=== PATIENT | male | born 1945 | race Caucasian/White ===

== ENCOUNTER 2016-09-25 09:48 | Day surgery (SDC) | payer MEDICARE ==
[2016-09-21 10:25] VITALS: BMI 25.0
[~2016-09-25 09:48] MED LIST: LACTATED RINGERS 1,000 ML IV SCH; SODIUM CHLORIDE 0.9% 1,000 ML IV SCH
[2016-09-25 10:25] LABS: Basophils % (A) 1 %; CH 31.6; CHCM 32.4; Eosinophils # (A) 0.3 k/uL (0-0.7); Eosinophils % (A) 4 %; HCT 36.7 % (39.0-53.0); HDW 2.36; HGB 11.7 gm/dL (13.0-17.5); Luc # (Auto) 0.21; Luc % (Auto) 3; Lymphocytes # (A) 1.2 k/uL (1.0-4.8); Lymphocytes % (A) 14 %; MCH 31.2 pg (25.0-35.0); MCHC 31.9 g/dL (31.0-37.0); MCV 97.8 fL (80.0-100.0); Mean Platelet Volume 7.4; Monocytes # (A) 0.7 k/uL (0-1.0); Monocytes % (A) 9 %; Neutrophils % (A) 71 %; RBC 3.75 m/uL (4.30-5.90); RDW 13.5 % (11.5-15.5); WBC 8.4 k/uL (3.8-10.6); WBC (Perox) 8.96
[2016-09-25] MEDS ORDERED: ceFAZolin 2 GM in SODIUM CHLORIDE 0.9% 100 ML IVPB STA (10:35)
[2016-09-25 10:41] LABS: Anion Gap 7 mmol/L; Blood Urea Nitrogen 17 mg/dL (9-20); Calcium 8.4 mg/dL (8.4-10.2); Carbon Dioxide 32 mmol/L (22-30); Chloride 103 mmol/L (98-107); Glucose 88 mg/dL (74-99); Non-African American GFR(MDRD) >60 (>60 ml/min/1.73 sqM); Potassium 4.9 mmol/L (3.5-5.1); Sodium 142 mmol/L (137-145)
[2016-09-25] MEDS ORDERED: FUROSEMIDE 10 MG/ML 2 ML VIAL ONE (10:49)
[2016-09-25] MEDS ORDERED: ePHEDrine 50 MG/ML 1 ML AMP ONE (10:49)
[2016-09-25] MEDS ORDERED: LIDOCAINE 1% INJ 10MG/ML (20 ML MDV) ONE (10:49)
[2016-09-25] MEDS ORDERED: MIDAZOLAM 2 MG/2 ML VIAL ONE (10:49)
[2016-09-25] MEDS ORDERED: ROCURONIUM BROMIDE 10 MG/ML 10 ML VIAL IV ONE (10:49)
[2016-09-25] MEDS ORDERED: PHENYLEPHRINE-0.9% NACL SYG 1 MG/10 ML SYRINGE ONE (10:49)
[2016-09-25] MEDS ORDERED: HEPARIN SODIUM 1,000 UNIT/ML VIAL ONE (10:49)
[2016-09-25] MEDS ORDERED: SUCCINYLCHOLINE CHLORIDE 100 MG/5 ML SYR IV ONE (10:49)
[2016-09-25] MEDS ORDERED: PROPOFOL 10 MG/ML 20 ML VIAL IV ONE (10:49)
[2016-09-25] MEDS ORDERED: fentaNYL (PF) 50 MCG/ML 2 ML AMP ONE (10:49)
[2016-09-25] MEDS ORDERED: GLYCOPYRROLATE 0.2 MG/ML 2 ML VIAL ONE (10:49)
[2016-09-25] MEDS ORDERED: HEPARIN SODIUM,PORCINE 5,000 UNIT/ML 1 ML VIAL ONE (10:49)
[2016-09-25] MEDS ORDERED: WATER FOR INJECTION, STERILE 10 ML VIAL IV ONE (10:49)
[2016-09-25] MEDS ORDERED: NEOSTIGMINE 1 MG/ML 10 ML VIAL ONE (10:49)
--- NOTE | 2016-09-25 11:28 | P.PCN ---
Preoperative Diagnosis: ICD interrogation with reprogramming. This is a preprocedure ICD interrogation with reprogramming prior to EP study The [employer] ICD was interrogated. No new arrhythmias. Atrial pacing impedance 560 ohms. RV pacing impedance 1082 ohms. Shocking impedance 84 ohms ICD was reprogrammed to VVI 40 bpm and ICD therapies turned off
[2016-09-25] MEDS ORDERED: LIDOCAINE 2% INJ 20 MG/ML SQ ONE (11:34)
[2016-09-25] MEDS ORDERED: HEPARIN SODIUM (1,000 UNIT/ML) 1,000 UNIT in SODIUM CHLORIDE 0.9% 1,000 ML IRRIGATION ONE ×3 (11:40→16:49)
[2016-09-25] MEDS ORDERED: HEPARIN SODIUM,PORCINE/D5W PMX 25,000 UNIT in DEXTROSE/WATER 1 500ML.BAG IV ONE (11:41)
[2016-09-25] MEDS ORDERED: LACTATED RINGERS 1,000 ML IV ONE (15:00)
[2016-09-25] MEDS ORDERED: PROTAMINE SULFATE 10 MG/ML 5 ML VIAL IV ONE (17:18)
[2016-09-25] MEDS ORDERED: HYDROcodone/APAP 5-325MG 1 EACH TAB PO PRN (17:23)
[2016-09-25] MEDS ORDERED: ACETAMINOPHEN TAB 325 MG TAB PO PRN (17:23)
[2016-09-25] MEDS: ACETAMINOPHEN IV (For NPO) 1,000 MG in EMPTY BAG 1 BAG IVPB ONE ×2 (17:30→17:55)
--- NOTE | 2016-09-25 17:43 | P.PCN ---
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 Successful ablation for monomorphic VT Successful mitral annulus line in the ventricle from the scar to the mitral is Thereafter diagnostic EP study did not induce any monomorphic VT Catheter manipulations prior to ablation induce clinical ventricular tachycardia very easily Following ablation catheter manipulation did not induced any clinical VT With aggressive protocol ventricular fibrillation was induced Postprocedure ICD interrogation with reprogramming Atrial pacing impedance 564 ohms, stable Ventricular pacing impedance 1087, stable Shocking impedance 74 ohms, stable Antitachycardia pacing scheme reprogrammed Base pacing VVI 40 bpm All therapies turned on Plan Continue heart failure medications and reduce amiodarone to 200 mg once daily
[2016-09-25] MEDS ORDERED: WARFARIN 2.5 MG TAB PO SCH (18:00)
--- NOTE | 2016-09-25 18:52 | PCN ---
DATE OF PROCEDURE: Mr. Prater is a 71-year-old male patient who has recurrent drug-refractory and sndkwpwyddbcziy-pkclxh-ukkmnibuaj VT with presyncope. He is brought in for VT ablation. The procedure was performed under general anesthesia. The ICD interrogation and reprogramming before the procedure as well as after the procedure were completed and are dictated separately. Intravenous antibiotics were administered. Venous and arterial sheaths were placed in the femoral veins. Diagnostic catheters were placed. Intracardiac echo catheter was placed. Mapping catheter, including the PentaRay catheter and later the mapping and ablation catheter, was placed. Sinus cycle length was 1029 ms, OH interval 176 ms, QRS 144 ms, QT 425 ms. The AH interval was 90 ms, HV interval was 44 ms. Sinus node recovery times at 500 ms was 1370 ms, AV node Wenckebach block 400 ms. Intracardiac echocardiography was performed and 3-D anatomic mapping of the left ventricle was performed. The scar was mapped. This was a large inferolateral scar extending up to the apex. The overall LV function was about 45%. At the border zone, especially septally, one could see mid-myocardial scarring. The mitral annulus was tagged. The aortic root was tagged. The papillary muscles were tagged. A PentaRay catheter was placed in the left ventricle and scar mapping was performed (voltage mapping); however, the with the slightest catheter movement the patient would repeatedly go into clinical monomorphic VT and required multiple external shocks because antitachycardia pacing would not terminate his monomorphic VT. Finally a voltage map was made and the scar was defined. This scar had 3 predominant components, one in the apex, one in the mid, and mid to base. Following that, mapping and ablation irrigated-tip catheter, contact force, was placed in the LV and mapping was performed on the entire scar and the left ventricle. Scar homogenization was performed and the 3 areas were connected. Both the lateral aspect and the inferior aspect of the inferior edge of the scar were ablated. RF ablation was also passed along the mid portion of the scar. Finally the scar was then connected to the mitral annulus. This was a long procedure. This was a fairly large scar. Good contact force and good power was used. The procedure lasted for over 6 hours. Following this, ventricular extrastimulation was performed from the left ventricle and the ventricular ERPs were 600/260/210 ms. Then ventricular extrastimulation was performed from the RV and monomorphic VT could not be induced; however, at 500/230/230 ms, ventricular fibrillation was induced and he required an external shock to defibrillate him. Following that, all catheters were removed. AngioSeal was applied in the right femoral artery successfully. Heparin was reversed. During the procedure, the patient received a total of 80 mg of IV Lasix. He tolerated the procedure well without any acute complications, and at the end of the procedure after extubation he was alert and awake, asking questions, and he was completely responsive. No motor abnormalities. RESULT: 1. Successful ablation of clinical monomorphic VT. 2. Ablation of the mitral annulus. 3. Scar homogenization of the inferolateral scar. PLAN: Reduce amiodarone to 200 mg p.o. daily. Patient appears to be on lisinopril and losartan. I will stop lisinopril and continue losartan. He will continue all other medications, including antiplatelet agents. I will also start him on Coumadin 2.5 mg p.o. daily for 3 weeks and then stop it, since this was an extensive ablation.
--- NOTE | 2016-09-25 18:55 | DS ---
DATE OF ADMISSION: 09/25/2016 DATE OF DISCHARGE: Mr. Prater is a 71-year-old male patient who underwent successful ablation for monomorphic VT, and his clinical VTs were rendered non-inducible. Since this was an extensive VT ablation with scar homogenization followed by mitral annulus line, we will treat him with Coumadin 2.5 mg p.o. daily for at least 3 weeks and then stop it thereafter. We will also reduce the dose of amiodarone to 200 mg once daily. We could only induce ventricular fibrillation at the end of the procedure with an aggressive protocol. His clinical monomorphic ventricular tachycardias could not be re-induced. He will continue all his other cardiac medications as before.
--- NOTE | 2016-09-25 18:58 | LTR ---
September 25, 2016 RE: William Prater Dear Dr. Gonzáles, As you know, Mr. William Prater has sustained monomorphic ventricular tachycardia with multiple ICD shocks. He was refractory to amiodarone as well as to antitachycardia pacing. I brought him in for VT ablation. The VT ablation went well. He had a large inferolateral scar, and successful ablation of the monomorphic ventricular tachycardia was performed. This was rendered completely non-inducible. However, with a very aggressive protocol we still can induce ventricular fibrillation, and this is probably most likely because he has a deep myocardial scar which is quite evident on intracardiac echo. But his overall LV function is actually quite reasonable, in the range of about 45%. I am making the following changes in his medications: 1. Short-term anticoagulation with Coumadin, since this was an extensive ablation in the left ventricle. Coumadin may be stopped in 3 to 4 weeks. He will continue on aspirin. 2. The dose of amiodarone will be reduced to 200 mg p.o. daily, and after 3 months the dose should be reduced to 100 mg p.o. daily. Thank you for entrusting me with the care of your patient. If you have any questions, please do not hesitate to give me a call. Sincerely, RAEANN SCHAEFER MD
[2016-09-25] MEDS: CARVEDILOL 12.5 MG TAB PO SCH (20:37)
[2016-09-25] MEDS: HYDROCORTISONE 1% CREAM 30 GM TUBE TOPICAL SCH (20:38)
[2016-09-25] MEDS ORDERED: LOSARTAN 25 MG TAB PO SCH (21:00)
[2016-09-26] MEDS: CARVEDILOL 12.5 MG TAB PO SCH (06:11)
[2016-09-26 06:55] LABS: Basophils % (A) 0 %; CH 31.3; CHCM 32.4; Eosinophils # (A) 0.1 k/uL (0-0.7); Eosinophils % (A) 2 %; HCT 31.4 % (39.0-53.0); HGB 10.3 gm/dL (13.0-17.5); Luc # (Auto) 0.19; Luc % (Auto) 2; Lymphocytes # (A) 0.8 k/uL (1.0-4.8); Lymphocytes % (A) 10 %; MCH 31.7 pg (25.0-35.0); MCHC 32.7 g/dL (31.0-37.0); MCV 97.1 fL (80.0-100.0); Mean Platelet Volume 6.8; Monocytes # (A) 0.7 k/uL (0-1.0); Monocytes % (A) 8 %; Neutrophils # (A) 6.1 k/uL (1.3-7.7); Neutrophils % (A) 77 %; RBC 3.23 m/uL (4.30-5.90); RDW 13.4 % (11.5-15.5); WBC 7.9 k/uL (3.8-10.6)
[2016-09-26 07:08] LABS: Anion Gap 7 mmol/L; Blood Urea Nitrogen 16 mg/dL (9-20); Carbon Dioxide 30 mmol/L (22-30); Chloride 101 mmol/L (98-107); Glucose 104 mg/dL (74-99); Non-African American GFR(MDRD) >60 (>60 ml/min/1.73 sqM); Potassium 3.9 mmol/L (3.5-5.1); Sodium 138 mmol/L (137-145)
[2016-09-26] MEDS ORDERED: PANTOPRAZOLE 40 MG TABLET PO SCH (07:30)
[2016-09-26] MEDS ORDERED: APIXABAN 5 MG TAB PO SCH (09:00)
[2016-09-26] MEDS ORDERED: ATORVASTATIN 40 MG TAB PO SCH (09:00)
[2016-09-26] MEDS ORDERED: ASPIRIN 81 MG CHEW PO SCH (09:00)
[2016-09-26] MEDS ORDERED: FUROSEMIDE 40 MG TAB PO SCH (09:00)
[2016-09-26] MEDS ORDERED: SPIRONOLACTONE 25 MG TAB PO SCH (09:00)
[2016-09-26] MEDS: HYDROCORTISONE 1% CREAM 30 GM TUBE TOPICAL SCH (09:55)
[2016-09-26 12:16] VITALS: RESP 18
--- NOTE | 2016-09-26 14:54 | P.DS ---
Providers Attending physician: Korey Manzo Primary care physician: [facility] Course: Patient is doing well today. I saw him early in the morning and then later in the afternoon. His groins have healed up well. No hematoma. He is ambulating in the hallways. No chest discomfort or undue shortness of breath. He is also able to lie flat in bed without any problems. 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 It'll be difficult for the patient to monitor Coumadin rate I would treat him with ELIQUIS 5 mg twice daily for one month only. In the interim he will still continue baby aspirin The dose of amiodarone is being reduced to 200 mg by mouth daily He will stop lisinopril but continue losartan. 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 Patient Condition at Discharge: Stable Plan - Discharge Summary Discharge Medication List Atorvastatin [Lipitor] 40 mg PO DAILY 06/05/16 [History] Omeprazole [PriLOSEC] 20 mg PO DAILY 06/05/16 [History] Docusate [Colace] 100 mg PO DAILY 06/07/16 [History] Aspirin 81 mg PO DAILY #1 chewable 06/09/16 [Rx] Furosemide [Lasix] 40 mg PO DAILY 07/20/16 [History] Spironolactone [Aldactone] 25 mg PO DAILY #30 tab 07/25/16 [Rx] Ascorbic Acid [Vitamin C] 500 mg PO DAILY 08/14/16 [History] Carvedilol [Coreg*] 12.5 mg PO BID 08/14/16 [History] Ipratropium-Albuterol Nebulize [Duoneb 0.5 mg-3 mg/3 ml Soln] 3 ml INHALATION TID 08/14/16 [History] Amiodarone [Cordarone] 200 mg PO DAILY #90 09/25/16 [Rx] Losartan Potassium [Cozaar] 25 mg PO BID 09/25/16 [History] Activity/Diet/Wound Care/Special Instructions: Post EP study - Ablation instructions 1. Keep access sites dry for 2 days. 2. No heavy lifting or straining for 2 days. 3. Avoid bending the hips repeatedly for 2 days. 4. You may go up and down stairs slowly Call if the following is noted 1. Bleeding, increasing swelling or pain at the access sites. 2. Increasing chest discomfort, especially upon taking a deep breath. 3. Increasing shortness of breath, at rest or with exertion. 4. Undue cough / phlegm 5. Difficulty or pain while swallowing. 6. Pain or change in color in the extremities. 7. Fever, chills, rigors. 8. Increasing headache or neurologic symptoms. 9. Dizziness, fainting, palpitations Follow-up with Dr. Wooten in 1 week Follow-up in the device clinic in 4 months
[2016-09-26 15:32] VITALS: BP 108/69; PULSE 76; TEMP 97
== END 2016-09-26 17:37 | disposition home or self-care (01) ==
LOC: CATHEP 09:48 → 6SEL 17:06 → CATHEP 09-26 17:37
PROVIDERS: ATTEND Internal Medicine Clinical Cardiac Electrophysiology
DX: I47.2 Ventricular tachycardia (principal); I25.10 Atherosclerotic heart disease of native coronary artery without angina pectoris; I10 Essential (primary) hypertension; I25.5 Ischemic cardiomyopathy; I50.9 Heart failure, unspecified; Z82.49 Family history of ischemic heart disease and other diseases of the circulatory system; I25.2 Old myocardial infarction; Z45.02 Encounter for adjustment and management of automatic implantable cardiac defibrillator; Z95.1 Presence of aortocoronary bypass graft; F17.210 Nicotine dependence, cigarettes, uncomplicated; Z79.82 Long term (current) use of aspirin; Z79.899 Other long term (current) drug therapy
CPT/HCPCS: 85347; 93662; 93654; 80048 ×2; 85025 ×2; C1894 ×2; C1769 ×4; C1730; C1760; C1731; C1893; C1759; C1732; J2001 ×2; J2250; J1644 ×3; J1940; J2710; J0690; J3010; J0131; J2370; J0330; J2704

== ENCOUNTER 2020-01-25 13:50 | Inpatient (IN) | payer MEDICARE ==
[2020-01-25] MEDS ORDERED: FUROSEMIDE 10 MG/ML 4 ML VIAL IV STA (14:34)
[2020-01-25 14:50] LABS: VBG PH 7.46 (7.31-7.41)
[2020-01-25 14:51] LABS: Basophils % (A) 0 %; Eosinophils # (A) 0.1 k/uL (0-0.7); Eosinophils % (A) 1 %; HCT 41.3 % (39.0-53.0); HGB 12.4 gm/dL (13.0-17.5); Hypochromasia Slight; Lymphocytes # (A) 0.7 k/uL (1.0-4.8); Lymphocytes % (A) 6 %; MCH 31.7 pg (25.0-35.0); MCHC 30.1 g/dL (31.0-37.0); Macrocytosis Moderate; Mean Platelet Volume 8.5; Monocytes # (A) 0.7 k/uL (0-1.0); Monocytes % (A) 6 %; Neutrophils # (A) 9.2 k/uL (1.3-7.7); Neutrophils % (A) 84 %; Platelet Count 165 k/uL (150-450); RBC 3.93 m/uL (4.30-5.90); RDW 13.9 % (11.5-15.5); WBC 10.9 k/uL (3.8-10.6)
--- NOTE | 2020-01-25 14:51 | XR ---
EXAMINATION TYPE: XR chest 1V portable DATE OF EXAM: 01/25/2020 COMPARISON: 07/20/2016 HISTORY: Chest pain TECHNIQUE: Single view FINDINGS: Heart is enlarged. There is pulmonary vascular congestion. There is a left axillary pacemak er. There are sternal wires. There is mild blunting of the costophrenic angles. There is significant pleural thickening on the left side chest wall. IMPRESSION: Congestive heart failure with pleural effusions and pulmonary interstitial edema that is worse than last exam.
[2020-01-25 14:57] LABS: INR 1.1 (<1.2); Partial Thromboplastin Time 24.4 sec (22.0-30.0)
[2020-01-25 14:59] LABS: ALT 19 U/L (4-49); AST 24 U/L (17-59); African American GFR (CKD) >90 (>60 ml/min/1.73 sqM); Albumin 3.6 g/dL (3.5-5.0); Alkaline Phosphatase 115 U/L (38-126); Blood Urea Nitrogen 27 mg/dL (9-20); Calcium 8.7 mg/dL (8.4-10.2); Chloride 89 mmol/L (98-107); Glucose 174 mg/dL (74-99); Magnesium 1.9 mg/dL (1.6-2.3); Non-African American GFR(CKD) 85 (>60 ml/min/1.73 sqM); Potassium 4.3 mmol/L (3.5-5.1); Sodium 136 mmol/L (137-145); Total Protein 7.9 g/dL (6.3-8.2)
[2020-01-25 15:06] LABS: Anion Gap 8 mmol/L; Carbon Dioxide 39 mmol/L (22-30)
--- NOTE | 2020-01-25 15:20 | ED ---
SOB HPI - General Source: patient, RN notes reviewed Mode of arrival: wheelchair Limitations: no limitations <Daniel Martinez - Last Filed: 01/25/20 15:21> <Estevan Zuñiga - Last Filed: 01/25/20 16:34> - General Chief Complaint: Shortness of Breath Stated Complaint: SOB Time Seen by Provider: 01/25/20 14:07 - History of Present Illness Initial Comments: 75-year-old male presents emergency Department chief complaint of dyspnea. Patient states her last few days she's had increased dyspnea. Patient states that he is very weak. Patient states his cough is nonproductive. Patient states she does have history of CHF. Patient states she's had increasing swelling. Patient states he cannot lay flat. He said some exertional symptoms. Patient denies any headache or dizziness no blurred vision no focal weakness. Patient states his been sweating profusely. (Daniel Martinez) - Related Data Home Medications Medication Instructions Recorded Confirmed Atorvastatin [Lipitor] 40 mg PO DAILY 06/05/16 09/25/16 Omeprazole [PriLOSEC] 20 mg PO DAILY 06/05/16 09/25/16 Docusate [Colace] 100 mg PO DAILY 06/07/16 09/25/16 Furosemide [Lasix] 40 mg PO DAILY 07/20/16 09/25/16 Ascorbic Acid [Vitamin C] 500 mg PO DAILY 08/14/16 09/25/16 Carvedilol [Coreg*] 12.5 mg PO BID 08/14/16 09/25/16 Ipratropium-Albuterol Nebulize 3 ml INHALATION TID 08/14/16 09/25/16 [Duoneb 0.5 mg-3 mg/3 ml Soln] Losartan Potassium [Cozaar] 25 mg PO BID 09/25/16 09/25/16 Previous Rx's Medication Instructions Recorded Aspirin 81 mg PO DAILY #1 chewable 06/09/16 Spironolactone [Aldactone] 25 mg PO DAILY #30 tab 07/25/16 Amiodarone [Cordarone] 200 mg PO DAILY #90 09/25/16 Apixaban [Eliquis] 5 mg PO BID #60 tablet 09/26/16 Allergies Allergy/AdvReac Type Severity Reaction Status Date / Time No Known Allergies Allergy Verified 01/25/20 13:56 Review of Systems ROS Other: All systems not noted in ROS Statement are negative. <DanielleDaniel lucio - Last Filed: 01/25/20 15:21> ROS Other: All systems not noted in ROS Statement are negative. <Estevan Zuñiga - Last Filed: 01/25/20 16:34> ROS Statement: Those systems with pertinent positive or pertinent negative responses have been documented in the HPI. Past Medical History Past Medical History: Atrial Fibrillation, GERD/Reflux, Myocardial Infarction (AL), Syncope Additional Past Medical History / Comment(s): home O2 2L at hs & prn. , See Dr Anais Marino, constipation, Last Myocardial Infarction Date:: 2011? History of Any Multi-Drug Resistant Organisms: None Reported Past Surgical History: AICD, Coronary Bypass/CABG, Ear Surgery, Heart Catheterization With Stent, Pacemaker Additional Past Surgical History / Comment(s): nasal surgery, left carotid endartectomy, triple bypass Past Anesthesia/Blood Transfusion Reactions: No Reported Reaction Date of Last Stent Placement:: unknown Type of Cardiac Device: Permanent Pacemaker, AICD Device Placement Date:: 2011? Past Psychological History: No Psychological Hx Reported Smoking Status: Current every day smoker Past Alcohol Use History: None Reported Past Drug Use History: None Reported - Past Family History Mother History Unknown: Yes Family Medical History: Cancer Additional Family Medical History / Comment(s): stomach cancer Father Family Medical History: Cancer <Daniel Martinez - Last Filed: 01/25/20 15:21> General Exam Limitations: no limitations General appearance: alert, in no apparent distress, other (Diaphoretic) Head exam: Present: atraumatic, normocephalic, normal inspection Eye exam: Present: normal appearance, PERRL, EOMI. Absent: scleral icterus, conjunctival injection, periorbital swelling ENT exam: Present: normal exam, mucous membranes moist Neck exam: Present: normal inspection, full ROM. Absent: tenderness, meningismus, lymphadenopathy Respiratory exam: Present: respiratory distress, rales, decreased breath sounds. Absent: normal lung sounds bilaterally, wheezes, rhonchi, stridor Cardiovascular Exam: Present: regular rate, normal rhythm, normal heart sounds. Absent: systolic murmur, diastolic murmur, rubs, gallop, clicks Extremities exam: Present: pedal edema Skin exam: Present: warm, dry, intact, normal color. Absent: rash <Daniel Martinez - Last Filed: 01/25/20 15:21> Course <Estevan Zuñiga - Last Filed: 01/25/20 16:34> Vital Signs 01/25/20 01/25/20 01/25/20 13:51 13:55 14:00 Temperature 97.8 F Pulse Rate 60 Respiratory 20 Rate Blood Pressure 127/72 O2 Sat by Pulse 66 L 98 97 Oximetry 01/25/20 16:04 Temperature Pulse Rate 62 Respiratory 18 Rate Blood Pressure 129/71 O2 Sat by Pulse 93 L Oximetry - Reevaluation(s) Reevaluation #1: 01/25/20 15:45 PA supervision: I personally evaluate the patient patient still complains of shortness of breath he does present with complaints of shortness of breath does demonstrate rales with pedal edema. The presentation is consistent with congestive heart failure. X-ray does confirm this the [employer] AGENT is elevated. Case is discussed with Dr. Barton the patient will be admitted 01/25/20 16:34 (Estevan Zuñiga) Medical Decision Making - Lab Data Result diagrams: 01/25/20 14:15 01/25/20 14:15 - EKG Data -: EKG Interpreted by La <Daniel Martinez - Last Filed: 01/25/20 15:21> - Lab Data Result diagrams: 01/25/20 14:15 01/25/20 14:15 <Estevan Zuñiga - Last Filed: 01/25/20 16:34> - Medical Decision Making 75-year-old male presented for dyspnea. X-ray shows evidence of pleural effusion, interstitial edema. Patient was given Lasix does have some improvem ent of symptoms. Patient will be admitted for diuresis, cardiology evaluation. (Daniel Martinez) - Lab Data Lab Results 01/25/20 01/25/20 01/25/20 Range/Units 14:15 14:15 14:15 WBC 10.9 H (3.8-10.6) k/uL RBC 3.93 L (4.30-5.90) m/uL Hgb 12.4 L (13.0-17.5) gm/dL Hct 41.3 (39.0-53.0) % MCV 105.0 H (80.0-100.0) fL MCH 31.7 (25.0-35.0) pg MCHC 30.1 L (31.0-37.0) g/dL RDW 13.9 (11.5-15.5) % Plt Count 165 (150-450) k/uL Neutrophils % 84 % Lymphocytes % 6 % Monocytes % 6 % Eosinophils % 1 % Basophils % 0 % Neutrophils # 9.2 H (1.3-7.7) k/uL Lymphocytes # 0.7 L (1.0-4.8) k/uL Monocytes # 0.7 (0-1.0) k/uL Eosinophils # 0.1 (0-0.7) k/uL Basophils # 0.0 (0-0.2) k/uL Hypochromasia Slight Macrocytosis Moderate PT 11.0 (9.0-12.0) sec INR 1.1 (<1.2) APTT 24.4 (22.0-30.0) sec VBG pH (7.31-7.41) VBG pCO2 (37-51) mmHg VBG HCO3 (24-28) mmol/L Sodium 136 L (137-145) mmol/L Potassium 4.3 (3.5-5.1) mmol/L Chloride 89 L (98-107) mmol/L Carbon Dioxide 39 H (22-30) mmol/L Anion Gap 8 mmol/L BUN 27 H (9-20) mg/dL Creatinine 0.88 (0.66-1.25) mg/dL Est GFR (CKD-EPI)AfAm >90 (>60 ml/min/1.73 sqM) Est GFR (CKD-EPI)NonAf 85 (>60 ml/min/1.73 sqM) Glucose 174 H (74-99) mg/dL Plasma Lactic Acid Stalin (0.7-2.0) mmol/L Calcium 8.7 (8.4-10.2) mg/dL Magnesium 1.9 (1.6-2.3) mg/dL Total Bilirubin 1.0 (0.2-1.3) mg/dL AST 24 (17-59) U/L ALT 19 (4-49) U/L Alkaline Phosphatase 115 (38-126) U/L Troponin I (0.000-0.034) ng/mL NT-Pro-B Natriuret Pep pg/mL Total Protein 7.9 (6.3-8.2) g/dL Albumin 3.6 (3.5-5.0) g/dL 01/25/20 01/25/20 01/25/20 Range/Units 14:15 14:15 14:15 WBC (3.8-10.6) k/uL RBC (4.30-5.90) m/uL Hgb (13.0-17.5) gm/dL Hct (39.0-53.0) % MCV (80.0-100.0) fL MCH (25.0-35.0) pg MCHC (31.0-37.0) g/dL RDW (11.5-15.5) % Plt Count (150-450) k/uL Neutrophils % % Lymphocytes % % Monocytes % % Eosinophils % % Basophils % % Neutrophils # (1.3-7.7) k/uL Lymphocytes # (1.0-4.8) k/uL Monocytes # (0-1.0) k/uL Eosinophils # (0-0.7) k/uL Basophils # (0-0.2) k/uL Hypochromasia Macrocytosis PT (9.0-12.0) sec INR (<1.2) APTT (22.0-30.0) sec VBG pH (7.31-7.41) VBG pCO2 (37-51) mmHg VBG HCO3 (24-28) mmol/L Sodium (137-145) mmol/L Potassium (3.5-5.1) mmol/L Chloride (98-107) mmol/L Carbon Dioxide (22-30) mmol/L Anion Gap mmol/L BUN (9-20) mg/dL Creatinine (0.66-1.25) mg/dL Est GFR (CKD-EPI)AfAm (>60 ml/min/1.73 sqM) Est GFR (CKD-EPI)NonAf (>60 ml/min/1.73 sqM) Glucose (74-99) mg/dL Plasma Lactic Acid Stalin 1.4 (0.7-2.0) mmol/L Calcium (8.4-10.2) mg/dL Magnesium (1.6-2.3) mg/dL Total Bilirubin (0.2-1.3) mg/dL AST (17-59) U/L ALT (4-49) U/L Alkaline Phosphatase (38-126) U/L Troponin I <0.012 (0.000-0.034) ng/mL NT-Pro-B Natriuret Pep 1530 pg/mL Total Protein (6.3-8.2) g/dL Albumin (3.5-5.0) g/dL 01/25/20 Range/Units 14:15 WBC (3.8-10.6) k/uL RBC (4.30-5.90) m/uL Hgb (13.0-17.5) gm/dL Hct (39.0-53.0) % MCV (80.0-100.0) fL MCH (25.0-35.0) pg MCHC (31.0-37.0) g/dL RDW (11.5-15.5) % Plt Count (150-450) k/uL Neutrophils % % Lymphocytes % % Monocytes % % Eosinophils % % Basophils % % Neutrophils # (1.3-7.7) k/uL Lymphocytes # (1.0-4.8) k/uL Monocytes # (0-1.0) k/uL Eosinophils # (0-0.7) k/uL Basophils # (0-0.2) k/uL Hypochromasia Macrocytosis PT (9.0-12.0) sec INR (<1.2) APTT (22.0-30.0) sec VBG pH 7.46 H (7.31-7.41) VBG pCO2 54 H (37-51) mmHg VBG HCO3 38 H (24-28) mmol/L Sodium (137-145) mmol/L Potassium (3.5-5.1) mmol/L Chloride (98-107) mmol/L Carbon Dioxide (22-30) mmol/L Anion Gap mmol/L BUN (9-20) mg/dL Creatinine (0.66-1.25) mg/dL Est GFR (CKD-EPI)AfAm (>60 ml/min/1.73 sqM) Est GFR (CKD-EPI)NonAf (>60 ml/min/1.73 sqM) Glucose (74-99) mg/dL Plasma Lactic Acid Stalin (0.7-2.0) mmol/L Calcium (8.4-10.2) mg/dL Magnesium (1.6-2.3) mg/dL Total Bilirubin (0.2-1.3) mg/dL AST (17-59) U/L ALT (4-49) U/L Alkaline Phosphatase (38-126) U/L Troponin I (0.000-0.034) ng/mL NT-Pro-B Natriuret Pep pg/mL Total Protein (6.3-8.2) g/dL Albumin (3.5-5.0) g/dL - EKG Data EKG Comments: EKG performed at 14: 04H show paced rhythm with prolonged AV conduction, rate of 68 [place] 240 QRS 122 QT/QTC 442/442 (Daniel Martinez) Disposition <Daniel Martinez - Last Filed: 01/25/20 15:21> <Estevan Zuñiga - Last Filed: 01/25/20 16:34> Clinical Impression: Acute exacerbation of CHF (congestive heart failure), Dyspnea, Hypoxia Disposition: ADMITTED IP TO THIS HOSP Condition: Serious
[2020-01-25] MEDS ORDERED: ASPIRIN 325 MG TAB PO STA (15:23)
[2020-01-25] MEDS ORDERED: IPRATROPIUM-ALBUTEROL 3 ML NEB INHALATION SCH (20:07)
[2020-01-25] MEDS ORDERED: BUDESONIDE 1 MG/2 ML NEBU INHALATION SCH (20:07)
--- NOTE | 2020-01-25 20:07 | P.HPIM ---
History of Present Illness H&P Date: 01/25/20 Chief Complaint: Short of breath History of presenting complaint: This is a 75-year-old patient of Dr. Gonzáles. Long-standing smoker. Chronic stable medical conditions include atrial fibrillation, AICD, coronary artery disease with prior bypass, on home oxygen, GERD, COPD. Last ejection fraction is 40-45%. She presents with worsening short of breath for about a week at [facility]. It has been progressively getting worse. Some edema. Weak and tired slight cough is present. Increasing swelling of lower extremity. Orthopnea. No fever no chills. Tired and rundown. Slow with given history. Review of systems: GEN.: Tired EYES: None HEENT: None NECK: None RESPIRATORY: As above CARDIOVASCULAR: Edema GASTROINTESTINAL: None GENITOURINARY: None MUSCULOSKELETAL: Some joint pains LYMPHATICS: None HEMATOLOGICAL: None PSYCHIATRY: None NEUROLOGICAL: Uses a cane Past medical history to include: Atrial fibrillation, GERD, coronary artery disease and bypass, home oxygen, AICD, CHF EF 40%, COPD Social history: Smoking a pack a day for over 35 years, uses a cane. Lives with 2 friends. Physical examination: VITAL SIGNS: 97.8, 60, 20, 12 7/72, 66% on room air GENERAL: BMI 27.1, laying in bed, tired short of breath]. EYES: Pupils equal. Conjunctiva normal. HEENT: External appearance of nose and ears normal, oral cavity grossly normal. NECK: JVD unable to assess; masses not palpable. HEART: Heart sounds irregular, edema present. LUNGS: Respiratory rate increased, and he was speaking full sentences, prolonged expiration, diminished breath sounds. ABDOMEN: Soft, nontender, liver spleen not palpable, no masses palpable. PSYCH: Tired, able to answer some questionsl. MUSCULAR skeletal: Evidence of OA NEUROLOGICAL: Cranial nerves grossly intact; no facial asymmetry, power and sensation grossly intact. LYMPHATICS: No lymph nodes palpable in the axilla and neck INVESTIGATIONS, reviewed in the clinical context: White count 10.9 hemoglobin 12.4 platelets 165 neutrophils 9.2 lymphocytes 0.7 potassium 4.3 bun 27 creatinine 0.88, proBNP 1530 EKG tracing personally reviewed by me-atrial flutter rate controlled Chest x-ray film personally reviewed by me-pulmonary edema, cardiomegaly, portable film Assessment: -Acute on chronic congestive heart failure exacerbation from systolic dysfunction EF 40-45% from underlying coronary artery disease, POA -Coronary artery disease a prior history of bypass -Acute COPD exacerbation and an current smoker, POA -Chronic nicotine dependence patient cigarette smoker -Persistent atrial fibrillation -Chronic hypoxic respiratory failure from a lying COPD -Acute hypoxic respiratory failure from COPD and CHF, POA Plan: Start the patient on IV Lasix 40 mg every 8. Home medications resumed. Order 2-D echocardiogram. And IV Solu-Medrol, bronchodilator, inhaled steroids. Home medications resumed. Nicotine patch. Oxygen supplementation. Cartilages consulted. Past Medical History Past Medical History: Atrial Fibrillation, GERD/Reflux, Myocardial Infarction (RI), Syncope Additional Past Medical History / Comment(s): home O2 2L at hs & prn. , See Dr Anais Yates & Anjelica, constipation, Last Myocardial Infarction Date:: 2011? History of Any Multi-Drug Resistant Organisms: None Reported Past Surgical History: AICD, Coronary Bypass/CABG, Ear Surgery, Heart Catheterization With Stent, Pacemaker Additional Past Surgical History / Comment(s): nasal surgery, left carotid endartectomy, triple bypass Past Anesthesia/Blood Transfusion Reactions: No Reported Reaction Date of Last Stent Placement:: unknown Type of Cardiac Device: Permanent Pacemaker, AICD Device Placement Date:: 2011? Past Psychological History: No Psychological Hx Reported Smoking Status: Current every day smoker Past Alcohol Use History: None Reported Additional Past Alcohol Use History / Comment(s): smokes 1ppd for past 30+ years,. Currently smoking < 1/2 PPD currently Past Drug Use History: None Reported - Past Family History Mother History Unknown: Yes Family Medical History: Cancer Additional Family Medical History / Comment(s): stomach cancer Father Family Medical History: Cancer Medications and Allergies Home Medications Medication Instructions Recorded Confirmed Type Omeprazole [PriLOSEC] 20 mg PO DAILY 06/05/16 01/25/20 History Aspirin 81 mg PO DAILY #1 chewable 06/09/16 01/25/20 Rx Furosemide [Lasix] 40 mg PO DAILY 07/20/16 01/25/20 History Spironolactone [Aldactone] 25 mg PO DAILY #30 tab 07/25/16 01/25/20 Rx Carvedilol [Coreg*] 12.5 mg PO BID 12/05/16 05/17/20 History Amiodarone [Cordarone] 200 mg PO DAILY #90 09/25/16 01/25/20 Rx Atorvastatin [Lipitor] 80 mg PO DAILY 01/25/20 01/25/20 History Allergies Allergy/AdvReac Type Severity Reaction Status Date / Time No Known Allergies Allergy Verified 01/25/20 17:30 Physical Exam Vitals: Vital Signs Temp Pulse Pulse Resp BP BP Pulse Ox 01/25/20 17:45 97.8 F 60 20 138/74 93 L 01/25/20 17:18 98.0 F 60 18 114/61 93 L 01/25/20 16:04 62 18 129/71 93 L 01/25/20 14:00 97 01/25/20 13:55 98 01/25/20 13:51 97.8 F 60 20 127/72 66 L Intake and Output 01/25/20 01/25/20 01/25/20 06:59 14:59 22:59 Output Total 300 Balance -300 Output: Urine 300 Other: Voiding Method Diaper Weight 73.482 kg 76.3 kg Results CBC & Chem 7: 01/25/20 14:15 01/25/20 14:15 Labs: Abnormal Lab Results - Last 24 Hours (Table) 01/25/20 01/25/20 01/25/20 Range/Units 14:15 14:15 14:15 WBC 10.9 H (3.8-10.6) k/uL RBC 3.93 L (4.30-5.90) m/uL Hgb 12.4 L (13.0-17.5) gm/dL MCV 105.0 H (80.0-100.0) fL MCHC 30.1 L (31.0-37.0) g/dL Neutrophils # 9.2 H (1.3-7.7) k/uL Lymphocytes # 0.7 L (1.0-4.8) k/uL VBG pH 7.46 H (7.31-7.41) VBG pCO2 54 H (37-51) mmHg VBG HCO3 38 H (24-28) mmol/L Sodium 136 L (137-145) mmol/L Chloride 89 L (98-107) mmol/L Carbon Dioxide 39 H (22-30) mmol/L BUN 27 H (9-20) mg/dL Glucose 174 H (74-99) mg/dL Thrombosis Risk Factor Assmnt - Choose All That Apply Each Factor Represents 1 point: Acute RI, Heart failure (<1month) Other Risk Factors: Yes Each Risk Factor Represents 2 Points: Age 61-74 years Thrombosis Risk Factor Assessment Total Risk Factor Score: 4 Thrombosis Risk Factor Assessment Level: Moderate Risk
[2020-01-25] MEDS ORDERED: ENOXAPARIN 40 MG/0.4 ML SYRINGE SQ SCH (20:15)
[2020-01-25] MEDS ORDERED: ALBUTEROL HFA INHALER INHALATION SCH (21:00)
[2020-01-25] MEDS ORDERED: FLUTICASONE 220 MCG INHALER INHALATION SCH (21:00)
[2020-01-25] MEDS: CARVEDILOL 12.5 MG TAB PO SCH (21:02)
[2020-01-25] MEDS: NICOTINE 21MG/24HR PATCH TRANSDERM SCH (21:03)
[2020-01-25 23:59] LABS: Glucose,Whole Blood 154 mg/dL (75-99)
[2020-01-26 00:04] LABS: Allen Test Performed? Yes
--- NOTE | 2020-01-26 00:23 | XR ---
EXAMINATION TYPE: XR chest 1V portable DATE OF EXAM: 01/26/2020 COMPARISON: 01/25/2020 HISTORY: Short of breath TECHNIQUE: FINDINGS: Heart is enlarged. There is pulmonary edema. There is left axillary pacemaker. There are st ernal wires. There is some blunting of the costophrenic angles. IMPRESSION: Congestive heart failure with pulmonary edema and pleural fluid not significantly differe nt than exam yesterday.
[2020-01-26] MEDS ORDERED: FUROSEMIDE 10 MG/ML 4 ML VIAL IV STA (00:26)
[2020-01-26 00:35] LABS: Basophils # (A) 0.1 k/uL (0-0.2); Basophils % (A) 1 %; Eosinophils # (A) 0.1 k/uL (0-0.7); Eosinophils % (A) 1 %; HCT 42.7 % (39.0-53.0); HGB 12.9 gm/dL (13.0-17.5); Hypochromasia Marked; Lymphocytes # (A) 0.6 k/uL (1.0-4.8); Lymphocytes % (A) 5 %; MCH 32.1 pg (25.0-35.0); MCHC 30.2 g/dL (31.0-37.0); MCV 106.5 fL (80.0-100.0); Macrocytosis Moderate; Mean Platelet Volume 8.5; Monocytes % (A) 8 %; Neutrophils # (A) 10.7 k/uL (1.3-7.7); Neutrophils % (A) 84 %; Platelet Count 205 k/uL (150-450); RBC 4.01 m/uL (4.30-5.90); RDW 13.7 % (11.5-15.5); WBC 12.7 k/uL (3.8-10.6)
[2020-01-26 00:36] LABS: INR 1.2 (<1.2); Prothrombin Time 11.9 sec (9.0-12.0)
[2020-01-26 00:59] LABS: African American GFR (CKD) >90 (>60 ml/min/1.73 sqM); Blood Urea Nitrogen 32 mg/dL (9-20); Calcium 8.8 mg/dL (8.4-10.2); Chloride 88 mmol/L (98-107); Glucose 154 mg/dL (74-99); Non-African American GFR(CKD) 85 (>60 ml/min/1.73 sqM); Sodium 137 mmol/L (137-145)
[2020-01-26 01:05] LABS: Anion Gap 8 mmol/L
[2020-01-26 01:16] LABS: ABG PO2 71 mmHg (83-108); Allen Test Performed? Yes
[2020-01-26 01:21] LABS: ABG PCO2 >120 mmHg (35-45); ABG PH 7.12 (7.35-7.45)
[2020-01-26 01:33] LABS: Magnesium 1.8 mg/dL (1.6-2.3); Potassium 4.8 mmol/L (3.5-5.1)
[2020-01-26 01:34] LABS: Carbon Dioxide 41 mmol/L (22-30)
[2020-01-26 01:35] LABS: ABG PH 7.11 (7.35-7.45); ABG PO2 82 mmHg (83-108)
[2020-01-26] MEDS ORDERED: PROPOFOL 100 ML IV ONE (01:52)
[2020-01-26] MEDS ORDERED: NALOXONE 0.4 MG/ML 1 ML VIAL IV PRN (01:57)
[2020-01-26] MEDS ORDERED: FUROSEMIDE 10 MG/ML 4 ML VIAL IV SCH ×2 (02:00)
[2020-01-26 02:09] LABS: Glucose,Whole Blood 140 mg/dL (75-99)
[2020-01-26] MEDS ORDERED: NOREPINEPHRIN 4 MG-0.9% NS PMX 4 MG/250 ML ML IV ONE (02:20)
[2020-01-26] MEDS: PROPOFOL 1,000 MG in EMPTY BAG 1 BAG IV SCH ×5 (02:20→20:46)
[2020-01-26] MEDS ORDERED: NOREPINEPHRINE 4 MG in SODIUM CHLORIDE 0.9% 250 ML IV SCH (02:30)
--- NOTE | 2020-01-26 02:49 | XR ---
EXAMINATION TYPE: XR chest 1V portable DATE OF EXAM: 01/26/2020 COMPARISON: Yesterday HISTORY: Respiratory failure TECHNIQUE: Single view FINDINGS: Endotracheal tube is 3 cm from the slick. There is nasogastric tube in the stomach. Heart is enlarged. There is pulmonary edema. There is left pleural effusion and pleural thickening on the l eft lateral chest wall. There is a left axillary pacemaker. IMPRESSION: Pulmonary interstitial edema slightly improved compared to exam 2 hours ago. Left pleural effusion and thickening and left lower lobe consolidation unchanged.
[2020-01-26 04:27] LABS: Basophils % (A) 0 %; Eosinophils # (A) 0.1 k/uL (0-0.7); Eosinophils % (A) 1 %; HCT 38.2 % (39.0-53.0); HGB 12.2 gm/dL (13.0-17.5); Hypochromasia Moderate; Lymphocytes # (A) 0.8 k/uL (1.0-4.8); Lymphocytes % (A) 6 %; MCH 34.1 pg (25.0-35.0); MCV 106.5 fL (80.0-100.0); Macrocytosis Moderate; Mean Platelet Volume 8.7; Monocytes # (A) 1.1 k/uL (0-1.0); Monocytes % (A) 8 %; Neutrophils # (A) 10.8 k/uL (1.3-7.7); Neutrophils % (A) 83 %; Platelet Count 139 k/uL (150-450); RBC 3.59 m/uL (4.30-5.90); RDW 13.5 % (11.5-15.5); WBC 13.1 k/uL (3.8-10.6)
[2020-01-26 04:49] LABS: Calcium 8.8 mg/dL (8.4-10.2); Potassium 4.9 mmol/L (3.5-5.1)
[2020-01-26] MEDS ORDERED: Magnesium Replacement Protocol 1 EACH MISC MISCELLANE PRN (05:03)
[2020-01-26 05:11] LABS: ABG Base Excess 22.4 mmol/L; ABG Oxygen Saturation 86.8 % (94-97); ABG PCO2 63 mmHg (35-45); ABG PH 7.47 (7.35-7.45); ABG TCO2 48 mmol/L (19-24); Allen Test Performed? Yes
[2020-01-26 05:15] LABS: ABG HCO3 46 mmol/L (21-25); ABG PO2 47 mmHg (83-108)
[2020-01-26] MEDS: MAGNESIUM SULFATE-D5W PMX 1 GM in DEXTROSE/WATER 1 100ML.BAG IVPB SCH ×2 (05:26→06:25)
[2020-01-26 05:31] LABS: Glucose,Whole Blood 93 mg/dL (75-99)
[2020-01-26 07:23] LABS: ABG Base Excess 23.2 mmol/L; ABG Oxygen Saturation 86.7 % (94-97); ABG PCO2 45 mmHg (35-45); ABG TCO2 46 mmol/L (19-24); Allen Test Performed? Yes
[2020-01-26 07:25] LABS: ABG PO2 43 mmHg (83-108)
[2020-01-26 07:26] LABS: ABG HCO3 45 mmol/L (21-25)
[2020-01-26] MEDS ORDERED: PANTOPRAZOLE 40 MG TABLET PO SCH (07:30)
[2020-01-26] MEDS ORDERED: TIOTROPIUM 18 MCG/PUFF INHALER INHALATION SCH (08:00)
[2020-01-26] MEDS ORDERED: HEPARIN SODIUM,PORCINE 5,000 UNIT/ML 1 ML VIAL IV PRN (08:19)
[2020-01-26] MEDS ORDERED: HEPARIN SODIUM,PORCINE 5,000 UNIT/ML 1 ML VIAL IV ONE (08:19)
[2020-01-26] MEDS: BUDESONIDE 0.5 MG/2 ML NEBU INHALATION SCH ×2 (08:23→19:32)
[2020-01-26] MEDS: IPRATROPIUM-ALBUTEROL 3 ML NEB INHALATION SCH ×4 (08:23→19:32)
--- NOTE | 2020-01-26 08:40 | XR ---
EXAMINATION TYPE: XR chest 1V portable DATE OF EXAM: 01/26/2020 COMPARISON: NONE HISTORY: SOB, Follow Up FINDINGS: Indwelling tubes and catheters are unchanged. Increasing airspace infiltrates throughout both lung dodson. Stable appearance of the cardio-mediastinal structures at this time. Pleural effusion unchanged. IMPRESSION: 1. Increasing airspace infiltrates throughout both lung dodson.Clinical correlation and follow up un til resolution is recommended.
[2020-01-26] MEDS: HEPARIN SOD,PORK IN 0.45% NACL 25,000 UNIT in 0.45% NACL 1 250ML.BAG IV SCH (08:42)
[2020-01-26] MEDS: NICOTINE 21MG/24HR PATCH TRANSDERM SCH (08:43)
[2020-01-26] MEDS: CHLORHEXIDINE GLUCONATE 15 ML CUP MUCOUS MEM SCH ×2 (08:43→20:36)
[2020-01-26] MEDS: PANTOPRAZOLE 40 MG/10 ML VIAL IV SCH (08:43)
[2020-01-26] MEDS: ATORVASTATIN 80 MG TAB PO SCH (08:44)
[2020-01-26] MEDS: AMIODARONE 200 MG TAB PO SCH (08:44)
[2020-01-26] MEDS: ASPIRIN 81 MG PO SCH (08:44)
[2020-01-26 08:47] LABS: Basophils % (A) 0 %; Eosinophils # (A) 0.1 k/uL (0-0.7); Eosinophils % (A) 1 %; HCT 39.2 % (39.0-53.0); HGB 12.4 gm/dL (13.0-17.5); Hypochromasia Slight; Lymphocytes # (A) 0.5 k/uL (1.0-4.8); Lymphocytes % (A) 5 %; MCH 33.3 pg (25.0-35.0); MCHC 31.6 g/dL (31.0-37.0); MCV 105.7 fL (80.0-100.0); Macrocytosis Moderate; Mean Platelet Volume 8.5; Monocytes # (A) 0.6 k/uL (0-1.0); Monocytes % (A) 7 %; Neutrophils # (A) 7.7 k/uL (1.3-7.7); Neutrophils % (A) 85 %; Platelet Count 132 k/uL (150-450); RBC 3.71 m/uL (4.30-5.90); RDW 13.6 % (11.5-15.5)
[2020-01-26] MEDS: PIPERACILLIN-TAZOBACTAM 3.375 GM in SODIUM CHLORIDE 0.9% 100 ML IVPB SCH ×3 (08:48→23:29)
[2020-01-26] MEDS: methylPREDNISolone SOD SUCCI 125 MG/2 ML VIAL IV SCH ×4 (08:48→23:29)
[2020-01-26 08:55] LABS: C Reactive Protein 60.5 mg/L (<10.0)
[2020-01-26] MEDS: FUROSEMIDE 100 MG in SODIUM CHLORIDE 0.9% 90 ML IV SCH ×2 (08:58→18:03)
[2020-01-26] MEDS ORDERED: SPIRONOLACTONE 25 MG TAB PO SCH (09:00)
[2020-01-26] MEDS ORDERED: ASPIRIN 325 MG TAB PO SCH (09:00)
[2020-01-26 09:03] LABS: ABG Base Excess 23.2 mmol/L; ABG Oxygen Saturation 96.7 % (94-97); ABG PCO2 38 mmHg (35-45); ABG PO2 93 mmHg (83-108); ABG TCO2 45 mmol/L (19-24); Allen Test Performed? Yes
[2020-01-26 09:06] LABS: ABG HCO3 44 mmol/L (21-25); ABG PH 7.67 (7.35-7.45)
[2020-01-26 09:07] LABS: D-Dimer 0.79 mg/L FEU (<0.60); INR 1.1 (<1.2)
[2020-01-26 10:18] LABS: Appearance,Urine Cloudy (Clear); Bacteria,Urine Rare /hpf; Bilirubin,Urine Negative (Negative); Blood,Urine Moderate (Negative); Color,Urine Yellow; Glucose,Urine (UA) Negative (Negative); Hyaline Casts,Urine 6 /lpf (0-2); Ketones,Urine Trace (Negative); Leukocyte Esterase,Urine Small (Negative); Mucus,Urine Rare /hpf; Nitrite,Urine Negative (Negative); Protein,Urine Negative (Negative); RBC,Urine 80 /hpf (0-5); Specific Gravity,Urine 1.015 (1.001-1.035); Squamous Epithelial Cell,Urine <1 /hpf (0-4); Urobilinogen,Urine <2.0 mg/dL (<2.0); WBC,Urine 8 /hpf (0-5)
[2020-01-26] MEDS: CARVEDILOL 12.5 MG TAB PO SCH ×2 (10:30→20:36)
[2020-01-26 11:52] LABS: Glucose,Whole Blood 100 mg/dL (75-99)
--- NOTE | 2020-01-26 11:57 | ECHOF ---
Referral Reason:chf/lvf MEASUREMENTS -------- HEIGHT: 167.6 cm WEIGHT: 76.2 kg BP: 92/61 RVIDd: 2.1 cm (< 3.3) IVSd: 1.2 cm (0.6 - 1.1) LVIDd: 5.2 cm (3.9 - 5.3) LVPWd: 1.1 cm (0.6 - 1.1) IVSs: 1.9 cm LVIDs: 4.6 cm LVPWs: 1.0 cm IVSd: 0.9 cm (0.6 - 1.1) LVIDd: 4.6 cm (3.9 - 5.3) LVPWd: 0.9 cm (0.6 - 1.1) IVSs: 1.2 cm LVIDs: 3.7 cm LVPWs: 1.4 cm EDV(Teich): 97 ml ESV(Teich): 59 ml EF(Teich): 39 % %FS: 19 % SV(Teich): 38 ml Ao Diam: 2.8 cm (2.0 - 3.7) AV Cusp: 2.1 cm (1.5 - 2.6) LA Diam: 3.4 cm (2.7 - 3.8) MV EXCURSION: 11.453 mm (> 18.000) MV EF SLOPE: 85 mm/s (70 - 150) EPSS: 1.3 cm MV E Micah: 0.58 m/s MV DecT: 235 ms MV A Micah: 0.50 m/s MV E/A Ratio: 1.16 RAP: 5.00 mmHg RVSP: 9.56 mmHg FINDINGS -------- Sinus rhythm. This was a technically difficult study with suboptimal views. Pt. on a vent. The left ventricular size is normal. Left ventricular wall thickness is normal. Overall left vent ricular systolic function is moderate-severely impaired with, an EF between 30 - 35 %. The right ventricle is normal in size. The left atrial size is normal. The right atrial size is normal. Lumason used Unable to visualize the septum. The aortic valve is trileaflet and appears structurally normal. The mitral valve is normal. The mitral valve leaflets are mildly thickened. There is trace mitral regurgitation. The tricuspid valve appears structurally normal. Trace tricuspid regurgitation present. Right remigio tricular systolic pressure is normal at < 35 mmHg. There is no pulmonic regurgitation present. The aortic root size is normal. IVC Not well visulized. There is no pericardial effusion. CONCLUSIONS -------- 1. Sinus rhythm. 2. This was a technically difficult study with suboptimal views. 3. Pt. on a vent. 4. The left ventricular size is normal. 5. Left ventricular wall thickness is normal. 6. The right ventricle is normal in size. 7. The left atrial size is normal. 8. The right atrial size is normal. 9. Lumason used 10. Unable to visualize the septum. 11. The aortic valve is trileaflet and appears structurally normal. 12. The mitral valve is normal. 13. The mitral valve leaflets are mildly thickened. 14. There is trace mitral regurgitation. 15. The tricuspid valve appears structurally normal. 16. Trace tricuspid regurgitation present. 17. Right ventricular systolic pressure is normal at < 35 mmHg. 18. There is no pulmonic regurgitation present. 19. The aortic root size is normal. 20. IVC Not well visulized. 21. There is no pericardial effusion. STOCK CRANE OPERATOR: Bella Marie RDCS
[2020-01-26 13:03] LABS: ABG Base Excess 18.4 mmol/L; ABG PCO2 45 mmHg (35-45); ABG PO2 198 mmHg (83-108); ABG TCO2 42 mmol/L (19-24); Allen Test Performed? Yes
[2020-01-26 13:05] LABS: ABG PH 7.56 (7.35-7.45)
[2020-01-26 13:06] LABS: ABG HCO3 41 mmol/L (21-25)
--- NOTE | 2020-01-26 13:27 | XR ---
EXAMINATION TYPE: XR chest 1V portable DATE OF EXAM: 01/26/2020 COMPARISON: 01/26/2020 HISTORY: SOB, Follow Up FINDINGS: Indwelling tubes and catheters are unchanged. No evidence of pneumothorax. No change in scattered infiltrates bilaterally greatest at the left lung base. Stable appearance of the cardio-mediastinal structures at this time. Pleural effusion unchanged. IMPRESSION: 1. Stable portable chest. Clinical correlation and follow up until resolution is recommended.
--- NOTE | 2020-01-26 13:52 | P.CNPUL ---
History of Present Illness Consult date: 01/26/20 Reason for consult: hypoxemia Chief complaint: Shortness of breath History of present illness: This is a 75-year-old white male, long-standing smoking history, chronic atrial fibrillation, LV dysfunction and previous AICD placement, coronary artery disease and previous CABG, patient is on home oxygen. Mostly for his underlying COPD. Patient presented to the ER with 1 week history of increased shortness of breath. Also complaining of swelling in the legs. Weakness, fatigue, and worsening shortness of breath over the last 1 week. Patient felt tired and rundown. Apparently the patient was initially admitted to the cardiac floor with the impression of congestive heart failure. Overnight, the patient's condition deteriorated, did not improve with a nonrebreather mask. Multiple ABGs were done and they reflected mostly hypoxemia and hypercapnia with a pCO2 above 120 and pH of 7.11. Patient required intubation and mechanical ventilation. He also required placement on relatively high PEEP because of hypo xemia with a pO2 of 43 in spite of being on 100% FiO2. Patient is now on tidal volume of 400, assist control rate of 24, FiO2 of 100% and PEEP of 15 ABG showed a pO2 of 198 pCO2 of 45 pH of 7.56. Hence his FiO2 will be decreased to 50% and address PEEP hopefully get the PEEP down to 10 if possible. Patient was placed on a Lasix drip he was also placed on Diamox. Placed on bronchodilators, and on Solu-Medrol. Chest x-ray showed evidence of congestive heart failure and left pleural effusion. Considering the patient had a temp of 101 on admission, his screening for covid 19 is pending. Patient was placed empirically on antibiotics in the form of Zosyn. Patient is sedated, on propofol, he is also on propofol at 50 mcg/kg/m, not requiring any pressors. Patient was intubated around 2 AM this morning. Review of Systems ROS unobtainable: due to endotracheal tube Past Medical History Past Medical History: Atrial Fibrillation, GERD/Reflux, Myocardial Infarction ([place]), Syncope Additional Past Medical History / Comment(s): home O2 2L at hs & prn. , See Dr Anais Yates & Anjelica, constipation, Last Myocardial Infarction Date:: 2011? History of Any Multi-Drug Resistant Organisms: None Reported Past Surgical History: AICD, Coronary Bypass/CABG, Ear Surgery, Heart Catheterization With Stent, Pacemaker Additional Past Surgical History / Comment(s): nasal surgery, left carotid endartectomy, triple bypass Past Anesthesia/Blood Transfusion Reactions: No Reported Reaction Date of Last Stent Placement:: unknown Type of Cardiac Device: Permanent Pacemaker, AICD Device Placement Date:: 2011? Past Psychological History: No Psychological Hx Reported Smoking Status: Current every day smoker Past Alcohol Use History: None Reported Additional Past Alcohol Use History / Comment(s): smokes 1ppd for past 30+ years,. Currently smoking < 1/2 PPD currently Past Drug Use History: None Reported - Past Family History Mother History Unknown: Yes Family Medical History: Cancer Additional Family Medical History / Comment(s): stomach cancer Father Family Medical History: Cancer Medications and Allergies Home Medications Medication Instructions Recorded Confirmed Type Omeprazole [PriLOSEC] 20 mg PO DAILY 06/05/16 01/25/20 History Aspirin 81 mg PO DAILY #1 chewable 06/09/16 01/25/20 Rx Furosemide [Lasix] 40 mg PO DAILY 07/20/16 01/25/20 History Spironolactone [Aldactone] 25 mg PO DAILY #30 tab 07/25/16 01/25/20 Rx Carvedilol [Coreg*] 12.5 mg PO BID 08/14/16 01/25/20 History Amiodarone [Cordarone] 200 mg PO DAILY #90 09/25/16 01/25/20 Rx Atorvastatin [Lipitor] 80 mg PO DAILY 01/25/20 01/25/20 History Allergies Allergy/AdvReac Type Severity Reaction Status Date / Time No Known Allergies Allergy Verified 01/25/20 17:30 Physical Exam Vitals: Vital Signs Temp Pulse Pulse Resp BP BP Pulse Ox 01/26/20 11:29 66 01/26/20 11:12 60 01/26/20 10:30 60 24 94/62 98 01/26/20 10:00 60 24 93/57 98 01/26/20 09:30 60 24 113/68 96 01/26/20 09:00 60 28 H 96/61 97 01/26/20 08:40 67 01/26/20 08:30 62 28 H 107/74 95 01/26/20 08:26 62 01/26/20 08:00 101.1 F H 61 28 H 110/61 95 05/18/20 07:30 63 28 H 112/61 89 L 05/18/20 07:00 61 28 H 105/79 88 L 05/18/20 06:30 60 28 H 110/72 89 L 0518/20 06:00 60 30 H 94/79 89 L 05/18/20 05:45 60 28 H 105/72 89 L 05/18/20 05:30 60 28 H 106/83 88 L 05/18/20 05:15 60 28 H 94/72 88 L 0518/20 05:00 60 28 H 136/118 89 L 0518/20 04:45 60 28 H 98/68 91 L 0518/20 04:30 60 28 H 102/83 90 L 0518/20 04:15 60 28 H 94/76 90 L 0518/20 04:00 60 28 H 115/89 87 L 0518/20 03:45 60 28 H 84/71 88 L 0518/20 03:30 60 28 H 102/67 89 L 05/18/20 03:15 28 H 127/114 88 L 0518/20 03:00 60 28 H 97/67 86 L 05/18/20 02:45 60 28 H 81/59 91 L 0518/20 02:30 59 L 28 H 60/40 95 05/18/20 02:15 60 28 H 125/74 89 L 05/18/20 02:07 97.4 F L 59 L 28 H 126/73 90 L 05/18/20 00:00 96.2 F L 61 27 H 112/57 87 L 05/17/20 20:00 97.5 F L 60 21 145/77 94 L 0517/20 17:45 97.8 F 60 20 138/74 93 L 0517/20 17:18 98.0 F 60 18 114/61 93 L 0517/20 16:04 62 18 129/71 93 L 0517/20 14:00 97 1720 13:55 98 0517/20 13:51 97.8 F 60 20 127/72 66 L Intake and Output 01/24/20 05/18/20 0518/20 22:59 06:59 14:59 Intake Total 225.523 249.427 Output Total 300 240 150 Balance -300 -14.477 99.427 Intake: IV 150 130 0.9 NS KVO 50 30 Magnesium Sulfate-D5w Pmx 100 100 1 gm In Dextrose/Water 1 100ml.bag @ 100 mls/hr IVPB Q1H BRAYAN Rx#: [id number] Intake, IV Titration 75.523 119.427 Amount Norepinephrine 4 mg In 3.876 55.717 Sodium Chloride 0.9% 250 ml @ 0.05 MCG/KG/MIN 14. 535 mls/hr IV .[id number] BRAYAN Rx#:[id number] Propofol 1,000 mg In 71.647 63.71 Empty Bag 1 bag @ Titrate IV .Q0M BRAYAN Rx#: [id number] Output: Urine 300 240 150 Other: Voiding Method Diaper Indwelling Catheter # Voids 1 Weight 76.3 kg 76.3 kg GENERAL: Revealed a 75-year-old white male, sedated, on propofol, on mechanical ventilation, in no distress. EYES: Pupils equal. Conjunctiva normal. HEENT: PERRLA, EOMI, no icterus. Head is atraumatic, normocephalic. Endotracheal tube and orogastric tube are intact. NECK: No neck masses no JVD.. HEART: Irregular irregular rhythm, no S3 gallop. 2/6 systolic murmur throughout the precordium. LUNGS: Crackles at the bases, no rhonchi and no wheezes. ABDOMEN: Soft, nontender, liver spleen not palpable, no masses palpable. PSYCH: Cannot be assessed. MUSCULAR skeletal: No deformities. NEUROLOGICAL: Sedated, on propofol, cannot be assessed. LYMPHATICS: No cervical adenopathy. Results - Laboratory Findings CBC and BMP: 01/26/20 07:59 01/26/20 03:57 ABG ABG pH 7.56 (7.35-7.45) H* 01/26/20 12:55 ABG pCO2 45 mmHg (35-45) 01/26/20 12:55 ABG pO2 198 mmHg (83-108) H 01/26/20 12:55 ABG O2 Saturation 98.0 % (94-97) H 01/26/20 12:55 PT/INR, D-dimer PT 11.0 sec (9.0-12.0) 01/26/20 07:59 INR 1.1 (<1.2) 01/26/20 07:59 D-Dimer 0.79 mg/L FEU (<0.60) H 01/26/20 07:59 Abnormal lab findings: Abnormal Labs 01/25/20 01/25/20 01/25/20 14:15 14:15 14:15 WBC 10.9 H RBC 3.93 L Hgb 12.4 L Hct MCV 105.0 H MCHC 30.1 L Plt Count Neutrophils # 9.2 H Lymphocytes # 0.7 L Monocytes # INR Fibrinogen D-Dimer ABG pH ABG pCO2 ABG pO2 ABG HCO3 ABG Total CO2 ABG O2 Saturation VBG pH 7.46 H VBG pCO2 54 H VBG HCO3 38 H Sodium 136 L Chloride 89 L Carbon Dioxide 39 H BUN 27 H Glucose 174 H POC Glucose (mg/dL) Creatine Kinase C-Reactive Protein Urine Ketones Urine Blood Ur Leukocyte Esterase Urine RBC Urine WBC Urine Bacteria Hyaline Casts Urine Mucus 01/25/20 01/25/20 01/26/20 23:49 23:53 00:13 WBC 12.7 H RBC 4.01 L Hgb 12.9 L Hct MCV 106.5 H MCHC 30.2 L Plt Count Neutrophils # 10.7 H Lymphocytes # 0.6 L Monocytes # INR Fibrinogen D-Dimer ABG pH 7.11 L* ABG pCO2 >120 H* ABG pO2 82 L ABG HCO3 ABG Total CO2 ABG O2 Saturation 92.0 L VBG pH VBG pCO2 VBG HCO3 Sodium Chloride Carbon Dioxide BUN Glucose POC Glucose (mg/dL) 154 H Creatine Kinase C-Reactive Protein Urine Ketones Urine Blood Ur Leukocyte Esterase Urine RBC Urine WBC Urine Bacteria Hyaline Casts Urine Mucus 01/26/20 01/26/20 01/26/20 00:13 00:13 01:14 WBC RBC Hgb Hct MCV MCHC Plt Count Neutrophils # Lymphocytes # Monocytes # INR 1.2 H Fibrinogen D-Dimer ABG pH 7.12 L* ABG pCO2 >120 H* ABG pO2 71 L ABG HCO3 ABG Total CO2 ABG O2 Saturation 89.0 L VBG pH VBG pCO2 VBG HCO3 Sodium Chloride 88 L Carbon Dioxide 41 H* BUN 32 H Glucose 154 H POC Glucose (mg/dL) Creatine Kinase C-Reactive Protein Urine Ketones Urine Blood Ur Leukocyte Esterase Urine RBC Urine WBC Urine Bacteria Hyaline Casts Urine Mucus 05/01/26/20 01/26/20 02:07 03:48 03:57 WBC 13.1 H RBC 3.59 L Hgb 12.2 L Hct 38.2 L MCV 106.5 H MCHC Plt Count 139 L Neutrophils # 10.8 H Lymphocytes # 0.8 L Monocytes # 1.1 H INR Fibrinogen D-Dimer ABG pH ABG pCO2 ABG pO2 ABG HCO3 ABG Total CO2 ABG O2 Saturation VBG pH VBG pCO2 VBG HCO3 Sodium Chloride 88 L Carbon Dioxide 40 H BUN 33 H Glucose 124 H POC Glucose (mg/dL) 140 H Creatine Kinase C-Reactive Protein Urine Ketones Urine Blood Ur Leukocyte Esterase Urine RBC Urine WBC Urine Bacteria Hyaline Casts Urine Mucus 01/26/20 01/26/20 01/26/20 05:08 07:02 07:59 WBC RBC Hgb Hct MCV MCHC Plt Count Neutrophils # Lymphocytes # Monocytes # INR Fibrinogen 644 H D-Dimer 0.79 H ABG pH 7.47 H 7.60 H* ABG pCO2 63 H ABG pO2 47 L* 43 L* ABG HCO3 46 H* 45 H* ABG Total CO2 48 H 46 H ABG O2 Saturation 86.8 L 86.7 L VBG pH VBG pCO2 VBG HCO3 Sodium Chloride Carbon Dioxide BUN Glucose POC Glucose (mg/dL) Creatine Kinase C-Reactive Protein Urine Ketones Urine Blood Ur Leukocyte Esterase Urine RBC Urine WBC Urine Bacteria Hyaline Casts Urine Mucus 01/26/20 01/26/20 01/26/20 07:59 07:59 08:55 WBC RBC 3.71 L Hgb 12.4 L Hct MCV 105.7 H MCHC Plt Count 132 L Neutrophils # Lymphocytes # 0.5 L Monocytes # INR Fibrinogen D-Dimer ABG pH 7.67 H* ABG pCO2 ABG pO2 ABG HCO3 44 H* ABG Total CO2 45 H ABG O2 Saturation VBG pH VBG pCO2 VBG HCO3 Sodium Chloride Carbon Dioxide BUN Glucose POC Glucose (mg/dL) Creatine Kinase 24 L C-Reactive Protein 60.5 H Urine Ketones Urine Blood Ur Leukocyte Esterase Urine RBC Urine WBC Urine Bacteria Hyaline Casts Urine Mucus 01/26/20 01/26/20 01/26/20 09:15 11:50 12:55 WBC RBC Hgb Hct MCV MCHC Plt Count Neutrophils # Lymphocytes # Monocytes # INR Fibrinogen D-Dimer ABG pH 7.56 H* ABG pCO2 ABG pO2 198 H ABG HCO3 41 H* ABG Total CO2 42 H ABG O2 Saturation 98.0 H VBG pH VBG pCO2 VBG HCO3 Sodium Chloride Carbon Dioxide BUN Glucose POC Glucose (mg/dL) 100 H Creatine Kinase C-Reactive Protein Urine Ketones Trace H Urine Blood Moderate H Ur Leukocyte Esterase Small H Urine RBC 80 H Urine WBC 8 H Urine Bacteria Rare H Hyaline Casts 6 H Urine Mucus Rare H - Diagnostic Findings Chest x-ray: image reviewed (Chest x-ray is suggestive of congestive heart failure. Underlying pneumonia is not entirely ruled out, but felt to be less likely.) Additional studies: Echocardiogram showed evidence of LV dysfunction with EF of 3 035 percent. Assessment and Plan Assessment: Impression: Acute on chronic hypoxic and hypercapnic respiratory failure secondary to acute systolic congestive heart failure and acute exacerbation of COPD. History of coronary artery disease and previous CABG History of cardiomyopathy LV dysfunction and AICD placement. Chronic atrial fibrillation. tobacco dependence syndrome. Recommendation: Continue ventilatory support. Continue GI and DVT prophylaxis. Placed patient on anticoagulations therapy/heparin. Placed patient on Lasix at 10 mg infusion per hour. Adjust ventilator settings accordingly, decrease FiO2 to 50% and decrease PEEP as tolerated. Maintaining O2 saturation above 93%. Continue antibiotics empirically Await covid 19 PCR. Continue bronchodilators. We'll continue to follow closely. Prognosis is definitely poor and guarded, patient is definitely critically ill. Lines including right femoral triple-lumen catheter and arterial line were placed. Time with Patient: Greater than 30
[2020-01-26] MEDS: NOREPINEPHRINE 8 MG in SODIUM CHLORIDE 0.9% 250 ML IV SCH ×2 (15:11→22:33)
--- NOTE | 2020-01-26 15:50 | CONS ---
CONSULTATION CHIEF COMPLAINT: Shortness of breath. Mr. Prater is a 75-year-old gentleman with history of dyslipidemia, coronary artery disease, status post CABG, atrial fibrillation, status post AICD, COPD on home O2 who presented to hospital complaining of progressively worsening shortness of breath for the last one week. The patient also complained of feeling weak, tired and has some coughing. He had bilateral lower extremity swelling. Initially, it was felt that the patient had acute exacerbation of chronic systolic heart failure, started on IV Lasix. Has an ejection fraction of 40%-45%. Subsequently, the patient developed worsening respiratory failure and had to be intubated and placed on vent. His chest x-ray suggests bilateral interstitial changes which could be due to congestive heart failure and could also be due to COVID infection. I have not examined the patient because of the use of personal protective equipment, seeing the patient from outside the room and physical exam has been documented by the admitting physician. PAST MEDICAL HISTORY: Significant for COPD, atrial fibrillation. MEDICATIONS: At home include Aldactone, Prilosec, Lasix, Coreg, Lipitor, aspirin, and amiodarone. FAMILY HISTORY/SOCIAL HISTORY/REVIEW OF SYSTEMS: I am unable to obtain from the patient who is intubated and on vent. PATIENT'S HOME MEDICATIONS: Include aspirin, Aldactone, Cordarone, Eliquis, carvedilol, losartan, Colace, Lasix, atorvastatin, and omeprazole. PHYSICAL EXAM: His heart rate is 60 beats per minute. Blood pressure is 94/60, respiratory rate is 18. The rest of his exam is as per the documentation from Dr. Barton. LABS: Show that the hemoglobin is 12.4, platelet count is 132. D-dimer is elevated at 0.7. Fibrinogen is elevated. ASSESSMENT: 1. Acute respiratory failure, exact etiology is unclear. Could be due to acute exacerbation of chronic systolic heart failure, could be due to COVID infection, could be due to chronic obstructive pulmonary disease exacerbation. 2. History of persistent atrial fibrillation. 3. History of cardiomyopathy. 4. History of coronary artery disease. PLAN: Patient will continue on IV heparin, amiodarone, aspirin, Lipitor, Coreg, Lasix drip. Will change the medications as needed. COVID test is pending at this time. MMODL / IJN: [id number] /
--- NOTE | 2020-01-26 15:56 | OP ---
OPERATIVE REPORT OPERATIVE PROCEDURE: Placement of right femoral triple-lumen catheter. PREOPERATIVE DIAGNOSIS: Acute hypoxic respiratory failure secondary to congestive heart failure. POSTOPERATIVE DIAGNOSIS: Acute hypoxic respiratory failure secondary to congestive heart failure. ANESTHESIA USED: 2 mL of 1% lidocaine. PROCEDURE: The patient was placed in a supine position. The right groin was prepared in a sterile fashion and drapes were applied. The right femoral vein was easily cannulated. A guidewire was placed. A triple-lumen catheter was inserted over the guidewire, and the guidewire was removed. There was good blood flow in the 3 different ports of the triple-lumen catheter. The line was secured using 3.0 silk sutures. No evidence of any immediate complications. MMODL / IJN: [id number] /
--- NOTE | 2020-01-26 16:07 | OP ---
OPERATIVE REPORT OPERATIVE PROCEDURE: Placement of a left radial arterial line. PREOPERATIVE DIAGNOSIS: Acute hypoxic respiratory failure secondary to congestive heart failure. POSTOPERATIVE DIAGNOSIS: Acute hypoxic respiratory failure secondary to congestive heart failure. ANESTHESIA USED: None deployed. PROCEDURE: Left wrist was prepared in a sterile fashion. Drapes were applied. Left radial artery was palpated, cannulated, and a guidewire was placed. A Cook's catheter was inserted over the guidewire, and the guidewire was removed. Good blood flow and good waveform noted. No evidence of any immediate complications. Line was secured using 3.0 silk sutures. MMODL / IJN: [id number] /
[2020-01-26 16:20] LABS: Ferritin 88.9 ng/mL (22.0-322.0)
[2020-01-26 17:17] LABS: Glucose,Whole Blood 150 mg/dL (75-99)
--- NOTE | 2020-01-26 18:02 | P.PN ---
Progress Note - Text Progress Note Date: 01/26/20 Chief Complaint: Short of breath History of presenting complaint: This is a 75-year-old patient of Dr. Gonzáles. Long-standing smoker. Chronic stable medical conditions include atrial fibrillation, AICD, coronary artery disease with prior bypass, on home oxygen, GERD, COPD. Last ejection fraction is 40-45%. She presents with worsening short of breath for about a week at least. It has been progressively getting worse. Some edema. Weak and tired slight cough is present. Increasing swelling of lower extremity. Orthopnea. No fever no chills. Tired and rundown. Slow with given history. Admitted with acute on chronic CHF exacerbation, COPD exacerbation. Was started on IV Lasix, bronchodilators and IV steroids. Today-patient overnight became more and more short of breath. Lethargic with the decrease FiO2. Was put on a nonrebreather blood gases were done. PCO2 was more than 120. BiPAP was used. Did not tolerate the BiPAP. Subsequently around 2 in the morning patient is intubated. Patient also had a fever. Patient currently the ICU. On IV Lasix drip IV heparin. FiO2 100% and PEEP of 15. Also propofol drip. Review of systems cannot be done patient is intubated Active Medications Acetazolamide Sodium (Diamox) 250 mg IV Q12HR [facility] Albuterol/Ipratropium (Duoneb 0.5 Mg-3 Mg/3 Ml Soln) 3 ml INHALATION RT-QID [facility] Last Admin: 01/26/20 15:04 Dose: 3 ml Documented by: Albuterol/Ipratropium (Duoneb 0.5 Mg-3 Mg/3 Ml Soln) 3 ml INHALATION RT-Q2H PRN PRN Reason: Shortness Of Breath Or Wheezing Amiodarone HCl (Cordarone) 200 mg PO DAILY [facility] Last Admin: 01/26/20 08:44 Dose: 200 mg Documented by: Aspirin (Aspirin) 81 mg PO DAILY [facility] Last Admin: 01/26/20 08:44 Dose: 81 mg Documented by: Atorvastatin Calcium (Lipitor) 80 mg PO DAILY [facility] Last Admin: 01/26/20 08:44 Dose: 80 mg Documented by: Budesonide (Pulmicort) 0.5 mg INHALATION RT-BID [facility] Last Admin: 01/26/20 08:23 Dose: 0.5 mg Documented by: Carvedilol (Coreg) 12.5 mg PO BID [facility] Last Admin: 01/26/20 10:30 Dose: Not Given Documented by: Chlorhexidine Gluconate (Peridex) 15 ml MUCOUS MEM BID [facility] Last Admin: 01/26/20 08:43 Dose: 15 ml Documented by: Heparin Sodium (Porcine) (Heparin) 0 unit IV PER PROTOCOL PRN; Protocol PRN Reason: Low PTT Propofol 1,000 mg/ IV Solution 100 mls @ 0 mls/hr IV .Q0M [facility]; Protocol Last Titration: 01/26/20 13:55 Dose: 50 mcg/kg/min, 22.89 mls/hr Documented by: Furosemide 100 mg/ Sodium (Chloride) 100 mls @ 10 mls/hr IV .Q10H [facility] Last Admin: 01/26/20 08:58 Dose: 10 mg/hr, 10 mls/hr Documented by: Piperacillin Sod/Tazobactam (Sod 3.375 gm/ Sodium Chloride) 100 mls @ 25 mls/hr IVPB Q8HR [facility] Last Admin: 01/26/20 15:11 Dose: 25 mls/hr Documented by: Heparin Sodium/Sodium Chloride (25,000 unit/ Sodium Chloride) 250 mls @ 9.156 mls/hr IV .Q24H [facility]; Protocol Last Admin: 01/26/20 08:42 Dose: 12 units/kg/hr, 9.156 mls/hr Documented by: Norepinephrine Bitartrate 8 mg (/ Sodium Chloride) 258 mls @ 7.382 mls/hr IV .Q24H [facility]; Protocol Last Admin: 01/26/20 15:11 Dose: Not Given Documented by: Methylprednisolone Sodium Succinate (Solu-Medrol) 60 mg IV Q6HR [facility] Last Admin: 01/26/20 13:34 Dose: 60 mg Documented by: Miscellaneous Information (Magnesium Per Protocol) 1 each MISCELLANE DAILY PRN; Protocol PRN Reason: Per Protocol Naloxone HCl (Narcan) 0.2 mg IV Q2M PRN PRN Reason: Opioid Reversal Nicotine (Habitrol 21mg/24hr Patch) 1 patch TRANSDERM DAILY [facility] Last Admin: 01/26/20 08:43 Dose: 1 patch Documented by: Pantoprazole Sodium (Protonix) 40 mg IV DAILY [facility] Last Admin: 05/18/20 08:43 Dose: 40 mg Documented by: Spironolactone (Aldactone) 25 mg PO DAILY [facility] Last Admin: 01/26/20 08:43 Dose: 25 mg Documented by: Physical examination: VITAL SIGNS: 101.1, 61, 28, 110/61, 95% on the ventilator GENERAL: Laying in bed, intubated. EYES: Pupils equal. Conjunctiva normal. HEENT: External appearance of nose and ears normal, oral cavity-endotracheal tube NECK: JVD unable to assess; masses not palpable. HEART: Heart sounds irregular, edema present. LUNGS: Respiratory rate increased,, diminished breath sounds. ABDOMEN: Soft, nontender, liver spleen not palpable, no masses palpable. PSYCH: Unable to assess-intubated. MUSCULAR skeletal: Evidence of OA INVESTIGATIONS, reviewed in the clinical context: White count 13.1 hemoglobin 12.2 platelets 139, potassium 4.9 crit 1.01 Chest x-ray film personally reviewed by me-increasing bilateral infiltrates CRP 60.5 pro calcitonin 0.1 2-D co-EF 30-35% Previous testing White count 10.9 hemoglobin 12.4 platelets 165 neutrophils 9.2 lymphocytes 0.7 potassium 4.3 bun 27 creatinine 0.88, proBNP 1530 EKG tracing personally reviewed by me-atrial flutter rate controlled Chest x-ray film personally reviewed by me-pulmonary edema, cardiomegaly, portable film Assessment: -Acute on chronic congestive heart failure exacerbation from systolic dysfunction EF 30-35% % from underlying coronary artery disease, POA-slow to respond -Bilateral pneumonia, suspect gram-negative organism causing sepsis, POA -Coronary artery disease a prior history of bypass -Acute COPD exacerbation and an current smoker, POA -Chronic nicotine dependence patient cigarette smoker -Persistent atrial fibrillation -Chronic hypoxic and hypercapnic respiratory failure from a lying COPD -Acute hypoxic and hypercapnic respiratory failure from COPD and CHF, pneumonia POA-worsening causing ventilator assistance-worsening Plan: -Patient on the ICU. Current drips include IV propofol, IV Zosyn, IV levo fed, IV heparin, Lasix drip. 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
[2020-01-26 23:26] LABS: Glucose,Whole Blood 149 mg/dL (75-99)
[2020-01-27] MEDS: PROPOFOL 1,000 MG in EMPTY BAG 1 BAG IV SCH ×4 (00:01→19:49)
[2020-01-27] MEDS: FUROSEMIDE 100 MG in SODIUM CHLORIDE 0.9% 90 ML IV SCH ×2 (02:51→15:21)
[2020-01-27 04:29] LABS: Basophils % (A) 0 %; Eosinophils % (A) 0 %; HCT 38.1 % (39.0-53.0); HGB 11.9 gm/dL (13.0-17.5); Hypochromasia Slight; Lymphocytes # (A) 0.3 k/uL (1.0-4.8); Lymphocytes % (A) 3 %; MCH 31.9 pg (25.0-35.0); MCHC 31.3 g/dL (31.0-37.0); Macrocytosis Slight; Mean Platelet Volume 9.5; Monocytes # (A) 0.4 k/uL (0-1.0); Monocytes % (A) 4 %; Neutrophils # (A) 8.8 k/uL (1.3-7.7); Neutrophils % (A) 92 %; Platelet Count 165 k/uL (150-450); RBC 3.74 m/uL (4.30-5.90); RDW 13.8 % (11.5-15.5); WBC 9.5 k/uL (3.8-10.6)
[2020-01-27 05:11] LABS: Calcium 8.4 mg/dL (8.4-10.2); Magnesium 2.4 mg/dL (1.6-2.3)
[2020-01-27] MEDS: methylPREDNISolone SOD SUCCI 125 MG/2 ML VIAL IV SCH ×4 (05:11→23:14)
[2020-01-27 05:15] LABS: Glucose,Whole Blood 133 mg/dL (75-99)
[2020-01-27 05:37] LABS: Potassium 2.7 mmol/L (3.5-5.1)
[2020-01-27] MEDS ORDERED: Potassium Replacement Protocol 1 EACH MISC MISCELLANE PRN (05:38)
[2020-01-27] MEDS: POTASSIUM CHLORIDE 20 MEQ in WATER FOR INJECTION 1 100ML.BAG IVPB SCH ×6 (05:51→19:02)
[2020-01-27] MEDS ORDERED: POTASSIUM CHLORIDE ER 20 MEQ TAB.ER PO SCH (06:00)
--- NOTE | 2020-01-27 06:50 | XR ---
EXAMINATION TYPE: XR chest 1V DATE OF EXAM: 01/27/2020 CLINICAL HISTORY: Difficulty breathing progress study. TECHNIQUE: Single AP portable upright view of the chest is obtained. COMPARISON: Chest x-ray from one day earlier and older studies. FINDINGS: Stable endotracheal and orogastric tubes. Persistent cardiomegaly with dual lead pacemaker /AICD. Overlying sternal wires and mediastinal clips redemonstrated. Background chronic emphysematous change with early moderate size left pleural effusion and associated left basilar atelectasis and/or infiltrate. Right lung remains clear. Underlying dextroconvex scoliosis redemonstrated. IMPRESSION: Overall stable findings, chronic parenchymal changes and cardiomegaly with persistent s mall to moderate-sized left pleural effusion and associated left basilar atelectasis and/or infiltrat e are all redemonstrated.
[2020-01-27 06:55] LABS: ABG Base Excess 16.9 mmol/L; ABG HCO3 38 mmol/L (21-25); ABG Oxygen Saturation 95.5 % (94-97); ABG PCO2 39 mmHg (35-45); ABG PO2 79 mmHg (83-108); ABG TCO2 40 mmol/L (19-24); Allen Test Performed? Yes
[2020-01-27 06:57] LABS: ABG PH 7.61 (7.35-7.45)
[2020-01-27] MEDS: IPRATROPIUM-ALBUTEROL 3 ML NEB INHALATION SCH ×4 (07:55→19:21)
[2020-01-27] MEDS: BUDESONIDE 0.5 MG/2 ML NEBU INHALATION SCH ×2 (07:55→19:21)
[2020-01-27] MEDS: PIPERACILLIN-TAZOBACTAM 3.375 GM in SODIUM CHLORIDE 0.9% 100 ML IVPB SCH ×3 (08:45→23:13)
[2020-01-27] MEDS: NICOTINE 21MG/24HR PATCH TRANSDERM SCH (08:52)
[2020-01-27] MEDS: CARVEDILOL 12.5 MG TAB PO SCH ×2 (09:15→19:48)
[2020-01-27] MEDS: ASPIRIN 81 MG PO SCH (09:15)
[2020-01-27] MEDS: PANTOPRAZOLE 40 MG/10 ML VIAL IV SCH (09:15)
[2020-01-27] MEDS: ATORVASTATIN 80 MG TAB PO SCH (09:15)
[2020-01-27] MEDS: CHLORHEXIDINE GLUCONATE 15 ML CUP MUCOUS MEM SCH ×2 (09:15→19:47)
[2020-01-27] MEDS: AMIODARONE 200 MG TAB PO SCH (09:16)
[2020-01-27 11:42] LABS: Glucose,Whole Blood 122 mg/dL (75-99)
--- NOTE | 2020-01-27 12:22 | P.PN ---
Subjective Progress Note Date: 01/27/20 Principal diagnosis: Acute on chronic hypoxic respiratory failure and hypercapnic respiratory failure secondary to acute systolic congestive heart failure and acute exacerbation of COPD This is a 75-year-old white male, long-standing smoking history, chronic atrial fibrillation, LV dysfunction and previous AICD placement, coronary artery disease and previous CABG, patient is on home oxygen. Mostly for his underlying COPD. Patient presented to the ER with 1 week history of increased shortness of breath. Also complaining of swelling in the legs. Weakness, fatigue, and wor sening shortness of breath over the last 1 week. Patient felt tired and rundown. Apparently the patient was initially admitted to the cardiac floor with the impression of congestive heart failure. Overnight, the patient's condition deteriorated, did not improve with a nonrebreather mask. Multiple ABGs were done and they reflected mostly hypoxemia and hypercapnia with a pCO2 above 120 and pH of 7.11. Patient required intubation and mechanical ventilation. He also required placement on relatively high PEEP because of hypoxemia with a pO2 of 43 in spite of being on 100% FiO2. Patient is now on tidal volume of 400, assist control rate of 24, FiO2 of 100% and PEEP of 15 ABG showed a pO2 of 198 pCO2 of 45 pH of 7.56. Hence his FiO2 will be decreased to 50% and address PEEP hopefully get the PEEP down to 10 if possible. Patient was placed on a Lasix drip he was also placed on Diamox. Placed on bronchodilators, and on Solu-Medrol. Chest x-ray showed evidence of congestive heart failure and left pleural effusion. Considering the patient had a temp of 101 on admission, his screening for covid 19 is pending. Patient was placed empirically on antibiotics in the form of Zosyn. Patient is sedated, on propofol, he is also on propofol at 50 mcg/kg/m, not requiring any pressors. Patient was intubated around 2 AM this morning. Reevaluated today on 01/27/20, patient remains in the intensive care unit, intubated and mechanically ventilated. Patient remains sedated, on propofol. His vent settings are assist control rate of 20 tidal volume is 400 FiO2 is 50% and PEEP is down to 8. His ABG showed a pO2 of 79 pCO2 of 39 pH of 7.61, hence cut down his respiratory rate from 24-20. Patient is -1.5 L over the last 24 hours. Remains on Lasix and I cut it down to 5 mg per hour. Discontinued his Aldactone. Kept him on Diamox. He is on Lasix now at 5 mg per hour. Propofol at 35 mcg/kg/m. And he is also on heparin drip. Patient has a paced rhythm at 60 beats per minutes. He is hemodynamically stable, not requiring any pressors. Chest x-ray is showing some improvement continues to have a chronic left pleural effusion which was present even as far as 2015. This is a chronic abnormality in the left lower lobe area. Hence no plans to perform thoracentesis. Electrolytes showed low potassium and that being corrected as per protocol. Renal functioning is slightly worse, hence I cut down on the Lasix and I discontinued Aldactone. His BUN is 36 creatinine is 1.41. WBC count is 9.5 hemoglobin is 11.9 PTT is therapeutic. Objective - Vital Signs Vital signs: Vital Signs Temp 98.4 F 01/27/20 04:00 Pulse 60 01/27/20 11:40 Resp 20 01/27/20 11:00 BP 85/55 01/27/20 10:30 Pulse Ox 95 01/27/20 11:00 Intake & Output 01/26/20 01/27/20 01/27/20 18:59 06:59 18:59 Intake Total 982.717 737.051 467.715 Output Total 1500 1740 585 Balance -517.283 -1002.949 -117.285 Weight 76.3 kg 75 kg 75 kg Intake: IV 540 420 320 0.9 NS KVO 130 110 10 Furosemide 100 mg In 110 110 30 Sodium Chloride 0.9% 90 ml @ 5 MG/HR 5 mls/hr IV .Q20H [facility] Rx#:[id number] Lasix gtt 5 Magnesium Sulfate-D5w Pmx 100 1 gm In Dextrose/Water 1 100ml.bag @ 100 mls/hr IVPB Q1H [facility] Rx#: [id number] Piperacillin-Tazobactam 3 200 100 75 .375 gm In Sodium Chloride 0.9% 100 ml @ 25 mls/hr IVPB Q8HR [facility] Rx# :[id number] Potassium Chloride 20 meq 100 200 In Water For Injection 1 100ml.bag @ 50 mls/hr IVPB Q2H [facility] Rx#: [id number] Intake, IV Titration 442.717 317.051 137.715 Amount Furosemide 100 mg In 90.833 88 59 Sodium Chloride 0.9% 90 ml @ 5 MG/HR 5 mls/hr IV .Q20H [facility] Rx#:[id number] Heparin Sod,Pork in 0.45% 75.995 56.462 NaCl 25,000 unit In 0.45 % NaCl 1 250ml.bag @ 12 UNITS/KG/HR 9.156 mls/hr IV .Q24H [facility] Rx#: [id number] Norepinephrine 4 mg In 55.717 Sodium Chloride 0.9% 250 ml @ 0.05 MCG/KG/MIN 14. 535 mls/hr IV .[id number] [facility] Rx#:[id number] Norepinephrine 8 mg In 3.050 Sodium Chloride 0.9% 250 ml @ 0.05 MCG/KG/MIN 7. 382 mls/hr IV .Q24H [facility] Rx#:[id number] Propofol 1,000 mg In 220.172 169.539 78.715 Empty Bag 1 bag @ Titrate IV .Q0M [facility] Rx#: [id number] Tube Feeding 10 Output: Urine 1500 1740 585 Other: Voiding Method Indwelling Catheter Indwelling Catheter Indwelling Catheter ABP, PAP, CO, CI - Last Documented Arterial Blood Pressure 89/45 - Exam GENERAL: Revealed a 75-year-old white male, on mechanical ventilation, and on propofol. EYES: Pupils equal. Conjunctiva normal. HEENT: PERRLA, EOMI, no icterus. Head is atraumatic, normocephalic. Endotracheal tube and orogastric tube are intact. NECK: No neck masses no JVD.. HEART: Paced rhythm, no S3 gallop. 2/6 systolic murmur throughout the precordium. LUNGS: Crackles at the bases, no rhonchi and no wheezes. ABDOMEN: Soft, nontender, liver spleen not palpable, no masses palpable. PSYCH: Cannot be assessed. MUSCULAR skeletal: No deformities. NEUROLOGICAL: Sedated, on propofol, cannot be assessed. We will hold propofol today and addressed mental status LYMPHATICS: No cervical adenopathy. - Labs CBC & Chem 7: 01/27/20 04:20 01/27/20 04:20 Labs: Abnormal Lab Results - Last 24 Hours (Table) 05/01/26/20 01/26/20 Range/Units 07:59 12:55 17:06 RBC (4.30-5.90) m/uL Hgb (13.0-17.5) gm/dL Hct (39.0-53.0) % MCV (80.0-100.0) fL Neutrophils # (1.3-7.7) k/uL Lymphocytes # (1.0-4.8) k/uL APTT (22.0-30.0) sec ABG pH 7.56 H* (7.35-7.45) ABG pO2 198 H (83-108) mmHg ABG HCO3 41 H* (21-25) mmol/L ABG Total CO2 42 H (19-24) mmol/L ABG O2 Saturation 98.0 H (94-97) % Potassium (3.5-5.1) mmol/L Chloride (98-107) mmol/L Carbon Dioxide (22-30) mmol/L BUN (9-20) mg/dL Creatinine (0.66-1.25) mg/dL Glucose (74-99) mg/dL POC Glucose (mg/dL) 150 H (75-99) mg/dL Magnesium (1.6-2.3) mg/dL Procalcitonin 0.10 H (0.02-0.09) ng/mL 01/26/20 01/26/20 01/27/20 Range/Units 22:40 23:25 04:20 RBC 3.74 L (4.30-5.90) m/uL Hgb 11.9 L (13.0-17.5) gm/dL Hct 38.1 L (39.0-53.0) % MCV 102.0 H (80.0-100.0) fL Neutrophils # 8.8 H (1.3-7.7) k/uL Lymphocytes # 0.3 L (1.0-4.8) k/uL APTT 72.2 H (22.0-30.0) sec ABG pH (7.35-7.45) ABG pO2 (83-108) mmHg ABG HCO3 (21-25) mmol/L ABG Total CO2 (19-24) mmol/L ABG O2 Saturation (94-97) % Potassium (3.5-5.1) mmol/L Chloride (98-107) mmol/L Carbon Dioxide (22-30) mmol/L BUN (9-20) mg/dL Creatinine (0.66-1.25) mg/dL Glucose (74-99) mg/dL POC Glucose (mg/dL) 149 H (75-99) mg/dL Magnesium (1.6-2.3) mg/dL Procalcitonin (0.02-0.09) ng/mL 01/27/20 01/27/20 01/27/20 Range/Units 04:20 04:20 05:14 RBC (4.30-5.90) m/uL Hgb (13.0-17.5) gm/dL Hct (39.0-53.0) % MCV (80.0-100.0) fL Neutrophils # (1.3-7.7) k/uL Lymphocytes # (1.0-4.8) k/uL APTT 53.7 H (22.0-30.0) sec ABG pH (7.35-7.45) ABG pO2 (83-108) mmHg ABG HCO3 (21-25) mmol/L ABG Total CO2 (19-24) mmol/L ABG O2 Saturation (94-97) % Potassium 2.7 L* (3.5-5.1) mmol/L Chloride 90 L (98-107) mmol/L Carbon Dioxide 37 H (22-30) mmol/L BUN 36 H (9-20) mg/dL Creatinine 1.41 H (0.66-1.25) mg/dL Glucose 142 H (74-99) mg/dL POC Glucose (mg/dL) 133 H (75-99) mg/dL Magnesium 2.4 H (1.6-2.3) mg/dL Procalcitonin (0.02-0.09) ng/mL 01/27/20 01/27/20 Range/Units 06:50 11:41 RBC (4.30-5.90) m/uL Hgb (13.0-17.5) gm/dL Hct (39.0-53.0) % MCV (80.0-100.0) fL Neutrophils # (1.3-7.7) k/uL Lymphocytes # (1.0-4.8) k/uL APTT (22.0-30.0) sec ABG pH 7.61 H* (7.35-7.45) ABG pO2 79 L (83-108) mmHg ABG HCO3 38 H (21-25) mmol/L ABG Total CO2 40 H (19-24) mmol/L ABG O2 Saturation (94-97) % Potassium (3.5-5.1) mmol/L Chloride (98-107) mmol/L Carbon Dioxide (22-30) mmol/L BUN (9-20) mg/dL Creatinine (0.66-1.25) mg/dL Glucose (74-99) mg/dL POC Glucose (mg/dL) 122 H (75-99) mg/dL Magnesium (1.6-2.3) mg/dL Procalcitonin (0.02-0.09) ng/mL Microbiology - Last 24 Hours (Table) 01/25/20 14:15 Blood Culture - Preliminary Blood No Growth after 24 hours 01/26/20 02:50 Gram Stain - Preliminary Sputum Sputum Culture - Preliminary Assessment and Plan Assessment: Impression: Acute on chronic hypoxic and hypercapnic respiratory failure secondary to acute systolic congestive heart failure and acute exacerbation of COPD. History of coronary artery disease and previous CABG History of cardiomyopathy LV dysfunction and AICD placement. Chronic atrial fibrillation. tobacco dependence syndrome. Chronic left pleural effusion, present since 2016. Negative PCR for coronar virus. Recommendation: Continue ventilatory support. Continue GI and DVT prophylaxis. Continue anticoagulations therapy Decrease Lasix to 5 mg per hour Discontinue Aldactone Continue Diamox at 250 mg IV push every 12 hours. Adjust ventilator settings accordingly, PEEP is down to 8 FiO2 remains at 50% and his assist-control rate is down to 20. Continue antibiotics empirically. Continue bronchodilators. Plan today is to continue present supportive care measures, start enteral feeding hold sedation and assessment of status. Cut down on diuretics, and not ready for any weaning. Patient remains critically ill. Critical care time is 35 minutes. Time with Patient: Greater than 30
[2020-01-27] MEDS: LISINOPRIL 5 MG TAB PO SCH (12:29)
[2020-01-27] MEDS: POTASSIUM BICARBONATE/CIT AC 20 MEQ TABLET.EFF NG-TUBE SCH ×3 (14:49→17:37)
--- NOTE | 2020-01-27 14:57 | PN ---
PROGRESS NOTE A 75-year-old gentleman who is admitted to hospital with shortness of breath and respiratory failure. His COVID has come back negative. He is currently intubated on vent, has persistent atrial fibrillation, evidence of underlying LV dysfunction and has had an AICD. He has COPD and is on home O2. Has known CAD and prior bypass surgery. Patient today still remains intubated and mechanically ventilated. He is on an FiO2 of 50%, blood gases show a PO2 of 79 and a pCO2 of 59. Patient was on Lasix drip yesterday. This has been decreased to 5 mg an hour. Chest x-ray shows left-sided pleural effusion. PHYSICAL EXAM: Heart rate is 53, blood pressure is 91/46, respiratory rate 18. Chest exam reveals diminished air entry bilaterally, heart exam reveals first and second heart sounds. No gallop. Exam of extremities reveal mild bilateral lower extremity edema. An echocardiogram showed an ejection fraction of 35%. LABS: Show a hemoglobin of 11.9, BUN is 36, creatinine is 1.4, potassium is 2.7. ASSESSMENT: 1. Acute exacerbation of chronic systolic heart failure. 2. Hypokalemia. 3. Respiratory failure. PLAN: Patient will continue the Lasix drip, oral amiodarone, aspirin, Lipitor, Coreg, and we will start him on lisinopril 5 mg daily, once the blood pressure is more stable. MMODL / IJN: [id number] /
[2020-01-27 18:01] LABS: Glucose,Whole Blood 129 mg/dL (75-99)
--- NOTE | 2020-01-27 19:32 | P.PN ---
Progress Note - Text Progress Note Date: 01/27/20 Chief Complaint: Short of breath History of presenting complaint: This is a 75-year-old patient of Dr. Gonzáles. Long-standing smoker. Chronic stable medical conditions include atrial fibrillation, AICD, coronary artery disease with prior bypass, on home oxygen, GERD, COPD. Last ejection fraction is 40-45%. She presents with worsening short of breath for about a week at least. It has been progressively getting worse. Some edema. Weak and tired slight cough is present. Increasing swelling of lower extremity. Orthopnea. No fever no chills. Tired and rundown. Slow with given history. Admitted with acute on chronic CHF exacerbation, COPD exacerbation. Was started on IV Lasix, bronchodilators and IV steroids. Early hours of January 25 patient was becoming more short of breath, could not tolerate BiPAP was intubated and placed in the ICU. Also being treated for pneumonia. [id number] 15 of PEEP of 8. Has an OG tube. 2 feeding at 10 mL an hour. Drips include IV heparin, IV Lasix, IV norepinephrine, IV propofol. Review of systems cannot be done patient is intubated Active Medications Acetazolamide Sodium (Diamox) 250 mg IV Q12HR [facility] Last Admin: 01/27/20 09:16 Dose: 250 mg Documented by: Albuterol/Ipratropium (Duoneb 0.5 Mg-3 Mg/3 Ml Soln) 3 ml INHALATION RT-QID [facility] Last Admin: 01/27/20 19:21 Dose: 3 ml Documented by: Albuterol/Ipratropium (Duoneb 0.5 Mg-3 Mg/3 Ml Soln) 3 ml INHALATION RT-Q2H PRN PRN Reason: Shortness Of Breath Or Wheezing Amiodarone HCl (Cordarone) 200 mg PO DAILY [facility] Last Admin: 01/27/20 09:16 Dose: 200 mg Documented by: Aspirin (Aspirin) 81 mg PO DAILY [facility] Last Admin: 01/27/20 09:15 Dose: 81 mg Documented by: Atorvastatin Calcium (Lipitor) 80 mg PO DAILY [facility] Last Admin: 01/27/20 09:15 Dose: 80 mg Documented by: Budesonide (Pulmicort) 0.5 mg INHALATION RT-BID [facility] Last Admin: 01/27/20 19:21 Dose: 0.5 mg Documented by: Carvedilol (Coreg) 12.5 mg PO BID [facility] Last Admin: 01/27/20 09:15 Dose: 12.5 mg Documented by: Chlorhexidine Gluconate (Peridex) 15 ml MUCOUS MEM BID [facility] Last Admin: 01/27/20 09:15 Dose: 15 ml Documented by: Heparin Sodium (Porcine) (Heparin) 0 unit IV PER PROTOCOL PRN; Protocol PRN Reason: Low PTT Propofol 1,000 mg/ IV Solution 100 mls @ 0 mls/hr IV .Q0M [facility]; Protocol Last Titration: 01/27/20 18:26 Dose: 26 mcg/kg/min, 11.7 mls/hr Documented by: Furosemide 100 mg/ Sodium (Chloride) 100 mls @ 5 mls/hr IV .Q20H [facility] Last Admin: 01/27/20 15:21 Dose: 5 mg/hr, 5 mls/hr Documented by: Piperacillin Sod/Tazobactam (Sod 3.375 gm/ Sodium Chloride) 100 mls @ 25 mls/hr IVPB Q8HR [facility] Last Admin: 01/27/20 15:34 Dose: 25 mls/hr Documented by: Heparin Sodium/Sodium Chloride (25,000 unit/ Sodium Chloride) 250 mls @ 9.156 mls/hr IV .Q24H [facility]; Protocol Last Titration: 01/26/20 23:10 Dose: 10 units/kg/hr, 7.63 mls/hr Documented by: Norepinephrine Bitartrate 8 mg (/ Sodium Chloride) 258 mls @ 7.382 mls/hr IV .Q24H [facility]; Protocol Last Titration: 01/27/20 16:13 Dose: 0 mcg/kg/min, 0 mls/hr Documented by: Potassium Chloride 20 meq/ IV (Solution) 100 mls @ 50 mls/hr IVPB Q2H [facility] Stop: 01/27/20 20:44 Last Admin: 01/27/20 19:02 Dose: 50 mls/hr Documented by: Lisinopril (Zestril) 5 mg PO DAILY [facility] Last Admin: 01/27/20 12:29 Dose: Not Given Documented by: Methylprednisolone Sodium Succinate (Solu-Medrol) 60 mg IV Q6HR [facility] Last Admin: 01/27/20 18:09 Dose: 60 mg Documented by: Miscellaneous Information (Magnesium Per Protocol) 1 each MISCELLANE DAILY PRN; Protocol PRN Reason: Per Protocol Miscellaneous Information (Potassium Per Protocol) 1 each MISCELLANE DAILY PRN; Protocol PRN Reason: Per Protocol Naloxone HCl (Narcan) 0.2 mg IV Q2M PRN PRN Reason: Opioid Reversal Nicotine (Habitrol 21mg/24hr Patch) 1 patch TRANSDERM DAILY [facility] Last Admin: 01/27/20 08:52 Dose: 1 patch Documented by: Pantoprazole Sodium (Protonix) 40 mg IV DAILY [facility] Last Admin: 01/27/20 09:15 Dose: 40 mg Documented by: Physical examination: VITAL SIGNS: 97.6, 60, 20, 80/53, 94% on the ventilator GENERAL: Laying in bed, intubated. EYES: Pupils equal. Conjunctiva normal. HEENT: External appearance of nose and ears normal, oral cavity-endotracheal tube NECK: JVD unable to assess; masses not palpable. HEART: Heart sounds irregular, edema present. LUNGS: Respiratory rate increased,, diminished breath sounds. ABDOMEN: Soft, nontender, liver spleen not palpable, no masses palpable. PSYCH: Unable to assess-intubated. MUSCULAR skeletal: Evidence of OA INVESTIGATIONS, reviewed in the clinical context: White count 9.5 hemoglobin 11.9 platelets 165 potassium 2.7 bun 36 creatinine 1.41 Previous testing White count 13.1 hemoglobin 12.2 platelets 139, potassium 4.9 crit 1.01 Chest x-ray film personally reviewed by me-increasing bilateral infiltrates CRP 60.5 pro calcitonin 0.1 2-D co-EF 30-35% Previous testing White count 10.9 hemoglobin 12.4 platelets 165 neutrophils 9.2 lymphocytes 0.7 potassium 4.3 bun 27 creatinine 0.88, proBNP 1530 EKG tracing personally reviewed by me-atrial flutter rate controlled Chest x-ray film personally reviewed by me-pulmonary edema, cardiomegaly, portable film Assessment: -Acute on chronic congestive heart failure exacerbation from systolic d ysfunction EF 30-35% % from underlying coronary artery disease, POA-slow to respond -Bilateral pneumonia, suspect gram-negative organism causing sepsis, POA -Coronary artery disease a prior history of bypass -Acute COPD exacerbation and an current smoker, POA -Chronic nicotine dependence patient cigarette smoker -Persistent atrial fibrillation -Chronic hypoxic and hypercapnic respiratory failure from a lying COPD -Acute hypoxic and hypercapnic respiratory failure from COPD and CHF, pneumonia POA-worsening causing ventilator slow to respond Plan: -ICU. Current drips include IV propofol, IV Zosyn, IV levo fed, IV heparin, Lasix drip. Also in IV Zosyn. Prognosis guarded. Follow closely
[2020-01-27] MEDS: HEPARIN SOD,PORK IN 0.45% NACL 25,000 UNIT in 0.45% NACL 1 250ML.BAG IV SCH (22:23)
[2020-01-28 01:42] LABS: Glucose,Whole Blood 149 mg/dL (75-99)
[2020-01-28 04:20] LABS: Basophils % (A) 0 %; Eosinophils % (A) 0 %; HCT 41.6 % (39.0-53.0); HGB 12.9 gm/dL (13.0-17.5); Hypochromasia Slight; Lymphocytes # (A) 0.2 k/uL (1.0-4.8); Lymphocytes % (A) 2 %; MCH 31.9 pg (25.0-35.0); Macrocytosis Slight; Mean Platelet Volume 8.8; Monocytes # (A) 0.3 k/uL (0-1.0); Monocytes % (A) 3 %; Neutrophils # (A) 9.2 k/uL (1.3-7.7); Neutrophils % (A) 94 %; Platelet Count 157 k/uL (150-450); RBC 4.04 m/uL (4.30-5.90); WBC 9.8 k/uL (3.8-10.6)
[2020-01-28 04:56] LABS: Calcium 7.9 mg/dL (8.4-10.2); Potassium 3.3 mmol/L (3.5-5.1)
[2020-01-28] MEDS: methylPREDNISolone SOD SUCCI 125 MG/2 ML VIAL IV SCH ×4 (05:23→23:30)
[2020-01-28] MEDS: POTASSIUM CHLORIDE 20 MEQ in WATER FOR INJECTION 1 100ML.BAG IVPB SCH ×6 (05:23→19:42)
[2020-01-28] MEDS: PROPOFOL 1,000 MG in EMPTY BAG 1 BAG IV SCH ×2 (05:30→21:38)
[2020-01-28 07:17] LABS: ABG Base Excess 9.2 mmol/L; ABG HCO3 33 mmol/L (21-25); ABG Oxygen Saturation 95.1 % (94-97); ABG PCO2 46 mmHg (35-45); ABG PH 7.46 (7.35-7.45); ABG PO2 88 mmHg (83-108); ABG TCO2 35 mmol/L (19-24); Allen Test Performed? Yes
--- NOTE | 2020-01-28 07:17 | XR ---
EXAMINATION TYPE: XR chest 1V DATE OF EXAM: 01/28/2020 COMPARISON: 01/27/2020 HISTORY: Ventilatory dependent respiratory failure TECHNIQUE: Single frontal view of the chest is obtained. FINDINGS: Cardiomediastinal silhouette is partially obscured but again enlarged. There is a moderate layering left pleural effusion associated left-sided airspace disease. Patchy right basilar airspace disease is minimally progressed from the prior. Diffuse interstitial prominence remains. Left-sided cardiac device and post-CABG changes are again noted. Patient is slightly rotated shifting the medias tinum to the right. Dextroscoliotic curvature of the spine is also seen with diffuse osseous deminera lization. IMPRESSION: Moderate left pleural effusion with associated left-sided airspace disease is stable. Sl ightly increasing right basilar airspace disease, possibly atelectasis.
[2020-01-28] MEDS: PIPERACILLIN-TAZOBACTAM 3.375 GM in SODIUM CHLORIDE 0.9% 100 ML IVPB SCH ×3 (07:51→23:29)
[2020-01-28] MEDS: ATORVASTATIN 80 MG TAB PO SCH (08:02)
[2020-01-28] MEDS: CARVEDILOL 12.5 MG TAB PO SCH ×2 (08:02→19:42)
[2020-01-28] MEDS: PANTOPRAZOLE 40 MG/10 ML VIAL IV SCH (08:02)
[2020-01-28] MEDS: ASPIRIN 81 MG PO SCH (08:02)
[2020-01-28] MEDS: NICOTINE 21MG/24HR PATCH TRANSDERM SCH (08:02)
[2020-01-28] MEDS: CHLORHEXIDINE GLUCONATE 15 ML CUP MUCOUS MEM SCH ×2 (08:02→19:42)
[2020-01-28] MEDS: BUDESONIDE 0.5 MG/2 ML NEBU INHALATION SCH ×2 (08:03→19:12)
[2020-01-28] MEDS: AMIODARONE 200 MG TAB PO SCH (08:03)
[2020-01-28] MEDS: IPRATROPIUM-ALBUTEROL 3 ML NEB INHALATION SCH ×4 (08:03→19:12)
[2020-01-28] MEDS: LISINOPRIL 5 MG TAB PO SCH (08:10)
[2020-01-28] MEDS: FUROSEMIDE 10 MG/ML 4 ML VIAL IV SCH ×2 (08:25→19:42)
[2020-01-28 11:26] LABS: Glucose,Whole Blood 116 mg/dL (75-99)
--- NOTE | 2020-01-28 12:01 | P.PN ---
Subjective Progress Note Date: 01/28/20 Principal diagnosis: Acute on chronic hypoxic respiratory failure and hypercapnic respiratory failure secondary to acute systolic congestive heart failure and acute exacerbation of COPD This is a 75-year-old white male, long-standing smoking history, chronic atrial fibrillation, LV dysfunction and previous AICD placement, coronary artery disease and previous CABG, patient is on home oxygen. Mostly for his underlying COPD. Patient presented to the ER with 1 week history of increased shortness of breath. Also complaining of swelling in the legs. Weakness, fatigue, and wor sening shortness of breath over the last 1 week. Patient felt tired and rundown. Apparently the patient was initially admitted to the cardiac floor with the impression of congestive heart failure. Overnight, the patient's condition deteriorated, did not improve with a nonrebreather mask. Multiple ABGs were done and they reflected mostly hypoxemia and hypercapnia with a pCO2 above 120 and pH of 7.11. Patient required intubation and mechanical ventilation. He also required placement on relatively high PEEP because of hypoxemia with a pO2 of 43 in spite of being on 100% FiO2. Patient is now on tidal volume of 400, assist control rate of 24, FiO2 of 100% and PEEP of 15 ABG showed a pO2 of 198 pCO2 of 45 pH of 7.56. Hence his FiO2 will be decreased to 50% and address PEEP hopefully get the PEEP down to 10 if possible. Patient was placed on a Lasix drip he was also placed on Diamox. Placed on bronchodilators, and on Solu-Medrol. Chest x-ray showed evidence of congestive heart failure and left pleural effusion. Considering the patient had a temp of 101 on admission, his screening for covid 19 is pending. Patient was placed empirically on antibiotics in the form of Zosyn. Patient is sedated, on propofol, he is also on propofol at 50 mcg/kg/m, not requiring any pressors. Patient was intubated around 2 AM this morning. Reevaluated today on 01/27/20, patient remains in the intensive care unit, intubated and mechanically ventilated. Patient remains sedated, on propofol. His vent settings are assist control rate of 20 tidal volume is 400 FiO2 is 50% and PEEP is down to 8. His ABG showed a pO2 of 79 pCO2 of 39 pH of 7.61, hence cut down his respiratory rate from 24-20. Patient is -1.5 L over the last 24 hours. Remains on Lasix and I cut it down to 5 mg per hour. Discontinued his Aldactone. Kept him on Diamox. He is on Lasix now at 5 mg per hour. Propofol at 35 mcg/kg/m. And he is also on heparin drip. Patient has a paced rhythm at 60 beats per minutes. He is hemodynamically stable, not requiring any pressors. Chest x-ray is showing some improvement continues to have a chronic left pleural effusion which was present even as far as 2015. This is a chronic abnormality in the left lower lobe area. Hence no plans to perform thoracentesis. Electrolytes showed low potassium and that being corrected as per protocol. Renal functioning is slightly worse, hence I cut down on the Lasix and I discontinued Aldactone. His BUN is 36 creatinine is 1.41. WBC count is 9.5 hemoglobin is 11.9 PTT is therapeutic. Reevaluated today on 01/28/20, patient remains intubated and mechanically ventilated. His ventilator settings are assist control rate of 20 tidal volume is 400 FiO2 is 50% and PEEP is 8. ABG showed a pO2 of 88 pCO2 of 46 pH of 7.46. Patient remains on propofol at 35 mcg/kg/m, Lasix at 5 mg per hour which I have discontinued today, he is also on norepinephrine at 0.01 mcg/kg/m, and heparin. Chest x-ray continues to show moderate left pleural effusion and associated left airspace disease.. Renal profile remains marginal with a BUN of 47 creatinine of 1.50. PTT is therapeutic at 48.9, CBC is relatively normal. Sputum is positive for Streptococcus pneumoniae. Blood cultures are negative. Patient remains empirically on antibiotics. Patient remains on enteral feeding, and he seems to be tolerating enteral feeding well. Objective - Vital Signs Vital signs: Vital Signs Temp 98.8 F 01/28/20 08:00 Pulse 60 01/28/20 11:12 Resp 27 H 01/28/20 11:00 BP 86/55 01/28/20 11:00 Pulse Ox 100 01/28/20 11:00 Intake & Output 01/27/20 01/28/20 01/28/20 18:59 06:59 18:59 Intake Total 1118.263 856.185 637.668 Output Total 1205 1500 810 Balance -86.737 -643.815 -172.332 Weight 75 kg 76.2 kg Intake: IV 610 360 230 0.9 NS KVO 40 20 Furosemide 100 mg In 30 Sodium Chloride 0.9% 90 ml @ 5 MG/HR 5 mls/hr IV .Q20H [facility] Rx#:[id number] Lasix gtt 40 60 10 Piperacillin-Tazobactam 3 100 100 100 .375 gm In Sodium Chloride 0.9% 100 ml @ 25 mls/hr IVPB Q8HR [facility] Rx# :[id number] Potassium Chloride 20 meq 400 200 100 In Water For Injection 1 100ml.bag @ 50 mls/hr IVPB Q2H [facility] Rx#: [id number] Intake, IV Titration 378.263 116.185 197.668 Amount Furosemide 100 mg In 92 85.333 Sodium Chloride 0.9% 90 ml @ 5 MG/HR 5 mls/hr IV .Q20H [facility] Rx#:[id number] Heparin Sod,Pork in 0.45% 117.543 NaCl 25,000 unit In 0.45 % NaCl 1 250ml.bag @ 12 UNITS/KG/HR 9.156 mls/hr IV .Q24H [facility] Rx#: [id number] Norepinephrine 8 mg In 30.170 0 66.196 Sodium Chloride 0.9% 250 ml @ 0.05 MCG/KG/MIN 7. 382 mls/hr IV .Q24H [facility] Rx#:[id number] Propofol 1,000 mg In 138.550 116.185 46.139 Empty Bag 1 bag @ Titrate IV .Q0M [facility] Rx#: [id number] Tube Feeding 100 290 180 Other 30 90 30 Output: Urine 1205 1500 810 Other: Voiding Method Indwelling Catheter Indwelling Catheter Indwelling Catheter ABP, PAP, CO, CI - Last Documented Arterial Blood Pressure 93/38 - Exam GENERAL: Revealed a 75-year-old white male, on mechanical ventilation, arousable, follows simple instructions off propofol. EYES: Pupils equal. Conjunctiva normal. HEENT: PERRLA, EOMI, no icterus. Head is atraumatic, normocephalic. Endotracheal tube and orogastric tube are intact. NECK: No neck masses no JVD.. HEART: Paced rhythm, no S3 gallop. 2/6 systolic murmur throughout the precordium. LUNGS: Crackles at the bases, no rhonchi and no wheezes. ABDOMEN: Soft, nontender, liver spleen not palpable, no masses palpable. PSYCH: Arousable, otherwise could not be assessed. MUSCULAR skeletal: No deformities. NEUROLOGICAL: Patient was noted to follow simple instructions off propofol, appropriate, hence we'll try to hold the propofol and check weaning parameters and even give the patient possibly a trial of pressure support and CPAP LYMPHATICS: No cervical adenopathy. - Labs CBC & Chem 7: 01/28/20 04:00 01/28/20 10:30 Labs: Abnormal Lab Results - Last 24 Hours (Table) 01/27/20 01/27/20 01/28/20 Range/Units 14:05 17:59 01:40 RBC (4.30-5.90) m/uL Hgb (13.0-17.5) gm/dL MCV (80.0-100.0) fL Neutrophils # (1.3-7.7) k/uL Lymphocytes # (1.0-4.8) k/uL APTT (22.0-30.0) sec ABG pH (7.35-7.45) ABG pCO2 (35-45) mmHg ABG HCO3 (21-25) mmol/L ABG Total CO2 (19-24) mmol/L Potassium 2.9 L (3.5-5.1) mmol/L Carbon Dioxide (22-30) mmol/L BUN (9-20) mg/dL Creatinine (0.66-1.25) mg/dL Glucose (74-99) mg/dL POC Glucose (mg/dL) 129 H 149 H (75-99) mg/dL Calcium (8.4-10.2) mg/dL 01/28/20 01/28/20 01/28/20 Range/Units 04:00 04:00 04:00 RBC 4.04 L (4.30-5.90) m/uL Hgb 12.9 L (13.0-17.5) gm/dL MCV 103.0 H (80.0-100.0) fL Neutrophils # 9.2 H (1.3-7.7) k/uL Lymphocytes # 0.2 L (1.0-4.8) k/uL APTT 48.9 H (22.0-30.0) sec ABG pH (7.35-7.45) ABG pCO2 (35-45) mmHg ABG HCO3 (21-25) mmol/L ABG Total CO2 (19-24) mmol/L Potassium 3.3 L (3.5-5.1) mmol/L Carbon Dioxide 33 H (22-30) mmol/L BUN 47 H (9-20) mg/dL Creatinine 1.50 H (0.66-1.25) mg/dL Glucose 179 H (74-99) mg/dL POC Glucose (mg/dL) (75-99) mg/dL Calcium 7.9 L (8.4-10.2) mg/dL 01/28/20 01/28/20 01/28/20 Range/Units 07:12 10:30 11:25 RBC (4.30-5.90) m/uL Hgb (13.0-17.5) gm/dL MCV (80.0-100.0) fL Neutrophils # (1.3-7.7) k/uL Lymphocytes # (1.0-4.8) k/uL APTT (22.0-30.0) sec ABG pH 7.46 H (7.35-7.45) ABG pCO2 46 H (35-45) mmHg ABG HCO3 33 H (21-25) mmol/L ABG Total CO2 35 H (19-24) mmol/L Potassium 3.2 L (3.5-5.1) mmol/L Carbon Dioxide (22-30) mmol/L BUN (9-20) mg/dL Creatinine (0.66-1.25) mg/dL Glucose (74-99) mg/dL POC Glucose (mg/dL) 116 H (75-99) mg/dL Calcium (8.4-10.2) mg/dL Microbiology - Last 24 Hours (Table) 01/26/20 02:50 Gram Stain - Preliminary Sputum Sputum Culture - Preliminary Streptococcus pneumoniae 01/25/20 14:15 Blood Culture - Preliminary Blood No Growth after 48 hours Assessment and Plan Assessment: Impression: Acute on chronic hypoxic and hypercapnic respiratory failure secondary to acute systolic congestive heart failure and acute exacerbation of COPD. History of coronary artery disease and previous CABG History of cardiomyopathy LV dysfunction and AICD placement. Chronic atrial fibrillation. tobacco dependence syndrome. Chronic left pleural effusion, present since 2016. Negative PCR for coronar virus. Suspect underlying streptococcal pneumonia, hence we'll continue antibiotics. Recommendation: Continue ventilatory support. Check weaning parameters and possibly a trial of pressure support and CPAP Continue GI and DVT prophylaxis. Continue anticoagulations therapy Change Lasix to 40 mg IV push every 12 hours. Continue Diamox at 250 mg IV push every 12 hours. Trial of pressure support of 10 and CPAP today. Continue antibiotics empirically. Sputum has been positive for Streptococcus pneumoniae Continue bronchodilators. Hold enteral feeding if the patient is to be weaned otherwise continue to reach goal. Prognosis remains extremely poor and guarded, we'll continue to follow, critical care time is 35 minutes Time with Patient: Greater than 30
--- NOTE | 2020-01-28 14:09 | PN ---
PROGRESS NOTE Rivera is a 75-year-old gentleman that is admitted to hospital with acute exacerbation of chronic heart failure. He is intubated on vent but he is awake and hopefully will be extubated tomorrow. PHYSICAL EXAM: Heart rate is 60 beats per minute, blood pressure is 93/38, respiratory rate is 18, O2 saturation is 100%. LABS: Show that the hemoglobin is 12.9, creatinine is 1.5, BUN is 47, potassium is 3.2. CURRENT MEDICATIONS: Include Diamox, amiodarone, aspirin, Lipitor, Coreg, Lasix, IV heparin. The chest x-ray shows moderate left-sided pleural effusion, which is chronic. An echocardiogram shows moderate to severe LV dysfunction. ASSESSMENT: Acute exacerbation of chronic systolic heart failure, dyslipidemia, respiratory failure, history of atrial fibrillation, status post AICD. PLAN: I will continue the patient on amiodarone, IV Lasix, IV heparin, Coreg. Once he is extubated we can stop the IV heparin and start him back on the Eliquis that he was on. RHONDA / FREEDOMN: [id number] /
--- NOTE | 2020-01-28 17:24 | P.PN ---
Progress Note - Text Progress Note Date: 01/28/20 Chief Complaint: Short of breath History of presenting complaint: This is a 75-year-old patient of Dr. Gonzáles. Long-standing smoker. Chronic stable medical conditions include atrial fibrillation, AICD, coronary artery disease with prior bypass, on home oxygen, GERD, COPD. Last ejection fraction is 40-45%. She presents with worsening short of breath for about a week at least. It has been progressively getting worse. Some edema. Weak and tired slight cough is present. Increasing swelling of lower extremity. Orthopnea. No fever no chills. Tired and rundown. Slow with given history. Admitted with acute on chronic CHF exacerbation, COPD exacerbation. Was started on IV Lasix, bronchodilators and IV steroids. Early hours of January 25 patient was becoming more short of breath, could not tolerate BiPAP was intubated and placed in the ICU. Also being treated for pneumonia. [id number] 70 and a PEEP of 8. Telemetry shows sinus rhythm. Drips include propofol and levo fed. OG feeding.. Switched to IV Lasix bolus Review of systems cannot be done patient is intubated Active Medications Acetazolamide Sodium (Diamox) 250 mg IV Q12HR [facility] Last Admin: 01/28/20 08:25 Dose: 250 mg Documented by: Albuterol/Ipratropium (Duoneb 0.5 Mg-3 Mg/3 Ml Soln) 3 ml INHALATION RT-QID [facility] Last Admin: 01/28/20 16:28 Dose: 3 ml Documented by: Albuterol/Ipratropium (Duoneb 0.5 Mg-3 Mg/3 Ml Soln) 3 ml INHALATION RT-Q2H PRN PRN Reason: Shortness Of Breath Or Wheezing Amiodarone HCl (Cordarone) 200 mg PO DAILY [facility] Last Admin: 01/28/20 08:03 Dose: 200 mg Documented by: Aspirin (Aspirin) 81 mg PO DAILY [facility] Last Admin: 01/28/20 08:02 Dose: 81 mg Documented by: Atorvastatin Calcium (Lipitor) 80 mg PO DAILY [facility] Last Admin: 01/28/20 08:02 Dose: 80 mg Documented by: Budesonide (Pulmicort) 0.5 mg INHALATION RT-BID [facility] Last Admin: 01/28/20 08:03 Dose: 0.5 mg Documented by: Carvedilol (Coreg) 12.5 mg PO BID [facility] Last Admin: 01/28/20 08:02 Dose: 12.5 mg Documented by: Chlorhexidine Gluconate (Peridex) 15 ml MUCOUS MEM BID [facility] Last Admin: 01/28/20 08:02 Dose: 15 ml Documented by: Furosemide (Lasix) 40 mg IV Q12HR [facility] Last Admin: 01/28/20 08:25 Dose: 40 mg Documented by: Heparin Sodium (Porcine) (Heparin) 0 unit IV PER PROTOCOL PRN; Protocol PRN Reason: Low PTT Propofol 1,000 mg/ IV Solution 100 mls @ 0 mls/hr IV .Q0M [facility]; Protocol Last Titration: 01/28/20 08:23 Dose: 0 mcg/kg/min, 0 mls/hr Documented by: Piperacillin Sod/Tazobactam (Sod 3.375 gm/ Sodium Chloride) 100 mls @ 25 mls/hr IVPB Q8HR [facility] Last Admin: 01/28/20 16:03 Dose: 25 mls/hr Documented by: Heparin Sodium/Sodium Chloride (25,000 unit/ Sodium Chloride) 250 mls @ 9.156 mls/hr IV .Q24H [facility]; Protocol Last Admin: 01/27/20 22:23 Dose: 10 units/kg/hr, 7.63 mls/hr Documented by: Norepinephrine Bitartrate 8 mg (/ Sodium Chloride) 258 mls @ 7.382 mls/hr IV .Q24H [facility]; Protocol Last Titration: 01/28/20 16:07 Dose: 0.09 mcg/kg/min, 13.288 mls/hr Documented by: Lisinopril (Zestril) 5 mg PO DAILY [facility] Last Admin: 01/28/20 08:10 Dose: 5 mg Documented by: Methylprednisolone Sodium Succinate (Solu-Medrol) 60 mg IV Q6HR [facility] Last Admin: 01/28/20 11:15 Dose: 60 mg Documented by: Miscellaneous Information (Magnesium Per Protocol) 1 each MISCELLANE DAILY PRN; Protocol PRN Reason: Per Protocol Miscellaneous Information (Potassium Per Protocol) 1 each MISCELLANE DAILY PRN; Protocol PRN Reason: Per Protocol Naloxone HCl (Narcan) 0.2 mg IV Q2M PRN PRN Reason: Opioid Reversal Nicotine (Habitrol 21mg/24hr Patch) 1 patch TRANSDERM DAILY [facility] Last Admin: 01/28/20 08:02 Dose: 1 patch Documented by: Pantoprazole Sodium (Protonix) 40 mg IV DAILY [facility] Last Admin: 01/28/20 08:02 Dose: 40 mg Documented by: Physical examination: VITAL SIGNS: 98.4, 60, 27, 89/43, 93% on the ventilator GENERAL: Laying in bed, intubated. EYES: Pupils equal. Conjunctiva normal. HEENT: External appearance of nose and ears normal, oral cavity-endotracheal tube NECK: JVD unable to assess; masses not palpable. HEART: Heart sounds irregular, edema present. LUNGS: Respiratory rate increased,, diminished breath sounds. ABDOMEN: Soft, nontender, liver spleen not palpable, no masses palpable. PSYCH: Unable to assess-intubated. MUSCULAR skeletal: Evidence of OA INVESTIGATIONS, reviewed in the clinical context: White count 9.8 hemoglobin 12.9 platelets 457 potassium 3.3 bun 47 creatinine 1.50 Checks x-ray showing effusion and airspace disease Previous testing White count 13.1 hemoglobin 12.2 platelets 139, potassium 4.9 crit 1.01 Chest x-ray film personally reviewed by me-increasing bilateral infiltrates CRP 60.5 pro calcitonin 0.1 2-D co-EF 30-35% Previous testing White count 10.9 hemoglobin 12.4 platelets 165 neutrophils 9.2 lymphocytes 0.7 potassium 4.3 bun 27 creatinine 0.88, proBNP 1530 EKG tracing personally reviewed by me-atrial flutter rate controlled Chest x-ray film personally reviewed by me-pulmonary edema, cardiomegaly, portable film Assessment: -Acute on chronic congestive heart failure exacerbation from systolic dysfunction EF 30-35% % from underlying coronary artery disease, POA-slow to respond -Bilateral pneumonia, suspect gram-negative organism causing sepsis, POA -Coronary artery disease a prior history of bypass -Acute COPD exacerbation and an current smoker, POA -Chronic nicotine dependence patient cigarette smoker -Persistent atrial fibrillation -Chronic hypoxic and hypercapnic respiratory failure from a lying COPD -Acute hypoxic and hypercapnic respiratory failure from COPD and CHF, pneumonia POA-worsening causing ventilator slow to respond -Acute kidney injury possibly combination of ATN and prerenal including hypotension and diuresis-new diagnosis Plan: -ICU. Current drips include IV propofol, IV Zosyn, IV levo fed, IV heparin,- Lasix drip changed to IV Lasix bolus 40 mg twice a day. . Prognosis guarded. Follow closely
[2020-01-28 17:50] LABS: Glucose,Whole Blood 148 mg/dL (75-99)
[2020-01-28] MEDS: NOREPINEPHRINE 8 MG in SODIUM CHLORIDE 0.9% 250 ML IV SCH (23:30)
[2020-01-29 00:08] LABS: Glucose,Whole Blood 178 mg/dL (75-99)
[2020-01-29] MEDS: HEPARIN SOD,PORK IN 0.45% NACL 25,000 UNIT in 0.45% NACL 1 250ML.BAG IV SCH ×2 (03:08→18:01)
[2020-01-29] MEDS ORDERED: Potassium Replacement Protocol 1 EACH MISC MISCELLANE PRN (03:10)
[2020-01-29] MEDS: POTASSIUM CHLORIDE 20 MEQ in WATER FOR INJECTION 1 100ML.BAG IVPB SCH ×2 (03:14→05:19)
[2020-01-29 04:45] LABS: Basophils % (A) 0 %; Eosinophils # (A) 0.1 k/uL (0-0.7); Eosinophils % (A) 1 %; HCT 36.1 % (39.0-53.0); HGB 11.4 gm/dL (13.0-17.5); Hypochromasia Moderate; Lymphocytes # (A) 0.1 k/uL (1.0-4.8); Lymphocytes % (A) 1 %; MCH 33.1 pg (25.0-35.0); MCHC 31.5 g/dL (31.0-37.0); MCV 104.9 fL (80.0-100.0); Macrocytosis Moderate; Mean Platelet Volume 9.7; Monocytes # (A) 0.4 k/uL (0-1.0); Monocytes % (A) 4 %; Neutrophils # (A) 9.5 k/uL (1.3-7.7); Neutrophils % (A) 94 %; Platelet Count 164 k/uL (150-450); RBC 3.44 m/uL (4.30-5.90); RDW 14.3 % (11.5-15.5); WBC 10.1 k/uL (3.8-10.6)
[2020-01-29] MEDS: PROPOFOL 1,000 MG in EMPTY BAG 1 BAG IV SCH (05:20)
[2020-01-29] MEDS: methylPREDNISolone SOD SUCCI 125 MG/2 ML VIAL IV SCH ×4 (05:20→20:21)
[2020-01-29 06:28] LABS: Calcium 7.5 mg/dL (8.4-10.2); Potassium 3.8 mmol/L (3.5-5.1)
[2020-01-29 07:22] LABS: ABG Base Excess 3.6 mmol/L; ABG HCO3 28 mmol/L (21-25); ABG PCO2 43 mmHg (35-45); ABG PH 7.42 (7.35-7.45); ABG PO2 91 mmHg (83-108); ABG TCO2 29 mmol/L (19-24); Allen Test Performed? Yes
[2020-01-29] MEDS: IPRATROPIUM-ALBUTEROL 3 ML NEB INHALATION SCH ×4 (07:49→19:37)
[2020-01-29] MEDS ORDERED: POTASSIUM CHLORIDE 20 MEQ in WATER FOR INJECTION 1 100ML.BAG IVPB STA ×3 (07:49→18:24)
[2020-01-29] MEDS: BUDESONIDE 0.5 MG/2 ML NEBU INHALATION SCH ×2 (07:49→19:36)
[2020-01-29] MEDS: AMIODARONE 200 MG TAB PO SCH (08:13)
[2020-01-29] MEDS: PIPERACILLIN-TAZOBACTAM 3.375 GM in SODIUM CHLORIDE 0.9% 100 ML IVPB SCH ×3 (08:13→23:35)
[2020-01-29] MEDS: LISINOPRIL 5 MG TAB PO SCH (08:13)
[2020-01-29] MEDS: ASPIRIN 81 MG PO SCH (08:13)
[2020-01-29] MEDS: CARVEDILOL 12.5 MG TAB PO SCH ×2 (08:13→20:21)
[2020-01-29] MEDS: ATORVASTATIN 80 MG TAB PO SCH (08:13)
[2020-01-29] MEDS: CHLORHEXIDINE GLUCONATE 15 ML CUP MUCOUS MEM SCH (08:13)
[2020-01-29] MEDS: NICOTINE 21MG/24HR PATCH TRANSDERM SCH (08:13)
[2020-01-29] MEDS: PANTOPRAZOLE 40 MG/10 ML VIAL IV SCH (08:13)
[2020-01-29] MEDS: FUROSEMIDE 10 MG/ML 4 ML VIAL IV SCH ×2 (08:14→20:21)
--- NOTE | 2020-01-29 08:35 | XR ---
EXAMINATION TYPE: XR chest 1V DATE OF EXAM: 01/29/2020 COMPARISON: 01/28/2020 HISTORY: SOB, Follow Up FINDINGS: Indwelling tubes and catheters are unchanged. Patchy perihilar and basilar infiltrates persist with loculated left lower lobe effusion being modera te in size. Overall no significant change is appreciated. Stable appearance of the cardio-mediastinal structures at this time. Pleural effusion unchanged. IMPRESSION: 1. Stable portable chest. Clinical correlation and follow up until resolution is recommended.
--- NOTE | 2020-01-29 09:39 | US ---
EXAMINATION TYPE: US chest DATE OF EXAM: 01/29/2020 COMPARISON: NONE CLINICAL HISTORY: bilateral pleural effusion. ICU patient TECHNIQUE: Targeted ultrasound of the posterior lower bilateral hemithoraces EXAM MEASUREMENTS: Right Pleural Effusion pocket size: 2.0 cm Left Pleural Effusion pocket size: 4.8 cm Right side NOT marked for possible thoracentesis outside the dept due to small fluid pocket. Left side NOT marked for possible thoracentesis outside the dept due to internal visual echoes/septat ions. Pulmonologists are able to review the images in the patient?s EMR. IMPRESSIONS: As above
[2020-01-29 11:41] LABS: Glucose,Whole Blood 105 mg/dL (75-99)
[2020-01-29] MEDS: INSULIN ASPART (NovoLOG) 100 UNIT/ML VIAL SQ SCH ×3 (11:42→23:36)
--- NOTE | 2020-01-29 11:42 | P.PN ---
Subjective Progress Note Date: 01/29/20 Principal diagnosis: Acute on chronic hypoxic respiratory failure and hypercapnic respiratory failure secondary to acute systolic congestive heart failure and acute exacerbation of COPD This is a 75-year-old white male, long-standing smoking history, chronic atrial fibrillation, LV dysfunction and previous AICD placement, coronary artery disease and previous CABG, patient is on home oxygen. Mostly for his underlying COPD. Patient presented to the ER with 1 week history of increased shortness of breath. Also complaining of swelling in the legs. Weakness, fatigue, and wor sening shortness of breath over the last 1 week. Patient felt tired and rundown. Apparently the patient was initially admitted to the cardiac floor with the impression of congestive heart failure. Overnight, the patient's condition deteriorated, did not improve with a nonrebreather mask. Multiple ABGs were done and they reflected mostly hypoxemia and hypercapnia with a pCO2 above 120 and pH of 7.11. Patient required intubation and mechanical ventilation. He also required placement on relatively high PEEP because of hypoxemia with a pO2 of 43 in spite of being on 100% FiO2. Patient is now on tidal volume of 400, assist control rate of 24, FiO2 of 100% and PEEP of 15 ABG showed a pO2 of 198 pCO2 of 45 pH of 7.56. Hence his FiO2 will be decreased to 50% and address PEEP hopefully get the PEEP down to 10 if possible. Patient was placed on a Lasix drip he was also placed on Diamox. Placed on bronchodilators, and on Solu-Medrol. Chest x-ray showed evidence of congestive heart failure and left pleural effusion. Considering the patient had a temp of 101 on admission, his screening for covid 19 is pending. Patient was placed empirically on antibiotics in the form of Zosyn. Patient is sedated, on propofol, he is also on propofol at 50 mcg/kg/m, not requiring any pressors. Patient was intubated around 2 AM this morning. Reevaluated today on 01/27/20, patient remains in the intensive care unit, intubated and mechanically ventilated. Patient remains sedated, on propofol. His vent settings are assist control rate of 20 tidal volume is 400 FiO2 is 50% and PEEP is down to 8. His ABG showed a pO2 of 79 pCO2 of 39 pH of 7.61, hence cut down his respiratory rate from 24-20. Patient is -1.5 L over the last 24 hours. Remains on Lasix and I cut it down to 5 mg per hour. Discontinued his Aldactone. Kept him on Diamox. He is on Lasix now at 5 mg per hour. Propofol at 35 mcg/kg/m. And he is also on heparin drip. Patient has a paced rhythm at 60 beats per minutes. He is hemodynamically stable, not requiring any pressors. Chest x-ray is showing some improvement continues to have a chronic left pleural effusion which was present even as far as 2015. This is a chronic abnormality in the left lower lobe area. Hence no plans to perform thoracentesis. Electrolytes showed low potassium and that being corrected as per protocol. Renal functioning is slightly worse, hence I cut down on the Lasix and I discontinued Aldactone. His BUN is 36 creatinine is 1.41. WBC count is 9.5 hemoglobin is 11.9 PTT is therapeutic. Reevaluated today on 01/28/20, patient remains intubated and mechanically ventilated. His ventilator settings are assist control rate of 20 tidal volume is 400 FiO2 is 50% and PEEP is 8. ABG showed a pO2 of 88 pCO2 of 46 pH of 7.46. Patient remains on propofol at 35 mcg/kg/m, Lasix at 5 mg per hour which I have discontinued today, he is also on norepinephrine at 0.01 mcg/kg/m, and heparin. Chest x-ray continues to show moderate left pleural effusion and associated left airspace disease.. Renal profile remains marginal with a BUN of 47 creatinine of 1.50. PTT is therapeutic at 48.9, CBC is relatively normal. Sputum is positive for Streptococcus pneumoniae. Blood cultures are negative. Patient remains empirically on antibiotics. Patient remains on enteral feeding, and he seems to be tolerating enteral feeding well. Patient was reevaluated today on 01/29/20, remains in the ICU intubated and mechanically ventilated. He is on assist control rate of 20 tidal volume is 400 FiO2 is 50% and PEEP of 5. ABG showed a pO2 of 91 pCO2 of 43 pH of 7.42. Patient is on norepinephrine at 0.05 mcg/kg/m, propofol at 20 mcg/kg/m, and on heparin drip. IV fluid is at KVO. Patient had Lasix yesterday, and he diuresed quite well. Chest x-ray continues to show evidence of left pleural effusion which is chronic, ultrasound of the chest showed a small pocket just over 4 cm, no plans to do thoracentesis on this pocket of fluid which is chronic in the left lower lobe. Today I have recommended holding sedation starting the patient again on pressure support of 8 and CPAP, he tolerated this mode of weaning yesterday for about 6 hours. Hopefully he will tolerated longer distended today and may give the patient a trial of weaning/extubation. CBC is relatively normal. Basic metabolic profile is normal BUN is 57 creatinine is 1.48. Objective - Vital Signs Vital signs: Vital Signs Temp 98.5 F 01/29/20 08:00 Pulse 59 L 01/29/20 11:19 Resp 27 H 01/29/20 11:00 BP 81/51 01/29/20 11:00 Pulse Ox 97 01/29/20 11:00 Intake & Output 01/28/20 01/29/20 01/29/20 18:59 06:59 18:59 Intake Total 1857.331 9574.814 486.712 Output Total 1255 1210 530 Balance 184.072 559.814 -43.288 Intake: IV 545 335 170 0.9 NS KVO 60 110 70 Lasix gtt 10 Piperacillin-Tazobactam 3 175 125 100 .375 gm In Sodium Chloride 0.9% 100 ml @ 25 mls/hr IVPB Q8HR [facility] Rx# :[id number] Potassium Chloride 20 meq 100 In Water For Injection 1 100ml.bag @ 50 mls/hr IVPB Q2H [facility] Rx#: [id number] Potassium Chloride 20 meq 200 100 In Water For Injection 1 100ml.bag @ 50 mls/hr IVPB Q2H [facility] Rx#: [id number] Intake, IV Titration 274.072 630.814 220.712 Amount Furosemide 100 mg In 85.333 Sodium Chloride 0.9% 90 ml @ 5 MG/HR 5 mls/hr IV .Q20H [facility] Rx#:[id number] Heparin Sod,Pork in 0.45% 219.363 NaCl 25,000 unit In 0.45 % NaCl 1 250ml.bag @ 12 UNITS/KG/HR 9.156 mls/hr IV .Q24H [facility] Rx#: [id number] Norepinephrine 8 mg In 142.600 41.042 91.756 Sodium Chloride 0.9% 250 ml @ 0.05 MCG/KG/MIN 7. 382 mls/hr IV .Q24H [facility] Rx#:[id number] Potassium Chloride 20 meq 100 In Water For Injection 1 100ml.bag @ 50 mls/hr IVPB ONCE [facility] Rx#: [id number] Potassium Chloride 20 meq 100 In Water For Injection 1 100ml.bag @ 50 mls/hr IVPB Q2H [facility] Rx#: [id number] Potassium Chloride 20 meq 200 In Water For Injection 1 100ml.bag @ 50 mls/hr IVPB Q2H [facility] Rx#: [id number] Propofol 1,000 mg In 46.139 70.409 28.956 Empty Bag 1 bag @ Titrate IV .Q0M [facility] Rx#: [id number] Tube Feeding 530 704 96 Other 90 100 Output: Urine 1255 1210 530 Other: Voiding Method Indwelling Catheter Indwelling Catheter Indwelling Catheter ABP, PAP, CO, CI - Last Documented Arterial Blood Pressure 70/50 - Exam GENERAL: Revealed a 75-year-old white male, on mechanical ventilation, on propofol, sedated, in no distress. EYES: Pupils equal. Conjunctiva normal. HEENT: PERRLA, EOMI, no icterus. Head is atraumatic, normocephalic. Endotracheal tube and orogastric tube are intact. NECK: No neck masses no JVD.. HEART: Paced rhythm, no S3 gallop. 2/6 systolic murmur throughout the precordium. LUNGS: Crackles at the bases, no rhonchi and no wheezes. ABDOMEN: Soft, nontender, liver spleen not palpable, no masses palpable. Extremities: 2+ bipedal edema, good pulses bilaterally. PSYCH: Arousable, otherwise could not be assessed. MUSCULAR skeletal: No deformities. NEUROLOGICAL: Cannot be assessed, patient is presently on propofol, sedated. LYMPHATICS: No cervical adenopathy. - Labs CBC & Chem 7: 01/29/20 04:30 01/29/20 04:30 Labs: Abnormal Lab Results - Last 24 Hours (Table) 01/28/20 01/29/20 01/29/20 Range/Units 17:48 00:04 00:45 RBC (4.30-5.90) m/uL Hgb (13.0-17.5) gm/dL Hct (39.0-53.0) % MCV (80.0-100.0) fL Neutrophils # (1.3-7.7) k/uL Lymphocytes # (1.0-4.8) k/uL APTT (22.0-30.0) sec ABG HCO3 (21-25) mmol/L ABG Total CO2 (19-24) mmol/L Potassium 3.4 L (3.5-5.1) mmol/L Chloride (98-107) mmol/L BUN (9-20) mg/dL Creatinine (0.66-1.25) mg/dL Glucose (74-99) mg/dL POC Glucose (mg/dL) 148 H 178 H (75-99) mg/dL Calcium (8.4-10.2) mg/dL 01/29/20 01/29/20 01/29/20 Range/Units 04:30 04:30 04:30 RBC 3.44 L (4.30-5.90) m/uL Hgb 11.4 L (13.0-17.5) gm/dL Hct 36.1 L (39.0-53.0) % MCV 104.9 H (80.0-100.0) fL Neutrophils # 9.5 H (1.3-7.7) k/uL Lymphocytes # 0.1 L (1.0-4.8) k/uL APTT 50.7 H (22.0-30.0) sec ABG HCO3 (21-25) mmol/L ABG Total CO2 (19-24) mmol/L Potassium (3.5-5.1) mmol/L Chloride 109 H (98-107) mmol/L BUN 57 H (9-20) mg/dL Creatinine 1.48 H (0.66-1.25) mg/dL Glucose 182 H (74-99) mg/dL POC Glucose (mg/dL) (75-99) mg/dL Calcium 7.5 L (8.4-10.2) mg/dL 01/29/20 Range/Units 07:20 RBC (4.30-5.90) m/uL Hgb (13.0-17.5) gm/dL Hct (39.0-53.0) % MCV (80.0-100.0) fL Neutrophils # (1.3-7.7) k/uL Lymphocytes # (1.0-4.8) k/uL APTT (22.0-30.0) sec ABG HCO3 28 H (21-25) mmol/L ABG Total CO2 29 H (19-24) mmol/L Potassium (3.5-5.1) mmol/L Chloride (98-107) mmol/L BUN (9-20) mg/dL Creatinine (0.66-1.25) mg/dL Glucose (74-99) mg/dL POC Glucose (mg/dL) (75-99) mg/dL Calcium (8.4-10.2) mg/dL Microbiology - Last 24 Hours (Table) 01/26/20 02:50 Gram Stain - Final Sputum Sputum Culture - Final Streptococcus pneumoniae 01/25/20 14:15 Blood Culture - Preliminary Blood No Growth after 72 hours Assessment and Plan Assessment: Impression: Acute on chronic hypoxic and hypercapnic respiratory failure secondary to acute systolic congestive heart failure and acute exacerbation of COPD. History of coronary artery disease and previous CABG History of cardiomyopathy LV dysfunction and AICD placement. Chronic atrial fibrillation. tobacco dependence syndrome. Chronic left pleural effusion, present since 2016. Not large enough on ultrasound to consider thoracentesis at this point. Negative PCR for coronar virus. Underlying Pneumonia, secondary to streptococcal pneumonia, hence we'll continue antibiotics. Recommendation: Continue ventilatory support. Check weaning parameters and possibly a trial of pressure support and CPAP Continue GI and DVT prophylaxis. Continue anticoagulations therapy Change Lasix to 40 mg IV push every 12 hours. Continue Diamox at 250 mg IV push every 12 hours. We'll try again today a trial of pressure support and CPAP.. Continue antibiotics for streptococcal pneumonia infection. Continue bronchodilators. Continue enteral feeding unless the patient is to be extubated today. Prognosis remains extremely poor and guarded, we'll continue to follow, critical care time is 32 minutes Time with Patient: Greater than 30
--- NOTE | 2020-01-29 15:42 | P.PN ---
Progress Note - Text Progress Note Date: 01/29/20 Chief Complaint: Short of breath History of presenting complaint: This is a 75-year-old patient of Dr. Gonzáles. Long-standing smoker. Chronic stable medical conditions include atrial fibrillation, AICD, coronary artery disease with prior bypass, on home oxygen, GERD, COPD. Last ejection fraction is 40-45%. She presents with worsening short of breath for about a week at least. It has been progressively getting worse. Some edema. Weak and tired slight cough is present. Increasing swelling of lower extremity. Orthopnea. No fever no chills. Tired and rundown. Slow with given history. Admitted with acute on chronic CHF exacerbation, COPD exacerbation. Was started on IV Lasix, bronchodilators and IV steroids. Early hours of January 25 patient was becoming more short of breath, could not tolerate BiPAP was intubated and placed in the ICU. Also being treated for pneumonia. [id number] has been off sedation. Drips include levo fed and IV heparin. FiO2 15 of PEEP of 5. Awake. Following commands. Being weaned. Dr. Lisa is planning for extubation. Review of systems cannot be done patient is intubated Active Medications Acetazolamide Sodium (Diamox) 250 mg IV Q12HR [facility] [place] Last Admin: 01/29/20 08:12 Dose: 250 mg Documented by: Albuterol/Ipratropium (Duoneb 0.5 Mg-3 Mg/3 Ml Soln) 3 ml INHALATION RT-QID [facility] [place] Last Admin: 01/29/20 14:58 Dose: 3 ml Documented by: Albuterol/Ipratropium (Duoneb 0.5 Mg-3 Mg/3 Ml Soln) 3 ml INHALATION RT-Q2H PRN PRN Reason: Shortness Of Breath Or Wheezing Amiodarone HCl (Cordarone) 200 mg PO DAILY [facility] [place] Last Admin: 01/29/20 08:13 Dose: 200 mg Documented by: Aspirin (Aspirin) 81 mg PO DAILY [facility] [place] Last Admin: 01/29/20 08:13 Dose: 81 mg Documented by: Atorvastatin Calcium (Lipitor) 80 mg PO DAILY [facility] [place] Last Admin: 01/29/20 08:13 Dose: 80 mg Documented by: Budesonide (Pulmicort) 0.5 mg INHALATION RT-BID [facility] [place] Last Admin: 01/29/20 07:49 Dose: 0.5 mg Documented by: Carvedilol (Coreg) 12.5 mg PO BID [facility] [place] Last Admin: 01/29/20 08:13 Dose: 12.5 mg Documented by: Chlorhexidine Gluconate (Peridex) 15 ml MUCOUS MEM BID [facility] [place] Last Admin: 01/29/20 08:13 Dose: 15 ml Documented by: Furosemide (Lasix) 40 mg IV Q12HR [facility] [place] Last Admin: 01/29/20 08:14 Dose: 40 mg Documented by: Heparin Sodium (Porcine) (Heparin) 0 unit IV PER PROTOCOL PRN; Protocol PRN Reason: Low PTT Piperacillin Sod/Tazobactam (Sod 3.375 gm/ Sodium Chloride) 100 mls @ 25 mls/hr IVPB Q8HR [facility] [place] Last Admin: 01/29/20 08:13 Dose: 25 mls/hr Documented by: Heparin Sodium/Sodium Chloride (25,000 unit/ Sodium Chloride) 250 mls @ 9.156 mls/hr IV .Q24H [facility] [place]; Protocol Last Admin: 01/29/20 03:08 Dose: 10 units/kg/hr, 7.63 mls/hr Documented by: Norepinephrine Bitartrate 8 mg (/ Sodium Chloride) 258 mls @ 7.382 mls/hr IV .Q24H [facility] [place]; Protocol Last Titration: 01/29/20 11:42 Dose: 0.06 mcg/kg/min, 8.858 mls/hr Documented by: Potassium Chloride 20 meq/ IV (Solution) 100 mls @ 50 mls/hr IVPB ONCE STA Stop: 01/29/20 15:41 Last Admin: 01/29/20 14:16 Dose: 50 mls/hr Documented by: Insulin Aspart (Novolog) 0 unit SQ Q6H [facility] [place]; Protocol Last Admin: 01/29/20 11:42 Dose: Not Given Documented by: Lisinopril (Zestril) 5 mg PO DAILY [facility] [place] Last Admin: 01/29/20 08:13 Dose: 5 mg Documented by: Methylprednisolone Sodium Succinate (Solu-Medrol) 60 mg IV Q6HR [facility] [place] Last Admin: 01/29/20 12:30 Dose: 60 mg Documented by: Miscellaneous Information (Magnesium Per Protocol) 1 each MISCELLANE DAILY PRN; Protocol PRN Reason: Per Protocol Miscellaneous Information (Potassium Per Protocol) 1 each MISCELLANE DAILY PRN; Protocol PRN Reason: Per Protocol Miscellaneous Information (Potassium Per Protocol) 1 each MISCELLANE DAILY PRN; Protocol PRN Reason: Per Protocol Naloxone HCl (Narcan) 0.2 mg IV Q2M PRN PRN Reason: Opioid Reversal Nicotine (Habitrol 21mg/24hr Patch) 1 patch TRANSDERM DAILY [facility] [place] Last Admin: 01/29/20 08:13 Dose: 1 patch Documented by: Pantoprazole Sodium (Protonix) 40 mg IV DAILY [facility] [place] Last Admin: 01/29/20 08:13 Dose: 40 mg Documented by: Physical examination: VITAL SIGNS: 98.4, 60, 27, 82/52, 94% on the ventilator GENERAL: Laying in bed, intubated. Awake EYES: Pupils equal. Conjunctiva normal. HEENT: External appearance of nose and ears normal, oral cavity-endotracheal tube NECK: JVD unable to assess; masses not palpable. HEART: Heart sounds irregular, edema present. LUNGS: Respiratory rate increased,, diminished breath sounds. ABDOMEN: Soft, nontender, liver spleen not palpable, no masses palpable. PSYCH: Unable to assess-intubated. MUSCULAR skeletal: Evidence of OA INVESTIGATIONS, reviewed in the clinical context: White count 10.1 hemoglobin 11.4 potassium 3.8 creatinine 1.48 Previous testing White count 13.1 hemoglobin 12.2 platelets 139, potassium 4.9 crit 1.01 Chest x-ray film personally reviewed by me-increasing bilateral infiltrates CRP 60.5 pro calcitonin 0.1 2-D co-EF 30-35% Previous testing White count 10.9 hemoglobin 12.4 platelets 165 neutrophils 9.2 lymphocytes 0.7 potassium 4.3 bun 27 creatinine 0.88, proBNP 1530 EKG tracing personally reviewed by me-atrial flutter rate controlled Chest x-ray film personally reviewed by me-pulmonary edema, cardiomegaly, portable film Assessment: -Acute on chronic congestive heart failure exacerbation from systolic dysfunction EF 30-35% % from underlying coronary artery disease, POA- -Bilateral pneumonia, suspect gram-negative organism causing sepsis, POA, improving -Coronary artery disease a prior history of bypass -Acute COPD exacerbation and an current smoker, POA, improving -Chronic nicotine dependence patient cigarette smoker -Persistent atrial fibrillation -Chronic hypoxic and hypercapnic respiratory failure from a lying COPD -Acute hypoxic and hypercapnic respiratory failure from COPD and CHF, pneumonia POA-worsening on ventilator-plan is to extubate the patient later today. -Acute kidney injury possibly combination of ATN and prerenal including hypotension and diuresis-new diagnosis Plan: -ICU. Current drips include, IV Zosyn, IV levo fed, IV heparin,-, IV Lasix bolus 40 mg twice a day. . Possible extubation this afternoon by pulmonary.
[2020-01-29 17:54] LABS: Glucose,Whole Blood 134 mg/dL (75-99)
[2020-01-29] MEDS: NOREPINEPHRINE 8 MG in SODIUM CHLORIDE 0.9% 250 ML IV SCH (18:02)
--- NOTE | 2020-01-29 18:58 | CONS ---
CONSULTATION REASON FOR CONSULT: Acute kidney injury. HISTORY OF PRESENT ILLNESS: Patient is a 75-year-old male who was initially admitted to the hospital stay in the hospital on 01/25/2020 with complaints of shortness of breath. He does have a history of cardiomyopathy, hypertension, coronary artery disease, chronic atrial fibrillation. The patient was noted to be in CHF and was initially maintained on Lasix drip. The patient's respiratory failure worsened and he was eventually intubated on 01/26/2020. Serum creatinine was 0.8 on initial admission. It peaked to about 1.5 mg/dL as of yesterday. Lasix drip was discontinued and patient is currently maintained on IV push Lasix 40 mg q.12 hours. He is also on a low dose of STEPHANIE inhibitors. Currently patient has good urine output at about 75-150 mL an hour. He is hemodynamically stable, although occasionally blood pressure has been as low as 95 mmHg systolic, since admission initially it was in the 80s as well. The patient is maintained on low-dose Levophed. He is currently awake and there are plans for possible extubation. Chest x- ray has shown improvement in CHF. Weight is actually up from admission. No history of use of NSAIDs. PAST MEDICAL HISTORY: Significant for chronic atrial fibrillation, coronary artery disease, cardiomyopathy, COPD. PAST SURGICAL HISTORY: Coronary artery bypass surgery, cardiac catheterization, coronary stent placement, pacemaker placement, left carotid endarterectomy, AICD placement, ear surgery. SOCIAL HISTORY: Patient is a current everyday smoker. No history of drug abuse or alcohol abuse. MEDICATIONS: Medications at home prior to admission included Prilosec, aspirin, Lasix, Aldactone, Coreg, amiodarone, Lipitor. ALLERGIES: None. REVIEW OF SYSTEMS: As per HPI. Other systems negative. PHYSICAL EXAMINATION: Patient is comfortable. He is currently on the vent. He follows commands. HEENT atraumatic, normocephalic. CARDIOVASCULAR: Examination of the heart S1, S2. CHEST: Examination of the lungs, bilateral breath sounds are heard. Patient remains on the vent. ABDOMEN is soft, nontender. EXTREMITIES: Examination of lower extremities shows no significant edema. CLOTH [employer] HAND exam cannot be performed, but patient is following commands. LABS: Show sodium 143, potassium 3.8, chloride 109, BUN 57, creatinine 1.48, hemoglobin 11.4. UA shows trace ketone, no protein, moderate blood, currently with an indwelling De Leon catheter. ASSESSMENT: 1. Acute kidney injury, mostly cardiorenal. Currently off Lasix drip. The patient continues to diurese. I will continue with the current dose of Lasix. Serum creatinine is improved. 2. Cardiomyopathy, moderate to severely impaired. Ejection fraction at about 30-35 percent. 3. Acute hypoxic respiratory failure secondary to congestive heart failure and pneumonia. 4. Pneumonia. Sputum culture grew Streptococcus pneumonia. The patient is maintained on Rocephin. 5. Sepsis secondary to pneumonia. 6. History of hypertension. Blood pressure is actually low. PLAN: Continue with the current dose of Lasix. Given his systolic blood pressure of 80 mmHg, I would hold the lisinopril for systolic blood pressure of less than 110. Continue empiric antibiotics. Replace potassium and repeat labs in a.m. Thank you for this consultation. We will continue to follow the patient with you during his hospitalization. MMODL / IJN: [id number] /
--- NOTE | 2020-01-29 19:13 | PN ---
PROGRESS NOTE Rivera is a 75-year-old gentleman who was admitted to hospital with acute exacerbation of chronic systolic heart failure. He is doing much better. He is awake and currently plans are underway to extubate him. On exam, patient is afebrile. Heart rate is 60 beats per minute. Blood pressure is 82/50, respiratory rate is 27. The patient is mechanically ventilated. FiO2 is 50%. Chest exam reveals good air entry bilaterally. I do not hear any crackles or rhonchi. Heart exam reveals first and second heart sounds. No gallop. He has a systolic murmur at the left lower sternal border. Abdomen is soft. Exam of extremities reveals bilateral pitting edema. Peripheral pulses are felt. Labs show a hemoglobin of 11.4, platelet count is 164. Potassium is 3.8, BUN is 57, creatinine is 1.4. ASSESSMENT: 1. Acute exacerbation of chronic systolic heart failure. 2. History of permanent atrial fibrillation. 3. Ischemic cardiomyopathy. 4. Status post AICD. PLAN: The patient is currently on IV heparin which I am going to continue. Once he is extubated, we can switch him to Eliquis 5 b.i.d. Continue the aspirin, Cordarone, Lipitor Coreg, that he is currently on. MMODL / IJN: [id number] /
[2020-01-29 23:22] LABS: Glucose,Whole Blood 160 mg/dL (75-99)
[2020-01-30] MEDS: NOREPINEPHRINE 8 MG in SODIUM CHLORIDE 0.9% 250 ML IV SCH (03:16)
[2020-01-30 04:40] LABS: Basophils % (A) 0 %; Eosinophils # (A) 0.1 k/uL (0-0.7); Eosinophils % (A) 1 %; HCT 37.5 % (39.0-53.0); HGB 11.7 gm/dL (13.0-17.5); Hypochromasia Marked; Lymphocytes # (A) 0.2 k/uL (1.0-4.8); Lymphocytes % (A) 1 %; MCH 33.6 pg (25.0-35.0); MCHC 31.3 g/dL (31.0-37.0); MCV 107.2 fL (80.0-100.0); Macrocytosis Moderate; Mean Platelet Volume 9.1; Monocytes # (A) 0.4 k/uL (0-1.0); Monocytes % (A) 3 %; Neutrophils # (A) 10.5 k/uL (1.3-7.7); Neutrophils % (A) 94 %; Platelet Count 149 k/uL (150-450); RDW 13.9 % (11.5-15.5); WBC 11.2 k/uL (3.8-10.6)
[2020-01-30 04:54] LABS: Calcium 7.8 mg/dL (8.4-10.2); Potassium 4.1 mmol/L (3.5-5.1)
[2020-01-30] MEDS: INSULIN ASPART (NovoLOG) 100 UNIT/ML VIAL SQ SCH ×4 (05:04→21:57)
[2020-01-30] MEDS: methylPREDNISolone SOD SUCCI 125 MG/2 ML VIAL IV SCH ×4 (05:04→23:32)
[2020-01-30] MEDS ORDERED: FUROSEMIDE 10 MG/ML 4 ML VIAL IV SCH (08:00)
--- NOTE | 2020-01-30 08:06 | XR ---
EXAMINATION TYPE: XR chest 1V DATE OF EXAM: 01/30/2020 COMPARISON: 01/29/2020 INDICATION: Mechanical ventilation difficulty breathing TECHNIQUE: Single frontal view of the chest is obtained. FINDINGS: The heart size is enlarged. The pulmonary vasculature is prominent. Diffuse increased lung markings are present bilaterally. Pacemaker overlies the left chest. Sternotom y wires are in the midline. The patient has been extubated and the nasogastric tube removed. IMPRESSION: 1. Worsening right lung infiltrate with stable left lung lower lobe opacities from comparison.
[2020-01-30] MEDS: IPRATROPIUM-ALBUTEROL 3 ML NEB INHALATION SCH ×4 (08:18→21:25)
[2020-01-30] MEDS: BUDESONIDE 0.5 MG/2 ML NEBU INHALATION SCH ×2 (08:18→21:24)
[2020-01-30] MEDS: PIPERACILLIN-TAZOBACTAM 3.375 GM in SODIUM CHLORIDE 0.9% 100 ML IVPB SCH ×3 (09:35→23:32)
[2020-01-30] MEDS: NICOTINE 21MG/24HR PATCH TRANSDERM SCH (09:36)
[2020-01-30] MEDS: PANTOPRAZOLE 40 MG/10 ML VIAL IV SCH (09:36)
[2020-01-30] MEDS: ASPIRIN 81 MG PO SCH (09:37)
[2020-01-30] MEDS: ATORVASTATIN 80 MG TAB PO SCH (09:37)
[2020-01-30] MEDS: CARVEDILOL 12.5 MG TAB PO SCH (09:37)
[2020-01-30] MEDS: AMIODARONE 200 MG TAB PO SCH (09:37)
[2020-01-30] MEDS ORDERED: DOBUTamine DRIP 500 MG in DEXTROSE/WATER 1 250ML.BAG IV SCH (09:45)
[2020-01-30] MEDS: HEPARIN SOD,PORK IN 0.45% NACL 25,000 UNIT in 0.45% NACL 1 250ML.BAG IV SCH (09:49)
[2020-01-30] MEDS: FUROSEMIDE 100 MG in SODIUM CHLORIDE 0.9% 90 ML IV SCH ×2 (10:35→19:04)
[2020-01-30] MEDS: APIXABAN 2.5 MG TABLET PO SCH ×2 (11:47→20:30)
--- NOTE | 2020-01-30 11:58 | P.PN ---
Subjective Progress Note Date: 01/30/20 Principal diagnosis: Acute on chronic hypoxic respiratory failure and hypercapnic respiratory failure secondary to acute systolic congestive heart failure and acute exacerbation of COPD This is a 75-year-old white male, long-standing smoking history, chronic atrial fibrillation, LV dysfunction and previous AICD placement, coronary artery disease and previous CABG, patient is on home oxygen. Mostly for his underlying COPD. Patient presented to the ER with 1 week history of increased shortness of breath. Also complaining of swelling in the legs. Weakness, fatigue, and wor sening shortness of breath over the last 1 week. Patient felt tired and rundown. Apparently the patient was initially admitted to the cardiac floor with the impression of congestive heart failure. Overnight, the patient's condition deteriorated, did not improve with a nonrebreather mask. Multiple ABGs were done and they reflected mostly hypoxemia and hypercapnia with a pCO2 above 120 and pH of 7.11. Patient required intubation and mechanical ventilation. He also required placement on relatively high PEEP because of hypoxemia with a pO2 of 43 in spite of being on 100% FiO2. Patient is now on tidal volume of 400, assist control rate of 24, FiO2 of 100% and PEEP of 15 ABG showed a pO2 of 198 pCO2 of 45 pH of 7.56. Hence his FiO2 will be decreased to 50% and address PEEP hopefully get the PEEP down to 10 if possible. Patient was placed on a Lasix drip he was also placed on Diamox. Placed on bronchodilators, and on Solu-Medrol. Chest x-ray showed evidence of congestive heart failure and left pleural effusion. Considering the patient had a temp of 101 on admission, his screening for covid 19 is pending. Patient was placed empirically on antibiotics in the form of Zosyn. Patient is sedated, on propofol, he is also on propofol at 50 mcg/kg/m, not requiring any pressors. Patient was intubated around 2 AM this morning. Reevaluated today on 01/27/20, patient remains in the intensive care unit, intubated and mechanically ventilated. Patient remains sedated, on propofol. His vent settings are assist control rate of 20 tidal volume is 400 FiO2 is 50% and PEEP is down to 8. His ABG showed a pO2 of 79 pCO2 of 39 pH of 7.61, hence cut down his respiratory rate from 24-20. Patient is -1.5 L over the last 24 hours. Remains on Lasix and I cut it down to 5 mg per hour. Discontinued his Aldactone. Kept him on Diamox. He is on Lasix now at 5 mg per hour. Propofol at 35 mcg/kg/m. And he is also on heparin drip. Patient has a paced rhythm at 60 beats per minutes. He is hemodynamically stable, not requiring any pressors. Chest x-ray is showing some improvement continues to have a chronic left pleural effusion which was present even as far as 2015. This is a chronic abnormality in the left lower lobe area. Hence no plans to perform thoracentesis. Electrolytes showed low potassium and that being corrected as per protocol. Renal functioning is slightly worse, hence I cut down on the Lasix and I discontinued Aldactone. His BUN is 36 creatinine is 1.41. WBC count is 9.5 hemoglobin is 11.9 PTT is therapeutic. Reevaluated today on 01/28/20, patient remains intubated and mechanically ventilated. His ventilator settings are assist control rate of 20 tidal volume is 400 FiO2 is 50% and PEEP is 8. ABG showed a pO2 of 88 pCO2 of 46 pH of 7.46. Patient remains on propofol at 35 mcg/kg/m, Lasix at 5 mg per hour which I have discontinued today, he is also on norepinephrine at 0.01 mcg/kg/m, and heparin. Chest x-ray continues to show moderate left pleural effusion and associated left airspace disease.. Renal profile remains marginal with a BUN of 47 creatinine of 1.50. PTT is therapeutic at 48.9, CBC is relatively normal. Sputum is positive for Streptococcus pneumoniae. Blood cultures are negative. Patient remains empirically on antibiotics. Patient remains on enteral feeding, and he seems to be tolerating enteral feeding well. Patient was reevaluated today on 01/29/20, remains in the ICU intubated and mechanically ventilated. He is on assist control rate of 20 tidal volume is 400 FiO2 is 50% and PEEP of 5. ABG showed a pO2 of 91 pCO2 of 43 pH of 7.42. Patient is on norepinephrine at 0.05 mcg/kg/m, propofol at 20 mcg/kg/m, and on heparin drip. IV fluid is at KVO. Patient had Lasix yesterday, and he diuresed quite well. Chest x-ray continues to show evidence of left pleural effusion which is chronic, ultrasound of the chest showed a small pocket just over 4 cm, no plans to do thoracentesis on this pocket of fluid which is chronic in the left lower lobe. Today I have recommended holding sedation starting the patient again on pressure support of 8 and CPAP, he tolerated this mode of weaning yesterday for about 6 hours. Hopefully he will tolerated longer distended today and may give the patient a trial of weaning/extubation. CBC is relatively normal. Basic metabolic profile is normal BUN is 57 creatinine is 1.48. Patient was reevaluated today on 01/30/20, patient remains in the ICU, he was extubated yesterday, and he was placed initially on BiPAP, now he is on a high flow nasal cannula, 10 L high flow, and his O2 saturation is marginal but in the low 90s. I recommended starting the patient again on Lasix drip at 10 mg per hour. Patient remains on a small dose of norepinephrine at 0.03 mcg/kg/m. Patient does have history of LV dysfunction, this chest x-ray is showing interstitial edema again today. Hence I have recommended that he goes on Dobutrex instead of levo fed, I have also recommended Lasix drip and stopping heparin and switching him to Eliquis. Patient will remain in the ICU, and I hav e no plans to transfer out of the ICU yet. Clinically the patient seems comfortable, and in no distress. His CBC is relatively unremarkable. Basic metabolic profile showed elevated bicarb of 33, hence the patient remains on Diamox. His BUN is 57 creatinine is 1.63, and I believe this is more of a cardiorenal syndrome, expect that to improve hopefully with Dobutrex. Objective - Vital Signs Vital signs: Vital Signs Temp 97.9 F 01/30/20 04:00 Pulse 60 01/30/20 11:00 Resp 21 01/30/20 11:00 BP 86/48 01/30/20 09:00 Pulse Ox 94 L 01/30/20 11:00 Intake & Output 01/29/20 01/30/20 01/30/20 18:59 06:59 18:59 Intake Total 845.684 6085.564 682.479 Output Total 1065 1450 310 Balance -70.823 -84.436 372.479 Weight 75.5 kg 77 kg Intake: IV 430 100 150 0.9 NS KVO 230 100 50 Piperacillin-Tazobactam 3 200 100 .375 gm In Sodium Chloride 0.9% 100 ml @ 25 mls/hr IVPB Q8HR [facility] Rx# :[id number] Intake, IV Titration 468.177 265.564 32.479 Amount Heparin Sod,Pork in 0.45% 196.345 NaCl 25,000 unit In 0.45 % NaCl 1 250ml.bag @ 12 UNITS/KG/HR 9.156 mls/hr IV .Q24H [facility] Rx#: [id number] Norepinephrine 8 mg In 139.221 69.219 32.479 Sodium Chloride 0.9% 250 ml @ 0.05 MCG/KG/MIN 7. 382 mls/hr IV .Q24H [facility] Rx#:[id number] Potassium Chloride 20 meq 100 In Water For Injection 1 100ml.bag @ 50 mls/hr IVPB ONCE [facility] Rx#: [id number] Potassium Chloride 20 meq 100 In Water For Injection 1 100ml.bag @ 50 mls/hr IVPB ONCE [facility] Rx#: [id number] Potassium Chloride 20 meq 100 In Water For Injection 1 100ml.bag @ 50 mls/hr IVPB ONCE [facility] Rx#: [id number] Propofol 1,000 mg In 28.956 Empty Bag 1 bag @ Titrate IV .Q0M [facility] Rx#: [id number] Oral 750 500 Tube Feeding 96 Blood Product 250 Output: Urine 1065 1450 310 Other: Voiding Method Indwelling Catheter Indwelling Catheter # Bowel Movements 1 ABP, PAP, CO, CI - Last Documented Arterial Blood Pressure 90/40 - Exam GENERAL: Revealed a 75-year-old white male, on high flow nasal cannula at 10 L. EYES: Pupils equal. Conjunctiva normal. HEENT: PERRLA, EOMI, no icterus. Head is atraumatic, normocephalic. NECK: No neck masses no JVD.. HEART: Paced rhythm, no S3 gallop. 2/6 systolic murmur throughout the pre cordium. LUNGS: Crackles at the bases, no rhonchi and no wheezes. ABDOMEN: Soft, nontender, liver spleen not palpable, no masses palpable. Extremities: 1+ bipedal edema, good pulses bilaterally. PSYCH: Normal mood, affect and normal mental status examination. MUSCULAR skeletal: No deformities. NEUROLOGICAL: Alert and oriented 3, no gross focal neurologic deficits. LYMPHATICS: No cervical adenopathy. - Labs CBC & Chem 7: 01/30/20 04:10 01/30/20 04:10 Labs: Abnormal Lab Results - Last 24 Hours (Table) 01/29/20 01/29/20 01/30/20 Range/Units 17:51 23:20 04:10 WBC (3.8-10.6) k/uL RBC (4.30-5.90) m/uL Hgb (13.0-17.5) gm/dL Hct (39.0-53.0) % MCV (80.0-100.0) fL Plt Count (150-450) k/uL Neutrophils # (1.3-7.7) k/uL Lymphocytes # (1.0-4.8) k/uL APTT 68.2 H (22.0-30.0) sec Carbon Dioxide (22-30) mmol/L BUN (9-20) mg/dL Creatinine (0.66-1.25) mg/dL Glucose (74-99) mg/dL POC Glucose (mg/dL) 134 H 160 H (75-99) mg/dL Calcium (8.4-10.2) mg/dL 01/30/20 01/30/20 Range/Units 04:10 04:10 WBC 11.2 H (3.8-10.6) k/uL RBC 3.50 L (4.30-5.90) m/uL Hgb 11.7 L (13.0-17.5) gm/dL Hct 37.5 L (39.0-53.0) % MCV 107.2 H (80.0-100.0) fL Plt Count 149 L (150-450) k/uL Neutrophils # 10.5 H (1.3-7.7) k/uL Lymphocytes # 0.2 L (1.0-4.8) k/uL APTT (22.0-30.0) sec Carbon Dioxide 33 H (22-30) mmol/L BUN 57 H (9-20) mg/dL Creatinine 1.63 H (0.66-1.25) mg/dL Glucose 132 H (74-99) mg/dL POC Glucose (mg/dL) (75-99) mg/dL Calcium 7.8 L (8.4-10.2) mg/dL Microbiology - Last 24 Hours (Table) 01/25/20 14:15 Blood Culture - Preliminary Blood No Growth after 96 hours 01/26/20 02:50 Gram Stain - Final Sputum Sputum Culture - Final Streptococcus pneumoniae Assessment and Plan Assessment: Impression: Acute on chronic hypoxic and hypercapnic respiratory failure secondary to acute systolic congestive heart failure and acute exacerbation of COPD. extubated on 01/29/20, seems to be successful so far. History of coronary artery disease and previous CABG History of cardiomyopathy LV dysfunction and AICD placement. With acute on chronic systolic congestive heart failure. Suspected cardiorenal syndrome and acute kidney injury, hopefully will improve with inotrope/Dobutrex. Chronic atrial fibrillation. tobacco dependence syndrome. Chronic left pleural effusion, present since 2016. Not large enough on ultrasound to consider thoracentesis at this point. Negative PCR for coronar virus. Suspect streptococcal pneumonia, hence we'll continue antibiotics. Patient remains on Zosyn Recommendation: Continue on high flow nasal cannula. Start Lasix drip at 10 mg per hour. *Dobutrex 2.5 mcg/kg/m. Continue GI and DVT prophylaxis. Change heparin to Eliquis at 2.5 mg twice a day. Continue Diamox at 250 mg IV push every 12 hours. Continue to monitor closely in the ICU. Continue antibiotics for streptococcal pneumonia infection. Continue bronchodilators. Advanced oral diet as tolerated. Prognosis remains extremely poor and guarded, Remains critically ill, critical care time is 33 minutes. Time with Patient: Greater than 30
--- NOTE | 2020-01-30 12:09 | PN ---
PROGRESS NOTE Patient is seen for followup for acute kidney injury, mainly cardiorenal. He was initially diuresed with Lasix drip and the Lasix was decreased. Patient had been intubated on 01/26/2020. He was extubated yesterday. Currently patient is sitting up in bed. His weight has gone up by another 2 kg. He denies significant shortness of breath. Blood pressure remains on the lower side around 86 mmHg systolic. Urine output for 24 hours was about 2.5 L. Serum creatinine has been slowly increasing from 0.8 on initial admission to 1.6 today. Patient has an indwelling De Leon catheter. PHYSICAL EXAMINATION: On examination today, blood pressure was 97/53, heart rate 60 per minute, he is afebrile. He is awake. He states he wants to go home, but he is complaining of mild shortness of breath. Patient remains on 12 L high-flow nasal cannula. Examination of the heart S1, S2. Examination of the lungs, decreased breath sounds at the bases. Abdomen is soft, nontender. Examination of the lower extremities shows chronic skin changes, edema 1+ bilaterally. [employer] exam grossly intact. LABS: Show hemoglobin 11.7, sodium 144, potassium 4.1, chloride 107, CO2 is 33, BUN 57, serum creatinine 1.63. Chest x-ray from today shows worsening infiltrates. ASSESSMENT: 1. Acute kidney injury, mainly cardiorenal and associated with hypotension, hypoperfusion. Patient was on a Lasix drip initially which was then discontinued. His chest x-ray is worse. He has however been extubated. The patient will need to be diuresed more as his chest x-ray is worse. It looks like he has already been switched over to a Lasix drip which is appropriate as well as dobutamine given his severe cardiomyopathy. Ejection fraction is 30%-35%. .. 2. Cardiomyopathy, ejection fraction 30% to 35%. 3. Volume overload, congestive heart failure acute on top of chronic, mainly systolic. Chest x-ray is worse, need to increase diuresis. Agree with Lasix drip and dobutamine. 4. Pneumonia. Sputum culture grew Streptococcus pneumoniae. 5. Sepsis secondary to pneumonia. 6. History of hypertension, blood pressure currently low. Patient is maintained on Levophed. PLAN: Check ultrasound of the kidneys. Agree with more aggressive diuresis, continue with dobutamine to help with diuresis given the low ejection fraction. Avoid nephrotoxic agents. Repeat labs in a.m. MMJWL / IJN: [id number] /
[2020-01-30 12:45] LABS: Glucose,Whole Blood 138 mg/dL (75-99)
--- NOTE | 2020-01-30 14:27 | P.PN ---
Progress Note - Text Progress Note Date: 01/30/20 Chief Complaint: Short of breath History of presenting complaint: This is a 75-year-old patient of Dr. Gonzáles. Long-standing smoker. Chronic stable medical conditions include atrial fibrillation, AICD, coronary artery disease with prior bypass, on home oxygen, GERD, COPD. Last ejection fraction is 40-45%. She presents with worsening short of breath for about a week at least. It has been progressively getting worse. Some edema. Weak and tired slight cough is present. Increasing swelling of lower extremity. Orthopnea. No fever no chills. Tired and rundown. Slow with given history. Admitted with acute on chronic CHF exacerbation, COPD exacerbation. Was started on IV Lasix, bronchodilators and IV steroids. Early hours of January 25 patient was becoming more short of breath, could not tolerate BiPAP was intubated and placed in the ICU. Also being treated for pneumonia. Patient extubated on January 28 [id number] up in a chair. Current drips include norepinephrine, dobutamine and be started on Lasix drip. On 15 L of 5 flow oxygen. Bit tired. Eat a full liquid breakfast tolerate. Some shortness of breath Review of systems: Was done for constitutional, cardiovascular, GI, pulmonary. relevant finding as above Active Medications Acetazolamide Sodium (Diamox) 250 mg IV Q12HR [facility] Last Admin: 01/30/20 09:36 Dose: 250 mg Documented by: Albuterol/Ipratropium (Duoneb 0.5 Mg-3 Mg/3 Ml Soln) 3 ml INHALATION RT-QID [facility] Last Admin: 01/30/20 13:34 Dose: 3 ml Documented by: Albuterol/Ipratropium (Duoneb 0.5 Mg-3 Mg/3 Ml Soln) 3 ml INHALATION RT-Q2H PRN PRN Reason: Shortness Of Breath Or Wheezing Amiodarone HCl (Cordarone) 200 mg PO DAILY [facility] Last Admin: 01/30/20 09:37 Dose: 200 mg Documented by: Apixaban (Eliquis) 2.5 mg PO BID [facility] Last Admin: 01/30/20 11:47 Dose: 2.5 mg Documented by: Aspirin (Aspirin) 81 mg PO DAILY [facility] Last Admin: 01/30/20 09:37 Dose: 81 mg Documented by: Atorvastatin Calcium (Lipitor) 80 mg PO DAILY [facility] Last Admin: 01/30/20 09:37 Dose: 80 mg Documented by: Budesonide (Pulmicort) 0.5 mg INHALATION RT-BID [facility] Last Admin: 01/30/20 08:18 Dose: 0.5 mg Documented by: Piperacillin Sod/Tazobactam (Sod 3.375 gm/ Sodium Chloride) 100 mls @ 25 mls/hr IVPB Q8HR [facility] Last Admin: 01/30/20 09:35 Dose: 25 mls/hr Documented by: Norepinephrine Bitartrate 8 mg (/ Sodium Chloride) 258 mls @ 7.382 mls/hr IV .Q24H [facility]; Protocol Last Titration: 01/30/20 10:36 Dose: 0.02 mcg/kg/min, 2.953 mls/hr Documented by: Furosemide 100 mg/ Sodium (Chloride) 100 mls @ 10 mls/hr IV .Q10H [facility] Last Admin: 01/30/20 10:35 Dose: 10 mg/hr, 10 mls/hr Documented by: Dobutamine HCl/Dextrose 500 mg (/ IV Solution) 250 mls @ 5.775 mls/hr IV .Q24H [facility] Last Admin: 01/30/20 10:36 Dose: 2.5 mcg/kg/min, 5.775 mls/hr Documented by: Insulin Aspart (Novolog) 0 unit SQ ACHS [facility]; Protocol Last Admin: 01/30/20 12:49 Dose: 1 unit Documented by: Methylprednisolone Sodium Succinate (Solu-Medrol) 60 mg IV Q6HR [facility] Last Admin: 01/30/20 12:55 Dose: 60 mg Documented by: Miscellaneous Information (Magnesium Per Protocol) 1 each MISCELLANE DAILY PRN; Protocol PRN Reason: Per Protocol Miscellaneous Information (Potassium Per Protocol) 1 each MISCELLANE DAILY PRN; Protocol PRN Reason: Per Protocol Miscellaneous Information (Potassium Per Protocol) 1 each MISCELLANE DAILY PRN; Protocol PRN Reason: Per Protocol Naloxone HCl (Narcan) 0.2 mg IV Q2M PRN PRN Reason: Opioid Reversal Nicotine (Habitrol 21mg/24hr Patch) 1 patch TRANSDERM DAILY [facility] Last Admin: 01/30/20 09:36 Dose: 1 patch Documented by: Pantoprazole Sodium (Protonix) 40 mg PO DAILY [facility] Physical examination: VITAL SIGNS: 97.4 59, 15, 93/40, 93% on 15 L high flow GENERAL: Sitting up in a chair, awake watching TV short of breath with nasal cannula EYES: Pupils equal. Conjunctiva normal. HEENT: External appearance of nose and ears normal, oral cavity-endotracheal tube NECK: JVD unable to assess; masses not palpable. HEART: Heart sounds irregular, edema present. LUNGS: Respiratory rate increased,, diminished breath sounds. ABDOMEN: Soft, nontender, liver spleen not palpable, no masses palpable. PSYCH: Able to answer simple questions MUSCULAR skeletal: Evidence of OA INVESTIGATIONS, reviewed in the clinical context: White count 11.2 hemoglobin 11.7 platelets 149 potassium 4.1 bun 57 creatinine 1.63 Chest [id number] right lung infiltrate Previous testing White count 13.1 hemoglobin 12.2 platelets 139, potassium 4.9 crit 1.01 Chest x-ray film personally reviewed by me-increasing bilateral infiltrates CRP 60.5 pro calcitonin 0.1 2-D co-EF 30-35% Previous testing White count 10.9 hemoglobin 12.4 platelets 165 neutrophils 9.2 lymphocytes 0.7 potassium 4.3 bun 27 creatinine 0.88, proBNP 1530 EKG tracing personally reviewed by me-atrial flutter rate controlled Chest x-ray film personally reviewed by me-pulmonary edema, cardiomegaly, portable film Assessment: -Acute on chronic congestive heart failure exacerbation from systolic dysfunction EF 30-35% % from underlying coronary artery disease, POA- -Bilateral pneumonia, suspect gram-negative organism causing sepsis, POA, -Coronary artery disease a prior history of bypass -Acute COPD exacerbation and an current smoker, POA, improving -Chronic nicotine dependence patient cigarette smoker -Persistent atrial fibrillation -Chronic hypoxic and hypercapnic respiratory failure from a lying COPD -Acute hypoxic and hypercapnic respiratory failure from COPD and CHF, pneumonia POA-worsening on extubated January 28. Currently on high flow 15 L nasal cannula- slow to respond -Acute kidney injury possibly combination of ATN and prerenal including hypotension-not improving Plan: -ICU. Current drips include, IV Zosyn, IV levo fed,-started today on dobutamine and Lasix.. . Prognosis guarded.
--- NOTE | 2020-01-30 16:10 | PN ---
PROGRESS NOTE Rivera is a 75-year-old patient who is admitted to hospital with acute exacerbation of chronic systolic heart failure. He has history of ischemic cardiomyopathy and AICD. The patient has been extubated. He is sitting at bedside. His chest x-ray shows worsening right lung infiltrate. The patient's shortness of breath is improving. He is currently on Lasix drip and has also been started on dobutamine. The patient is on Cordarone, Eliquis, aspirin, Lipitor. PHYSICAL EXAM: Heart rate is 60 beats per minute, blood pressure is 90/40, respiratory rate is 18 chest exam reveals diminished air entry with crackles and rhonchi. Heart exam reveals first and second heart sounds. No gallop. ABDOMEN: Soft exam of extremities reveals mild edema. LAB: 1. Show a hemoglobin of 11.7, platelet count is 149, potassium is 4.1, creatinine is 1.6. ASSESSMENT: 1. Acute exacerbation of chronic systolic heart failure. 2. Paroxysmal atrial fibrillation. 3. Ischemic cardiomyopathy,.status post AICD. PLAN: The patient is doing much better compared to yesterday but his chest x-ray looks worse. Hence, he had been started on dobutamine. Please watch out for ventricular tachycardia. MMODL / IJN: [id number] /
--- NOTE | 2020-01-30 17:01 | US ---
EXAMINATION TYPE: US kidneys/renal and bladder DATE OF EXAM: 01/30/2020 COMPARISON: NONE CLINICAL HISTORY: RF. EXAM MEASUREMENTS: Right Kidney: 10.1 x 4.5 x 4.3 cm Left Kidney: 10.4 x 5.6 x 4.7 cm ICU patient done portable, patient unable to move or cooperate with examiner. Technically difficult e xam. Right Kidney: No hydronephrosis or masses seen Left Kidney: No hydronephrosis or masses seen Bladder: not visualized, De Leon IMPRESSION: 1. Normal renal ultrasound
[2020-01-30 17:45] LABS: Glucose,Whole Blood 196 mg/dL (75-99)
[2020-01-30 18:49] LABS: ABG Base Excess -2.4 mmol/L; ABG HCO3 26 mmol/L (21-25); ABG Oxygen Saturation 94.5 % (94-97); ABG PO2 88 mmHg (83-108); ABG TCO2 29 mmol/L (19-24)
[2020-01-30 18:55] LABS: ABG PH 7.15 (7.35-7.45)
[2020-01-30 18:56] LABS: ABG PCO2 76 mmHg (35-45); Allen Test Performed? no
[2020-01-30 21:14] LABS: ABG Base Excess -2.1 mmol/L; ABG HCO3 26 mmol/L (21-25); ABG Oxygen Saturation 94.6 % (94-97); ABG PO2 86 mmHg (83-108); ABG TCO2 29 mmol/L (19-24)
[2020-01-30 21:21] LABS: ABG PCO2 71 mmHg (35-45); ABG PH 7.18 (7.35-7.45); Allen Test Performed? NO
[2020-01-30 21:41] LABS: Glucose,Whole Blood 149 mg/dL (75-99)
[2020-01-31] MEDS: FUROSEMIDE 100 MG in SODIUM CHLORIDE 0.9% 90 ML IV SCH (05:00)
[2020-01-31 05:15] LABS: Basophils % (A) 0 %; Eosinophils # (A) 0.1 k/uL (0-0.7); Eosinophils % (A) 1 %; HCT 38.1 % (39.0-53.0); HGB 11.3 gm/dL (13.0-17.5); Hypochromasia Marked; Lymphocytes # (A) 0.2 k/uL (1.0-4.8); Lymphocytes % (A) 1 %; MCH 32.4 pg (25.0-35.0); MCHC 29.7 g/dL (31.0-37.0); Macrocytosis Marked; Mean Platelet Volume 9.4; Monocytes # (A) 0.6 k/uL (0-1.0); Monocytes % (A) 4 %; Neutrophils # (A) 11.8 k/uL (1.3-7.7); Neutrophils % (A) 92 %; Platelet Count 130 k/uL (150-450); RDW 13.6 % (11.5-15.5); WBC 12.8 k/uL (3.8-10.6)
[2020-01-31 05:27] LABS: Potassium 4.9 mmol/L (3.5-5.1)
[2020-01-31] MEDS: BUDESONIDE 0.5 MG/2 ML NEBU INHALATION SCH ×2 (07:08→21:22)
[2020-01-31] MEDS: IPRATROPIUM-ALBUTEROL 3 ML NEB INHALATION SCH ×4 (07:08→21:22)
--- NOTE | 2020-01-31 07:34 | XR ---
EXAMINATION TYPE: XR chest 1V portable DATE OF EXAM: 01/31/2020 COMPARISON: Prior chest x-ray dated 01/30/2020, chest CT 06/08/2016 HISTORY: Shortness of breath TECHNIQUE: Single frontal view of the chest is obtained. FINDINGS: Patient is rotated. Defibrillator is stable, patient is post median sternotomy. Heart is e nlarged. Central vascularity is prominent. Bilateral airspace disease is noted. Retrocardiac density obscures the left heart border and hemidiaphragm. No evident pneumothorax. Pleural thickening again n oted in the left hemithorax. There are overlying cardiac leads. IMPRESSION: Correlate for congestive heart failure, pneumonia not excluded. Chronic left pleural jean paul ction
[2020-01-31] MEDS: methylPREDNISolone SOD SUCCI 125 MG/2 ML VIAL IV SCH ×3 (08:08→17:21)
[2020-01-31 08:24] LABS: Glucose,Whole Blood 160 mg/dL (75-99)
[2020-01-31] MEDS: INSULIN ASPART (NovoLOG) 100 UNIT/ML VIAL SQ SCH ×2 (08:35→17:20)
[2020-01-31] MEDS: PIPERACILLIN-TAZOBACTAM 3.375 GM in SODIUM CHLORIDE 0.9% 100 ML IVPB SCH ×2 (08:44→15:14)
[2020-01-31 08:49] LABS: ABG Base Excess -3.2 mmol/L; ABG HCO3 26 mmol/L (21-25); ABG Oxygen Saturation 95.1 % (94-97); ABG PO2 93 mmHg (83-108); ABG TCO2 28 mmol/L (19-24)
[2020-01-31 08:52] LABS: ABG PCO2 76 mmHg (35-45); ABG PH 7.14 (7.35-7.45)
--- NOTE | 2020-01-31 10:16 | P.PN ---
Subjective Patient is seen in follow for acute kidney injury. Renal function is worse today. Creatinine 2.7. Urine output about 20-30 mL an hour. He is currently maintained on Lasix drip at 10 mL an hour as well as dobutamine. Patient's ejection fraction of 30-35%. He's currently on BiPAP requiring 100% FiO2. He is on 12 mics of Levophed. Vital signs are stable. On vasopressors. General: The patient appeared well nourished and normally developed. HEENT: Head exam is unremarkable. Neck is without jugular venous distension. On BiPAP. LUNGS: Breath sounds decreased. HEART: Rate and Rhythm are regular. ABDOMEN: Nontender, nondistended. EXTREMITITES: No edema. Objective - Vital Signs Vital signs: Vital Signs Temp 97.5 F L 01/31/20 08:00 Pulse 61 01/31/20 08:00 Resp 20 01/31/20 08:00 BP 86/48 01/30/20 19:00 Pulse Ox 94 L 01/31/20 08:00 Intake & Output 01/30/20 01/31/20 01/31/20 18:59 06:59 18:59 Intake Total 848.150 404.166 10 Output Total 570 305 Balance 278.150 99.166 10 Weight 77 kg 79.8 kg Intake: IV 220 220 10 0.9 NS KVO 120 120 10 Piperacillin-Tazobactam 3 100 100 .375 gm In Sodium Chloride 0.9% 100 ml @ 25 mls/hr IVPB Q8HR [facility] Rx# :[id number] Intake, IV Titration 128.150 184.166 Amount Furosemide 100 mg In 184.166 Sodium Chloride 0.9% 90 ml @ 10 MG/HR 10 mls/hr IV .Q10H [facility] Rx#: [id number] Norepinephrine 8 mg In 128.150 Sodium Chloride 0.9% 250 ml @ 0.05 MCG/KG/MIN 7. 382 mls/hr IV .Q24H [facility] Rx#:[id number] Oral 500 Output: Urine 570 305 Other: Voiding Method Indwelling Catheter Indwelling Catheter ABP, PAP, CO, CI - Last Documented Arterial Blood Pressure 119/52 - Labs CBC & Chem 7: 01/31/20 05:05 01/31/20 05:05 Labs: Abnormal Lab Results - Last 24 Hours (Table) 0501/30/20 01/30/20 Range/Units 12:43 12:46 17:43 WBC (3.8-10.6) k/uL RBC (4.30-5.90) m/uL Hgb (13.0-17.5) gm/dL Hct (39.0-53.0) % MCV (80.0-100.0) fL MCHC (31.0-37.0) g/dL Plt Count (150-450) k/uL Neutrophils # (1.3-7.7) k/uL Lymphocytes # (1.0-4.8) k/uL Macrocytosis APTT 30.9 H (22.0-30.0) sec ABG pH (7.35-7.45) ABG pCO2 (35-45) mmHg ABG HCO3 (21-25) mmol/L ABG Total CO2 (19-24) mmol/L BUN (9-20) mg/dL Creatinine (0.66-1.25) mg/dL Glucose (74-99) mg/dL POC Glucose (mg/dL) 138 H 196 H (75-99) mg/dL Calcium (8.4-10.2) mg/dL 01/30/20 01/30/20 01/30/20 Range/Units 18:40 21:07 21:40 WBC (3.8-10.6) k/uL RBC (4.30-5.90) m/uL Hgb (13.0-17.5) gm/dL Hct (39.0-53.0) % MCV (80.0-100.0) fL MCHC (31.0-37.0) g/dL Plt Count (150-450) k/uL Neutrophils # (1.3-7.7) k/uL Lymphocytes # (1.0-4.8) k/uL Macrocytosis APTT (22.0-30.0) sec ABG pH 7.15 L* 7.18 L* (7.35-7.45) ABG pCO2 76 H* 71 H* (35-45) mmHg ABG HCO3 26 H 26 H (21-25) mmol/L ABG Total CO2 29 H 29 H (19-24) mmol/L BUN (9-20) mg/dL Creatinine (0.66-1.25) mg/dL Glucose (74-99) mg/dL POC Glucose (mg/dL) 149 H (75-99) mg/dL Calcium (8.4-10.2) mg/dL 01/31/20 01/31/20 01/31/20 Range/Units 05:05 05:05 08:12 WBC 12.8 H (3.8-10.6) k/uL RBC 3.50 L (4.30-5.90) m/uL Hgb 11.3 L (13.0-17.5) gm/dL Hct 38.1 L (39.0-53.0) % MCV 109.0 H (80.0-100.0) fL MCHC 29.7 L (31.0-37.0) g/dL Plt Count 130 L (150-450) k/uL Neutrophils # 11.8 H (1.3-7.7) k/uL Lymphocytes # 0.2 L (1.0-4.8) k/uL Macrocytosis Marked A APTT (22.0-30.0) sec ABG pH (7.35-7.45) ABG pCO2 (35-45) mmHg ABG HCO3 (21-25) mmol/L ABG Total CO2 (19-24) mmol/L BUN 87 H (9-20) mg/dL Creatinine 2.72 H (0.66-1.25) mg/dL Glucose 154 H (74-99) mg/dL POC Glucose (mg/dL) 160 H (75-99) mg/dL Calcium 7.0 L (8.4-10.2) mg/dL 01/31/20 Range/Units 08:43 WBC (3.8-10.6) k/uL RBC (4.30-5.90) m/uL Hgb (13.0-17.5) gm/dL Hct (39.0-53.0) % MCV (80.0-100.0) fL MCHC (31.0-37.0) g/dL Plt Count (150-450) k/uL Neutrophils # (1.3-7.7) k/uL Lymphocytes # (1.0-4.8) k/uL Macrocytosis APTT (22.0-30.0) sec ABG pH 7.14 L* (7.35-7.45) ABG pCO2 76 H* (35-45) mmHg ABG HCO3 26 H (21-25) mmol/L ABG Total CO2 28 H (19-24) mmol/L BUN (9-20) mg/dL Creatinine (0.66-1.25) mg/dL Glucose (74-99) mg/dL POC Glucose (mg/dL) (75-99) mg/dL Calcium (8.4-10.2) mg/dL Microbiology - Last 24 Hours (Table) 01/25/20 14:15 Blood Culture - Preliminary Blood No Growth after 120 hours Assessment and Plan Plan: Assessment: 1. Acute kidney injury secondary to ATN secondary to hypotension and cardiorenal syndrome. Creatinine 2.7 today. No hydronephrosis noted on kidney ultrasound. 2. Acute on chronic systolic CHF with ejection fraction of 30-35%. Maintained on dobutamine. 3. Acute hypercapnic and hypoxic respiratory failure maintained on BiPAP. 4. Hypotension maintained on Levophed. 5. Streptococcal pneumonia maintained on antibiotics. Coronavirus PCR negative. 6. COPD exacerbation maintained on IV steroids. Plan: Hold Lasix. Discontinue Diamox. Wean FiO2 and vasopressors. Repeat chest x-ray tomorrow. Continue to monitor renal function and urine output closely.
[2020-01-31] MEDS ORDERED: PROPOFOL 100 ML IV ONE (10:21)
[2020-01-31] MEDS ORDERED: ETOMIDATE 2 MG/ML 10 ML VIAL ONE (10:30)
[2020-01-31] MEDS ORDERED: SUCCINYLCHOLINE CHLORIDE VIAL 200 MG/10 ML VIAL IV ONE (10:30)
[2020-01-31] MEDS: PROPOFOL 1,000 MG in EMPTY BAG 1 BAG IV SCH ×3 (10:30→21:40)
[2020-01-31] MEDS: NOREPINEPHRINE 8 MG in SODIUM CHLORIDE 0.9% 250 ML IV SCH (11:00)
--- NOTE | 2020-01-31 11:04 | XR ---
EXAMINATION TYPE: XR chest 1V portable DATE OF EXAM: 01/31/2020 COMPARISON: Prior chest x-ray 01/31/2020 HISTORY: Intubated TECHNIQUE: Single frontal view of the chest is obtained. FINDINGS: Endotracheal tube and NG tube have been placed in the interval and are overlying appropria te positions. There is a gas-distended stomach. There may be some slight improved aeration in the rig ht lung although there are differences in technique. Patient is rotated. No other significant interva l change. IMPRESSION: No evident complication status post intubation.
[2020-01-31 11:21] LABS: C Reactive Protein 50.8 mg/L (<10.0)
[2020-01-31] MEDS: APIXABAN 2.5 MG TABLET PO SCH ×2 (11:25→20:02)
[2020-01-31] MEDS: AMIODARONE 200 MG TAB PO SCH (11:25)
[2020-01-31] MEDS: PANTOPRAZOLE 40 MG TABLET PO SCH (11:26)
[2020-01-31] MEDS: ASPIRIN 81 MG PO SCH (11:26)
[2020-01-31] MEDS: ATORVASTATIN 80 MG TAB PO SCH (11:26)
[2020-01-31] MEDS: NICOTINE 21MG/24HR PATCH TRANSDERM SCH (11:26)
[2020-01-31 11:45] LABS: ABG Base Excess -3.1 mmol/L; ABG HCO3 25 mmol/L (21-25); ABG Oxygen Saturation 96.9 % (94-97); ABG PCO2 69 mmHg (35-45); ABG PO2 109 mmHg (83-108); ABG TCO2 28 mmol/L (19-24)
[2020-01-31 11:48] LABS: ABG PH 7.17 (7.35-7.45)
[2020-01-31] MEDS ORDERED: VANCOMYCIN IV PER PHARMACY 1 EACH MISC MISCELLANE PRN (12:28)
--- NOTE | 2020-01-31 12:28 | P.PN ---
Subjective Progress Note Date: 01/31/20 Principal diagnosis: Acute on chronic hypoxic respiratory failure and hypercapnic respiratory failure secondary to acute systolic congestive heart failure and acute exacerbation of COPD This is a 75-year-old white male, long-standing smoking history, chronic atrial fibrillation, LV dysfunction and previous AICD placement, coronary artery disease and previous CABG, patient is on home oxygen. Mostly for his underlying COPD. Patient presented to the ER with 1 week history of increased shortness of breath. Also complaining of swelling in the legs. Weakness, fatigue, and wor sening shortness of breath over the last 1 week. Patient felt tired and rundown. Apparently the patient was initially admitted to the cardiac floor with the impression of congestive heart failure. Overnight, the patient's condition deteriorated, did not improve with a nonrebreather mask. Multiple ABGs were done and they reflected mostly hypoxemia and hypercapnia with a pCO2 above 120 and pH of 7.11. Patient required intubation and mechanical ventilation. He also required placement on relatively high PEEP because of hypoxemia with a pO2 of 43 in spite of being on 100% FiO2. Patient is now on tidal volume of 400, assist control rate of 24, FiO2 of 100% and PEEP of 15 ABG showed a pO2 of 198 pCO2 of 45 pH of 7.56. Hence his FiO2 will be decreased to 50% and address PEEP hopefully get the PEEP down to 10 if possible. Patient was placed on a Lasix drip he was also placed on Diamox. Placed on bronchodilators, and on Solu-Medrol. Chest x-ray showed evidence of congestive heart failure and left pleural effusion. Considering the patient had a temp of 101 on admission, his screening for covid 19 is pending. Patient was placed empirically on antibiotics in the form of Zosyn. Patient is sedated, on propofol, he is also on propofol at 50 mcg/kg/m, not requiring any pressors. Patient was intubated around 2 AM this morning. Reevaluated today on 01/27/20, patient remains in the intensive care unit, intubated and mechanically ventilated. Patient remains sedated, on propofol. His vent settings are assist control rate of 20 tidal volume is 400 FiO2 is 50% and PEEP is down to 8. His ABG showed a pO2 of 79 pCO2 of 39 pH of 7.61, hence cut down his respiratory rate from 24-20. Patient is -1.5 L over the last 24 hours. Remains on Lasix and I cut it down to 5 mg per hour. Discontinued his Aldactone. Kept him on Diamox. He is on Lasix now at 5 mg per hour. Propofol at 35 mcg/kg/m. And he is also on heparin drip. Patient has a paced rhythm at 60 beats per minutes. He is hemodynamically stable, not requiring any pressors. Chest x-ray is showing some improvement continues to have a chronic left pleural effusion which was present even as far as 2015. This is a chronic abnormality in the left lower lobe area. Hence no plans to perform thoracentesis. Electrolytes showed low potassium and that being corrected as per protocol. Renal functioning is slightly worse, hence I cut down on the Lasix and I discontinued Aldactone. His BUN is 36 creatinine is 1.41. WBC count is 9.5 hemoglobin is 11.9 PTT is therapeutic. Reevaluated today on 01/28/20, patient remains intubated and mechanically ventilated. His ventilator settings are assist control rate of 20 tidal volume is 400 FiO2 is 50% and PEEP is 8. ABG showed a pO2 of 88 pCO2 of 46 pH of 7.46. Patient remains on propofol at 35 mcg/kg/m, Lasix at 5 mg per hour which I have discontinued today, he is also on norepinephrine at 0.01 mcg/kg/m, and heparin. Chest x-ray continues to show moderate left pleural effusion and associated left airspace disease.. Renal profile remains marginal with a BUN of 47 creatinine of 1.50. PTT is therapeutic at 48.9, CBC is relatively normal. Sputum is positive for Streptococcus pneumoniae. Blood cultures are negative. Patient remains empirically on antibiotics. Patient remains on enteral feeding, and he seems to be tolerating enteral feeding well. Patient was reevaluated today on 01/29/20, remains in the ICU intubated and mechanically ventilated. He is on assist control rate of 20 tidal volume is 400 FiO2 is 50% and PEEP of 5. ABG showed a pO2 of 91 pCO2 of 43 pH of 7.42. Patient is on norepinephrine at 0.05 mcg/kg/m, propofol at 20 mcg/kg/m, and on heparin drip. IV fluid is at KVO. Patient had Lasix yesterday, and he diuresed quite well. Chest x-ray continues to show evidence of left pleural effusion which is chronic, ultrasound of the chest showed a small pocket just over 4 cm, no plans to do thoracentesis on this pocket of fluid which is chronic in the left lower lobe. Today I have recommended holding sedation starting the patient again on pressure support of 8 and CPAP, he tolerated this mode of weaning yesterday for about 6 hours. Hopefully he will tolerated longer distended today and may give the patient a trial of weaning/extubation. CBC is relatively normal. Basic metabolic profile is normal BUN is 57 creatinine is 1.48. Patient was reevaluated today on 01/30/20, patient remains in the ICU, he was extubated yesterday, and he was placed initially on BiPAP, now he is on a high flow nasal cannula, 10 L high flow, and his O2 saturation is marginal but in the low 90s. I recommended starting the patient again on Lasix drip at 10 mg per hour. Patient remains on a small dose of norepinephrine at 0.03 mcg/kg/m. Patient does have history of LV dysfunction, this chest x-ray is showing interstitial edema again today. Hence I have recommended that he goes on Dobutrex instead of levo fed, I have also recommended Lasix drip and stopping heparin and switching him to Eliquis. Patient will remain in the ICU, and I hav e no plans to transfer out of the ICU yet. Clinically the patient seems comfortable, and in no distress. His CBC is relatively unremarkable. Basic metabolic profile showed elevated bicarb of 33, hence the patient remains on Diamox. His BUN is 57 creatinine is 1.63, and I believe this is more of a cardiorenal syndrome, expect that to improve hopefully with Dobutrex. Patient was reevaluated today on 01/31/20, remains in the ICU, his O2 saturation is marginal, his ABG seems to be getting worse in spite of being on BiPAP. He was on BiPAP of 16 and EPAP of 6, 100% FiO2. ABG showed a pO2 of 93 pCO2 of 76 pH of 7.14. Repeat ABG after intubation today showed a pO2 of 109 pCO2 of 69 pH of 7.17. Shortly after I evaluated the patient this morning, I reviewed his chest x-ray, and he seems to be getting worse. Chest x-ray is suggestive of interstitial edema or interstitial infiltrate, hence I have felt that the patient is not improving with the Lasix drip, he is not improving with dobutami ne drip, I recommended inflammatory markers for covid 19, and I have also recommended BNP level. All seems to be abnormal. His LDH is 1300 CPK is 414 C- reactive protein is 50.8 and his BNP level is 2320. Renal functioning seems to be worsening with BUN of 87 creatinine of 2.72. Patient was seen by nephrology on consultation, and the feeling was the patient may actually be dehydrated and intravascularly depleted hence Lasix was discontinued, Diamox was discontinued, patient remains on norepinephrine at 0.17 mcg/kg/m, he is on Dobutrex at 5 mcg/kg/m, and on IV fluid. His chest x-ray and clearly showed definite worsening of his infiltrates/edema and again he had positive sputum cultures for Streptococcus pneumoniae, and that is being addressed with antibiotics from day 1. After intubation, patient was placed on tidal volume of 400, assist control rate of 20 FiO2 100% and PEEP of 5 ABG showed a pO2 of 109 pCO2 of 69 pH of 7.17 hence his rate was increased to 28. Repeat Covid PCR was ordered, it is quite concerning that the patient is not showing any signs of improvement with his r ight sided interstitial edema/infiltrates. Objective - Vital Signs Vital signs: Vital Signs Temp 97.5 F L 01/31/20 08:00 Pulse 59 L 01/31/20 12:00 Resp 20 01/31/20 12:00 BP 91/45 01/31/20 12:00 Pulse Ox 96 01/31/20 12:00 Intake & Output 01/30/20 01/31/20 01/31/20 18:59 06:59 18:59 Intake Total 848.150 404.166 289.85 Output Total 570 305 60 Balance 278.150 99.166 229.85 Weight 77 kg 79.8 kg Intake: IV 220 220 160 0.9 NS KVO 120 120 60 Piperacillin-Tazobactam 3 100 100 100 .375 gm In Sodium Chloride 0.9% 100 ml @ 25 mls/hr IVPB Q8HR [facility] Rx# :[id number] Intake, IV Titration 128.150 184.166 129.85 Amount Furosemide 100 mg In 184.166 Sodium Chloride 0.9% 90 ml @ 10 MG/HR 10 mls/hr IV .Q10H [facility] Rx#: [id number] Norepinephrine 8 mg In 128.150 129.85 Sodium Chloride 0.9% 250 ml @ 0.05 MCG/KG/MIN 7. 382 mls/hr IV .Q24H [facility] Rx#:[id number] Oral 500 Output: Urine 570 305 60 Other: Voiding Method Indwelling Catheter Indwelling Catheter ABP, PAP, CO, CI - Last Documented Arterial Blood Pressure 119/52 - Exam GENERAL: Revealed a 75-year-old white male, on BiPAP. Patient is lethargic. But arousable. EYES: Pupils equal. Conjunctiva normal. HEENT: PERRLA, EOMI, no icterus. Head is atraumatic, normocephalic. NECK: No neck masses no JVD.. HEART: Paced rhythm, no S3 gallop. 2/6 systolic murmur throughout the precordium. LUNGS: Crackles at the bases, no rhonchi and no wheezes. ABDOMEN: Soft, nontender, liver spleen not palpable, no masses palpable. Extremities: 1+ bipedal edema, good pulses bilaterally. PSYCH: Lethargic, arousable, blunt affect. MUSCULAR skeletal: No deformities. NEUROLOGICAL: Lethargic but arousable, follows simple instructions once aroused. But confused. LYMPHATICS: No cervical adenopathy. - Labs CBC & Chem 7: 01/31/20 05:05 01/31/20 05:05 Labs: Abnormal Lab Results - Last 24 Hours (Table) 01/30/20 01/30/20 01/30/20 Range/Units 12:43 12:46 17:43 WBC (3.8-10.6) k/uL RBC (4.30-5.90) m/uL Hgb (13.0-17.5) gm/dL Hct (39.0-53.0) % MCV (80.0-100.0) fL MCHC (31.0-37.0) g/dL Plt Count (150-450) k/uL Neutrophils # (1.3-7.7) k/uL Lymphocytes # (1.0-4.8) k/uL Macrocytosis APTT 30.9 H (22.0-30.0) sec D-Dimer (<0.60) mg/L FEU ABG pH (7.35-7.45) ABG pCO2 (35-45) mmHg ABG pO2 (83-108) mmHg ABG HCO3 (21-25) mmol/L ABG Total CO2 (19-24) mmol/L BUN (9-20) mg/dL Creatinine (0.66-1.25) mg/dL Glucose (74-99) mg/dL POC Glucose (mg/dL) 138 H 196 H (75-99) mg/dL Calcium (8.4-10.2) mg/dL Lactate Dehydrogenase (313-618) U/L Creatine Kinase (55-170) U/L C-Reactive Protein (<10.0) mg/L 01/30/20 01/30/20 01/30/20 Range/Units 18:40 21:07 21:40 WBC (3.8-10.6) k/uL RBC (4.30-5.90) m/uL Hgb (13.0-17.5) gm/dL Hct (39.0-53.0) % MCV (80.0-100.0) fL MCHC (31.0-37.0) g/dL Plt Count (150-450) k/uL Neutrophils # (1.3-7.7) k/uL Lymphocytes # (1.0-4.8) k/uL Macrocytosis APTT (22.0-30.0) sec D-Dimer (<0.60) mg/L FEU ABG pH 7.15 L* 7.18 L* (7.35-7.45) ABG pCO2 76 H* 71 H* (35-45) mmHg ABG pO2 (83-108) mmHg ABG HCO3 26 H 26 H (21-25) mmol/L ABG Total CO2 29 H 29 H (19-24) mmol/L BUN (9-20) mg/dL Creatinine (0.66-1.25) mg/dL Glucose (74-99) mg/dL POC Glucose (mg/dL) 149 H (75-99) mg/dL Calcium (8.4-10.2) mg/dL Lactate Dehydrogenase (313-618) U/L Creatine Kinase (55-170) U/L C-Reactive Protein (<10.0) mg/L 01/31/20 01/31/20 01/31/20 Range/Units 05:05 05:05 08:12 WBC 12.8 H (3.8-10.6) k/uL RBC 3.50 L (4.30-5.90) m/uL Hgb 11.3 L (13.0-17.5) gm/dL Hct 38.1 L (39.0-53.0) % MCV 109.0 H (80.0-100.0) fL MCHC 29.7 L (31.0-37.0) g/dL Plt Count 130 L (150-450) k/uL Neutrophils # 11.8 H (1.3-7.7) k/uL Lymphocytes # 0.2 L (1.0-4.8) k/uL Macrocytosis Marked A APTT (22.0-30.0) sec D-Dimer (<0.60) mg/L FEU ABG pH (7.35-7.45) ABG pCO2 (35-45) mmHg ABG pO2 (83-108) mmHg ABG HCO3 (21-25) mmol/L ABG Total CO2 (19-24) mmol/L BUN 87 H (9-20) mg/dL Creatinine 2.72 H (0.66-1.25) mg/dL Glucose 154 H (74-99) mg/dL POC Glucose (mg/dL) 160 H (75-99) mg/dL Calcium 7.0 L (8.4-10.2) mg/dL Lactate Dehydrogenase (313-618) U/L Creatine Kinase (55-170) U/L C-Reactive Protein (<10.0) mg/L 01/31/20 01/31/20 01/31/20 Range/Units 08:43 10:54 10:54 WBC (3.8-10.6) k/uL RBC (4.30-5.90) m/uL Hgb (13.0-17.5) gm/dL Hct (39.0-53.0) % MCV (80.0-100.0) fL MCHC (31.0-37.0) g/dL Plt Count (150-450) k/uL Neutrophils # (1.3-7.7) k/uL Lymphocytes # (1.0-4.8) k/uL Macrocytosis APTT (22.0-30.0) sec D-Dimer 1.41 H (<0.60) mg/L FEU ABG pH 7.14 L* (7.35-7.45) ABG pCO2 76 H* (35-45) mmHg ABG pO2 (83-108) mmHg ABG HCO3 26 H (21-25) mmol/L ABG Total CO2 28 H (19-24) mmol/L BUN (9-20) mg/dL Creatinine (0.66-1.25) mg/dL Glucose (74-99) mg/dL POC Glucose (mg/dL) (75-99) mg/dL Calcium (8.4-10.2) mg/dL Lactate Dehydrogenase 1300 H (313-618) U/L Creatine Kinase 414 H (55-170) U/L C-Reactive Protein 50.8 H (<10.0) mg/L 01/31/20 Range/Units 11:39 WBC (3.8-10.6) k/uL RBC (4.30-5.90) m/uL Hgb (13.0-17.5) gm/dL Hct (39.0-53.0) % MCV (80.0-100.0) fL MCHC (31.0-37.0) g/dL Plt Count (150-450) k/uL Neutrophils # (1.3-7.7) k/uL Lymphocytes # (1.0-4.8) k/uL Macrocytosis APTT (22.0-30.0) sec D-Dimer (<0.60) mg/L FEU ABG pH 7.17 L* (7.35-7.45) ABG pCO2 69 H (35-45) mmHg ABG pO2 109 H (83-108) mmHg ABG HCO3 (21-25) mmol/L ABG Total CO2 28 H (19-24) mmol/L BUN (9-20) mg/dL Creatinine (0.66-1.25) mg/dL Glucose (74-99) mg/dL POC Glucose (mg/dL) (75-99) mg/dL Calcium (8.4-10.2) mg/dL Lactate Dehydrogenase (313-618) U/L Creatine Kinase (55-170) U/L C-Reactive Protein (<10.0) mg/L Microbiology - Last 24 Hours (Table) 01/25/20 14:15 Blood Culture - Preliminary Blood No Growth after 120 hours Assessment and Plan Assessment: Impression: Acute on chronic hypoxic and hypercapnic respiratory failure secondary to acute systolic congestive heart failure and acute exacerbation of COPD. extubated on 01/29/20, reintubated on 01/31/20. History of coronary artery disease and previous CABG History of cardiomyopathy LV dysfunction and AICD placement. With acute on chronic systolic congestive heart failure. Suspected cardiorenal syndrome and acute kidney injury, did not improve much with inotropes. And did not improve with Lasix drip. Chronic atrial fibrillation. tobacco dependence syndrome. Chronic left pleural effusion, present since 2016. Not large enough for thoracentesis. Negative PCR for coronar virus. However considering the significant increase in markers, will reorder PCR again. Suspect streptococcal pneumonia, hence we'll continue antibiotics. We will broaden the spectrum and add vancomycin. Recommendation: Reintubate patient today. Hold Lasix drip. Hold Diamox. Broaden antibiotics spectrum and add vancomycin. Continue Dobutrex 2.5 mcg/kg/m. Continue GI and DVT prophylaxis. Continue Eliquis. Continue Diamox at 250 mg IV push every 12 hours. Continue bronchodilators. Resume enteral feeding after intubation. Prognosis remains extremely poor and guarded, Remains critically ill, critical care time is 35 minutes.
[2020-01-31] MEDS ORDERED: VANCOMYCIN 1,500 MG in SODIUM CHLORIDE 0.9% 250 ML IVPB ONE (13:00)
[2020-01-31] MEDS ORDERED: DOBUTamine DRIP 500 MG in DEXTROSE/WATER 1 250ML.BAG IV SCH (14:00)
[2020-01-31 17:00] LABS: Glucose,Whole Blood 163 mg/dL (75-99)
[2020-01-31 17:28] LABS: Ferritin 262.1 ng/mL (22.0-322.0)
[2020-01-31] MEDS: CHLORHEXIDINE GLUCONATE 15 ML CUP MUCOUS MEM SCH (20:02)
--- NOTE | 2020-01-31 20:27 | PN ---
PROGRESS NOTE DATE OF SERVICE: 01/31/2020 DATE OF SERVICE: This 75-year-old gentleman who was admitted with CHF acute exacerbation with ejection fraction 30 to 35%, also had bilateral pneumonia. The patient also developed acute respiratory failure and the patient is currently intubated and mechanically ventilated. The patient is on dobutamine and as well as Levophed drip also. Dr. Lisa is following the patient closely. The patient was extubated 2 days ago, but apparently reintubated last night as well because of increased shortness of breath. The patient also had history of cardiomyopathy as well. The most recent chest x-ray which was reviewed personally by me showed significant fluid and also because of the increasing lesions Covid is also being considered at this time even though the test is negative. PAST MEDICAL HISTORY: Past medical history reviewed. REVIEW OF SYSTEMS: Could not be taken the patient mechanically intubated. CURRENT MEDICATIONS: Are reviewed and include: 1. DuoNeb q.i.d. and p.r.n. 2. Cordarone 200 mg p.o. daily. 3. Eliquis 2.5 mg b.i.d. 4. Aspirin 81 mg daily. 5. Lipitor 80 mg. 6. Pulmicort 0.5 b.i.d. 7. Peridex 15 mL. 8. Solu-Medrol 60 IV q.6h. 9. Magnesium replacement protocol. 10.Zosyn 3.375 IV q.8. 11.Propofol. 12.Vancomycin. PHYSICAL EXAM: Patient is alert, oriented times three. Pulse is 59. Blood pressure 114/40, respiration 28, temperature normal, pulse ox 92% on mechanical ventilation, vent settings are noted. HEENT: Conjunctivae normal. NECK: No JVD. CARDIOVASCULAR: S1, S2 muffled. RESPIRATIONS: A few scattered rhonchi and crackles. ABDOMEN: Soft, nontender. LEGS are no edema. No swelling. CENTRAL NERVOUS SYSTEM: No focal deficits. LABS: The LDH is 1300 and WBC is 12.8, hemoglobin 11.3. ASSESSMENT: 1. Shortness of breath possibly multifactorial with chronic obstructive pulmonary disease acute exacerbation, as well as congestive heart failure acute exacerbation, with acute on chronic systolic dysfunction, ejection fraction 30 to 35%. 2. Bilateral pneumonia possibly gram-negative possibly Covid-19 had tested negative, could be false negative. 3. coronary artery disease, history of coronary artery bypass grafting. 4. Chronic obstructive pulmonary disease acute exacerbation. 5. History of nicotine dependence. 6. Persistent atrial fibrillation. 7. Chronic hypoxic respiratory failure on home O2. 8. Acute hypoxic hypercapnic respiratory failure because of the combination. 9. Acute kidney injury, possibly acute tubular necrosis. 10.Increased WBC. 11.Anemia of chronic disease. 12.Mild thrombocytopenia. 13.History of atrial fibrillation. 14.History of syncope. 15.History of AICD. 16.History of coronary artery disease/stent. 17.FULL CODE. RECOMMENDATIONS AND DISCUSSION: This 75-year-old gentleman who presented with multiple complex medical issues, we will monitor the patient closely, continue the current medications, management and symptomatic treatment. Continue with bronchodilators and steroids and empiric antibiotics. We will closely monitor. I would also recommend infectious disease evaluation with Dr. Lara also because of concerns of Covid-19 as well. The prognosis guarded because of multiple complex medical issues. Further recommendations to follow. Discussed with staff. The patient is currently FULL CODE. MMODL / IJN: [id number] / ALEYDA
--- NOTE | 2020-01-31 22:39 | P.PN ---
Subjective Patient is still intubated On 2.5 mics of norepinephrine and dobutamine 5 mics Blood pressure systolic is above 140 mmHg on norepinephrine Heart rate in the 60s mechanically ventilated Asked the nurse to reduce the dose of dobutamine to 2.5 mics and held the norepinephrine temporarily His when necessary and creatinine is rising now in the Lasix to for stroke Without norepinephrine his blood pressure systolic went down into the 70s and he started going back up the norepinephrine to keep systolic blood pressures just above 100 mmHg Hemoglobin 11.3, white count 12.8, platelet count 130,000 PH 7.17 Sodium 139 potassium 4.9 BUN has risen from the 50s to 87 and creatinine is gone up to 2.7 This patient is intravascularly depleted and does not appear to be in heart failure This is probably already in nature with worsening renal function worsening chest x-ray Suggest Use norepinephrine to keep systolic blood pressure above 100 Avoid blood pressures up to 140s to 150 mimicked his mercury systolic Stop dobutamine Stop amiodarone Objective - Vital Signs Vital signs: Vital Signs Temp 97.9 F 01/31/20 20:00 Pulse 60 01/31/20 22:00 Resp 28 H 01/31/20 22:00 BP 72/40 01/31/20 14:00 Pulse Ox 99 01/31/20 22:00 Intake & Output 01/31/20 01/31/20 02/01/20 06:59 18:59 06:59 Intake Total 404.166 866.952 192.818 Output Total 305 325 245 Balance 99.166 541.952 -52.182 Weight 79.8 kg Intake: IV 220 570 40 0.9 NS KVO 120 120 40 Piperacillin-Tazobactam 3 100 200 .375 gm In Sodium Chloride 0.9% 100 ml @ 25 mls/hr IVPB Q8HR [facility] Rx# :[id number] Vancomycin 1,500 mg In 250 Sodium Chloride 0.9% 250 ml @ 125 mls/hr IVPB ONCE ONE Rx#:[id number] Intake, IV Titration 184.166 296.952 152.818 Amount Furosemide 100 mg In 184.166 Sodium Chloride 0.9% 90 ml @ 10 MG/HR 10 mls/hr IV .Q10H [facility] Rx#: [id number] Norepinephrine 8 mg In 221.142 88.978 Sodium Chloride 0.9% 250 ml @ 0.05 MCG/KG/MIN 7. 382 mls/hr IV .Q24H [facility] Rx#:[id number] Propofol 1,000 mg In 75.810 63.84 Empty Bag 1 bag @ Titrate IV .Q0M [facility] Rx#: [id number] Output: Urine 305 325 245 Other: Voiding Method Indwelling Catheter Indwelling Catheter Indwelling Catheter ABP, PAP, CO, CI - Last Documented Arterial Blood Pressure 129/54 - Labs CBC & Chem 7: 01/31/20 05:05 01/31/20 05:05 Labs: Abnormal Lab Results - Last 24 Hours (Table) 01/31/20 01/31/20 01/31/20 Range/Units 05:05 05:05 08:12 WBC 12.8 H (3.8-10.6) k/uL RBC 3.50 L (4.30-5.90) m/uL Hgb 11.3 L (13.0-17.5) gm/dL Hct 38.1 L (39.0-53.0) % MCV 109.0 H (80.0-100.0) fL MCHC 29.7 L (31.0-37.0) g/dL Plt Count 130 L (150-450) k/uL Neutrophils # 11.8 H (1.3-7.7) k/uL Lymphocytes # 0.2 L (1.0-4.8) k/uL Macrocytosis Marked A D-Dimer (<0.60) mg/L FEU ABG pH (7.35-7.45) ABG pCO2 (35-45) mmHg ABG pO2 (83-108) mmHg ABG HCO3 (21-25) mmol/L ABG Total CO2 (19-24) mmol/L BUN 87 H (9-20) mg/dL Creatinine 2.72 H (0.66-1.25) mg/dL Glucose 154 H (74-99) mg/dL POC Glucose (mg/dL) 160 H (75-99) mg/dL Calcium 7.0 L (8.4-10.2) mg/dL Lactate Dehydrogenase (313-618) U/L Creatine Kinase (55-170) U/L C-Reactive Protein (<10.0) mg/L 01/31/20 01/31/20 01/31/20 Range/Units 08:43 10:54 10:54 WBC (3.8-10.6) k/uL RBC (4.30-5.90) m/uL Hgb (13.0-17.5) gm/dL Hct (39.0-53.0) % MCV (80.0-100.0) fL MCHC (31.0-37.0) g/dL Plt Count (150-450) k/uL Neutrophils # (1.3-7.7) k/uL Lymphocytes # (1.0-4.8) k/uL Macrocytosis D-Dimer 1.41 H (<0.60) mg/L FEU ABG pH 7.14 L* (7.35-7.45) ABG pCO2 76 H* (35-45) mmHg ABG pO2 (83-108) mmHg ABG HCO3 26 H (21-25) mmol/L ABG Total CO2 28 H (19-24) mmol/L BUN (9-20) mg/dL Creatinine (0.66-1.25) mg/dL Glucose (74-99) mg/dL POC Glucose (mg/dL) (75-99) mg/dL Calcium (8.4-10.2) mg/dL Lactate Dehydrogenase 1300 H (313-618) U/L Creatine Kinase 414 H (55-170) U/L C-Reactive Protein 50.8 H (<10.0) mg/L 01/31/20 01/31/20 Range/Units 11:39 16:58 WBC (3.8-10.6) k/uL RBC (4.30-5.90) m/uL Hgb (13.0-17.5) gm/dL Hct (39.0-53.0) % MCV (80.0-100.0) fL MCHC (31.0-37.0) g/dL Plt Count (150-450) k/uL Neutrophils # (1.3-7.7) k/uL Lymphocytes # (1.0-4.8) k/uL Macrocytosis D-Dimer (<0.60) mg/L FEU ABG pH 7.17 L* (7.35-7.45) ABG pCO2 69 H (35-45) mmHg ABG pO2 109 H (83-108) mmHg ABG HCO3 (21-25) mmol/L ABG Total CO2 28 H (19-24) mmol/L BUN (9-20) mg/dL Creatinine (0.66-1.25) mg/dL Glucose (74-99) mg/dL POC Glucose (mg/dL) 163 H (75-99) mg/dL Calcium (8.4-10.2) mg/dL Lactate Dehydrogenase (313-618) U/L Creatine Kinase (55-170) U/L C-Reactive Protein (<10.0) mg/L Microbiology - Last 24 Hours (Table) 01/25/20 14:15 Blood Culture - Final Blood No Growth after 144 hours
[2020-02-01] MEDS: PIPERACILLIN-TAZOBACTAM 3.375 GM in SODIUM CHLORIDE 0.9% 100 ML IVPB SCH ×4 (00:15→23:40)
[2020-02-01 00:41] LABS: Glucose,Whole Blood 123 mg/dL (75-99)
[2020-02-01] MEDS: INSULIN ASPART (NovoLOG) 100 UNIT/ML VIAL SQ SCH ×5 (02:39→23:49)
[2020-02-01] MEDS: methylPREDNISolone SOD SUCCI 125 MG/2 ML VIAL IV SCH ×5 (02:41→23:41)
[2020-02-01] MEDS: PROPOFOL 1,000 MG in EMPTY BAG 1 BAG IV SCH ×3 (02:46→21:13)
[2020-02-01 04:27] LABS: Basophils % (A) 0 %; Eosinophils # (A) 0.1 k/uL (0-0.7); Eosinophils % (A) 1 %; HCT 34.9 % (39.0-53.0); HGB 11.2 gm/dL (13.0-17.5); Hypochromasia Marked; Lymphocytes # (A) 0.2 k/uL (1.0-4.8); Lymphocytes % (A) 2 %; MCHC 32.1 g/dL (31.0-37.0); Macrocytosis Moderate; Mean Platelet Volume 10.4; Monocytes # (A) 0.4 k/uL (0-1.0); Monocytes % (A) 4 %; Neutrophils # (A) 7.9 k/uL (1.3-7.7); Neutrophils % (A) 92 %; Platelet Count 122 k/uL (150-450); RDW 13.9 % (11.5-15.5); WBC 8.6 k/uL (3.8-10.6)
[2020-02-01 05:38] LABS: Calcium 7.4 mg/dL (8.4-10.2); Potassium 3.9 mmol/L (3.5-5.1)
[2020-02-01] MEDS ORDERED: POTASSIUM BICARBONATE/CIT AC 20 MEQ TABLET.EFF NG-TUBE SCH (06:00)
[2020-02-01 06:33] LABS: Glucose,Whole Blood 141 mg/dL (75-99)
[2020-02-01 07:36] LABS: ABG Base Excess -1.1 mmol/L; ABG HCO3 25 mmol/L (21-25); ABG Oxygen Saturation 93.7 % (94-97); ABG PCO2 48 mmHg (35-45); ABG PH 7.32 (7.35-7.45); ABG PO2 76 mmHg (83-108); ABG TCO2 26 mmol/L (19-24); Allen Test Performed? Yes
--- NOTE | 2020-02-01 07:52 | XR ---
EXAMINATION TYPE: XR chest 1V portable DATE OF EXAM: 02/01/2020 COMPARISON: 01/31/2020 HISTORY: Tube placement follow-up exam TECHNIQUE: Single frontal view of the chest is obtained. FINDINGS: Stable positioning of the endotracheal tube.r this is located approximately 1.7 cm from th e slick. Enteric tube is also similar in position although the distal end is off the distal field-of -view. There is increasing confluence of the peripheral predominant right upper lung opacity with interstiti al and alveolar opacity throughout the right lung and retrocardiac airspace. Post CABG changes of the chest with dual lead left-sided cardiac device and enlarged cardiomediastinal silhouette. IMPRESSION: 1. Worsening multifocal airspace disease. Pneumonia is of primary consideration. Component of left pl eural effusion is possible. 2. Similar appearance of the endotracheal and enteric tubes. Endotracheal tube terminates approximate ly 1.7 cm from the slick.
[2020-02-01] MEDS: IPRATROPIUM-ALBUTEROL 3 ML NEB INHALATION SCH ×4 (08:01→19:01)
[2020-02-01] MEDS: BUDESONIDE 0.5 MG/2 ML NEBU INHALATION SCH ×2 (08:01→19:01)
[2020-02-01] MEDS: ATORVASTATIN 80 MG TAB PO SCH (08:19)
[2020-02-01] MEDS: APIXABAN 2.5 MG TABLET PO SCH ×2 (08:19→20:19)
[2020-02-01] MEDS: PANTOPRAZOLE 40 MG TABLET PO SCH (08:19)
[2020-02-01] MEDS: ASPIRIN 81 MG PO SCH (08:19)
[2020-02-01] MEDS: NICOTINE 21MG/24HR PATCH TRANSDERM SCH (08:19)
[2020-02-01] MEDS: CHLORHEXIDINE GLUCONATE 15 ML CUP MUCOUS MEM SCH ×2 (08:19→20:19)
--- NOTE | 2020-02-01 10:38 | P.PN ---
Subjective Patient is seen in follow for acute kidney injury. Renal function better. Creatinine 2.38 today. Urine output 50-100 mL an hour. Lasix drip and dobutamine discontinued January 30. Patient's ejection fraction of 30-35%. Still on Levophed. Vital signs are stable. On vasopressors. General: The patient appeared well nourished and normally developed. HEENT: Head exam is unremarkable. Neck is without jugular venous distension. On BiPAP. LUNGS: Breath sounds decreased. HEART: Rate and Rhythm are regular. ABDOMEN: Nontender, nondistended. EXTREMITITES: No edema. Objective - Vital Signs Vital signs: Vital Signs Temp 97.9 F 02/01/20 04:00 Pulse 60 02/01/20 09:30 Resp 28 H 02/01/20 09:30 BP 72/40 01/31/20 14:00 Pulse Ox 95 02/01/20 09:30 Intake & Output 01/31/20 02/01/20 02/01/20 18:59 06:59 18:59 Intake Total 866.952 511.904 230 Output Total 325 790 275 Balance 541.952 -278.096 -45 Weight 79.7 kg 79.7 kg Intake: IV 570 220 130 0.9 NS KVO 120 120 30 Piperacillin-Tazobactam 3 200 100 100 .375 gm In Sodium Chloride 0.9% 100 ml @ 25 mls/hr IVPB Q8HR [facility] Rx# :[id number] Vancomycin 1,500 mg In 250 Sodium Chloride 0.9% 250 ml @ 125 mls/hr IVPB ONCE ONE Rx#:[id number] Intake, IV Titration 296.952 291.904 100 Amount Norepinephrine 8 mg In 221.142 130.389 Sodium Chloride 0.9% 250 ml @ 0.05 MCG/KG/MIN 7. 382 mls/hr IV .Q24H [facility] Rx#:[id number] Propofol 1,000 mg In 75.810 161.515 100 Empty Bag 1 bag @ Titrate IV .Q0M [facility] Rx#: [id number] Output: Urine 325 790 275 Other: Voiding Method Indwelling Catheter Indwelling Catheter Indwelling Catheter ABP, PAP, CO, CI - Last Documented Arterial Blood Pressure 99/45 - Labs CBC & Chem 7: 02/01/20 04:01 02/01/20 04:01 Labs: Abnormal Lab Results - Last 24 Hours (Table) 01/31/20 01/31/20 01/31/20 Range/Units 10:54 10:54 11:39 RBC (4.30-5.90) m/uL Hgb (13.0-17.5) gm/dL Hct (39.0-53.0) % MCV (80.0-100.0) fL Plt Count (150-450) k/uL Neutrophils # (1.3-7.7) k/uL Lymphocytes # (1.0-4.8) k/uL D-Dimer 1.41 H (<0.60) mg/L FEU ABG pH 7.17 L* (7.35-7.45) ABG pCO2 69 H (35-45) mmHg ABG pO2 109 H (83-108) mmHg ABG Total CO2 28 H (19-24) mmol/L ABG O2 Saturation (94-97) % BUN (9-20) mg/dL Creatinine (0.66-1.25) mg/dL Glucose (74-99) mg/dL POC Glucose (mg/dL) (75-99) mg/dL Calcium (8.4-10.2) mg/dL Lactate Dehydrogenase 1300 H (313-618) U/L Creatine Kinase 414 H (55-170) U/L C-Reactive Protein 50.8 H (<10.0) mg/L 01/31/20 02/01/20 02/01/20 Range/Units 16:58 00:37 04:01 RBC 3.30 L (4.30-5.90) m/uL Hgb 11.2 L (13.0-17.5) gm/dL Hct 34.9 L (39.0-53.0) % MCV 106.0 H (80.0-100.0) fL Plt Count 122 L (150-450) k/uL Neutrophils # 7.9 H (1.3-7.7) k/uL Lymphocytes # 0.2 L (1.0-4.8) k/uL D-Dimer (<0.60) mg/L FEU ABG pH (7.35-7.45) ABG pCO2 (35-45) mmHg ABG pO2 (83-108) mmHg ABG Total CO2 (19-24) mmol/L ABG O2 Saturation (94-97) % BUN (9-20) mg/dL Creatinine (0.66-1.25) mg/dL Glucose (74-99) mg/dL POC Glucose (mg/dL) 163 H 123 H (75-99) mg/dL Calcium (8.4-10.2) mg/dL Lactate Dehydrogenase (313-618) U/L Creatine Kinase (55-170) U/L C-Reactive Protein (<10.0) mg/L 02/01/20 02/01/20 02/01/20 Range/Units 04:01 06:31 07:28 RBC (4.30-5.90) m/uL Hgb (13.0-17.5) gm/dL Hct (39.0-53.0) % MCV (80.0-100.0) fL Plt Count (150-450) k/uL Neutrophils # (1.3-7.7) k/uL Lymphocytes # (1.0-4.8) k/uL D-Dimer (<0.60) mg/L FEU ABG pH 7.32 L (7.35-7.45) ABG pCO2 48 H (35-45) mmHg ABG pO2 76 L (83-108) mmHg ABG Total CO2 26 H (19-24) mmol/L ABG O2 Saturation 93.7 L (94-97) % BUN 87 H (9-20) mg/dL Creatinine 2.38 H (0.66-1.25) mg/dL Glucose 139 H (74-99) mg/dL POC Glucose (mg/dL) 141 H (75-99) mg/dL Calcium 7.4 L (8.4-10.2) mg/dL Lactate Dehydrogenase (313-618) U/L Creatine Kinase (55-170) U/L C-Reactive Protein (<10.0) mg/L Microbiology - Last 24 Hours (Table) 01/31/20 15:20 Gram Stain - Preliminary Sputum Sputum Culture - Preliminary 01/25/20 14:15 Blood Culture - Final Blood No Growth after 144 hours Assessment and Plan Plan: Assessment: 1. Acute kidney injury secondary to ATN secondary to hypotension and cardiorenal syndrome. Creatinine peaked at 2.7 this admission and is 2.38 today. No hydronephrosis noted on kidney ultrasound. 2. Acute on chronic systolic CHF with ejection fraction of 30-35%. Status post dobutamine. 3. Acute hypercapnic and hypoxic respiratory failure. 4. Hypotension maintained on Levophed. 5. Streptococcal pneumonia maintained on antibiotics. Coronavirus PCR nega tive. 6. COPD exacerbation maintained on IV steroids. Plan: Continue to hold diuretics. Wean FiO2 and vasopressors. Avoid nephrotoxins. Continue to monitor renal function and urine output.
[2020-02-01] MEDS ORDERED: VANCOMYCIN 1,500 MG in SODIUM CHLORIDE 0.9% 250 ML IVPB ONE (12:00)
[2020-02-01 12:08] LABS: Glucose,Whole Blood 105 mg/dL (75-99)
--- NOTE | 2020-02-01 12:26 | P.PN ---
Subjective Progress Note Date: 02/01/20 Principal diagnosis: Acute on chronic hypoxic respiratory failure and hypercapnic respiratory failure secondary to acute systolic congestive heart failure and acute exacerbation of COPD This is a 75-year-old white male, long-standing smoking history, chronic atrial fibrillation, LV dysfunction and previous AICD placement, coronary artery disease and previous CABG, patient is on home oxygen. Mostly for his underlying COPD. Patient presented to the ER with 1 week history of increased shortness of breath. Also complaining of swelling in the legs. Weakness, fatigue, and wor sening shortness of breath over the last 1 week. Patient felt tired and rundown. Apparently the patient was initially admitted to the cardiac floor with the impression of congestive heart failure. Overnight, the patient's condition deteriorated, did not improve with a nonrebreather mask. Multiple ABGs were done and they reflected mostly hypoxemia and hypercapnia with a pCO2 above 120 and pH of 7.11. Patient required intubation and mechanical ventilation. He also required placement on relatively high PEEP because of hypoxemia with a pO2 of 43 in spite of being on 100% FiO2. Patient is now on tidal volume of 400, assist control rate of 24, FiO2 of 100% and PEEP of 15 ABG showed a pO2 of 198 pCO2 of 45 pH of 7.56. Hence his FiO2 will be decreased to 50% and address PEEP hopefully get the PEEP down to 10 if possible. Patient was placed on a Lasix drip he was also placed on Diamox. Placed on bronchodilators, and on Solu-Medrol. Chest x-ray showed evidence of congestive heart failure and left pleural effusion. Considering the patient had a temp of 101 on admission, his screening for covid 19 is pending. Patient was placed empirically on antibiotics in the form of Zosyn. Patient is sedated, on propofol, he is also on propofol at 50 mcg/kg/m, not requiring any pressors. Patient was intubated around 2 AM this morning. Reevaluated today on 01/27/20, patient remains in the intensive care unit, intubated and mechanically ventilated. Patient remains sedated, on propofol. His vent settings are assist control rate of 20 tidal volume is 400 FiO2 is 50% and PEEP is down to 8. His ABG showed a pO2 of 79 pCO2 of 39 pH of 7.61, hence cut down his respiratory rate from 24-20. Patient is -1.5 L over the last 24 hours. Remains on Lasix and I cut it down to 5 mg per hour. Discontinued his Aldactone. Kept him on Diamox. He is on Lasix now at 5 mg per hour. Propofol at 35 mcg/kg/m. And he is also on heparin drip. Patient has a paced rhythm at 60 beats per minutes. He is hemodynamically stable, not requiring any pressors. Chest x-ray is showing some improvement continues to have a chronic left pleural effusion which was present even as far as 2015. This is a chronic abnormality in the left lower lobe area. Hence no plans to perform thoracentesis. Electrolytes showed low potassium and that being corrected as per protocol. Renal functioning is slightly worse, hence I cut down on the Lasix and I discontinued Aldactone. His BUN is 36 creatinine is 1.41. WBC count is 9.5 hemoglobin is 11.9 PTT is therapeutic. Reevaluated today on 01/28/20, patient remains intubated and mechanically ventilated. His ventilator settings are assist control rate of 20 tidal volume is 400 FiO2 is 50% and PEEP is 8. ABG showed a pO2 of 88 pCO2 of 46 pH of 7.46. Patient remains on propofol at 35 mcg/kg/m, Lasix at 5 mg per hour which I have discontinued today, he is also on norepinephrine at 0.01 mcg/kg/m, and heparin. Chest x-ray continues to show moderate left pleural effusion and associated left airspace disease.. Renal profile remains marginal with a BUN of 47 creatinine of 1.50. PTT is therapeutic at 48.9, CBC is relatively normal. Sputum is positive for Streptococcus pneumoniae. Blood cultures are negative. Patient remains empirically on antibiotics. Patient remains on enteral feeding, and he seems to be tolerating enteral feeding well. Patient was reevaluated today on 01/29/20, remains in the ICU intubated and mechanically ventilated. He is on assist control rate of 20 tidal volume is 400 FiO2 is 50% and PEEP of 5. ABG showed a pO2 of 91 pCO2 of 43 pH of 7.42. Patient is on norepinephrine at 0.05 mcg/kg/m, propofol at 20 mcg/kg/m, and on heparin drip. IV fluid is at KVO. Patient had Lasix yesterday, and he diuresed quite well. Chest x-ray continues to show evidence of left pleural effusion which is chronic, ultrasound of the chest showed a small pocket just over 4 cm, no plans to do thoracentesis on this pocket of fluid which is chronic in the left lower lobe. Today I have recommended holding sedation starting the patient again on pressure support of 8 and CPAP, he tolerated this mode of weaning yesterday for about 6 hours. Hopefully he will tolerated longer distended today and may give the patient a trial of weaning/extubation. CBC is relatively normal. Basic metabolic profile is normal BUN is 57 creatinine is 1.48. Patient was reevaluated today on 01/30/20, patient remains in the ICU, he was extubated yesterday, and he was placed initially on BiPAP, now he is on a high flow nasal cannula, 10 L high flow, and his O2 saturation is marginal but in the low 90s. I recommended starting the patient again on Lasix drip at 10 mg per hour. Patient remains on a small dose of norepinephrine at 0.03 mcg/kg/m. Patient does have history of LV dysfunction, this chest x-ray is showing interstitial edema again today. Hence I have recommended that he goes on Dobutrex instead of levo fed, I have also recommended Lasix drip and stopping heparin and switching him to Eliquis. Patient will remain in the ICU, and I hav e no plans to transfer out of the ICU yet. Clinically the patient seems comfortable, and in no distress. His CBC is relatively unremarkable. Basic metabolic profile showed elevated bicarb of 33, hence the patient remains on Diamox. His BUN is 57 creatinine is 1.63, and I believe this is more of a cardiorenal syndrome, expect that to improve hopefully with Dobutrex. Patient was reevaluated today on 01/31/20, remains in the ICU, his O2 saturation is marginal, his ABG seems to be getting worse in spite of being on BiPAP. He was on BiPAP of 16 and EPAP of 6, 100% FiO2. ABG showed a pO2 of 93 pCO2 of 76 pH of 7.14. Repeat ABG after intubation today showed a pO2 of 109 pCO2 of 69 pH of 7.17. Shortly after I evaluated the patient this morning, I reviewed his chest x-ray, and he seems to be getting worse. Chest x-ray is suggestive of interstitial edema or interstitial infiltrate, hence I have felt that the patient is not improving with the Lasix drip, he is not improving with dobutami ne drip, I recommended inflammatory markers for covid 19, and I have also recommended BNP level. All seems to be abnormal. His LDH is 1300 CPK is 414 C- reactive protein is 50.8 and his BNP level is 2320. Renal functioning seems to be worsening with BUN of 87 creatinine of 2.72. Patient was seen by nephrology on consultation, and the feeling was the patient may actually be dehydrated and intravascularly depleted hence Lasix was discontinued, Diamox was discontinued, patient remains on norepinephrine at 0.17 mcg/kg/m, he is on Dobutrex at 5 mcg/kg/m, and on IV fluid. His chest x-ray and clearly showed definite worsening of his infiltrates/edema and again he had positive sputum cultures for Streptococcus pneumoniae, and that is being addressed with antibiotics from day 1. After intubation, patient was placed on tidal volume of 400, assist control rate of 20 FiO2 100% and PEEP of 5 ABG showed a pO2 of 109 pCO2 of 69 pH of 7.17 hence his rate was increased to 28. Repeat Covid PCR was ordered, it is quite concerning that the patient is not showing any signs of improvement with his r ight sided interstitial edema/infiltrates. Patient was reevaluated today on 01/28/20. Patient remains in the ICU, intubated and mechanically ventilated. His ventilator settings are assist control rate of 28, tidal volume is 400, FiO2 is 60%, and PEEP is 5. His ABG showed a pO2 of 76 pCO2 of 48 pH of 7.32. Patient is on levo fed at 0.03 mcg/m, propofol at 40 mcg/kg/m, he remains on vancomycin and Zosyn and Eliquis. Repeat PCR for farley virus is pending. Patient will be started today on enteral feeding. And his FiO2 was decreased down to 55%. Chest x-ray continues to show significant ai rspace disease, multifocal, and chronic left pleural effusion. I am recommending a high-resolution CT of the chest if PCR for farley virus comes back negative. Objective - Vital Signs Vital signs: Vital Signs Temp 97.9 F 02/01/20 04:00 Pulse 60 02/01/20 11:30 Resp 28 H 02/01/20 11:30 BP 72/40 01/31/20 14:00 Pulse Ox 90 L 02/01/20 11:30 Intake & Output 01/31/20 02/01/20 02/01/20 18:59 06:59 18:59 Intake Total 866.952 511.904 250 Output Total 325 790 500 Balance 541.952 -278.096 -250 Weight 79.7 kg 79.7 kg Intake: IV 570 220 150 0.9 NS KVO 120 120 50 Piperacillin-Tazobactam 3 200 100 100 .375 gm In Sodium Chloride 0.9% 100 ml @ 25 mls/hr IVPB Q8HR [facility] Rx# :[id number] Vancomycin 1,500 mg In 250 Sodium Chloride 0.9% 250 ml @ 125 mls/hr IVPB ONCE ONE Rx#:[id number] Intake, IV Titration 296.952 291.904 100 Amount Norepinephrine 8 mg In 221.142 130.389 Sodium Chloride 0.9% 250 ml @ 0.05 MCG/KG/MIN 7. 382 mls/hr IV .Q24H [facility] Rx#:[id number] Propofol 1,000 mg In 75.810 161.515 100 Empty Bag 1 bag @ Titrate IV .Q0M [facility] Rx#: [id number] Output: Urine 325 790 500 Other: Voiding Method Indwelling Catheter Indwelling Catheter Indwelling Catheter ABP, PAP, CO, CI - Last Documented Arterial Blood Pressure 109/48 - Exam GENERAL: Revealed a 75-year-old white male, on mechanical ventilation, sedated. On propofol. EYES: Pupils equal. Conjunctiva normal. HEENT: PERRLA, EOMI, no icterus. Head is atraumatic, normocephalic. Endotracheal tube and orogastric tube are intact. NECK: No neck masses no JVD.. HEART: Paced rhythm, no S3 gallop. 2/6 systolic murmur throughout the precordium. LUNGS: Crackles at the bases, no rhonchi and no wheezes. ABDOMEN: Soft, nontender, liver spleen not palpable, no masses palpable. Extremities: 1+ bipedal edema, good pulses bilaterally. PSYCH: Could not be assessed, patient is sedated. MUSCULAR skeletal: No deformities. NEUROLOGICAL: Sedated, on propofol, could not be assessed. LYMPHATICS: No cervical adenopathy. - Labs CBC & Chem 7: 02/01/20 04:01 02/01/20 04:01 Labs: Abnormal Lab Results - Last 24 Hours (Table) 01/31/20 02/01/20 02/01/20 Range/Units 16:58 00:37 04:01 RBC 3.30 L (4.30-5.90) m/uL Hgb 11.2 L (13.0-17.5) gm/dL Hct 34.9 L (39.0-53.0) % MCV 106.0 H (80.0-100.0) fL Plt Count 122 L (150-450) k/uL Neutrophils # 7.9 H (1.3-7.7) k/uL Lymphocytes # 0.2 L (1.0-4.8) k/uL ABG pH (7.35-7.45) ABG pCO2 (35-45) mmHg ABG pO2 (83-108) mmHg ABG Total CO2 (19-24) mmol/L ABG O2 Saturation (94-97) % BUN (9-20) mg/dL Creatinine (0.66-1.25) mg/dL Glucose (74-99) mg/dL POC Glucose (mg/dL) 163 H 123 H (75-99) mg/dL Calcium (8.4-10.2) mg/dL 02/01/20 02/01/20 02/01/20 Range/Units 04:01 06:31 07:28 RBC (4.30-5.90) m/uL Hgb (13.0-17.5) gm/dL Hct (39.0-53.0) % MCV (80.0-100.0) fL Plt Count (150-450) k/uL Neutrophils # (1.3-7.7) k/uL Lymphocytes # (1.0-4.8) k/uL ABG pH 7.32 L (7.35-7.45) ABG pCO2 48 H (35-45) mmHg ABG pO2 76 L (83-108) mmHg ABG Total CO2 26 H (19-24) mmol/L ABG O2 Saturation 93.7 L (94-97) % BUN 87 H (9-20) mg/dL Creatinine 2.38 H (0.66-1.25) mg/dL Glucose 139 H (74-99) mg/dL POC Glucose (mg/dL) 141 H (75-99) mg/dL Calcium 7.4 L (8.4-10.2) mg/dL 02/01/20 Range/Units 12:06 RBC (4.30-5.90) m/uL Hgb (13.0-17.5) gm/dL Hct (39.0-53.0) % MCV (80.0-100.0) fL Plt Count (150-450) k/uL Neutrophils # (1.3-7.7) k/uL Lymphocytes # (1.0-4.8) k/uL ABG pH (7.35-7.45) ABG pCO2 (35-45) mmHg ABG pO2 (83-108) mmHg ABG Total CO2 (19-24) mmol/L ABG O2 Saturation (94-97) % BUN (9-20) mg/dL Creatinine (0.66-1.25) mg/dL Glucose (74-99) mg/dL POC Glucose (mg/dL) 105 H (75-99) mg/dL Calcium (8.4-10.2) mg/dL Microbiology - Last 24 Hours (Table) 01/31/20 15:20 Gram Stain - Preliminary Sputum Sputum Culture - Preliminary 01/25/20 14:15 Blood Culture - Final Blood No Growth after 144 hours Assessment and Plan Assessment: Impression: Acute on chronic hypoxic and hypercapnic respiratory failure secondary to acute systolic congestive heart failure and acute exacerbation of COPD. also suspect some component of pneumonia involving the right lung most likely it is streptococcal pneumonia. extubated on 01/29/20, reintubated on 01/31/20. History of coronary artery disease and previous CABG History of cardiomyopathy LV dysfunction and AICD placement. With acute on chronic systolic congestive heart failure. Suspected cardiorenal syndrome and acute kidney injury, patient is not requiring norepinephrine, he is off Dobutrex, and today his renal output seems to be reasonable. Chronic atrial fibrillation. tobacco dependence syndrome. Chronic left pleural effusion, present since 2016. Not large enough for thoracentesis. Negative PCR for coronar virus. However considering the significant increase in markers, PCR was ordered again. Suspect streptococcal pneumonia, hence we'll continue antibiotics. We will broaden the spectrum and add vancomycin. Recommendation: Continue ventilatory support. Continue Zosyn and vancomycin. Discontinue Dobutrex. Continue levo fed and titrate to a systolic of above 90. Continue GI and DVT prophylaxis Start enteral feeding today. Decrease FiO2 to 55%.. Continue Eliquis. Continue to hold diuretics. Continue bronchodilators. Prognosis remains extremely poor and guarded, Consider high-resolution CT of the chest, assuming PCR for coronary virus is negative. Remains critically ill, critical care time is 33 minutes. Time with Patient: Greater than 30
[2020-02-01] MEDS: NOREPINEPHRINE 8 MG in SODIUM CHLORIDE 0.9% 250 ML IV SCH (14:25)
--- NOTE | 2020-02-01 17:44 | PN ---
PROGRESS NOTE DATE OF SERVICE: 02/01/2020 This 75-year-old gentleman who was admitted with CHF acute exacerbation also ejection fraction about 30-35 percent. The patient also had evidence of sleep apnea. The patient is still on mechanical ventilation. Dr. Lisa is following the patient closely. The patient also had bilateral pneumonia. Covid was considered but the testing is negative at this time. Patient is on FiO2 60% and tidal volume of 400 and PEEP of 5. The patient is on Levophed and propofol. The patient is on vancomycin, Zosyn, Eliquis. Covid was repeated yesterday. Final report is pending at this time. PAST MEDICAL HISTORY: Reviewed. REVIEW OF SYSTEMS: Could not be taken as the patient mechanically sedated. CURRENT MEDICATIONS: 1. DuoNeb q.i.d. and p.r.n. 2. Eliquis 2.5 mg b.i.d. 3. Aspirin 81 mg daily. 4. Lipitor 80 mg daily. 5. Pulmicort 0.5 b.i.d. 6. Peridex. 7. NovoLog. 8. Solu-Medrol 60 IV q.6. 9. Narcan. 10.Habitrol 21. 11.Levophed drip. 12.Protonix. 13.Zosyn IV. 14.Propofol drip. PHYSICAL EXAM: Patient is mechanically ventilated and sedated. Vent settings are noted. Pulse is 60. Blood pressure is 109/48, respiration 20, temperature is normal. Pulse ox 90% on 50% FiO2. HEENT: Conjunctivae normal. NECK: No JVD. CARDIOVASCULAR: S1, S2 muffled. RESPIRATION: Breath sounds diminished in the bases. A few scattered rhonchi and crackles. Bilateral scattered rhonchi and crackles. ABDOMEN: Soft, obese, nontender. LEGS: No edema. NERVOUS SYSTEM unchanged. LABS: WBC 8.2, hemoglobin 11.2, MCV 106 and ABGs noted. Creatinine is 2.39. ASSESSMENT: 1. Shortness of breath possibly multifactorial with chronic obstructive pulmonary disease acute exacerbation as well as congestive heart failure exacerbation with acute on chronic systolic dysfunction ejection fraction 30 to 35% on mechanical ventilation with acute hypoxic hypercapnic respiratory failure. 2. Bilateral pneumonia possibly gram-negative possibly Covid-19 pneumonia could be false negative. 3. Coronary artery disease, coronary artery bypass grafting. 4. Chronic obstructive pulmonary disease acute exacerbation. 5. History of nicotine dependence. 6. History of persistent atrial fibrillation. 7. Chronic hypoxic respiratory failure on home O2. 8. Acute kidney injury, possible acute tubular necrosis. 9. Increased WBC. 10.Anemia of chronic disease. 11.Mild thrombocytopenia. 12.History of atrial fibrillation. 13.History of syncope. 14.History of AICD. 15.History of coronary artery disease, stent. 16.FULL CODE. RECOMMENDATIONS AND DISCUSSION: Recommend to continue current medications, management and symptomatic treatment. Continue with bronchodilators. Continue with current medications. Closely follow with Dr. Lisa. Covid-19 test repeated. Overall prognosis guarded. A chest x-ray done today which is personally reviewed by me showed bilateral lesions, which seems to be interstitial lesions. Once again the prognosis extremely guarded because of multiple complex medical issues. Further recommendations to follow. Continue with respiratory isolation. MMODL / IJN: [id number] /
[2020-02-01 17:59] LABS: Glucose,Whole Blood 142 mg/dL (75-99)
--- NOTE | 2020-02-01 18:22 | CT ---
EXAMINATION TYPE: CT chest wo con DATE OF EXAM: 02/01/2020 COMPARISON: Prior CT dated 05/08/2016 HISTORY: Acute respiratory failure CT DLP: 545 mGycm. Automated Exposure Control for Dose Reduction was Utilized. TECHNIQUE: CT scan of the thorax is performed without IV contrast. FINDINGS: Endotracheal tube is in place. LUNGS: The lungs are remarkable for extensive airspace disease on the right, volume loss is present i n the left hemithorax is chronic and not much aerated lung, there is chronic pleural fluid collection on the left which may represent chronic pleural reaction. There is a right pleural effusion and some atelectatic change. NG tube is present coursing to the stomach. Leads are present within the heart. No pericardial effusion. There are coronary artery calcifications. Generators present in left pectora l region. Patient is post median sternotomy. MEDIASTINUM: Lack of IV contrast is noted to limit evaluation for mediastinal and especially hilar ad enopathy. There are no definitive greater than 1 cm hilar or mediastinal lymph nodes. No cardiomega ly or pericardial effusion is seen. OTHER: No additional significant abnormality is seen. IMPRESSION: Noncontrast exam. Chronic changes within the left hemithorax. There is extensive airspace disease in the right lung, correlate for pneumonia, ARDS
--- NOTE | 2020-02-01 22:48 | P.CONS ---
History of Present Illness - Reason for Consult Consult date: 02/01/20 Pneumonia Requesting physician: Mark Anthony Rivas - Chief Complaint shortness of breath x few days - History of Present Illness Patient is a 75-year-old male with a past medical history significant for COPD also with a history of congestive heart failure presenting to the ER at [facility] on 01/25/2020 with increasing shortness of breath patient was initially diagnosed with a C. difficile patient has been admitted to the floor subsequently but did have worsening of his respiratory status and attempt patient getting transferred to the ICU and getting intubated patient did have a fever of 101. degrees Fahrenheit on 01/26/2020 patient has been afebrile since then patient did have a elevated white count 13,000 on the blood culture done admission has been negative sputum was possible Streptococcus pneumoniae and the patient has been treated with vancomycin and Zosyn patient is getting intubated on 28 January however yesterday the patient developed respiratory distress will initially tried on BiPAP ended up getting intubated the patient chest x-ray done this morning showing worsening multifocal airspace disease pneumonia primary consideration was given to the possible COVID-19 pneumonia, testing was ordered and officially was consulted for further management of antibiotic therapy, patient is currently intubated on the vent hemodynamically stable no significant purulent secretion through the ET has been able to medicine staff for any diarrhea morphine permission has been obtained from review the chart and talking to the nursing staff as the patient is currently intubated on the vent and is unable to provide any history. Review of Systems Positive point has been mentioned in HPI complete review could not be obtained because of sedation on the vent. Past Medical History Past Medical History: Atrial Fibrillation, GERD/Reflux, Myocardial Infarction ([place]), Syncope Additional Past Medical History / Comment(s): home O2 2L at hs & prn. , See Dr Anais Yates & Anjelica, constipation, Last Myocardial Infarction Date:: 2011? History of Any Multi-Drug Resistant Organisms: None Reported Past Surgical History: AICD, Coronary Bypass/CABG, Ear Surgery, Heart Catheterization With Stent, Pacemaker Additional Past Surgical History / Comment(s): nasal surgery, left carotid endartectomy, triple bypass Past Anesthesia/Blood Transfusion Reactions: No Reported Reaction Date of Last Stent Placement:: unknown Type of Cardiac Device: Permanent Pacemaker, AICD Device Placement Date:: 2011? Past Psychological History: No Psychological Hx Reported Smoking Status: Current every day smoker Past Alcohol Use History: None Reported Additional Past Alcohol Use History / Comment(s): smokes 1ppd for past 30+ years,. Currently smoking < 1/2 PPD currently Past Drug Use History: None Reported - Past Family History Mother History Unknown: Yes Family Medical History: Cancer Additional Family Medical History / Comment(s): stomach cancer Father Family Medical History: Cancer Medications and Allergies Home Medications Medication Instructions Recorded Confirmed Type Omeprazole [PriLOSEC] 20 mg PO DAILY 06/05/16 01/25/20 History Aspirin 81 mg PO DAILY #1 chewable 06/09/16 01/25/20 Rx Furosemide [Lasix] 40 mg PO DAILY 07/20/16 01/25/20 History Spironolactone [Aldactone] 25 mg PO DAILY #30 tab 07/25/16 01/25/20 Rx Carvedilol [Coreg*] 12.5 mg PO BID 08/14/16 01/25/20 History Amiodarone [Cordarone] 200 mg PO DAILY #90 09/25/16 01/25/20 Rx Atorvastatin [Lipitor] 80 mg PO DAILY 01/25/20 01/25/20 History Allergies Allergy/AdvReac Type Severity Reaction Status Date / Time No Known Allergies Allergy Verified 01/25/20 17:30 Physical Exam Vitals: Vital Signs Temp Pulse Resp Pulse Ox 02/01/20 19:01 60 02/01/20 18:00 59 L 28 H 92 L 02/01/20 17:30 60 28 H 92 L 02/01/20 16:30 60 28 H 96 02/01/20 16:00 97.4 F L 60 28 H 96 02/01/20 15:32 62 02/01/20 15:30 60 28 H 89 L 02/01/20 15:10 60 02/01/20 15:00 60 28 H 94 L 02/01/20 14:30 60 28 H 95 02/01/20 14:00 60 28 H 95 02/01/20 13:30 60 33 H 93 L 02/01/20 13:00 60 30 H 92 L 02/01/20 12:30 60 32 H 91 L 02/01/20 12:00 97.7 F 60 29 H 91 L 02/01/20 11:30 60 28 H 90 L 20 11:15 60 0520 11:05 60 0520 11:00 60 28 H 95 0520 10:30 60 28 H 95 0520 10:00 60 28 H 95 0520 09:30 60 28 H 95 0520 09:00 60 28 H 95 0520 08:30 60 28 H 95 0520 08:13 60 0520 08:01 60 0520 08:00 59 L 28 H 95 0520 07:30 60 28 H 96 0520 07:00 61 28 H 93 L 20 06:30 60 28 H 91 L 05 06:00 60 29 H 93 L 0520 05:30 60 28 H 96 0520 05:00 60 29 H 92 L 0520 04:30 60 30 H 93 L 0520 04:00 97.9 F 60 31 H 90 L 0520 03:30 60 30 H 91 L 0520 03:00 60 28 H 89 L 0520 02:30 60 28 H 94 L 20 02:00 60 28 H 94 L 20 01:30 60 28 H 94 L 20 01:00 60 28 H 89 L 0520 00:30 60 29 H 91 L 20 00:25 61 28 H 92 L 0520 00:00 97.6 F 60 28 H 94 L 20 23:30 59 L 18 91 L 0520 23:00 60 28 H 95 0520 22:30 60 28 H 95 0520 22:00 60 28 H 99 0520 21:43 59 L 0520 21:30 59 L 17 96 20 21:22 58 L 0520 21:00 59 L 28 H 95 20 20:30 60 28 H 95 0520 20:00 97.9 F 60 28 H 98 0520 19:30 60 28 H 95 Intake and Output 02/01/20 02/01/20 02/01/20 06:59 14:59 22:59 Intake Total 355.405 590 290 Output Total 545 750 310 Balance -189.595 -160 -20 Intake: IV 180 430 140 0.9 NS KVO 80 80 40 Piperacillin-Tazobactam 3 100 100 100 .375 gm In Sodium Chloride 0.9% 100 ml @ 25 mls/hr IVPB Q8HR [facility] Rx# :[id number] Vancomycin 1,500 mg In 250 Sodium Chloride 0.9% 250 ml @ 125 mls/hr IVPB ONCE ONE Rx#:[id number] Intake, IV Titration 175.405 100 Amount Norepinephrine 8 mg In 77.730 Sodium Chloride 0.9% 250 ml @ 0.05 MCG/KG/MIN 7. 382 mls/hr IV .Q24H [facility] Rx#:[id number] Propofol 1,000 mg In 97.675 100 Empty Bag 1 bag @ Titrate IV .Q0M [facility] Rx#: [id number] Tube Feeding 30 120 Other 30 30 Output: Urine 545 750 310 Other: Voiding Method Indwelling Catheter Indwelling Catheter Indwelling Catheter Weight 79.7 kg 79.7 kg ABP, PAP, CO, CI - Last 8 Hours Arterial Blood Pressure 107/48 Arterial Blood Pressure 112/50 Arterial Blood Pressure 114/50 Arterial Blood Pressure 119/52 Arterial Blood Pressure 113/58 Arterial Blood Pressure 115/52 Arterial Blood Pressure 107/50 Arterial Blood Pressure 104/48 Arterial Blood Pressure 110/50 Arterial Blood Pressure 112/50 Arterial Blood Pressure 109/49 Arterial Blood Pressure 106/47 Arterial Blood Pressure 109/48 GENERAL DESCRIPTION: Elderly male intubated on the vent no tachypnea or accessory muscle of respiration use. HEENT: Shows Pallor , no scleral icterus. Oral mucous membrane is dry. NECK: Trachea central, no thyromegaly. LUNGS: Unlabored breathing. Decreased breath sound at base. No wheeze or crackle. HEART: S1, S2, regular rate and rhythm. ABDOMEN: Soft, no tenderness , guarding or rigidity EXTREMITIES: No edema of feet. SKIN: No rash, no masses palpable. NEUROLOGICAL: The patient is sedated on the vent Results CBC & Chem 7: 02/01/20 04:01 02/01/20 04:01 Labs: Abnormal Lab Results - Last 24 Hours (Table) 02/01/20 02/01/20 02/01/20 Range/Units 00:37 04:01 04:01 RBC 3.30 L (4.30-5.90) m/uL Hgb 11.2 L (13.0-17.5) gm/dL Hct 34.9 L (39.0-53.0) % MCV 106.0 H (80.0-100.0) fL Plt Count 122 L (150-450) k/uL Neutrophils # 7.9 H (1.3-7.7) k/uL Lymphocytes # 0.2 L (1.0-4.8) k/uL ABG pH (7.35-7.45) ABG pCO2 (35-45) mmHg ABG pO2 (83-108) mmHg ABG Total CO2 (19-24) mmol/L ABG O2 Saturation (94-97) % BUN 87 H (9-20) mg/dL Creatinine 2.38 H (0.66-1.25) mg/dL Glucose 139 H (74-99) mg/dL POC Glucose (mg/dL) 123 H (75-99) mg/dL Calcium 7.4 L (8.4-10.2) mg/dL 02/01/20 02/01/20 02/01/20 Range/Units 06:31 07:28 12:06 RBC (4.30-5.90) m/uL Hgb (13.0-17.5) gm/dL Hct (39.0-53.0) % MCV (80.0-100.0) fL Plt Count (150-450) k/uL Neutrophils # (1.3-7.7) k/uL Lymphocytes # (1.0-4.8) k/uL ABG pH 7.32 L (7.35-7.45) ABG pCO2 48 H (35-45) mmHg ABG pO2 76 L (83-108) mmHg ABG Total CO2 26 H (19-24) mmol/L ABG O2 Saturation 93.7 L (94-97) % BUN (9-20) mg/dL Creatinine (0.66-1.25) mg/dL Glucose (74-99) mg/dL POC Glucose (mg/dL) 141 H 105 H (75-99) mg/dL Calcium (8.4-10.2) mg/dL 05/24/20 Range/Units 17:58 RBC (4.30-5.90) m/uL Hgb (13.0-17.5) gm/dL Hct (39.0-53.0) % MCV (80.0-100.0) fL Plt Count (150-450) k/uL Neutrophils # (1.3-7.7) k/uL Lymphocytes # (1.0-4.8) k/uL ABG pH (7.35-7.45) ABG pCO2 (35-45) mmHg ABG pO2 (83-108) mmHg ABG Total CO2 (19-24) mmol/L ABG O2 Saturation (94-97) % BUN (9-20) mg/dL Creatinine (0.66-1.25) mg/dL Glucose (74-99) mg/dL POC Glucose (mg/dL) 142 H (75-99) mg/dL Calcium (8.4-10.2) mg/dL Microbiology - Last 24 Hours (Table) 01/31/20 15:20 Gram Stain - Preliminary Sputum Sputum Culture - Preliminary 01/25/20 14:15 Blood Culture - Final Blood No Growth after 144 hours Assessment and Plan Assessment: patient with acute respiratory failure which is likely multifactorial in this patient who did have sepsis on presentation more likely related to his Streptococcus pneumonia pneumonia with secondary COPD/CHF exacerbation patient now with worsening of his respiratory status more likely CHF versus ARDS pattern clinically not behaving as acute COVID-19 infection though not entirely excluded. (1) Pneumonia Current Visit: Yes Status: Acute Code(s): J18.9 - PNEUMONIA, UNSPECIFIED ORGANISM SNOMED Code(s): 252537042 Plan: 1-await nasopharyngeal swab for COVID-19 2-continue home with Zosyn which will cover the strep pneumo in addition to possible gram-negative with the repeat sputum culture pending however as no gram-positive has been grown and the patient did have worsening of his kidney function vancomycin to be discontinued We will follow on clinical condition and cultures to further adjust medication if needed Thank you for this consultation we will follow the patient along with you Time with Patient: Greater than 30
[2020-02-01 23:46] LABS: Glucose,Whole Blood 163 mg/dL (75-99)
[2020-02-02] MEDS: PROPOFOL 1,000 MG in EMPTY BAG 1 BAG IV SCH ×4 (01:38→22:51)
[2020-02-02 04:45] LABS: Basophils % (A) 0 %; Eosinophils % (A) 1 %; HCT 32.7 % (39.0-53.0); HGB 10.4 gm/dL (13.0-17.5); Hypochromasia Slight; Lymphocytes # (A) 0.1 k/uL (1.0-4.8); Lymphocytes % (A) 1 %; MCH 33.1 pg (25.0-35.0); MCHC 31.8 g/dL (31.0-37.0); MCV 104.2 fL (80.0-100.0); Macrocytosis Slight; Monocytes # (A) 0.3 k/uL (0-1.0); Monocytes % (A) 4 %; Neutrophils # (A) 6.3 k/uL (1.3-7.7); Neutrophils % (A) 93 %; Platelet Count 118 k/uL (150-450); RBC 3.14 m/uL (4.30-5.90); WBC 6.7 k/uL (3.8-10.6)
[2020-02-02 04:57] LABS: Calcium 7.2 mg/dL (8.4-10.2); Potassium 3.4 mmol/L (3.5-5.1)
[2020-02-02 06:14] LABS: Glucose,Whole Blood 188 mg/dL (75-99)
[2020-02-02] MEDS: INSULIN ASPART (NovoLOG) 100 UNIT/ML VIAL SQ SCH ×4 (06:21→23:37)
[2020-02-02] MEDS: methylPREDNISolone SOD SUCCI 125 MG/2 ML VIAL IV SCH ×4 (06:21→23:36)
[2020-02-02] MEDS: POTASSIUM CHLORIDE ER 20 MEQ TAB.ER PO SCH ×2 (06:50→08:19)
[2020-02-02] MEDS: BUDESONIDE 0.5 MG/2 ML NEBU INHALATION SCH ×2 (07:08→19:02)
[2020-02-02] MEDS: IPRATROPIUM-ALBUTEROL 3 ML NEB INHALATION SCH ×4 (07:08→19:02)
[2020-02-02 07:15] LABS: ABG HCO3 26 mmol/L (21-25); ABG Oxygen Saturation 83.4 % (94-97); ABG PCO2 48 mmHg (35-45); ABG PH 7.34 (7.35-7.45); ABG TCO2 27 mmol/L (19-24)
[2020-02-02 07:17] LABS: ABG PO2 53 mmHg (83-108)
--- NOTE | 2020-02-02 07:26 | P.PN ---
Subjective Progress Note Date: 02/01/20 Patient remains intubated A low dose of norepinephrine and lower systolic blood pressure his urine output is now improved consistent with the fact that he has severe cardio myopathy with increased SVR High dose of norepinephrine further elevating the systemic vascular resistance and reducing urine output He remains on dobutamine low-dose Blood pressure 114/54 mmHg pulse rate in the 60s Breath sounds are reduced bilaterally but equal Heart sounds are soft no murmurs Abdomen is soft Extremities are warm Impression Severe cardio myopathy Acute aspirin failure Worsening renal function Since 30 of January, creatinine has shown an improvement Urine output is improved However the patient's overall condition is still critical and very cardiac Continue ELIQUIS continue baby aspirin atorvastatin and antibiotics Objective - Vital Signs Vital signs: Vital Signs Temp 98.1 F 02/02/20 04:00 Pulse 60 02/02/20 05:30 Resp 28 H 02/02/20 05:30 BP 96/55 02/02/20 03:30 Pulse Ox 97 02/02/20 05:30 Intake & Output 02/01/20 02/02/20 02/02/20 18:59 06:59 18:59 Intake Total 980 517.602 Output Total 1060 670 Balance -80 -152.398 Weight 79.7 kg Intake: IV 570 100 0.9 NS KVO 120 100 Piperacillin-Tazobactam 3 200 .375 gm In Sodium Chloride 0.9% 100 ml @ 25 mls/hr IVPB Q8HR [facility] Rx# :[id number] Vancomycin 1,500 mg In 250 Sodium Chloride 0.9% 250 ml @ 125 mls/hr IVPB ONCE ONE Rx#:[id number] Intake, IV Titration 200 174.602 Amount Propofol 1,000 mg In 200 174.602 Empty Bag 1 bag @ Titrate IV .Q0M [facility] Rx#: [id number] Tube Feeding 150 213 Other 60 30 Output: Urine 1060 670 Other: Voiding Method Indwelling Catheter Indwelling Catheter ABP, PAP, CO, CI - Last Documented Arterial Blood Pressure 100/43 - Labs CBC & Chem 7: 02/02/20 04:33 02/02/20 04:33 Labs: Abnormal Lab Results - Last 24 Hours (Table) 02/01/20 02/01/20 02/01/20 Range/Units 07:28 12:06 17:58 RBC (4.30-5.90) m/uL Hgb (13.0-17.5) gm/dL Hct (39.0-53.0) % MCV (80.0-100.0) fL Plt Count (150-450) k/uL Lymphocytes # (1.0-4.8) k/uL ABG pH 7.32 L (7.35-7.45) ABG pCO2 48 H (35-45) mmHg ABG pO2 76 L (83-108) mmHg ABG HCO3 (21-25) mmol/L ABG Total CO2 26 H (19-24) mmol/L ABG O2 Saturation 93.7 L (94-97) % Potassium (3.5-5.1) mmol/L Chloride (98-107) mmol/L BUN (9-20) mg/dL Creatinine (0.66-1.25) mg/dL Glucose (74-99) mg/dL POC Glucose (mg/dL) 105 H 142 H (75-99) mg/dL Calcium (8.4-10.2) mg/dL 02/01/20 02/02/20 02/02/20 Range/Units 23:44 04:33 04:33 RBC 3.14 L (4.30-5.90) m/uL Hgb 10.4 L (13.0-17.5) gm/dL Hct 32.7 L (39.0-53.0) % MCV 104.2 H (80.0-100.0) fL Plt Count 118 L (150-450) k/uL Lymphocytes # 0.1 L (1.0-4.8) k/uL ABG pH (7.35-7.45) ABG pCO2 (35-45) mmHg ABG pO2 (83-108) mmHg ABG HCO3 (21-25) mmol/L ABG Total CO2 (19-24) mmol/L ABG O2 Saturation (94-97) % Potassium 3.4 L (3.5-5.1) mmol/L Chloride 109 H (98-107) mmol/L BUN 86 H (9-20) mg/dL Creatinine 1.65 H (0.66-1.25) mg/dL Glucose 204 H (74-99) mg/dL POC Glucose (mg/dL) 163 H (75-99) mg/dL Calcium 7.2 L (8.4-10.2) mg/dL 02/02/20 02/02/20 Range/Units 06:12 07:13 RBC (4.30-5.90) m/uL Hgb (13.0-17.5) gm/dL Hct (39.0-53.0) % MCV (80.0-100.0) fL Plt Count (150-450) k/uL Lymphocytes # (1.0-4.8) k/uL ABG pH 7.34 L (7.35-7.45) ABG pCO2 48 H (35-45) mmHg ABG pO2 53 L* (83-108) mmHg ABG HCO3 26 H (21-25) mmol/L ABG Total CO2 27 H (19-24) mmol/L ABG O2 Saturation 83.4 L (94-97) % Potassium (3.5-5.1) mmol/L Chloride (98-107) mmol/L BUN (9-20) mg/dL Creatinine (0.66-1.25) mg/dL Glucose (74-99) mg/dL POC Glucose (mg/dL) 188 H (75-99) mg/dL Calcium (8.4-10.2) mg/dL Microbiology - Last 24 Hours (Table) 01/31/20 15:20 Gram Stain - Preliminary Sputum Sputum Culture - Preliminary
--- NOTE | 2020-02-02 07:28 | XR ---
EXAMINATION TYPE: XR chest 1V portable DATE OF EXAM: 02/02/2020 COMPARISON: Prior chest x-ray 02/01/2020 HISTORY: Intubated TECHNIQUE: Single frontal view of the chest is obtained. FINDINGS: Endotracheal tube and NG tube are stable. Intracardiac defibrillator leads again noted, he art remains enlarged. Bibasilar loss in the left hemithorax persists. Airspace disease appears slight ly improved in the right lung. No pneumothorax. IMPRESSION: Improvement in aeration.
[2020-02-02] MEDS: PIPERACILLIN-TAZOBACTAM 3.375 GM in SODIUM CHLORIDE 0.9% 100 ML IVPB SCH ×3 (08:19→23:37)
[2020-02-02] MEDS: ASPIRIN 81 MG PO SCH (08:20)
[2020-02-02] MEDS: CHLORHEXIDINE GLUCONATE 15 ML CUP MUCOUS MEM SCH ×2 (08:20→20:33)
[2020-02-02] MEDS: NICOTINE 21MG/24HR PATCH TRANSDERM SCH (08:20)
[2020-02-02] MEDS: ATORVASTATIN 80 MG TAB PO SCH (08:20)
[2020-02-02] MEDS: PANTOPRAZOLE 40 MG TABLET PO SCH (08:20)
[2020-02-02] MEDS: APIXABAN 2.5 MG TABLET PO SCH ×2 (08:20→20:33)
--- NOTE | 2020-02-02 10:00 | P.PN ---
Subjective Patient is seen in follow for acute kidney injury. Renal function better. Creatinine 1.65 today. Urine output 50-100 mL an hour. Lasix drip and dobutamine discontinued January 30. Patient's ejection fraction of 30-35%. Still on low-dose Levophed. Vital signs are stable. On vasopressors. General: The patient appeared well nourished and normally developed. HEENT: Head exam is unremarkable. Neck is without jugular venous distension. Intubated. LUNGS: Breath sounds decreased. HEART: Rate and Rhythm are regular. ABDOMEN: Nontender, nondistended. EXTREMITITES: No edema. Objective - Vital Signs Vital signs: Vital Signs Temp 97.9 F 02/02/20 08:00 Pulse 60 02/02/20 09:00 Resp 28 H 02/02/20 09:00 BP 96/55 02/02/20 03:30 Pulse Ox 89 L 02/02/20 09:00 Intake & Output 02/01/20 02/02/20 02/02/20 18:59 06:59 18:59 Intake Total 980 527.602 101 Output Total 1060 720 200 Balance -80 -192.398 -99 Weight 79.7 kg 79.8 kg Intake: IV 570 110 20 0.9 NS KVO 120 110 20 Piperacillin-Tazobactam 3 200 .375 gm In Sodium Chloride 0.9% 100 ml @ 25 mls/hr IVPB Q8HR [facility] Rx# :[id number] Vancomycin 1,500 mg In 250 Sodium Chloride 0.9% 250 ml @ 125 mls/hr IVPB ONCE ONE Rx#:[id number] Intake, IV Titration 200 174.602 Amount Propofol 1,000 mg In 200 174.602 Empty Bag 1 bag @ Titrate IV .Q0M [facility] Rx#: [id number] Tube Feeding 150 213 51 Other 60 30 30 Output: Urine 1060 720 200 Other: Voiding Method Indwelling Catheter Indwelling Catheter Indwelling Catheter ABP, PAP, CO, CI - Last Documented Arterial Blood Pressure 112/45 - Labs CBC & Chem 7: 02/02/20 04:33 02/02/20 04:33 Labs: Abnormal Lab Results - Last 24 Hours (Table) 02/01/20 02/01/20 02/01/20 Range/Units 12:06 17:58 23:44 RBC (4.30-5.90) m/uL Hgb (13.0-17.5) gm/dL Hct (39.0-53.0) % MCV (80.0-100.0) fL Plt Count (150-450) k/uL Lymphocytes # (1.0-4.8) k/uL ABG pH (7.35-7.45) ABG pCO2 (35-45) mmHg ABG pO2 (83-108) mmHg ABG HCO3 (21-25) mmol/L ABG Total CO2 (19-24) mmol/L ABG O2 Saturation (94-97) % Potassium (3.5-5.1) mmol/L Chloride (98-107) mmol/L BUN (9-20) mg/dL Creatinine (0.66-1.25) mg/dL Glucose (74-99) mg/dL POC Glucose (mg/dL) 105 H 142 H 163 H (75-99) mg/dL Calcium (8.4-10.2) mg/dL 02/02/20 02/02/20 02/02/20 Range/Units 04:33 04:33 06:12 RBC 3.14 L (4.30-5.90) m/uL Hgb 10.4 L (13.0-17.5) gm/dL Hct 32.7 L (39.0-53.0) % MCV 104.2 H (80.0-100.0) fL Plt Count 118 L (150-450) k/uL Lymphocytes # 0.1 L (1.0-4.8) k/uL ABG pH (7.35-7.45) ABG pCO2 (35-45) mmHg ABG pO2 (83-108) mmHg ABG HCO3 (21-25) mmol/L ABG Total CO2 (19-24) mmol/L ABG O2 Saturation (94-97) % Potassium 3.4 L (3.5-5.1) mmol/L Chloride 109 H (98-107) mmol/L BUN 86 H (9-20) mg/dL Creatinine 1.65 H (0.66-1.25) mg/dL Glucose 204 H (74-99) mg/dL POC Glucose (mg/dL) 188 H (75-99) mg/dL Calcium 7.2 L (8.4-10.2) mg/dL 02/02/20 Range/Units 07:13 RBC (4.30-5.90) m/uL Hgb (13.0-17.5) gm/dL Hct (39.0-53.0) % MCV (80.0-100.0) fL Plt Count (150-450) k/uL Lymphocytes # (1.0-4.8) k/uL ABG pH 7.34 L (7.35-7.45) ABG pCO2 48 H (35-45) mmHg ABG pO2 53 L* (83-108) mmHg ABG HCO3 26 H (21-25) mmol/L ABG Total CO2 27 H (19-24) mmol/L ABG O2 Saturation 83.4 L (94-97) % Potassium (3.5-5.1) mmol/L Chloride (98-107) mmol/L BUN (9-20) mg/dL Creatinine (0.66-1.25) mg/dL Glucose (74-99) mg/dL POC Glucose (mg/dL) (75-99) mg/dL Calcium (8.4-10.2) mg/dL Microbiology - Last 24 Hours (Table) 01/31/20 15:20 Gram Stain - Preliminary Sputum Sputum Culture - Preliminary Yeast species Assessment and Plan Plan: Assessment: 1. Acute kidney injury secondary to ATN secondary to hypotension and cardiorenal syndrome. Creatinine peaked at 2.7 this admission and is 1.65 today. No hydronephrosis noted on kidney ultrasound. 2. Acute on chronic systolic CHF with ejection fraction of 30-35%. Status post dobutamine. 3. Acute hypercapnic and hypoxic respiratory failure. 4. Hypotension maintained on Levophed. 5. Streptococcal pneumonia maintained on antibiotics. Coronavirus PCR negative. 6. COPD exacerbation maintained on IV steroids. 7. Hypokalemia from poor intake. Rule out magnesium deficiency. Plan: Continue to hold diuretics. Wean FiO2 and vasopressors. Avoid nephrotoxins. Continue to monitor renal function and urine output. Potassium being replaced. Check magnesium level.
[2020-02-02 11:56] LABS: Glucose,Whole Blood 167 mg/dL (75-99)
[2020-02-02] MEDS: SODIUM CHLORIDE 0.9% 1,000 ML IV SCH ×2 (12:23→23:38)
--- NOTE | 2020-02-02 13:47 | P.PN ---
Subjective Progress Note Date: 02/02/20 Principal diagnosis: Acute on chronic hypoxic respiratory failure and hypercapnic respiratory failure secondary to acute systolic congestive heart failure and acute exacerbation of COPD This is a 75-year-old white male, long-standing smoking history, chronic atrial fibrillation, LV dysfunction and previous AICD placement, coronary artery disease and previous CABG, patient is on home oxygen. Mostly for his underlying COPD. Patient presented to the ER with 1 week history of increased shortness of breath. Also complaining of swelling in the legs. Weakness, fatigue, and wor sening shortness of breath over the last 1 week. Patient felt tired and rundown. Apparently the patient was initially admitted to the cardiac floor with the impression of congestive heart failure. Overnight, the patient's condition deteriorated, did not improve with a nonrebreather mask. Multiple ABGs were done and they reflected mostly hypoxemia and hypercapnia with a pCO2 above 120 and pH of 7.11. Patient required intubation and mechanical ventilation. He also required placement on relatively high PEEP because of hypoxemia with a pO2 of 43 in spite of being on 100% FiO2. Patient is now on tidal volume of 400, assist control rate of 24, FiO2 of 100% and PEEP of 15 ABG showed a pO2 of 198 pCO2 of 45 pH of 7.56. Hence his FiO2 will be decreased to 50% and address PEEP hopefully get the PEEP down to 10 if possible. Patient was placed on a Lasix drip he was also placed on Diamox. Placed on bronchodilators, and on Solu-Medrol. Chest x-ray showed evidence of congestive heart failure and left pleural effusion. Considering the patient had a temp of 101 on admission, his screening for covid 19 is pending. Patient was placed empirically on antibiotics in the form of Zosyn. Patient is sedated, on propofol, he is also on propofol at 50 mcg/kg/m, not requiring any pressors. Patient was intubated around 2 AM this morning. Reevaluated today on 01/27/20, patient remains in the intensive care unit, intubated and mechanically ventilated. Patient remains sedated, on propofol. His vent settings are assist control rate of 20 tidal volume is 400 FiO2 is 50% and PEEP is down to 8. His ABG showed a pO2 of 79 pCO2 of 39 pH of 7.61, hence cut down his respiratory rate from 24-20. Patient is -1.5 L over the last 24 hours. Remains on Lasix and I cut it down to 5 mg per hour. Discontinued his Aldactone. Kept him on Diamox. He is on Lasix now at 5 mg per hour. Propofol at 35 mcg/kg/m. And he is also on heparin drip. Patient has a paced rhythm at 60 beats per minutes. He is hemodynamically stable, not requiring any pressors. Chest x-ray is showing some improvement continues to have a chronic left pleural effusion which was present even as far as 2015. This is a chronic abnormality in the left lower lobe area. Hence no plans to perform thoracentesis. Electrolytes showed low potassium and that being corrected as per protocol. Renal functioning is slightly worse, hence I cut down on the Lasix and I discontinued Aldactone. His BUN is 36 creatinine is 1.41. WBC count is 9.5 hemoglobin is 11.9 PTT is therapeutic. Reevaluated today on 01/28/20, patient remains intubated and mechanically ventilated. His ventilator settings are assist control rate of 20 tidal volume is 400 FiO2 is 50% and PEEP is 8. ABG showed a pO2 of 88 pCO2 of 46 pH of 7.46. Patient remains on propofol at 35 mcg/kg/m, Lasix at 5 mg per hour which I have discontinued today, he is also on norepinephrine at 0.01 mcg/kg/m, and heparin. Chest x-ray continues to show moderate left pleural effusion and associated left airspace disease.. Renal profile remains marginal with a BUN of 47 creatinine of 1.50. PTT is therapeutic at 48.9, CBC is relatively normal. Sputum is positive for Streptococcus pneumoniae. Blood cultures are negative. Patient remains empirically on antibiotics. Patient remains on enteral feeding, and he seems to be tolerating enteral feeding well. Patient was reevaluated today on 01/29/20, remains in the ICU intubated and mechanically ventilated. He is on assist control rate of 20 tidal volume is 400 FiO2 is 50% and PEEP of 5. ABG showed a pO2 of 91 pCO2 of 43 pH of 7.42. Patient is on norepinephrine at 0.05 mcg/kg/m, propofol at 20 mcg/kg/m, and on heparin drip. IV fluid is at KVO. Patient had Lasix yesterday, and he diuresed quite well. Chest x-ray continues to show evidence of left pleural effusion which is chronic, ultrasound of the chest showed a small pocket just over 4 cm, no plans to do thoracentesis on this pocket of fluid which is chronic in the left lower lobe. Today I have recommended holding sedation starting the patient again on pressure support of 8 and CPAP, he tolerated this mode of weaning yesterday for about 6 hours. Hopefully he will tolerated longer distended today and may give the patient a trial of weaning/extubation. CBC is relatively normal. Basic metabolic profile is normal BUN is 57 creatinine is 1.48. Patient was reevaluated today on 01/30/20, patient remains in the ICU, he was extubated yesterday, and he was placed initially on BiPAP, now he is on a high flow nasal cannula, 10 L high flow, and his O2 saturation is marginal but in the low 90s. I recommended starting the patient again on Lasix drip at 10 mg per hour. Patient remains on a small dose of norepinephrine at 0.03 mcg/kg/m. Patient does have history of LV dysfunction, this chest x-ray is showing interstitial edema again today. Hence I have recommended that he goes on Dobutrex instead of levo fed, I have also recommended Lasix drip and stopping heparin and switching him to Eliquis. Patient will remain in the ICU, and I hav e no plans to transfer out of the ICU yet. Clinically the patient seems comfortable, and in no distress. His CBC is relatively unremarkable. Basic metabolic profile showed elevated bicarb of 33, hence the patient remains on Diamox. His BUN is 57 creatinine is 1.63, and I believe this is more of a cardiorenal syndrome, expect that to improve hopefully with Dobutrex. Patient was reevaluated today on 01/31/20, remains in the ICU, his O2 saturation is marginal, his ABG seems to be getting worse in spite of being on BiPAP. He was on BiPAP of 16 and EPAP of 6, 100% FiO2. ABG showed a pO2 of 93 pCO2 of 76 pH of 7.14. Repeat ABG after intubation today showed a pO2 of 109 pCO2 of 69 pH of 7.17. Shortly after I evaluated the patient this morning, I reviewed his chest x-ray, and he seems to be getting worse. Chest x-ray is suggestive of interstitial edema or interstitial infiltrate, hence I have felt that the patient is not improving with the Lasix drip, he is not improving with dobutami ne drip, I recommended inflammatory markers for covid 19, and I have also recommended BNP level. All seems to be abnormal. His LDH is 1300 CPK is 414 C- reactive protein is 50.8 and his BNP level is 2320. Renal functioning seems to be worsening with BUN of 87 creatinine of 2.72. Patient was seen by nephrology on consultation, and the feeling was the patient may actually be dehydrated and intravascularly depleted hence Lasix was discontinued, Diamox was discontinued, patient remains on norepinephrine at 0.17 mcg/kg/m, he is on Dobutrex at 5 mcg/kg/m, and on IV fluid. His chest x-ray and clearly showed definite worsening of his infiltrates/edema and again he had positive sputum cultures for Streptococcus pneumoniae, and that is being addressed with antibiotics from day 1. After intubation, patient was placed on tidal volume of 400, assist control rate of 20 FiO2 100% and PEEP of 5 ABG showed a pO2 of 109 pCO2 of 69 pH of 7.17 hence his rate was increased to 28. Repeat Covid PCR was ordered, it is quite concerning that the patient is not showing any signs of improvement with his r ight sided interstitial edema/infiltrates. Patient was reevaluated today on 02/01/20. Patient remains in the ICU, intubated and mechanically ventilated. His ventilator settings are assist control rate of 28, tidal volume is 400, FiO2 is 60%, and PEEP is 5. His ABG showed a pO2 of 76 pCO2 of 48 pH of 7.32. Patient is on levo fed at 0.03 mcg/m, propofol at 40 mcg/kg/m, he remains on vancomycin and Zosyn and Eliquis. Repeat PCR for farley virus is pending. Patient will be started today on enteral feeding. And his FiO2 was decreased down to 55%. Chest x-ray continues to show significant ai rspace disease, multifocal, and chronic left pleural effusion. I am recommending a high-resolution CT of the chest if PCR for farley virus comes back negative. Patient was reevaluated today on 02/02/20, patient remains in the ICU, intubated and mechanically ventilated. His farley virus PCR came back negative again. Chest x-ray and CT of the chest remain abnormal suggestive of significant airspa ce disease involving the right lung. Patient was given initially an aggressive course of diuretics, however there was no improvement whatsoever on his chest x- ray. Hence we decided to stop Lasix drip, and we are now hydrating the patient, and treating him mostly with antibiotics. His sputum culture is positive for Streptococcus pneumoniae. Patient was at one point on vancomycin and Zosyn. However because of his renal functioning vancomycin was discontinued and recovered the patient on Zosyn. His ventilator settings presently are assist control rate of 28 tidal volume is 400 FiO2 is 60% and PEEP is 5. Patient is on propofol at 40 mcg/kg/m, he is also on enteral feeding via orogastric tube. Norepinephrine is presently off, and Dobutrex has been discontinued. Again his IV fluid is a 75 mL per hour. Chest x-ray and CT of the chest were reviewed. And his ventilator settings were adjusted. His pO2 this morning was only 53 pCO2 of 48 pH of 7.34. Hence his FiO2 was increased to 60% and recommended titrating the FiO2 to keep O2 saturation in the low 90s. Based on his ABG and based on his chest x-ray findings, patient is not clearly in any condition to be considered for weaning or extubation. I have a very strong feeling that the patient will eventually require tracheostomy and PEG tube placement. Objective - Vital Signs Vital signs: Vital Signs Temp 97.9 F 02/02/20 08:00 Pulse 60 02/02/20 11:15 Resp 29 H 02/02/20 10:00 BP 96/55 02/02/20 03:30 Pulse Ox 95 02/02/20 10:00 Intake & Output 02/01/20 02/02/20 02/02/20 18:59 06:59 18:59 Intake Total 986.89 527.602 418.369 Output Total 1060 720 350 Balance -73.11 -192.398 68.369 Weight 79.7 kg 79.8 kg Intake: IV 570 110 140 0.9 NS KVO 120 110 40 Piperacillin-Tazobactam 3 200 100 .375 gm In Sodium Chloride 0.9% 100 ml @ 25 mls/hr IVPB Q8HR [facility] Rx# :[id number] Vancomycin 1,500 mg In 250 Sodium Chloride 0.9% 250 ml @ 125 mls/hr IVPB ONCE ONE Rx#:[id number] Intake, IV Titration 206.89 174.602 55.369 Amount Norepinephrine 8 mg In 6.89 55.369 Sodium Chloride 0.9% 250 ml @ 0.05 MCG/KG/MIN 7. 382 mls/hr IV .Q24H [facility] Rx#:[id number] Propofol 1,000 mg In 200 174.602 Empty Bag 1 bag @ Titrate IV .Q0M [facility] Rx#: [id number] Oral 40 Tube Feeding 150 213 153 Other 60 30 30 Output: Urine 1060 720 350 Other: Voiding Method Indwelling Catheter Indwelling Catheter Indwelling Catheter ABP, PAP, CO, CI - Last Documented Arterial Blood Pressure 104/42 - Exam GENERAL: Revealed a 75-year-old white male, on mechanical ventilation, sedated. On propofol. Off norepinephrine. EYES: Pupils equal. Conjunctiva normal. HEENT: PERRLA, EOMI, no icterus. Head is atraumatic, normocephalic. Endotracheal tube and orogastric tube are intact. NECK: No neck masses no JVD.. HEART: Paced rhythm, no S3 gallop. 2/6 systolic murmur throughout the precordium. LUNGS: Crackles at the bases, no rhonchi and no wheezes. ABDOMEN: Soft, nontender, liver spleen not palpable, no masses palpable. Extremities: 1+ bipedal edema, good pulses bilaterally. PSYCH: Could not be assessed, patient is sedated. MUSCULAR skeletal: No deformities. NEUROLOGICAL: Sedated, on propofol, could not be assessed. LYMPHATICS: No cervical adenopathy. - Labs CBC & Chem 7: 02/02/20 04:33 02/02/20 04:33 Labs: Abnormal Lab Results - Last 24 Hours (Table) 02/01/20 02/01/20 02/02/20 Range/Units 17:58 23:44 04:33 RBC 3.14 L (4.30-5.90) m/uL Hgb 10.4 L (13.0-17.5) gm/dL Hct 32.7 L (39.0-53.0) % MCV 104.2 H (80.0-100.0) fL Plt Count 118 L (150-450) k/uL Lymphocytes # 0.1 L (1.0-4.8) k/uL ABG pH (7.35-7.45) ABG pCO2 (35-45) mmHg ABG pO2 (83-108) mmHg ABG HCO3 (21-25) mmol/L ABG Total CO2 (19-24) mmol/L ABG O2 Saturation (94-97) % Potassium (3.5-5.1) mmol/L Chloride (98-107) mmol/L BUN (9-20) mg/dL Creatinine (0.66-1.25) mg/dL Glucose (74-99) mg/dL POC Glucose (mg/dL) 142 H 163 H (75-99) mg/dL Calcium (8.4-10.2) mg/dL Magnesium (1.6-2.3) mg/dL 02/02/20 02/02/20 02/02/20 Range/Units 04:33 04:33 06:12 RBC (4.30-5.90) m/uL Hgb (13.0-17.5) gm/dL Hct (39.0-53.0) % MCV (80.0-100.0) fL Plt Count (150-450) k/uL Lymphocytes # (1.0-4.8) k/uL ABG pH (7.35-7.45) ABG pCO2 (35-45) mmHg ABG pO2 (83-108) mmHg ABG HCO3 (21-25) mmol/L ABG Total CO2 (19-24) mmol/L ABG O2 Saturation (94-97) % Potassium 3.4 L (3.5-5.1) mmol/L Chloride 109 H (98-107) mmol/L BUN 86 H (9-20) mg/dL Creatinine 1.65 H (0.66-1.25) mg/dL Glucose 204 H (74-99) mg/dL POC Glucose (mg/dL) 188 H (75-99) mg/dL Calcium 7.2 L (8.4-10.2) mg/dL Magnesium 3.4 H (1.6-2.3) mg/dL 02/02/20 02/02/20 Range/Units 07:13 11:54 RBC (4.30-5.90) m/uL Hgb (13.0-17.5) gm/dL Hct (39.0-53.0) % MCV (80.0-100.0) fL Plt Count (150-450) k/uL Lymphocytes # (1.0-4.8) k/uL ABG pH 7.34 L (7.35-7.45) ABG pCO2 48 H (35-45) mmHg ABG pO2 53 L* (83-108) mmHg ABG HCO3 26 H (21-25) mmol/L ABG Total CO2 27 H (19-24) mmol/L ABG O2 Saturation 83.4 L (94-97) % Potassium (3.5-5.1) mmol/L Chloride (98-107) mmol/L BUN (9-20) mg/dL Creatinine (0.66-1.25) mg/dL Glucose (74-99) mg/dL POC Glucose (mg/dL) 167 H (75-99) mg/dL Calcium (8.4-10.2) mg/dL Magnesium (1.6-2.3) mg/dL Microbiology - Last 24 Hours (Table) 01/31/20 15:20 Gram Stain - Preliminary Sputum Sputum Culture - Preliminary Yeast species Assessment and Plan Assessment: Impression: Acute on chronic hypoxic and hypercapnic respiratory failure secondary to acute systolic congestive heart failure and acute exacerbation of COPD. also suspect some component of pneumonia involving the right lung most likely it is streptococcal pneumonia. extubated on 01/29/20, reintubated on 01/31/20. Since then, his ABG has been marginal, and patient has not been in any situation to consider weaning. History of coronary artery disease and previous CABG History of cardiomyopathy LV dysfunction and AICD placement. With acute on chronic systolic congestive heart failure. Did not improve with Dobutrex, did not improve with Lasix drip. Suspected cardiorenal syndrome and acute kidney injury Chronic atrial fibrillation. tobacco dependence syndrome. Chronic left pleural effusion, present since 2016. Not large enough for thoracentesis. Negative PCR for coronar virus. Patient tested negative twice so far. streptococcal pneumonia, hence we'll continue antibiotics. Presently on Zosyn. Recommendation: Continue ventilatory support. Patient is not ready for weaning. He is back on high FiO2 60% assist control rate of 28 tidal volume is 400 and PEEP is 5. Continue Zosyn Continue GI and DVT prophylaxis Continue enteral feeding today. Titrate FiO2 accordingly, presently on 60%. Continue Eliquis. Continue to hold diuretics. Cautious hydration. Patient is now on 0.9 normal saline at 75 mL per hour. Continue bronchodilators. Prognosis remains extremely poor and guarded, CT of the chest was reviewed and as noted in HPI. Remains critically ill, critical care time is 34minutes. Most likely the patient will eventually require tracheostomy and PEG tube placement. Time with Patient: Greater than 30
--- NOTE | 2020-02-02 15:36 | PN ---
PROGRESS NOTE DATE OF SERVICE: 02/02/2020 This 75-year-old gentleman who was admitted with shortness of breath which was thought to be multifactorial, COPD and CHF exacerbation is being closely monitored at this time. Patient also had bilateral pneumonia. COVID-19 is also considered but test is negative. The patient also had a chest CT yesterday which showed extensive airspace disease in the right lung and as well as chronic changes in the left lung. The patient is on mechanical ventilation. Dr. Lisa is following the patient closely and as well as Nephrology. The patient is more responsive today. The Lasix was stopped and hydration is being carried out. The patient is on broad-spectrum IV antibiotics. The possibility of tracheostomy and PEG tube is also being considered at this time. Review of systems could not be taken. CURRENT MEDICATIONS: 1. DuoNeb q.i.d. and p.r.n. 2. Eliquis 2.5 mg b.i.d. 3. Aspirin 81 mg daily. 4. Lipitor 80 mg daily. 5. Pulmicort 0.5 mg b.i.d. 6. Peridex 15 mL b.i.d. 7. NovoLog scale. 8. Solu-Medrol 60 IV q.6h. 9. Replacement protocols. 10.Habitrol 21 daily. 11.Protonix. 12.Zosyn 3.375 IV q.8. PHYSICAL EXAM: Patient is mechanically ventilated and sedated. Pulse 60, blood pressure is 101/42, respiration 22, temperature normal, pulse ox 94% on 70% FiO2. HEENT: Conjunctivae normal. Oral mucosa moist. NECK: No jugular venous distention. No lymph node enlargement. CARDIOVASCULAR: S1, S2. RESPIRATORY: Diminished breath sounds at the bases. Scattered rhonchi and crackles. ABDOMEN: Soft, nontender. LEGS: No edema, no swelling. NERVOUS SYSTEM: The patient is mechanically sedated. LABS: WBC 6.2, hemoglobin 10.4. ABGs noted. Sodium 140, potassium 3.5, creatinine is 1.65. ASSESSMENT: 1. Shortness of breath possibly multifactorial with chronic obstructive pulmonary disease acute exacerbation as well as congestive heart failure exacerbation with acute on chronic systolic dysfunction, ejection fraction 30-35% on mechanical ventilation with acute hypoxic hypercapnic respiratory failure. 2. Bilateral pneumonia, right more than the left, possibly gram-negative, possibly COVID-19 pneumonia. 3. COVID-19 test negative but possibly false negative. 4. Coronary artery disease, coronary artery bypass grafting. 5. Chronic obstructive pulmonary disease acute exacerbation. 6. History of nicotine dependence. 7. History of persistent atrial fibrillation. 8. Chronic hypoxic respiratory failure on home O2. 9. Acute kidney injury, possible acute tubular necrosis. 10.Increased WBC. 11.Anemia of chronic disease. 12.Mild thrombocytopenia. 13.History atrial fibrillation. 14.History of syncope. 15.History AICD. 16.History of coronary artery disease, stent. 17.Hypokalemia. 18.FULL CODE. RECOMMENDATIONS AND DISCUSSION: Recommend to continue current medications, continue with symptomatic treatment. Otherwise, at this time I recommend continue supplement potassium. Continue the bronchodilators, antibiotics. Cautious IV hydration. Prognosis guarded because of multiple complex medical conditions. Further recommendations to follow. RHONDA / ZULEIKA: [id number] /
[2020-02-02] MEDS: NOREPINEPHRINE 8 MG in SODIUM CHLORIDE 0.9% 250 ML IV SCH (16:21)
[2020-02-02 16:48] LABS: Glucose,Whole Blood 147 mg/dL (75-99)
--- NOTE | 2020-02-02 17:06 | PN ---
PROGRESS NOTE DATE OF SERVICE: 02/02/2020 REASON FOR FOLLOWUP: Pneumonia. INTERVAL HISTORY: The patient is currently afebrile. Patient is hemodynamically stable. Still requiring high-flow oxygen. Currently on 70% FiO2. No significant purulent secretions through the ET or any diarrhea reported by nursing staff. PHYSICAL EXAMINATION: Blood pressure 102/42 with a pulse of 60, temperature 97.9. He is 92% on 50% FiO2. General description is an elderly male intubated on the vent. Respiratory system: Unlabored breathing. Clear to auscultation anteriorly. HEART: S1, S2. Regular rate and rhythm. ABDOMEN: Soft, no tenderness. LABS: Hemoglobin 7.4, white count 6.7, BUN of 86, creatinine 1.65. DIAGNOSTIC IMPRESSION AND PLAN: Patient with acute respiratory failure which is likely multifactorial in this patient who did have a component of pneumonia. Previous sputum was positive for strep pneumo with recurrent worsening of the respiratory status requiring reintubation, possibly related to fluid overload. Covid-19 was negative. The patient is covered with Zosyn to continue and monitor clinical course closely. MMODL / IJN: [id number] /
[2020-02-02 23:21] LABS: Glucose,Whole Blood 158 mg/dL (75-99)
[2020-02-02] MEDS: IPRATROPIUM-ALBUTEROL 3 ML NEB INHALATION PRN (23:40)
[2020-02-03] MEDS: PROPOFOL 1,000 MG in EMPTY BAG 1 BAG IV SCH ×6 (02:24→19:59)
[2020-02-03 04:22] LABS: Basophils % (A) 0 %; Eosinophils # (A) 0.1 k/uL (0-0.7); Eosinophils % (A) 1 %; HCT 34.2 % (39.0-53.0); HGB 10.7 gm/dL (13.0-17.5); Hypochromasia Slight; Lymphocytes # (A) 0.1 k/uL (1.0-4.8); Lymphocytes % (A) 1 %; MCH 32.2 pg (25.0-35.0); MCHC 31.3 g/dL (31.0-37.0); MCV 102.8 fL (80.0-100.0); Macrocytosis Slight; Mean Platelet Volume 10.6; Monocytes # (A) 0.2 k/uL (0-1.0); Monocytes % (A) 2 %; Neutrophils # (A) 8.8 k/uL (1.3-7.7); Neutrophils % (A) 96 %; Platelet Count 125 k/uL (150-450); RBC 3.32 m/uL (4.30-5.90); RDW 14.3 % (11.5-15.5); WBC 9.2 k/uL (3.8-10.6)
[2020-02-03 05:06] LABS: Calcium 7.2 mg/dL (8.4-10.2); Potassium 4.1 mmol/L (3.5-5.1)
[2020-02-03 05:11] LABS: ABG Base Excess 0.6 mmol/L; ABG HCO3 26 mmol/L (21-25); ABG PCO2 48 mmHg (35-45); ABG PH 7.35 (7.35-7.45); ABG TCO2 28 mmol/L (19-24); Allen Test Performed? Yes
[2020-02-03 05:15] LABS: ABG PO2 57 mmHg (83-108)
--- NOTE | 2020-02-03 05:32 | P.PN ---
Subjective Progress Note Date: 02/02/20 Patient evaluated in 01 february Patient remains intubated. He is now off norepinephrine as well as dobutamine. Diuresing reasonably well Blood pressure 106/45 mmHg pulse rate in the 50s and 60s afebrile Breath sounds are reduced bilaterally no rhonchi no crackles Heart sounds are soft Abdomen soft nontender Extremities are warm Labs are reviewed Sodium 141 potassium 3.4 BUN 86 creatinine 1.65 admission 3.4 Hemoglobin 10.4 Patient remains hypoxic, intubated Impression sensorineural patient with history of severe liver dysfunction, prior AICD placement for renal disease status post coronary artery bypass grafting in a long-standing history of smoking number atrial fibrillation who initially pres ented with increasing shortness of breath with hypoxemia and hypercapnia with a high CO2 and was intubated he is also chronic kidney disease and was initially started on dobutamine. His blood pressure was low and he was a norepinephrine. He was also not Lasix drip but did not show any improvement Both these drugs have been discontinued now While he maintains his blood pressure and is diuresing reasonably well he remains intubated and hypoxic He is in IV antibiotics and on propofol Coronavirus negative Patient not deemed a candidate for extubation at this time by pulmonary medicine and a likely candidate for tracheostomy From a cardiac standpoint continue ELIQUIS aspirin and atorvastatin for now and reintroduce cardio myopathy medications only if blood pressure remains stable over the next 24 hours. Prognosis poor Objective - Vital Signs Vital signs: Vital Signs Temp 98.5 F 02/03/20 04:00 Pulse 60 02/03/20 05:00 Resp 28 H 02/03/20 05:00 BP 110/65 02/03/20 05:00 Pulse Ox 91 L 02/03/20 05:00 Intake & Output 02/02/20 02/02/20 02/03/20 06:59 18:59 06:59 Intake Total 511.613 7600.369 1818.443 Output Total 720 925 720 Balance -192.398 293.488 5465.443 Weight 79.8 kg 81.2 kg Intake: IV 110 840 925 0.9 NS KVO 110 40 Piperacillin-Tazobactam 3 200 100 .375 gm In Sodium Chloride 0.9% 100 ml @ 25 mls/hr IVPB Q8HR [facility] Rx# :[id number] Sodium Chloride 0.9% 1, 600 825 000 ml @ 75 mls/hr IV . [id number] [facility] Rx#:[id number] Intake, IV Titration 174.602 155.369 242.443 Amount Norepinephrine 8 mg In 55.369 0 Sodium Chloride 0.9% 250 ml @ 0.05 MCG/KG/MIN 7. 382 mls/hr IV .Q24H [facility] Rx#:[id number] Propofol 1,000 mg In 174.602 100 242.443 Empty Bag 1 bag @ Titrate IV .Q0M [facility] Rx#: [id number] Oral 40 Tube Feeding 213 561 561 Other 30 90 90 Output: Urine 720 925 720 Other: Voiding Method Indwelling Catheter Indwelling Catheter Indwelling Catheter # Bowel Movements 1 ABP, PAP, CO, CI - Last Documented Arterial Blood Pressure 112/46 - Labs CBC & Chem 7: 02/03/20 04:10 02/03/20 04:10 Labs: Abnormal Lab Results - Last 24 Hours (Table) 02/02/20 02/02/20 02/02/20 Range/Units 04:33 06:12 07:13 RBC (4.30-5.90) m/uL Hgb (13.0-17.5) gm/dL Hct (39.0-53.0) % MCV (80.0-100.0) fL Plt Count (150-450) k/uL Neutrophils # (1.3-7.7) k/uL Lymphocytes # (1.0-4.8) k/uL ABG pH 7.34 L (7.35-7.45) ABG pCO2 48 H (35-45) mmHg ABG pO2 53 L* (83-108) mmHg ABG HCO3 26 H (21-25) mmol/L ABG Total CO2 27 H (19-24) mmol/L ABG O2 Saturation 83.4 L (94-97) % Chloride (98-107) mmol/L BUN (9-20) mg/dL Creatinine (0.66-1.25) mg/dL Glucose (74-99) mg/dL POC Glucose (mg/dL) 188 H (75-99) mg/dL Calcium (8.4-10.2) mg/dL Magnesium 3.4 H (1.6-2.3) mg/dL 02/02/20 02/02/2020 Range/Units 11:54 16:46 23:20 RBC (4.30-5.90) m/uL Hgb (13.0-17.5) gm/dL Hct (39.0-53.0) % MCV (80.0-100.0) fL Plt Count (150-450) k/uL Neutrophils # (1.3-7.7) k/uL Lymphocytes # (1.0-4.8) k/uL ABG pH (7.35-7.45) ABG pCO2 (35-45) mmHg ABG pO2 (83-108) mmHg ABG HCO3 (21-25) mmol/L ABG Total CO2 (19-24) mmol/L ABG O2 Saturation (94-97) % Chloride (98-107) mmol/L BUN (9-20) mg/dL Creatinine (0.66-1.25) mg/dL Glucose (74-99) mg/dL POC Glucose (mg/dL) 167 H 147 H 158 H (75-99) mg/dL Calcium (8.4-10.2) mg/dL Magnesium (1.6-2.3) mg/dL 02/03/20 02/03/20 02/03/20 Range/Units 04:10 04:10 05:08 RBC 3.32 L (4.30-5.90) m/uL Hgb 10.7 L (13.0-17.5) gm/dL Hct 34.2 L (39.0-53.0) % MCV 102.8 H (80.0-100.0) fL Plt Count 125 L (150-450) k/uL Neutrophils # 8.8 H (1.3-7.7) k/uL Lymphocytes # 0.1 L (1.0-4.8) k/uL ABG pH (7.35-7.45) ABG pCO2 48 H (35-45) mmHg ABG pO2 57 L* (83-108) mmHg ABG HCO3 26 H (21-25) mmol/L ABG Total CO2 28 H (19-24) mmol/L ABG O2 Saturation 86.0 L (94-97) % Chloride 112 H (98-107) mmol/L BUN 87 H (9-20) mg/dL Creatinine 1.39 H (0.66-1.25) mg/dL Glucose 165 H (74-99) mg/dL POC Glucose (mg/dL) (75-99) mg/dL Calcium 7.2 L (8.4-10.2) mg/dL Magnesium (1.6-2.3) mg/dL Microbiology - Last 24 Hours (Table) 01/31/20 15:20 Gram Stain - Preliminary Sputum Sputum Culture - Preliminary Yeast species
[2020-02-03 05:48] LABS: Glucose,Whole Blood 175 mg/dL (75-99)
[2020-02-03] MEDS: methylPREDNISolone SOD SUCCI 125 MG/2 ML VIAL IV SCH ×4 (06:10→23:05)
[2020-02-03] MEDS: INSULIN ASPART (NovoLOG) 100 UNIT/ML VIAL SQ SCH ×4 (06:10→23:21)
[2020-02-03 07:47] LABS: ABG PCO2 >120 mmHg (35-45)
[2020-02-03] MEDS: IPRATROPIUM-ALBUTEROL 3 ML NEB INHALATION SCH ×4 (08:12→20:01)
[2020-02-03] MEDS: BUDESONIDE 0.5 MG/2 ML NEBU INHALATION SCH ×2 (08:12→20:01)
--- NOTE | 2020-02-03 08:14 | XR ---
EXAMINATION TYPE: XR chest 1V portable DATE OF EXAM: 02/03/2020 COMPARISON: 01/29/2020 HISTORY: Ventilatory dependent respiratory failure TECHNIQUE: Single frontal view of the chest is obtained. FINDINGS: Diffuse interstitial reticular opacity throughout the lungs. Retrocardiac opacity remains stable. No new right-sided pleural effusion or pneumothorax. Endotracheal and enteric tubes are simil ar with dual lead left-sided cardiac device and post-CABG change of the chest. IMPRESSION: Stable exam from 02/02/2020 with retrocardiac airspace disease and diffuse interstitial a irspace disease. Correlate for multifocal pneumonia and superimposed fluid overload.
--- NOTE | 2020-02-03 08:16 | P.PN ---
Subjective Progress Note Date: 02/03/20 Principal diagnosis: severe CAD/severe cardiomyopathy This is a 75-year-old gentleman with a past medical history significant for coronary artery disease and status post coronary artery bypass grafting, severe cardiomyopathy and status post AICD, long-standing persistent atrial fibrillation on oral anticoagulation, as well as severe chronic obstructive pulmonary disease on home oxygen, was admitted to the hospital with acute hypoxic respiratory failure secondary to COPD exacerbation was a component of congestive heart failure exacerbation. The patient was seen this morning, February 022019. He continues to be intubated on mechanical ventilation. Hemodynamically he still requires small dose of norepinephrine which we are trying to wean him off. The chest x-ray seems to be showing finding consistent with ARDS. Pulmonary/critical care team are on board. Overall the prognosis seems to be very poor. The echocardiogram showed severe cardiomyopathy with an ejection fraction between 30-35%. The creatinine this morning is 1.37 which is his baseline. Objective - Vital Signs Vital signs: Vital Signs Temp 98.5 F 02/03/20 04:00 Pulse 59 L 02/03/20 07:00 Resp 28 H 02/03/20 07:00 BP 119/65 02/03/20 07:00 Pulse Ox 99 02/03/20 07:00 Intake & Output 02/02/20 02/03/20 02/03/20 18:59 06:59 18:59 Intake Total 2022.775 5244.443 126 Output Total 925 765 75 Balance 420.125 2850.443 51 Weight 81.2 kg Intake: IV 840 1000 75 0.9 NS KVO 40 Piperacillin-Tazobactam 3 200 100 .375 gm In Sodium Chloride 0.9% 100 ml @ 25 mls/hr IVPB Q8HR [facility] Rx# :[id number] Sodium Chloride 0.9% 1, 600 900 75 000 ml @ 75 mls/hr IV . [id number] [facility] Rx#:[id number] Intake, IV Titration 155.369 242.443 Amount Norepinephrine 8 mg In 55.369 0 Sodium Chloride 0.9% 250 ml @ 0.05 MCG/KG/MIN 7. 382 mls/hr IV .Q24H [facility] Rx#:[id number] Propofol 1,000 mg In 100 242.443 Empty Bag 1 bag @ Titrate IV .Q0M [facility] Rx#: [id number] Oral 40 Tube Feeding 561 612 51 Other 90 90 Output: Urine 925 765 75 Other: Voiding Method Indwelling Catheter Indwelling Catheter # Bowel Movements 1 ABP, PAP, CO, CI - Last Documented Arterial Blood Pressure 96/46 - Constitutional General appearance: Present: no acute distress - Respiratory Respiratory: bilateral: diminished - Cardiovascular Rhythm: regular Heart sounds: normal: S1, S2 Abnormal Heart Sounds: Present: systolic murmur - Labs CBC & Chem 7: 02/03/20 04:10 02/03/20 04:10 Labs: Abnormal Lab Results - Last 24 Hours (Table) 01/25/20 02/02/20 02/02/20 Range/Units 23:53 04:33 11:54 RBC (4.30-5.90) m/uL Hgb (13.0-17.5) gm/dL Hct (39.0-53.0) % MCV (80.0-100.0) fL Plt Count (150-450) k/uL Neutrophils # (1.3-7.7) k/uL Lymphocytes # (1.0-4.8) k/uL ABG pCO2 >120 H* (35-45) mmHg ABG pO2 (83-108) mmHg ABG HCO3 (21-25) mmol/L ABG Total CO2 (19-24) mmol/L ABG O2 Saturation (94-97) % Chloride (98-107) mmol/L BUN (9-20) mg/dL Creatinine (0.66-1.25) mg/dL Glucose (74-99) mg/dL POC Glucose (mg/dL) 167 H (75-99) mg/dL Calcium (8.4-10.2) mg/dL Magnesium 3.4 H (1.6-2.3) mg/dL 02/02/20 02/02/20 02/03/20 Range/Units 16:46 23:20 04:10 RBC 3.32 L (4.30-5.90) m/uL Hgb 10.7 L (13.0-17.5) gm/dL Hct 34.2 L (39.0-53.0) % MCV 102.8 H (80.0-100.0) fL Plt Count 125 L (150-450) k/uL Neutrophils # 8.8 H (1.3-7.7) k/uL Lymphocytes # 0.1 L (1.0-4.8) k/uL ABG pCO2 (35-45) mmHg ABG pO2 (83-108) mmHg ABG HCO3 (21-25) mmol/L ABG Total CO2 (19-24) mmol/L ABG O2 Saturation (94-97) % Chloride (98-107) mmol/L BUN (9-20) mg/dL Creatinine (0.66-1.25) mg/dL Glucose (74-99) mg/dL POC Glucose (mg/dL) 147 H 158 H (75-99) mg/dL Calcium (8.4-10.2) mg/dL Magnesium (1.6-2.3) mg/dL 02/03/20 02/03/20 02/03/20 Range/Units 04:10 05:08 05:47 RBC (4.30-5.90) m/uL Hgb (13.0-17.5) gm/dL Hct (39.0-53.0) % MCV (80.0-100.0) fL Plt Count (150-450) k/uL Neutrophils # (1.3-7.7) k/uL Lymphocytes # (1.0-4.8) k/uL ABG pCO2 48 H (35-45) mmHg ABG pO2 57 L* (83-108) mmHg ABG HCO3 26 H (21-25) mmol/L ABG Total CO2 28 H (19-24) mmol/L ABG O2 Saturation 86.0 L (94-97) % Chloride 112 H (98-107) mmol/L BUN 87 H (9-20) mg/dL Creatinine 1.39 H (0.66-1.25) mg/dL Glucose 165 H (74-99) mg/dL POC Glucose (mg/dL) 175 H (75-99) mg/dL Calcium 7.2 L (8.4-10.2) mg/dL Magnesium (1.6-2.3) mg/dL Microbiology - Last 24 Hours (Table) 01/31/20 15:20 Gram Stain - Preliminary Sputum Sputum Culture - Preliminary Yeast species Assessment and Plan Assessment: assessment #1 acute hypoxic respiratory failure #2 severe chronic obstructive pulmonary disease #3 severe cardiomyopathy #4 severe coronary artery disease #5 long-standing persistent atrial fibrillation #6 is audible comorbid conditions Plan #1 continue the current medical regimen #2 try to wean the patient from norepinephrine #3 the echo was reviewed with and showed severe cardiomyopathy #4 continue monitor the kidney function and electrolytes #5 overall the prognosis is very poor
[2020-02-03] MEDS: NICOTINE 21MG/24HR PATCH TRANSDERM SCH (08:30)
[2020-02-03] MEDS: ASPIRIN 81 MG PO SCH (08:31)
[2020-02-03] MEDS: ATORVASTATIN 80 MG TAB PO SCH (08:31)
[2020-02-03] MEDS: APIXABAN 2.5 MG TABLET PO SCH ×2 (08:31→19:59)
[2020-02-03] MEDS: PANTOPRAZOLE 40 MG TABLET PO SCH (08:31)
[2020-02-03] MEDS: PIPERACILLIN-TAZOBACTAM 3.375 GM in SODIUM CHLORIDE 0.9% 100 ML IVPB SCH ×3 (08:31→23:04)
[2020-02-03] MEDS: CHLORHEXIDINE GLUCONATE 15 ML CUP MUCOUS MEM SCH ×2 (08:31→19:59)
--- NOTE | 2020-02-03 11:10 | PN ---
PROGRESS NOTE PULMONARY/CRITICAL CARE PROGRESS NOTE: DATE OF SERVICE: 02/03/2020 This is a 75-year-old male who was admitted back on January 24 for heart failure. The patient was intubated on the 01/25 and extubated successfully on 01/29 but unfortunately developed worsening respiratory status and was reintubated again on 01/30. The patient has a history of acute on chronic hypoxemic and hypercapnic respiratory failure secondary to acute heart failure, systolic in nature, COPD exacerbation, and possible streptococcal pneumonia involving the right lower lobe. In addition, the patient has a history of coronary artery disease with previous bypass grafting. History of cardiomyopathy and LV dysfunction with AICD placement, cardiorenal syndrome, atrial fibrillation, chronic tobacco dependence, chronic left pleural effusion, and negative testing for COVID-19. Currently, the patient remains on the mechanical ventilator. He is on the volume assist-control mode, rate of 28, tidal volume 400, FiO2 of 55%, PEEP of 5. Gases show a pO2 of 57, pCO2 of 48, and a pH of 7.35. These gases are consistent with a very mild respiratory acidosis. The PEEP was recommended to go up to from 5/10 after I saw those blood gases. The patient is also getting saline at 75 mL an hour, norepinephrine at 2.4 mcg/minute, propofol at 50 mcg/kg per minute and Vital high-protein at 51 with a goal of 51 mL an hour. The nurse tells me that throughout the night, the patient has been stable. Current vital signs are reviewed, current temperature is 98.5, heart rate 60, respiratory rate 28, blood pressure 119/65 mean 83, saturations 99%. Appears in no acute distress. HEENT: Examination is grossly unremarkable. There is an orally placed endotracheal tube and NG tube. NECK: Supple, full range of motion. No adenopathy or thyromegaly. Neck veins are flat. CARDIOVASCULAR: Examination reveals regular rhythm and rate. Heart rate is 60 beats per minute. S1, S2 normal. No murmur. LUNGS: Reveal mostly diffuse coarse rhonchi. A few scattered crackles. No wheezes. Breath sounds equal. ABDOMEN: Soft, bowel sounds are heard. EXTREMITIES: Intact. There is some edema. SKIN: Without rash. NEUROLOGIC: Examination is difficult to assess. LABS: Reviewed. White count 9.2, hemoglobin 10.7, hematocrit 34.2, platelet count 125,000. Sodium, potassium normal. Chloride 112, CO2 is 28, anion gap is 3. BUN and creatinine were 87 and 1.39. Microbiology showing strep pneumoniae in the sputum from January 25 . The most recent chest x-ray from February 02 shows a well-placed endotracheal tube. There are diffuse bilateral infiltrates. There is cardiomegaly, cephalization and small bilateral effusions, left greater than right. CURRENT MEDICATIONS: Reviewed. The patient is on Eliquis, aspirin, Lipitor, Pulmicort, chlorhexidine, insulin, DuoNeb, magnesium replacement, Solu-Medrol, Narcan, nicotine patch, norepinephrine, Protonix, Zosyn, potassium replacement, and saline IV. ASSESSMENT: 1. Acute on chronic hypoxemic and hypercapnic respiratory failure, multifactorial, in part related to underlying acute systolic heart failure, COPD exacerbation, and streptococcal pneumoniae pneumonia. Unfortunately, the patient was intubated on January 25, extubated on the and required re-intubation on January 30. In the end, he may end up with a tracheostomy tube. 2. History of coronary artery disease with previous bypass grafting. 3. History of cardiomyopathy with LV dysfunction and an AICD placement. 4. History of congestive heart failure. 5. Suspected cardiorenal syndrome. 6. Chronic atrial fibrillation. 7. Tobacco dependence syndrome. 8. Chronic left-sided pleural effusion present since 2016. 9. COVID-19 testing negative. PLAN: The patient's medications are reviewed. Everything seems to be in order. Will continue to follow. The patient is not showing any significant movement towards extubation given the fact that he has been intubated pretty much from January 25, he may in the end, required a tracheostomy tube this week. We will continue to follow. He is currently on small dose of norepinephrine. Continues on propofol. I do want the nurses to do a daily interruption of sedation and evaluate him for spontaneous breathing trial. MMODL / IJN: [id number] /
--- NOTE | 2020-02-03 11:15 | P.PN ---
Subjective Patient is seen in follow for acute kidney injury. Renal function continues to improve. Urine output 50-100 mL an hour. Lasix drip and dobutamine discontinued January 30. Patient's ejection fraction of 30-35%. Off vasopressors. Intubated. On 55% FiO2. Vital signs are stable. Off vasopressors. General: The patient appeared well nourished and normally developed. HEENT: Head exam is unremarkable. Neck is without jugular venous distension. I ntubated. LUNGS: Breath sounds decreased. HEART: Rate and Rhythm are regular. ABDOMEN: Nontender, nondistended. EXTREMITITES: No edema. Objective - Vital Signs Vital signs: Vital Signs Temp 97.7 F 02/03/20 08:00 Pulse 60 02/03/20 10:00 Resp 28 H 02/03/20 10:00 BP 120/64 02/03/20 10:00 Pulse Ox 99 02/03/20 10:00 Intake & Output 02/02/20 02/03/20 02/03/20 18:59 06:59 18:59 Intake Total 8002.170 8815.443 792.792 Output Total 925 765 410 Balance 460.657 8432.443 382.792 Weight 81.2 kg Intake: IV 840 1000 405 0.9 NS KVO 40 30 Piperacillin-Tazobactam 3 200 100 .375 gm In Sodium Chloride 0.9% 100 ml @ 25 mls/hr IVPB Q8HR [facility] Rx# :[id number] Piperacillin-Tazobactam 3 25 .375 gm In Sodium Chloride 0.9% 100 ml @ 25 mls/hr IVPB Q8HR [facility] Rx# :[id number] Propofol 1,000 mg In 50 Empty Bag 1 bag @ Titrate IV .Q0M [facility] Rx#: [id number] Sodium Chloride 0.9% 1, 600 900 300 000 ml @ 75 mls/hr IV . [id number] [facility] Rx#:[id number] Intake, IV Titration 155.369 242.443 153.792 Amount Norepinephrine 8 mg In 55.369 0 52.779 Sodium Chloride 0.9% 250 ml @ 0.05 MCG/KG/MIN 7. 382 mls/hr IV .Q24H [facility] Rx#:[id number] Propofol 1,000 mg In 100 242.443 101.013 Empty Bag 1 bag @ Titrate IV .Q0M [facility]PLAC[facility] Rx#: [id number] Oral 40 Tube Feeding 561 612 204 Other 90 90 30 Output: Urine 925 765 410 Other: Voiding Method Indwelling Catheter Indwelling Catheter Indwelling Catheter # Bowel Movements 1 ABP, PAP, CO, CI - Last Documented Arterial Blood Pressure 125/53 - Labs CBC & Chem 7: 02/03/20 04:10 02/03/20 04:10 Labs: Abnormal Lab Results - Last 24 Hours (Table) 01/25/20 02/02/20 02/02/20 Range/Units 23:53 11:54 16:46 RBC (4.30-5.90) m/uL Hgb (13.0-17.5) gm/dL Hct (39.0-53.0) % MCV (80.0-100.0) fL Plt Count (150-450) k/uL Neutrophils # (1.3-7.7) k/uL Lymphocytes # (1.0-4.8) k/uL ABG pCO2 >120 H* (35-45) mmHg ABG pO2 (83-108) mmHg ABG HCO3 (21-25) mmol/L ABG Total CO2 (19-24) mmol/L ABG O2 Saturation (94-97) % Chloride (98-107) mmol/L BUN (9-20) mg/dL Creatinine (0.66-1.25) mg/dL Glucose (74-99) mg/dL POC Glucose (mg/dL) 167 H 147 H (75-99) mg/dL Calcium (8.4-10.2) mg/dL 02/02/20 02/03/20 02/03/20 Range/Units 23:20 04:10 04:10 RBC 3.32 L (4.30-5.90) m/uL Hgb 10.7 L (13.0-17.5) gm/dL Hct 34.2 L (39.0-53.0) % MCV 102.8 H (80.0-100.0) fL Plt Count 125 L (150-450) k/uL Neutrophils # 8.8 H (1.3-7.7) k/uL Lymphocytes # 0.1 L (1.0-4.8) k/uL ABG pCO2 (35-45) mmHg ABG pO2 (83-108) mmHg ABG HCO3 (21-25) mmol/L ABG Total CO2 (19-24) mmol/L ABG O2 Saturation (94-97) % Chloride 112 H (98-107) mmol/L BUN 87 H (9-20) mg/dL Creatinine 1.39 H (0.66-1.25) mg/dL Glucose 165 H (74-99) mg/dL POC Glucose (mg/dL) 158 H (75-99) mg/dL Calcium 7.2 L (8.4-10.2) mg/dL 02/03/20 02/03/20 Range/Units 05:08 05:47 RBC (4.30-5.90) m/uL Hgb (13.0-17.5) gm/dL Hct (39.0-53.0) % MCV (80.0-100.0) fL Plt Count (150-450) k/uL Neutrophils # (1.3-7.7) k/uL Lymphocytes # (1.0-4.8) k/uL ABG pCO2 48 H (35-45) mmHg ABG pO2 57 L* (83-108) mmHg ABG HCO3 26 H (21-25) mmol/L ABG Total CO2 28 H (19-24) mmol/L ABG O2 Saturation 86.0 L (94-97) % Chloride (98-107) mmol/L BUN (9-20) mg/dL Creatinine (0.66-1.25) mg/dL Glucose (74-99) mg/dL POC Glucose (mg/dL) 175 H (75-99) mg/dL Calcium (8.4-10.2) mg/dL Microbiology - Last 24 Hours (Table) 01/31/20 15:20 Gram Stain - Preliminary Sputum Sputum Culture - Preliminary Yeast species Assessment and Plan Plan: Assessment: 1. Acute kidney injury secondary to ATN secondary to hypotension and cardiorenal syndrome. Creatinine peaked at 2.7 this admission and is 1.39 today. No hydronephrosis noted on kidney ultrasound. 2. Acute on chronic systolic CHF with ejection fraction of 30-35%. Status post dobutamine. 3. Acute hypercapnic and hypoxic respiratory failure. 4. Hypotension status post Levophed. 5. Streptococcal pneumonia maintained on antibiotics. Coronavirus PCR negative. 6. COPD exacerbation maintained on IV steroids. 7. Hypokalemia from poor intake. Status post replacement. Magnesium normal. Plan: Continue to hold diuretics. Wean FiO2. Avoid nephrotoxins. Continue to monitor renal function and urine output. Hep-Lock IV fluids. Maintain tube feeding.
[2020-02-03 11:38] LABS: Glucose,Whole Blood 167 mg/dL (75-99)
[2020-02-03] MEDS: NOREPINEPHRINE 8 MG in SODIUM CHLORIDE 0.9% 250 ML IV SCH (13:04)
--- NOTE | 2020-02-03 16:24 | PN ---
PROGRESS NOTE DATE OF SERVICE: 02/03/2020 This is a 75-year-old gentleman was admitted with shortness of breath, was thought to be multifactorial COPD and CHF acute exacerbation. Patient also had bilateral pneumonia. COVID-19 was suspected but however the testing was negative. The most recent chest x-ray which was reviewed personally by me showed continued persistent bilateral lesions, right more than the left. Multiple consultants following the patient closely. The creatinine is 1.39 at this time. The patient is on 55% FiO2 with PEEP of 5 at this time. PAST MEDICAL HISTORY: Reviewed. REVIEW OF SYSTEMS: Could not be taken. CURRENT MEDICATIONS: Reviews and include: 1. DuoNeb q.i.d. and p.r.n. 2. Eliquis 2.5 mg p.o. b.i.d. 3. Aspirin 81 mg daily. 4. Lipitor 80 mg p.o. daily. 5. Pulmicort 0.5 b.i.d. 6. Peridex. 7. Solu-Medrol 60 IV q.6 hours. 8. Replacement protocols. 9. Levophed drip. 10.Protonix. 11.Zosyn 3.375 IV q.8. 12.Propofol. PHYSICAL EXAM: Patient is mechanically sedated, pulse 60, blood pressure is 105/50, respiration 20, temperature normal, pulse ox 98% on mechanical ventilation, 50% FiO2. HEENT: Conjunctivae normal. NECK: No jugular venous congestion. CARDIOVASCULAR: S1, S2, muffled. RESPIRATION: Breath sounds diminished at the bases, a few scattered rhonchi, no crackles. Expiratory wheezing also present. ABDOMEN: Soft, nontender. No mass palpable. NERVOUS SYSTEM: Patient is mechanically sedated. LABS: Baseline hemoglobin is 10.7. ABG is noted, sodium 143, potassium 4.1,. creatinine 1.39. ASSESSMENT: 1. Shortness of breath, possibly multifactorial. 2. Sepsis with septic shock. 3. Anna glabrata as well as strep pneumonia from the sputum culture. 4. Chronic obstructive pulmonary disease acute exacerbation as well as congestive heart failure acute exacerbation with acute on chronic systolic dysfunction, ejection fraction 30% to 35% with mechanical ventilation with acute hypoxic hypercapnic respiratory failure. 5. History of bilateral interstitial pneumonia, right more than the left, possibly gram-negative, possibly COVID-19 pneumonia. 6. COVID-19 test negative, could be false negative. 7. Coronary artery disease, coronary artery bypass grafting. 8. Chronic obstructive pulmonary disease acute exacerbation. 9. History of nicotine dependence. 10.History of persistent atrial fibrillation. 11.Chronic hypoxic respiratory failure on home O2. 12.Acute kidney injury, possible acute tubular necrosis. 13.Increased WBC. 14.Anemia of chronic disease. 15.Mild thrombocytopenia. 16.History of atrial fibrillation, chronic. 17.History of syncope. 18.History AICD. 19.History of coronary artery disease, stent. 20.Hypokalemia. 21.FULL CODE. RECOMMENDATION: Recommend to continue current medications, management and treatment and symptomatic treatment. Otherwise. at this time will continue with the pressor support. The sputum culture showed strep pneumonia and as well as Anna glabrata. We will continue with antibiotics and bronchodilators. The patient is currently on IV Zosyn and continue to monitor. The strep pneumonia is penicillin resistant. MMODL / IJN: [id number] /
[2020-02-03 17:41] LABS: Glucose,Whole Blood 153 mg/dL (75-99)
[2020-02-03] MEDS: IPRATROPIUM-ALBUTEROL 3 ML NEB INHALATION PRN (23:17)
[2020-02-03 23:21] LABS: Glucose,Whole Blood 175 mg/dL (75-99)
[2020-02-04] MEDS: PROPOFOL 1,000 MG in EMPTY BAG 1 BAG IV SCH ×5 (00:13→21:05)
--- NOTE | 2020-02-04 02:40 | PN ---
PROGRESS NOTE DATE OF SERVICE: 02/03/2020 REASON FOR FOLLOWUP: Pneumonia. INTERVAL HISTORY: The patient is currently afebrile. The patient is hemodynamically stable not on pressor support. FiO2 is currently at 55%. No significant purulent secretion through the ET tube or any diarrhea has been reported by nursing staff. PHYSICAL EXAMINATION: Blood pressure 123/54 with a pulse of 60, temperature 98. He is 92% on 55% FiO2. General description is an elderly male intubated on the vent. RESPIRATORY SYSTEM: Unlabored breathing. Decreased breath sounds at the bases. No wheeze. HEART: S1, S2. Regular rate and rhythm. ABDOMEN: Soft, no tenderness. LABS: Hemoglobin is 10.1, white count 9.2, BUN of 87, creatinine 1.39. Repeat sputum showing Anna glabrata. DIAGNOSTIC IMPRESSION AND PLAN: Patient with acute respiratory failure which is likely multifactorial. This patient did have a component of pneumonia. Initial sputum was Streptococcus pneumoniae. Repeat is Anna likely colonized with possible component of fluid overload. Antibiotic will be adjusted to Rocephin direct specifically to strep that he grew previously and will monitor clinical course closely. MMODL / IJN: [id number] /
[2020-02-04] MEDS: IPRATROPIUM-ALBUTEROL 3 ML NEB INHALATION PRN (02:59)
[2020-02-04 04:43] LABS: Basophils % (A) 0 %; Eosinophils % (A) 0 %; HCT 32.2 % (39.0-53.0); HGB 10.1 gm/dL (13.0-17.5); Hypochromasia Moderate; Lymphocytes # (A) 0.1 k/uL (1.0-4.8); Lymphocytes % (A) 2 %; MCH 32.2 pg (25.0-35.0); MCHC 31.3 g/dL (31.0-37.0); Macrocytosis Slight; Mean Platelet Volume 10.9; Monocytes # (A) 0.2 k/uL (0-1.0); Monocytes % (A) 3 %; Neutrophils # (A) 5.8 k/uL (1.3-7.7); Neutrophils % (A) 94 %; Platelet Count 125 k/uL (150-450); RBC 3.12 m/uL (4.30-5.90); RDW 14.4 % (11.5-15.5); WBC 6.2 k/uL (3.8-10.6)
[2020-02-04 05:02] LABS: Albumin 2.4 g/dL (3.5-5.0); Calcium 7.4 mg/dL (8.4-10.2); Potassium 3.9 mmol/L (3.5-5.1); Total Bilirubin 0.7 mg/dL (0.2-1.3); Total Protein 5.5 g/dL (6.3-8.2)
[2020-02-04 05:09] LABS: Glucose,Whole Blood 185 mg/dL (75-99)
[2020-02-04] MEDS: methylPREDNISolone SOD SUCCI 125 MG/2 ML VIAL IV SCH (05:10)
[2020-02-04] MEDS: INSULIN ASPART (NovoLOG) 100 UNIT/ML VIAL SQ SCH ×3 (05:10→20:00)
[2020-02-04 05:16] LABS: ABG Base Excess 1.9 mmol/L; ABG HCO3 27 mmol/L (21-25); ABG Oxygen Saturation 87.9 % (94-97); ABG PCO2 49 mmHg (35-45); ABG PH 7.36 (7.35-7.45); ABG PO2 60 mmHg (83-108); ABG TCO2 29 mmol/L (19-24); Allen Test Performed? Yes
[2020-02-04] MEDS ORDERED: POTASSIUM BICARBONATE/CIT AC 20 MEQ TABLET.EFF NG-TUBE SCH (06:00)
[2020-02-04] MEDS: IPRATROPIUM-ALBUTEROL 3 ML NEB INHALATION SCH ×4 (07:01→19:05)
[2020-02-04] MEDS: BUDESONIDE 0.5 MG/2 ML NEBU INHALATION SCH ×2 (07:01→19:05)
--- NOTE | 2020-02-04 07:25 | P.PN ---
Subjective Progress Note Date: 02/04/20 Principal diagnosis: severe CAD/severe cardiomyopathy This is a 75-year-old gentleman with a past medical history significant for coronary artery disease and status post coronary artery bypass grafting, severe cardiomyopathy and status post AICD, long-standing persistent atrial fibrillation on oral anticoagulation, as well as severe chronic obstructive pulmonary disease on home oxygen, was admitted to the hospital with acute hypoxic respiratory failure secondary to COPD exacerbation was a component of congestive heart failure exacerbation. The patient was seen today, February [id number]. He continues to be intubated on mechanical ventilation. He is off norepinephrine at this point. Pulmonary critical care team is following the patient very closely. The echo revealed se josefa cardiomyopathy was EF between 30-35%. At this point we'll continue the current medical regimen, I would advise the patient to be restarted back on ACEI or ARB in the next 24-48 hours. Objective - Vital Signs Vital signs: Vital Signs Temp 98.1 F 02/04/20 04:00 Pulse 60 02/04/20 07:03 Resp 30 H 02/04/20 07:00 BP 102/60 02/03/20 21:30 Pulse Ox 90 L 02/04/20 07:00 Intake & Output 02/03/20 02/04/20 02/04/20 18:59 06:59 18:59 Intake Total 2967.604 5798.766 61 Output Total 1070 905 75 Balance 628.530 395.766 -14 Weight 79.2 kg Intake: IV 620 220 10 0.9 NS KVO 120 120 10 Piperacillin-Tazobactam 3 25 .375 gm In Sodium Chloride 0.9% 100 ml @ 25 mls/hr IVPB Q8HR [facility] Rx# :[id number] Piperacillin-Tazobactam 3 125 100 .375 gm In Sodium Chloride 0.9% 100 ml @ 25 mls/hr IVPB Q8HR [facility] Rx# :[id number] Propofol 1,000 mg In 50 Empty Bag 1 bag @ Titrate IV .Q0M [facility] Rx#: [id number] Sodium Chloride 0.9% 1, 300 000 ml @ 75 mls/hr IV . [id number] [facility] Rx#:[id number] Intake, IV Titration 325.530 327.766 Amount Norepinephrine 8 mg In 52.779 Sodium Chloride 0.9% 250 ml @ 0.05 MCG/KG/MIN 7. 382 mls/hr IV .Q24H [facility] Rx#:[id number] Propofol 1,000 mg In 272.751 327.766 Empty Bag 1 bag @ Titrate IV .Q0M [facility] Rx#: [id number] Tube Feeding 663 663 51 Other 90 90 Output: Urine 1070 905 75 Other: Voiding Method Indwelling Catheter Indwelling Catheter ABP, PAP, CO, CI - Last Documented Arterial Blood Pressure 126/54 - Constitutional General appearance: Present: no acute distress - Respiratory Respiratory: bilateral: diminished - Cardiovascular Heart sounds: normal: S1, S2 Abnormal Heart Sounds: Present: systolic murmur - Labs CBC & Chem 7: 02/04/20 04:20 02/04/20 04:20 Labs: Abnormal Lab Results - Last 24 Hours (Table) 01/25/20 02/03/20 02/03/20 Range/Units 23:53 11:36 17:40 RBC (4.30-5.90) m/uL Hgb (13.0-17.5) gm/dL Hct (39.0-53.0) % MCV (80.0-100.0) fL Plt Count (150-450) k/uL Lymphocytes # (1.0-4.8) k/uL ABG pCO2 >120 H* (35-45) mmHg ABG pO2 (83-108) mmHg ABG HCO3 (21-25) mmol/L ABG Total CO2 (19-24) mmol/L ABG O2 Saturation (94-97) % Sodium (137-145) mmol/L Chloride (98-107) mmol/L BUN (9-20) mg/dL Glucose (74-99) mg/dL POC Glucose (mg/dL) 167 H 153 H (75-99) mg/dL Calcium (8.4-10.2) mg/dL Total Protein (6.3-8.2) g/dL Albumin (3.5-5.0) g/dL 02/03/20 02/04/20 02/04/20 Range/Units 23:19 04:20 04:20 RBC 3.12 L (4.30-5.90) m/uL Hgb 10.1 L (13.0-17.5) gm/dL Hct 32.2 L (39.0-53.0) % MCV 103.0 H (80.0-100.0) fL Plt Count 125 L (150-450) k/uL Lymphocytes # 0.1 L (1.0-4.8) k/uL ABG pCO2 (35-45) mmHg ABG pO2 (83-108) mmHg ABG HCO3 (21-25) mmol/L ABG Total CO2 (19-24) mmol/L ABG O2 Saturation (94-97) % Sodium 146 H (137-145) mmol/L Chloride 114 H (98-107) mmol/L BUN 73 H (9-20) mg/dL Glucose 179 H (74-99) mg/dL POC Glucose (mg/dL) 175 H (75-99) mg/dL Calcium 7.4 L (8.4-10.2) mg/dL Total Protein 5.5 L (6.3-8.2) g/dL Albumin 2.4 L (3.5-5.0) g/dL 02/04/20 02/04/20 Range/Units 05:08 05:12 RBC (4.30-5.90) m/uL Hgb (13.0-17.5) gm/dL Hct (39.0-53.0) % MCV (80.0-100.0) fL Plt Count (150-450) k/uL Lymphocytes # (1.0-4.8) k/uL ABG pCO2 49 H (35-45) mmHg ABG pO2 60 L (83-108) mmHg ABG HCO3 27 H (21-25) mmol/L ABG Total CO2 29 H (19-24) mmol/L ABG O2 Saturation 87.9 L (94-97) % Sodium (137-145) mmol/L Chloride (98-107) mmol/L BUN (9-20) mg/dL Glucose (74-99) mg/dL POC Glucose (mg/dL) 185 H (75-99) mg/dL Calcium (8.4-10.2) mg/dL Total Protein (6.3-8.2) g/dL Albumin (3.5-5.0) g/dL Microbiology - Last 24 Hours (Table) 01/31/20 15:20 Gram Stain - Final Sputum Sputum Culture - Final Anna glabrata Assessment and Plan Assessment: assessment #1 acute hypoxic respiratory failure #2 severe chronic obstructive pulmonary disease #3 severe cardiomyopathy #4 severe coronary artery disease #5 long-standing persistent atrial fibrillation #6 is audible comorbid conditions Plan #1 continue the current medical regimen #2 restart the patient on ACEI or ARB in the next 24 hours #3 follow-up with the patient
--- NOTE | 2020-02-04 08:43 | XR ---
EXAMINATION TYPE: XR chest 1V portable DATE OF EXAM: 02/04/2020 COMPARISON: 02/03/2020 HISTORY: SOB, Follow Up FINDINGS: Indwelling tubes and catheters are unchanged. No change in bibasilar opacities. Stable appearance of the cardio-mediastinal structures at this time. Pleural effusion unchanged. IMPRESSION: 1. Stable portable chest. Clinical correlation and follow up until resolution is recommended.
[2020-02-04] MEDS ORDERED: PROPOFOL 100 ML IV ONE (10:11)
--- NOTE | 2020-02-04 10:13 | P.PN ---
Subjective Patient is seen in follow for acute kidney injury. Renal function continues to improve. Urine output 50-100 mL an hour. Lasix drip and dobutamine discontinued January 30. Patient's ejection fraction of 30-35%. Off vasopressors. Intubated. On 55% FiO2. Vital signs are stable. Off vasopressors. General: The patient appeared well nourished and normally developed. HEENT: Head exam is unremarkable. Neck is without jugular venous distension. I ntubated. LUNGS: Breath sounds decreased. HEART: Rate and Rhythm are regular. ABDOMEN: Nontender, nondistended. EXTREMITITES: No edema. Objective - Vital Signs Vital signs: Vital Signs Temp 97.7 F 02/04/20 08:00 Pulse 62 02/04/20 10:00 Resp 29 H 02/04/20 10:00 BP 111/64 02/04/20 10:00 Pulse Ox 83 L 02/04/20 10:00 Intake & Output 02/03/20 02/04/20 02/04/20 18:59 06:59 18:59 Intake Total 4348.271 6310.766 61 Output Total 1070 905 75 Balance 628.530 395.766 -14 Weight 79.2 kg 79.2 kg Intake: IV 620 220 10 0.9 NS KVO 120 120 10 Piperacillin-Tazobactam 3 25 .375 gm In Sodium Chloride 0.9% 100 ml @ 25 mls/hr IVPB Q8HR [facility] Rx# :[id number] Piperacillin-Tazobactam 3 125 100 .375 gm In Sodium Chloride 0.9% 100 ml @ 25 mls/hr IVPB Q8HR [facility] Rx# :[id number] Propofol 1,000 mg In 50 Empty Bag 1 bag @ Titrate IV .Q0M [facility] Rx#: [id number] Sodium Chloride 0.9% 1, 300 000 ml @ 75 mls/hr IV . [id number] [facility] Rx#:[id number] Intake, IV Titration 325.530 327.766 Amount Norepinephrine 8 mg In 52.779 Sodium Chloride 0.9% 250 ml @ 0.05 MCG/KG/MIN 7. 382 mls/hr IV .Q24H [facility] Rx#:[id number] Propofol 1,000 mg In 272.751 327.766 Empty Bag 1 bag @ Titrate IV .Q0M [facility] Rx#: [id number] Tube Feeding 663 663 51 Other 90 90 Output: Urine 1070 905 75 Other: Voiding Method Indwelling Catheter Indwelling Catheter ABP, PAP, CO, CI - Last Documented Arterial Blood Pressure 126/48 - Labs CBC & Chem 7: 02/04/20 04:20 02/04/20 04:20 Labs: Abnormal Lab Results - Last 24 Hours (Table) 02/03/20 02/03/20 02/03/20 Range/Units 11:36 17:40 23:19 RBC (4.30-5.90) m/uL Hgb (13.0-17.5) gm/dL Hct (39.0-53.0) % MCV (80.0-100.0) fL Plt Count (150-450) k/uL Lymphocytes # (1.0-4.8) k/uL ABG pCO2 (35-45) mmHg ABG pO2 (83-108) mmHg ABG HCO3 (21-25) mmol/L ABG Total CO2 (19-24) mmol/L ABG O2 Saturation (94-97) % Sodium (137-145) mmol/L Chloride (98-107) mmol/L BUN (9-20) mg/dL Glucose (74-99) mg/dL POC Glucose (mg/dL) 167 H 153 H 175 H (75-99) mg/dL Calcium (8.4-10.2) mg/dL Total Protein (6.3-8.2) g/dL Albumin (3.5-5.0) g/dL 02/04/20 02/04/20 02/04/20 Range/Units 04:20 04:20 05:08 RBC 3.12 L (4.30-5.90) m/uL Hgb 10.1 L (13.0-17.5) gm/dL Hct 32.2 L (39.0-53.0) % MCV 103.0 H (80.0-100.0) fL Plt Count 125 L (150-450) k/uL Lymphocytes # 0.1 L (1.0-4.8) k/uL ABG pCO2 (35-45) mmHg ABG pO2 (83-108) mmHg ABG HCO3 (21-25) mmol/L ABG Total CO2 (19-24) mmol/L ABG O2 Saturation (94-97) % Sodium 146 H (137-145) mmol/L Chloride 114 H (98-107) mmol/L BUN 73 H (9-20) mg/dL Glucose 179 H (74-99) mg/dL POC Glucose (mg/dL) 185 H (75-99) mg/dL Calcium 7.4 L (8.4-10.2) mg/dL Total Protein 5.5 L (6.3-8.2) g/dL Albumin 2.4 L (3.5-5.0) g/dL 02/04/20 Range/Units 05:12 RBC (4.30-5.90) m/uL Hgb (13.0-17.5) gm/dL Hct (39.0-53.0) % MCV (80.0-100.0) fL Plt Count (150-450) k/uL Lymphocytes # (1.0-4.8) k/uL ABG pCO2 49 H (35-45) mmHg ABG pO2 60 L (83-108) mmHg ABG HCO3 27 H (21-25) mmol/L ABG Total CO2 29 H (19-24) mmol/L ABG O2 Saturation 87.9 L (94-97) % Sodium (137-145) mmol/L Chloride (98-107) mmol/L BUN (9-20) mg/dL Glucose (74-99) mg/dL POC Glucose (mg/dL) (75-99) mg/dL Calcium (8.4-10.2) mg/dL Total Protein (6.3-8.2) g/dL Albumin (3.5-5.0) g/dL Microbiology - Last 24 Hours (Table) 01/31/20 15:20 Gram Stain - Final Sputum Sputum Culture - Final Anna glabrata Assessment and Plan Plan: Assessment: 1. Acute kidney injury secondary to ATN secondary to hypotension and cardiorenal syndrome. Creatinine peaked at 2.7 this admission and is 1.12 today. No hydronephrosis noted on kidney ultrasound. 2. Acute on chronic systolic CHF with ejection fraction of 30-35%. Status post dobutamine. 3. Acute hypercapnic and hypoxic respiratory failure. 4. Hypotension status post Levophed. 5. Streptococcal pneumonia maintained on antibiotics. Coronavirus PCR negative. 6. COPD exacerbation maintained on IV steroids. 7. Hypokalemia from poor intake. Status post replacement. Magnesium normal. 8. Mild hypernatremia secondary to lack of oral water intake. Plan: Continue to hold diuretics. Wean FiO2. Avoid nephrotoxins. Continue to monitor renal function and urine output. Hep-Lock IV fluids. Maintain tube feeding. Add free water flushes 200 mL every 6 hours with tube feeding.
[2020-02-04] MEDS: CHLORHEXIDINE GLUCONATE 15 ML CUP MUCOUS MEM SCH ×2 (10:26→20:29)
[2020-02-04] MEDS: NICOTINE 21MG/24HR PATCH TRANSDERM SCH (10:26)
[2020-02-04] MEDS: ATORVASTATIN 80 MG TAB PO SCH (10:27)
[2020-02-04] MEDS: PANTOPRAZOLE 40 MG TABLET PO SCH (10:27)
--- NOTE | 2020-02-04 11:23 | PN ---
PROGRESS NOTE PULMONARY/CRITICAL CARE PROGRESS NOTE: DATE OF SERVICE: 02/04/2020 CRITICAL CARE TIME: 32 minutes This is a 75-year-old male who was admitted back on January 24 for heart failure. He was intubated on the following day, 01/25, extubated on 01/29 but unfortunately, because of worsening respiratory failure and respiratory status, he was reintubated on 01/30. He remains on mechanical ventilator. Currently, he is on the volume assist-control mode rate of 28, tidal volume 400, FiO2 of 55%, PEEP of 10. Gases show a pO2 of 60, pCO2 49 and a pH of 7.35. He is getting saline at 10 mL an hour, Diprivan at 50 mcg/kg per minute and Vital high-protein at 51 with a goal of 51 mL an hour. His sputum sampling showed evidence of strep pneumoniae. I will ask Dr. Monsivais to see the patient for possible tracheostomy and PEG tube placement. We attempted a daily interruption of sedation the last couple days. He does poorly. He did test negative x2 for COVID. In addition, he has a history of acute on chronic hypoxemic and hypercapnic respiratory failure, CHF, COPD, streptococcal pneumonia involving the right lower lobe, CAD, previous bypass grafting. Current vital signs are reviewed, temperature is 97.7, heart rate 62, respiratory rate 29, blood pressure 111/64 mean 79, and saturations are 90% on the current settings. Appears in no acute distress. Appears in no acute distress. HEENT: Examination is grossly unremarkable. There is an orally placed endotracheal tube and NG tube. Neck is supple. Full range of motion. No adenopathy. Neck veins are flat. CARDIOVASCULAR: Examination reveals regular rhythm and rate. Heart rate low 60s. S1, S2 normal. Heart sounds are distant. LUNGS: Reveal diffuse coarse bilateral rhonchi. Breath sounds equal. No crackles. ABDOMEN: Soft, bowel sounds are heard. EXTREMITIES: Intact. No cyanosis, clubbing, or edema. SKIN: Without rash. NEUROLOGIC: Examination could not be adequately assessed as the patient is currently sedated on Diprivan at 50 mcg/kg per minute. LABS: Reviewed. White count 6.2, hemoglobin 10.1, hematocrit 32.2, platelet count 125,000. Blood gases again show a pO2 of 60, pCO2 of 49 and pH 7.36. Sodium 146, potassium 3.9, chloride 114, CO2 is 29, anion gap is 3. BUN and creatinine were 73 and 1.12. Calcium 7.4, albumin 2.4. Microbiology showing Streptococcus pneumoniae from the sputum on January 25. Chest x-ray on February 03 shows bibasilar opacities or infiltrates. Medications are reviewed as they are every day. Everything seems to be in order. ASSESSMENT: 1. Acute on chronic hypoxemic, hypercapnic respiratory failure, multifactorial, in part related to underlying acute systolic congestive heart failure, chronic obstructive pulmonary disease exacerbation, and streptococcal pneumoniae pneumonia. 2. Failure to wean from mechanical ventilation with possible tracheostomy and PEG tube anticipated. 3. History of coronary artery disease with previous bypass grafting. 4. History of cardiomyopathy with LV dysfunction and AICD placement. 5. History of congestive heart failure. 6. Suspected cardiorenal syndrome. 7. Chronic atrial fibrillation. 8. Tobacco dependence syndrome. 9. Chronic left-sided pleural effusion present since 2015. 10.COVID-19 testing negative. PLAN: The patient will get a daily interruption of sedation, although I do not expect him to do particularly well. He has done very poorly in the past. He becomes dyssynchronous with the ventilator with an alteration of his vital signs. The patient will be seen by Dr. Monsivais for possible trach and PEG. He remains on propofol at 50 mcg/kg per minute. He is being nourished. Blood gases are reasonable. I did increase the PEEP yesterday from 5-10. His COVID testing x2 were negative. No additional recommendations are made. Prognosis is poor. CRITICAL CARE TIME: 32 minutes. RHONDA / FREEDOMN: [id number] /
[2020-02-04 11:44] LABS: Glucose,Whole Blood 165 mg/dL (75-99)
--- NOTE | 2020-02-04 12:13 | P.GSCN ---
<Cele David - Last Filed: 02/04/20 12:13> History of Present Illness Consult date: 02/04/20 Reason for Consult: Trach and PEG Requesting physician: Estevan Colin History of present illness: CHIEF COMPLAINT: Trach and PEG HISTORY OF PRESENT ILLNESS: 75-year-old male who is currently intubated in the intensive care unit. Patient was originally intubated on 01/26/2020. He was extubated on the and reintubated on the . General surgery was consulted for trach and PEG placement. PAST MEDICAL HISTORY: See list. PAST SURGICAL HISTORY: See list. SOCIAL HISTORY: No illicit drug use. REVIEW OF SYSTEMS: Unable to obtain secondary to mechanical ventilation PHYSICAL EXAM: VITAL SIGNS: Reviewed. GENERAL: Well-developed in no acute distress. HEENT: No sclera icterus. Extraocular movements grossly intact. Moist buccal mucosa. Head is atraumatic, normocephalic. ABDOMEN: Soft. Nondistended. Nontender. NEUROLOGIC: Sedated on mechanical ventilation LABORATORY DATA: WBC 6.2. Hemoglobin 10.1. Platelet count 125. IMAGING: Chest x-ray: Stable chest x-ray. No change in bibasilar opacities. Pleural effusion unchanged. ASSESSMENT: 1. Acute hypoxic respiratory failure requiring mechanical ventilation PLAN: -Patient previously taking Eliquis. Last dose was the evening of 02/03/2020. Continue to hold Eliquis -Stop tube feedings at midnight -Patient scheduled for trach and PEG tomorrow with Dr. Monsivais Nurse practitioner note has been reviewed by physician. Signing provider agrees with the documented findings, assessment, and plan of care. Past Medical History Past Medical History: Atrial Fibrillation, GERD/Reflux, Myocardial Infarction (NH), Syncope Additional Past Medical History / Comment(s): home O2 2L at hs & prn. , See Dr Anais Yates & Anjelica, constipation, Last Myocardial Infarction Date:: 2011? History of Any Multi-Drug Resistant Organisms: None Reported Past Surgical History: AICD, Coronary Bypass/CABG, Ear Surgery, Heart Catheterization With Stent, Pacemaker Additional Past Surgical History / Comment(s): nasal surgery, left carotid endartectomy, triple bypass Past Anesthesia/Blood Transfusion Reactions: No Reported Reaction Date of Last Stent Placement:: unknown Type of Cardiac Device: Permanent Pacemaker, AICD Device Placement Date:: 2011? Past Psychological History: No Psychological Hx Reported Smoking Status: Current every day smoker Past Alcohol Use History: None Reported Additional Past Alcohol Use History / Comment(s): smokes 1ppd for past 30+ years,. Currently smoking < 1/2 PPD currently Past Drug Use History: None Reported - Past Family History Mother History Unknown: Yes Family Medical History: Cancer Additional Family Medical History / Comment(s): stomach cancer Father Family Medical History: Cancer Medications and Allergies Home Medications Medication Instructions Recorded Confirmed Type Omeprazole [PriLOSEC] 20 mg PO DAILY 06/05/16 01/25/20 History Aspirin 81 mg PO DAILY #1 chewable 06/09/16 01/25/20 Rx Furosemide [Lasix] 40 mg PO DAILY 07/20/16 01/25/20 History Spironolactone [Aldactone] 25 mg PO DAILY #30 tab 07/25/16 01/25/20 Rx Carvedilol [Coreg*] 12.5 mg PO BID 08/14/16 01/25/20 History Amiodarone [Cordarone] 200 mg PO DAILY #90 09/25/16 01/25/20 Rx Atorvastatin [Lipitor] 80 mg PO DAILY 01/25/20 01/25/20 History Allergies Allergy/AdvReac Type Severity Reaction Status Date / Time No Known Allergies Allergy Verified 01/25/20 17:30 Surgical - Exam Vital Signs Temp Pulse Resp BP Pulse Ox 97.8 F 60 20 127/72 66 L 01/25/20 13:51 01/25/20 13:51 01/25/20 13:51 01/25/20 13:51 01/25/20 13:51 Results - Labs 02/04/20 04:20 02/04/20 04:20 Abnormal Lab Results - Last 24 Hours (Table) 02/03/20 02/03/20 02/04/20 Range/Units 17:40 23:19 04:20 RBC 3.12 L (4.30-5.90) m/uL Hgb 10.1 L (13.0-17.5) gm/dL Hct 32.2 L (39.0-53.0) % MCV 103.0 H (80.0-100.0) fL Plt Count 125 L (150-450) k/uL Lymphocytes # 0.1 L (1.0-4.8) k/uL ABG pCO2 (35-45) mmHg ABG pO2 (83-108) mmHg ABG HCO3 (21-25) mmol/L ABG Total CO2 (19-24) mmol/L ABG O2 Saturation (94-97) % Sodium (137-145) mmol/L Chloride (98-107) mmol/L BUN (9-20) mg/dL Glucose (74-99) mg/dL POC Glucose (mg/dL) 153 H 175 H (75-99) mg/dL Calcium (8.4-10.2) mg/dL Total Protein (6.3-8.2) g/dL Albumin (3.5-5.0) g/dL 02/04/20 02/04/20 02/04/20 Range/Units 04:20 05:08 05:12 RBC (4.30-5.90) m/uL Hgb (13.0-17.5) gm/dL Hct (39.0-53.0) % MCV (80.0-100.0) fL Plt Count (150-450) k/uL Lymphocytes # (1.0-4.8) k/uL ABG pCO2 49 H (35-45) mmHg ABG pO2 60 L (83-108) mmHg ABG HCO3 27 H (21-25) mmol/L ABG Total CO2 29 H (19-24) mmol/L ABG O2 Saturation 87.9 L (94-97) % Sodium 146 H (137-145) mmol/L Chloride 114 H (98-107) mmol/L BUN 73 H (9-20) mg/dL Glucose 179 H (74-99) mg/dL POC Glucose (mg/dL) 185 H (75-99) mg/dL Calcium 7.4 L (8.4-10.2) mg/dL Total Protein 5.5 L (6.3-8.2) g/dL Albumin 2.4 L (3.5-5.0) g/dL 02/04/20 Range/Units 11:43 RBC (4.30-5.90) m/uL Hgb (13.0-17.5) gm/dL Hct (39.0-53.0) % MCV (80.0-100.0) fL Plt Count (150-450) k/uL Lymphocytes # (1.0-4.8) k/uL ABG pCO2 (35-45) mmHg ABG pO2 (83-108) mmHg ABG HCO3 (21-25) mmol/L ABG Total CO2 (19-24) mmol/L ABG O2 Saturation (94-97) % Sodium (137-145) mmol/L Chloride (98-107) mmol/L BUN (9-20) mg/dL Glucose (74-99) mg/dL POC Glucose (mg/dL) 165 H (75-99) mg/dL Calcium (8.4-10.2) mg/dL Total Protein (6.3-8.2) g/dL Albumin (3.5-5.0) g/dL Microbiology - Last 24 Hours (Table) 01/31/20 15:20 Gram Stain - Final Sputum Sputum Culture - Final Anna glabrata Diabetes panel 02/04/20 Range/Units 04:20 Sodium 146 H (137-145) mmol/L Potassium 3.9 (3.5-5.1) mmol/L Chloride 114 H (98-107) mmol/L Carbon Dioxide 29 (22-30) mmol/L BUN 73 H (9-20) mg/dL Creatinine 1.12 (0.66-1.25) mg/dL Glucose 179 H (74-99) mg/dL Calcium 7.4 L (8.4-10.2) mg/dL AST 36 (17-59) U/L ALT 29 (4-49) U/L Alkaline Phosphatase 62 (38-126) U/L Total Protein 5.5 L (6.3-8.2) g/dL Albumin 2.4 L (3.5-5.0) g/dL Calcium panel 02/04/20 Range/Units 04:20 Calcium 7.4 L (8.4-10.2) mg/dL Albumin 2.4 L (3.5-5.0) g/dL Pituitary panel 02/04/20 Range/Units 04:20 Sodium 146 H (137-145) mmol/L Potassium 3.9 (3.5-5.1) mmol/L Chloride 114 H (98-107) mmol/L Carbon Dioxide 29 (22-30) mmol/L BUN 73 H (9-20) mg/dL Creatinine 1.12 (0.66-1.25) mg/dL Glucose 179 H (74-99) mg/dL Calcium 7.4 L (8.4-10.2) mg/dL Adrenal panel 02/04/20 Range/Units 04:20 Sodium 146 H (137-145) mmol/L Potassium 3.9 (3.5-5.1) mmol/L Chloride 114 H (98-107) mmol/L Carbon Dioxide 29 (22-30) mmol/L BUN 73 H (9-20) mg/dL Creatinine 1.12 (0.66-1.25) mg/dL Glucose 179 H (74-99) mg/dL Calcium 7.4 L (8.4-10.2) mg/dL Total Bilirubin 0.7 (0.2-1.3) mg/dL AST 36 (17-59) U/L ALT 29 (4-49) U/L Alkaline Phosphatase 62 (38-126) U/L Total Protein 5.5 L (6.3-8.2) g/dL Albumin 2.4 L (3.5-5.0) g/dL <Nishant Monsivais - Last Filed: 02/04/20 16:27> Surgical - Exam Vital Signs Temp Pulse Resp BP Pulse Ox 97.8 F 60 20 127/72 66 L 01/25/20 13:51 01/25/20 13:51 01/25/20 13:51 01/25/20 13:51 01/25/20 13:51 Results - Labs 02/04/20 04:20 02/04/20 04:20 Abnormal Lab Results - Last 24 Hours (Table) 02/03/20 02/03/20 02/04/20 Range/Units 17:40 23:19 04:20 RBC 3.12 L (4.30-5.90) m/uL Hgb 10.1 L (13.0-17.5) gm/dL Hct 32.2 L (39.0-53.0) % MCV 103.0 H (80.0-100.0) fL Plt Count 125 L (150-450) k/uL Lymphocytes # 0.1 L (1.0-4.8) k/uL ABG pCO2 (35-45) mmHg ABG pO2 (83-108) mmHg ABG HCO3 (21-25) mmol/L ABG Total CO2 (19-24) mmol/L ABG O2 Saturation (94-97) % Sodium (137-145) mmol/L Chloride (98-107) mmol/L BUN (9-20) mg/dL Glucose (74-99) mg/dL POC Glucose (mg/dL) 153 H 175 H (75-99) mg/dL Calcium (8.4-10.2) mg/dL Total Protein (6.3-8.2) g/dL Albumin (3.5-5.0) g/dL 02/04/20 02/04/20 02/04/20 Range/Units 04:20 05:08 05:12 RBC (4.30-5.90) m/uL Hgb (13.0-17.5) gm/dL Hct (39.0-53.0) % MCV (80.0-100.0) fL Plt Count (150-450) k/uL Lymphocytes # (1.0-4.8) k/uL ABG pCO2 49 H (35-45) mmHg ABG pO2 60 L (83-108) mmHg ABG HCO3 27 H (21-25) mmol/L ABG Total CO2 29 H (19-24) mmol/L ABG O2 Saturation 87.9 L (94-97) % Sodium 146 H (137-145) mmol/L Chloride 114 H (98-107) mmol/L BUN 73 H (9-20) mg/dL Glucose 179 H (74-99) mg/dL POC Glucose (mg/dL) 185 H (75-99) mg/dL Calcium 7.4 L (8.4-10.2) mg/dL Total Protein 5.5 L (6.3-8.2) g/dL Albumin 2.4 L (3.5-5.0) g/dL 02/04/20 Range/Units 11:43 RBC (4.30-5.90) m/uL Hgb (13.0-17.5) gm/dL Hct (39.0-53.0) % MCV (80.0-100.0) fL Plt Count (150-450) k/uL Lymphocytes # (1.0-4.8) k/uL ABG pCO2 (35-45) mmHg ABG pO2 (83-108) mmHg ABG HCO3 (21-25) mmol/L ABG Total CO2 (19-24) mmol/L ABG O2 Saturation (94-97) % Sodium (137-145) mmol/L Chloride (98-107) mmol/L BUN (9-20) mg/dL Glucose (74-99) mg/dL POC Glucose (mg/dL) 165 H (75-99) mg/dL Calcium (8.4-10.2) mg/dL Total Protein (6.3-8.2) g/dL Albumin (3.5-5.0) g/dL Microbiology - Last 24 Hours (Table) 01/31/20 15:20 Gram Stain - Final Sputum Sputum Culture - Final Anna glabrata Diabetes panel 02/04/20 Range/Units 04:20 Sodium 146 H (137-145) mmol/L Potassium 3.9 (3.5-5.1) mmol/L Chloride 114 H (98-107) mmol/L Carbon Dioxide 29 (22-30) mmol/L BUN 73 H (9-20) mg/dL Creatinine 1.12 (0.66-1.25) mg/dL Glucose 179 H (74-99) mg/dL Calcium 7.4 L (8.4-10.2) mg/dL AST 36 (17-59) U/L ALT 29 (4-49) U/L Alkaline Phosphatase 62 (38-126) U/L Total Protein 5.5 L (6.3-8.2) g/dL Albumin 2.4 L (3.5-5.0) g/dL Calcium panel 02/04/20 Range/Units 04:20 Calcium 7.4 L (8.4-10.2) mg/dL Albumin 2.4 L (3.5-5.0) g/dL Pituitary panel 02/04/20 Range/Units 04:20 Sodium 146 H (137-145) mmol/L Potassium 3.9 (3.5-5.1) mmol/L Chloride 114 H (98-107) mmol/L Carbon Dioxide 29 (22-30) mmol/L BUN 73 H (9-20) mg/dL Creatinine 1.12 (0.66-1.25) mg/dL Glucose 179 H (74-99) mg/dL Calcium 7.4 L (8.4-10.2) mg/dL Adrenal panel 02/04/20 Range/Units 04:20 Sodium 146 H (137-145) mmol/L Potassium 3.9 (3.5-5.1) mmol/L Chloride 114 H (98-107) mmol/L Carbon Dioxide 29 (22-30) mmol/L BUN 73 H (9-20) mg/dL Creatinine 1.12 (0.66-1.25) mg/dL Glucose 179 H (74-99) mg/dL Calcium 7.4 L (8.4-10.2) mg/dL Total Bilirubin 0.7 (0.2-1.3) mg/dL AST 36 (17-59) U/L ALT 29 (4-49) U/L Alkaline Phosphatase 62 (38-126) U/L Total Protein 5.5 L (6.3-8.2) g/dL Albumin 2.4 L (3.5-5.0) g/dL Assessment and Plan Plan: Trach and PEG planned for tomorrow.
--- NOTE | 2020-02-04 15:19 | CDI ---
Documentation Clarification Form Date: 02/04/2020 03:02:10 PM From: Janina Corona CCS, CCDS Admit Date: 01/25/2020 03:41:00 PM Patient Name: Rivera Prater Visit Number: [id number] Discharge Date: ATTENTION: The Clinical Documentation Specialists (CDI) and [facility] Coding Staff appreciate your assistance in clarifying documentation. Please respond to the clarification below the line at the bottom and electronically sign. The CDI & [facility] staff will review the response and follow-up if needed. Please note: Queries are made part of the Legal Health Record. If you have any questions, please contact the author of this message via ITS. Dr. Mark Anthony Rivas: The COVID-19 test(s) obtained on 01/25/2020 & 01/31/2020, both test results are negative. Per case summary: This is a 75-year-old gentleman who was admitted on 01/14 with shortness of breath, was thought to be multifactorial COPD and CHF acute exacerbation. Patient also had bilateral gram negative pneumonia. COVID-19 was suspected but however the testing was negative. Patient history/risk factors: COPD, CAD status post CABG, Former Smoker, Chronic Hypoxic & Hypercapnic Respiratory Failure, Anemia of Chronic Disease, Chronic Atrial Fibrillation, AICD. Clinical Indicators: Patient was admitted with Pneumonia & COPD exacerbation, went into acute respiratory failure requiring intubation on 01/25,, extubated on 01/28, re-intubated on 01/30, possibly will have tracheostomy & PEG tube for failure to wean. 01/24 VS: T 97.8, P 60, R 20 (sob, labored), BP 127/72, PO 66 RA, 98 on 6Lnc. 01/24 LAB: WBC 10.9^, Neut 9.2^, VBG pH 7.46^. 01/24 COVID: Negative, repeat on 01/30: Negative. Treatment on admission: IV Lasix, INH Albuterol, O2 6Lnc, INH Flovent. Intubated on 01/25, Extubated on 01/28, Re-Intubated on 01/30, remains on vent. Receiving IV Zosyn, IV Vanco, IV Rocephin In order to capture the severity of condition, please clarify the COVID-19 status: False negative, treating for COVID-19 infection COVID-19 ruled out Other, please specify (Last Form Revision: November 2019) False negative, possibly COVID-19 infection MTDD
--- NOTE | 2020-02-04 16:50 | PN ---
PROGRESS NOTE DATE OF SERVICE: 02/04/2020 REASON FOR FOLLOWUP: Pneumonia. INTERVAL HISTORY: The patient is currently afebrile. The patient remains to be intubated on the vent. FiO2 is currently 55% with the patient remains to be hypoxic. Hemodynamically stable. No significant purulent secretion through the ET or any diarrhea reported by the nursing staff. PHYSICAL EXAMINATION: Blood pressure 110/64 with a pulse of 64, temperature 98, he is 93% on 5% FiO2. General description is an elderly male, intubated on the vent. RESPIRATORY SYSTEM: Unlabored breathing, clear to auscultation anteriorly. HEART: S1, S2. Regular rate and rhythm. ABDOMEN: Soft, no distention. EXTREMITIES: No edema of the feet. LABS: Hemoglobin is 10.8, white count 6.2, BUN of 73, creatinine is 1.12. DIAGNOSTIC IMPRESSION AND PLAN: Patient with acute respiratory failure which is likely multifactorial with concern for pneumonia. Sputum has been strep pneumo, repeat is continued as no cough. The patient is covered with Rocephin 2 g daily to continue and continue supportive care. Prognosis remains to be guarded. MMODL / IJN: [id number] /
--- NOTE | 2020-02-04 17:08 | PN ---
PROGRESS NOTE DATE OF SERVICE: 02/04/2020 This 75-year-old gentleman who was admitted with shortness of breath also had sepsis and septic shock. The patient also had anna grown from the sputum culture. The patient also had COPD and CHF. COVID testing is negative twice. Dr. Colin and Dr. Owen are following the patient closely as well as Infectious Disease. The most recent chest x-ray, which was reviewed personally by me, showed significant bilateral lesions. Past medical history reviewed. Review of systems could not be taken; the patient is mechanically intubated. CURRENT MEDICATIONS: Reviewed. They include: 1. DuoNeb q.i.d. and p.r.n. 2. Lipitor 80 mg daily. 3. Pulmicort 0.5 mg b.i.d. 4. Rocephin 2 grams daily. 5. Peridex. 6. NovoLog. 7. Solu-Medrol 40 IV q.8. 8. Habitrol. 9. Protonix. 10.Propofol. PHYSICAL EXAMINATION: Patient is mechanically ventilated and sedated. Pulse is 60, blood pressure 91/47, respiration 20, temperature normal, pulse ox 90% on mechanical ventilation. Vent settings are noted. HEENT: Conjunctivae normal. NECK: No jugular venous distention. CARDIOVASCULAR SYSTEM: S1, S2 muffled. RESPIRATORY SYSTEM: Breath sounds diminished at the bases. A few scattered rhonchi and crackles. ABDOMEN: Soft, non-tender. LEGS: No edema. No swelling. NERVOUS SYSTEM: No focal deficit. LABS: WBC 6.2, hemoglobin 10.1. ABGs noted. Sodium 146, potassium 3.9. Albumin is 2.4. Glucose noted. ASSESSMENT: 1. Shortness of breath, possibly multifactorial, with chronic obstructive pulmonary disease, acute exacerbation, as well as congestive heart failure, acute exacerbation, with acute on chronic systolic dysfunction; ejection fraction 30% to 35%, with acute hypoxic hypercarbic respiratory failure, on mechanical ventilation. 2. Possible bilateral interstitial pneumonia, right more than left, possibly Gram- negative, possibly COVID-19 pneumonia. 3. Streptococcus pneumonia, penicillin-resistant, grown from the sputum. 4. Sepsis and septic shock, present on admission. 5. Anna glabrata from the sputum culture. 6. COVID-19 test negative; could be false-negative. 7. History of coronary artery disease, coronary artery bypass grafting. 8. Chronic obstructive pulmonary disease. 9. History of nicotine dependence. 10.History of persistent atrial fibrillation. 11.Chronic hypoxic respiratory, on home oxygen. 12.Acute kidney injury, possible acute tubular necrosis. 13.Increased white count. 14.Anemia of chronic disease. 15.Mild thrombocytopenia. 16.History of atrial fibrillation, chronic. 17.History of syncope. 18.History of automated implantable cardioverter defibrillator. 19.History of coronary artery disease, stent. 20.Hypokalemia. 21.FULL CODE. RECOMMENDATIONS AND DISCUSSION: I recommend to continue current medications, continue with the monitoring, symptomatic treatment. Continue with the bronchodilators. Continue with the rest of the medications. Continue the antibiotics; change to Rocephin per Dr. Lara's recommendations. Otherwise, closely monitor. Overall prognosis guarded. Chest x-ray seems to have stabilized, but continue to monitor. Patient is still on PEEP. Dr. Colin is following the patient closely. Further recommendations to follow. MMODL / IJN: [id number] /
[2020-02-04 18:17] LABS: Glucose,Whole Blood 155 mg/dL (75-99)
[2020-02-04] MEDS ORDERED: methylPREDNISolone SOD SUCCI 125 MG/2 ML VIAL ONE (18:30)
[2020-02-04] MEDS ORDERED: INSULIN ASPART (NovoLOG) 100 UNIT/ML VIAL SQ ONE (18:30)
[2020-02-04] MEDS ORDERED: PROPOFOL 10 MG/ML 100 ML VIAL IV ONE ×2 (18:30)
[2020-02-04] MEDS: methylPREDNISolone SOD SUCCI 40 MG/ML 1 ML VIAL IV SCH (20:00)
[2020-02-04] MEDS: HYDROmorphone 1 MG/ML 1 ML SYRINGE IVP PRN (20:27)
[2020-02-05 00:38] LABS: Glucose,Whole Blood 157 mg/dL (75-99)
[2020-02-05] MEDS: INSULIN ASPART (NovoLOG) 100 UNIT/ML VIAL SQ SCH ×4 (00:45→18:10)
[2020-02-05] MEDS: methylPREDNISolone SOD SUCCI 40 MG/ML 1 ML VIAL IV SCH ×3 (00:45→16:01)
[2020-02-05] MEDS: PROPOFOL 1,000 MG in EMPTY BAG 1 BAG IV SCH ×4 (01:20→22:37)
[2020-02-05 04:52] LABS: ABG Base Excess 4.2 mmol/L; ABG HCO3 28 mmol/L (21-25); ABG Oxygen Saturation 97.8 % (94-97); ABG PCO2 41 mmHg (35-45); ABG PH 7.45 (7.35-7.45); ABG PO2 110 mmHg (83-108); ABG TCO2 30 mmol/L (19-24)
[2020-02-05 06:17] LABS: HCT 30.1 % (39.0-53.0); HGB 9.9 gm/dL (13.0-17.5); Hypochromasia Slight; MCH 33.4 pg (25.0-35.0); MCHC 32.9 g/dL (31.0-37.0); MCV 101.3 fL (80.0-100.0); Macrocytosis Slight; Mean Platelet Volume 11.5; Platelet Count 148 k/uL (150-450); RBC 2.97 m/uL (4.30-5.90); RDW 14.8 % (11.5-15.5); WBC 7.9 k/uL (3.8-10.6)
[2020-02-05 06:30] LABS: Calcium 7.5 mg/dL (8.4-10.2); Potassium 4.6 mmol/L (3.5-5.1)
[2020-02-05 06:34] LABS: Glucose,Whole Blood 147 mg/dL (75-99)
[2020-02-05] MEDS: BUDESONIDE 0.5 MG/2 ML NEBU INHALATION SCH ×2 (07:47→19:16)
[2020-02-05] MEDS: IPRATROPIUM-ALBUTEROL 3 ML NEB INHALATION SCH ×4 (07:47→19:15)
--- NOTE | 2020-02-05 08:26 | XR ---
EXAMINATION TYPE: XR chest 1V portable DATE OF EXAM: 02/05/2020 Comparison: 02/04/2020 Clinical History: 75 year-old male tube placement Findings: ET tube tip 2.3 cm from the slick. NG tube courses below the diaphragm. Left anterior chest wall ICD generator with right atrial and right ventricular leads. Heart remains enlarged with extensive left mid and lower lung opacity and mild diffuse airspace opacity throughout. Impression: Suspect continued CHF with interstitial pulmonary edema. Moderate left pleural effusion with similar extensive consolidation left mid and lower lung.
[2020-02-05] MEDS ORDERED: FUROSEMIDE 10 MG/ML 4 ML VIAL IV STA (08:52)
--- NOTE | 2020-02-05 08:52 | P.PN ---
Subjective Patient is seen in follow for acute kidney injury. Renal function continues to improve. Urine output about 75 mL an hour. Patient's ejection fraction of 30- 35%. Off vasopressors. Intubated. On 55% FiO2. Sodium level 149 today. Vital signs are stable. Off vasopressors. General: The patient appeared well nourished and normally developed. HEENT: Head exam is unremarkable. Neck is without jugular venous distension. Intubated. LUNGS: Breath sounds decreased. HEART: Rate and Rhythm are regular. ABDOMEN: Nontender, nondistended. EXTREMITITES: No edema. Objective - Vital Signs Vital signs: Vital Signs Temp 98.2 F 02/05/20 04:00 Pulse 60 02/05/20 08:12 Resp 28 H 02/05/20 07:00 BP 111/64 02/04/20 11:00 Pulse Ox 94 L 02/05/20 07:00 Intake & Output 02/04/20 02/05/20 02/05/20 18:59 06:59 18:59 Intake Total 1444.47 458 13 Output Total 610 710 Balance 834.47 -252 13 Weight 79.2 kg Intake: IV 203 156 13 0.9 Normal Saline @ 10mL/ 120 120 10 hr as KVO 0.9 Normal Saline @ 3mL/ 33 36 3 hr from Pressure Bag cefTRIAXone 2 gm In 50 Sodium Chloride 0.9% 50 ml @ 100 mls/hr IVPB Q24HR [facility] Rx#:[id number] Intake, IV Titration 199.47 200 Amount Propofol 1,000 mg In 199.47 200 Empty Bag 1 bag @ Titrate IV .Q0M [facility] Rx#: [id number] Tube Feeding 612 102 Other 430 Output: Urine 610 710 Other: Voiding Method Indwelling Catheter Indwelling Catheter ABP, PAP, CO, CI - Last Documented Arterial Blood Pressure 149/66 - Labs CBC & Chem 7: 02/05/20 05:50 02/05/20 05:50 Labs: Abnormal Lab Results - Last 24 Hours (Table) 02/04/20 02/04/20 02/05/20 Range/Units 11:43 18:16 00:36 RBC (4.30-5.90) m/uL Hgb (13.0-17.5) gm/dL Hct (39.0-53.0) % MCV (80.0-100.0) fL Plt Count (150-450) k/uL ABG pO2 (83-108) mmHg ABG HCO3 (21-25) mmol/L ABG Total CO2 (19-24) mmol/L ABG O2 Saturation (94-97) % Sodium (137-145) mmol/L Chloride (98-107) mmol/L Carbon Dioxide (22-30) mmol/L BUN (9-20) mg/dL Glucose (74-99) mg/dL POC Glucose (mg/dL) 165 H 155 H 157 H (75-99) mg/dL Calcium (8.4-10.2) mg/dL 02/05/20 02/05/20 02/05/20 Range/Units 04:47 05:50 05:50 RBC 2.97 L (4.30-5.90) m/uL Hgb 9.9 L (13.0-17.5) gm/dL Hct 30.1 L (39.0-53.0) % MCV 101.3 H (80.0-100.0) fL Plt Count 148 L (150-450) k/uL ABG pO2 110 H (83-108) mmHg ABG HCO3 28 H (21-25) mmol/L ABG Total CO2 30 H (19-24) mmol/L ABG O2 Saturation 97.8 H (94-97) % Sodium 149 H (137-145) mmol/L Chloride 116 H (98-107) mmol/L Carbon Dioxide 32 H (22-30) mmol/L BUN 72 H (9-20) mg/dL Glucose 138 H (74-99) mg/dL POC Glucose (mg/dL) (75-99) mg/dL Calcium 7.5 L (8.4-10.2) mg/dL 02/05/20 Range/Units 06:32 RBC (4.30-5.90) m/uL Hgb (13.0-17.5) gm/dL Hct (39.0-53.0) % MCV (80.0-100.0) fL Plt Count (150-450) k/uL ABG pO2 (83-108) mmHg ABG HCO3 (21-25) mmol/L ABG Total CO2 (19-24) mmol/L ABG O2 Saturation (94-97) % Sodium (137-145) mmol/L Chloride (98-107) mmol/L Carbon Dioxide (22-30) mmol/L BUN (9-20) mg/dL Glucose (74-99) mg/dL POC Glucose (mg/dL) 147 H (75-99) mg/dL Calcium (8.4-10.2) mg/dL Assessment and Plan Plan: Assessment: 1. Acute kidney injury secondary to ATN secondary to hypotension and cardiorenal syndrome. Creatinine peaked at 2.7 this admission and is 1.0 today. No hydronephrosis noted on kidney ultrasound. 2. Acute on chronic systolic CHF with ejection fraction of 30-35%. Status post dobutamine. 3. Acute hypercapnic and hypoxic respiratory failure. 4. Hypotension status post Levophed. 5. Streptococcal pneumonia maintained on antibiotics. Coronavirus PCR negative. 6. COPD exacerbation maintained on IV steroids. 7. Hypokalemia from poor intake. Status post replacement. Magnesium normal. Better. 8. Hypernatremia secondary to lack of oral water intake. 9. Volume overload. Chest x-ray suggestive of vascular congestion. Plan: Agree with D5W at 75 mL an hour. Repeat sodium level this evening. Scheduled for tracheostomy and PEG tube placement today. Avoid nephrotoxins. Continue to monitor renal function and urine output. Lasix 40 mg IV once today.
[2020-02-05] MEDS: DEXTROSE 5% IN WATER 1,000 ML IV SCH ×2 (09:00→19:30)
--- NOTE | 2020-02-05 09:05 | P.PN ---
Subjective Progress Note Date: 02/05/20 Principal diagnosis: severe CAD/severe cardiomyopathy This is a 75-year-old gentleman with a past medical history significant for coronary artery disease and status post coronary artery bypass grafting, severe cardiomyopathy and status post AICD, long-standing persistent atrial fibrillation on oral anticoagulation, as well as severe chronic obstructive pulmonary disease on home oxygen, was admitted to the hospital with acute hypoxic respiratory failure secondary to COPD exacerbation was a component of congestive heart failure exacerbation. the patient was seen today, 02/05/2020. He continues to be intubated on mechanical ventilation. He is off any vasopressors at this point. The blood work was reviewed and seems to be within normal limits into of creatinine as well as electrolytes. The echo showed an EF between 30-35%. I am going to continue the current medical regimen, start the patient on small dose of lisinopril. We'll continue monitor the kidney function and electrolytes. We'll restart the patient on beta javy as well as Aldactone down the line Objective - Vital Signs Vital signs: Vital Signs Temp 98.2 F 02/05/20 04:00 Pulse 60 02/05/20 08:12 Resp 28 H 02/05/20 07:00 BP 111/64 02/04/20 11:00 Pulse Ox 94 L 02/05/20 07:00 Intake & Output 02/04/20 02/05/20 02/05/20 18:59 06:59 18:59 Intake Total 1444.47 458 13 Output Total 610 710 Balance 834.47 -252 13 Weight 79.2 kg Intake: IV 203 156 13 0.9 Normal Saline @ 10mL/ 120 120 10 hr as KVO 0.9 Normal Saline @ 3mL/ 33 36 3 hr from Pressure Bag cefTRIAXone 2 gm In 50 Sodium Chloride 0.9% 50 ml @ 100 mls/hr IVPB Q24HR [facility] Rx#:[id number] Intake, IV Titration 199.47 200 Amount Propofol 1,000 mg In 199.47 200 Empty Bag 1 bag @ Titrate IV .Q0M [facility] Rx#: [id number] Tube Feeding 612 102 Other 430 Output: Urine 610 710 Other: Voiding Method Indwelling Catheter Indwelling Catheter ABP, PAP, CO, CI - Last Documented Arterial Blood Pressure 149/66 - Constitutional General appearance: Present: no acute distress - Respiratory Respiratory: bilateral: diminished - Cardiovascular Rhythm: regular Heart sounds: normal: S1, S2 - Labs CBC & Chem 7: 02/05/20 05:50 02/05/20 05:50 Labs: Abnormal Lab Results - Last 24 Hours (Table) 02/04/20 02/04/20 02/05/20 Range/Units 11:43 18:16 00:36 RBC (4.30-5.90) m/uL Hgb (13.0-17.5) gm/dL Hct (39.0-53.0) % MCV (80.0-100.0) fL Plt Count (150-450) k/uL ABG pO2 (83-108) mmHg ABG HCO3 (21-25) mmol/L ABG Total CO2 (19-24) mmol/L ABG O2 Saturation (94-97) % Sodium (137-145) mmol/L Chloride (98-107) mmol/L Carbon Dioxide (22-30) mmol/L BUN (9-20) mg/dL Glucose (74-99) mg/dL POC Glucose (mg/dL) 165 H 155 H 157 H (75-99) mg/dL Calcium (8.4-10.2) mg/dL 02/05/20 02/05/20 02/05/20 Range/Units 04:47 05:50 05:50 RBC 2.97 L (4.30-5.90) m/uL Hgb 9.9 L (13.0-17.5) gm/dL Hct 30.1 L (39.0-53.0) % MCV 101.3 H (80.0-100.0) fL Plt Count 148 L (150-450) k/uL ABG pO2 110 H (83-108) mmHg ABG HCO3 28 H (21-25) mmol/L ABG Total CO2 30 H (19-24) mmol/L ABG O2 Saturation 97.8 H (94-97) % Sodium 149 H (137-145) mmol/L Chloride 116 H (98-107) mmol/L Carbon Dioxide 32 H (22-30) mmol/L BUN 72 H (9-20) mg/dL Glucose 138 H (74-99) mg/dL POC Glucose (mg/dL) (75-99) mg/dL Calcium 7.5 L (8.4-10.2) mg/dL 02/05/20 Range/Units 06:32 RBC (4.30-5.90) m/uL Hgb (13.0-17.5) gm/dL Hct (39.0-53.0) % MCV (80.0-100.0) fL Plt Count (150-450) k/uL ABG pO2 (83-108) mmHg ABG HCO3 (21-25) mmol/L ABG Total CO2 (19-24) mmol/L ABG O2 Saturation (94-97) % Sodium (137-145) mmol/L Chloride (98-107) mmol/L Carbon Dioxide (22-30) mmol/L BUN (9-20) mg/dL Glucose (74-99) mg/dL POC Glucose (mg/dL) 147 H (75-99) mg/dL Calcium (8.4-10.2) mg/dL Assessment and Plan Assessment: assessment #1 acute hypoxic respiratory failure #2 severe chronic obstructive pulmonary disease #3 severe cardiomyopathy #4 severe coronary artery disease #5 long-standing persistent atrial fibrillation #6 is audible comorbid conditions Plan #1 continue the current medical regimen #2 restart the patient on lisinopril at 2.5 mg daily #3 restart the patient on Coreg as well as Aldactone down the line #4 follow-up with the patient
--- NOTE | 2020-02-05 09:19 | P.PN ---
Subjective Progress Note Date: 02/05/20 Principal diagnosis: acute on chronic hypoxemic, hypercapnic respiratory failure, multifactorial related to acute systolic congestive heart failure, acute exacerbation of COPD and streptococcal pneumonia on 11/07/2019 patient seen in follow-up in intensive care unit, he remains intubated, sedated on mechanical ventilator, current vent settings are assist- control mode of ventilation with a rate of 28, tidal volume was 400, FiO2 is 55% and PEEP of 10, this morning blood gases showed pO2 of 110, pCO2 41, and pH of 7.45. We'll decreased the FiO2 down to 50%. IV drips include 0.9 normal saline at a rate of 20, and didn't improve and is at 50 mics per kilo per minute, tube feedings currently on hold for schedule tracheostomy and PEG tube placement. today's chest x-ray has been reviewed still showing mild diffuse airspace opacity throughout, and moderate-sized left pleural effusion and extensivive consolidation of left mid and lower lung. This morning's lab work has been reviewed showing normal white count, hemoglobin is 9.9, serum sodium is 149, potassium is 4.6, chloride is 116, CO2 is 32, BUN 72 and creatinine is 1.0. antibiotics in the form of Rocephin for streptococcal pneumonia. Routine treatments were added. patient has been afebrile. No other acute events overnight. Hemodynamically stable, patient has a permanent pacemaker in place and he is atrially paced at a rate of 60 BPM. Objective - Vital Signs Vital signs: Vital Signs Temp 98.2 F 02/05/20 04:00 Pulse 60 02/05/20 08:12 Resp 28 H 02/05/20 07:00 BP 111/64 02/04/20 11:00 Pulse Ox 94 L 02/05/20 07:00 Intake & Output 02/04/20 02/05/20 02/05/20 18:59 06:59 18:59 Intake Total 1444.47 458 13 Output Total 610 710 Balance 834.47 -252 13 Weight 79.2 kg Intake: IV 203 156 13 0.9 Normal Saline @ 10mL/ 120 120 10 hr as KVO 0.9 Normal Saline @ 3mL/ 33 36 3 hr from Pressure Bag cefTRIAXone 2 gm In 50 Sodium Chloride 0.9% 50 ml @ 100 mls/hr IVPB Q24HR [facility] Rx#:[id number] Intake, IV Titration 199.47 200 Amount Propofol 1,000 mg In 199.47 200 Empty Bag 1 bag @ Titrate IV .Q0M [facility] Rx#: [id number] Tube Feeding 612 102 Other 430 Output: Urine 610 710 Other: Voiding Method Indwelling Catheter Indwelling Catheter ABP, PAP, CO, CI - Last Documented Arterial Blood Pressure 149/66 - Exam GENERAL EXAM: intubated, sedated, 75-year-old white male comfortable in no apparent distress. HEAD: Normocephalic/atraumatic. EYES: Normal reaction of pupils, equal size. Conjunctiva pink, sclera white. NOSE: Clear with pink turbinates. THROAT: No erythema or exudates. NECK: No masses, no JVD, no thyroid enlargement, no adenopathy. CHEST: No chest wall deformity. Symmetrical expansion. LUNGS: Equal air entry with no crackles, wheeze, rhonchi or dullness. CVS: Regular rate and rhythm, normal S1 and S2, no gallops, no murmurs, no rubs ABDOMEN: Soft, nontender. No hepatosplenomegaly, normal bowel sounds, no guarding or rigidity. EXTREMITIES: No clubbing, no edema, no cyanosis, 2+ pulses and upper and lower extremities. MUSCULOSKELETAL: Muscle strength and tone normal. SPINE: No scoliosis or deformity SKIN: No rashes CENTRAL NERVOUS SYSTEM: intubated, sedated. No focal deficits, tone is normal in all 4 extremities. - Labs CBC & Chem 7: 02/05/20 05:50 02/05/20 05:50 Labs: Abnormal Lab Results - Last 24 Hours (Table) 02/04/20 02/04/20 02/05/20 Range/Units 11:43 18:16 00:36 RBC (4.30-5.90) m/uL Hgb (13.0-17.5) gm/dL Hct (39.0-53.0) % MCV (80.0-100.0) fL Plt Count (150-450) k/uL ABG pO2 (83-108) mmHg ABG HCO3 (21-25) mmol/L ABG Total CO2 (19-24) mmol/L ABG O2 Saturation (94-97) % Sodium (137-145) mmol/L Chloride (98-107) mmol/L Carbon Dioxide (22-30) mmol/L BUN (9-20) mg/dL Glucose (74-99) mg/dL POC Glucose (mg/dL) 165 H 155 H 157 H (75-99) mg/dL Calcium (8.4-10.2) mg/dL 02/05/20 02/05/20 02/05/20 Range/Units 04:47 05:50 05:50 RBC 2.97 L (4.30-5.90) m/uL Hgb 9.9 L (13.0-17.5) gm/dL Hct 30.1 L (39.0-53.0) % MCV 101.3 H (80.0-100.0) fL Plt Count 148 L (150-450) k/uL ABG pO2 110 H (83-108) mmHg ABG HCO3 28 H (21-25) mmol/L ABG Total CO2 30 H (19-24) mmol/L ABG O2 Saturation 97.8 H (94-97) % Sodium 149 H (137-145) mmol/L Chloride 116 H (98-107) mmol/L Carbon Dioxide 32 H (22-30) mmol/L BUN 72 H (9-20) mg/dL Glucose 138 H (74-99) mg/dL POC Glucose (mg/dL) (75-99) mg/dL Calcium 7.5 L (8.4-10.2) mg/dL 02/05/20 Range/Units 06:32 RBC (4.30-5.90) m/uL Hgb (13.0-17.5) gm/dL Hct (39.0-53.0) % MCV (80.0-100.0) fL Plt Count (150-450) k/uL ABG pO2 (83-108) mmHg ABG HCO3 (21-25) mmol/L ABG Total CO2 (19-24) mmol/L ABG O2 Saturation (94-97) % Sodium (137-145) mmol/L Chloride (98-107) mmol/L Carbon Dioxide (22-30) mmol/L BUN (9-20) mg/dL Glucose (74-99) mg/dL POC Glucose (mg/dL) 147 H (75-99) mg/dL Calcium (8.4-10.2) mg/dL Assessment and Plan Plan: assessment: #1. Acute on chronic hypoxemic, and hypercapnic respiratory failure, multifactorial, in part related to underlying exacerbation of acute systolic congestive heart failure, acute exacerbation of COPD, and streptococcal pneumonia #2. Failure to wean from mechanical ventilation, and patient has been scheduled for tracheostomy and PEG tube insertion today on 01/28/2020 #3. History of coronary artery disease with previous bypass grafting #4. History of cardiomyopathy with LV dysfunction and AICD placement #5. history of systolic congestive heart failure #6. Suspected cardiorenal syndrome #7. Chronic atrial fibrillation, patient is on Eliquis for anticoagulation, which is currently on hold for tracheostomy and PEG tube insertion #8. Tobacco dependence syndrome #9. Chronic left-sided pleural effusion present since 2016 #10. Covid 19 testing was negative #11. Hypernatremia, related to free water deficit #12. Hyperchloremia, related to 0.9 normal saline infusion and free water deficit Plan: We'll switch to IV fluids to D5W at 75 ML per hour, continue with free water flushes of 200 ml every 4 hours. Patient scheduled for tracheostomy and PEG tube insertion today, we'll resume tube feedings and directed by surgery. We will decreased the FiO2 down to 50%, will continue with the rest of the vent settings in the same manner. Continue antibiotics, patient has been afebrile, patient continues on Rocephin for Streptococcus pneumonia, GI and DVT prophylaxis. Lauraquis remains on hold her surgical procedure today, we'll resume when cleared by surgery. Daily chest x-ray, follow-up labs in the morning. I performed a history & physical examination of the patient and discussed their management with my nurse practitioner, Mechelle White. I reviewed the nurse practitioner's note and agree with the documented findings and plan of care. Lung sounds are positive for diminished breath sounds. The findings and the impression was discussed with the patient. I attest to the documentation by the nurse practitioner. Time with Patient: Greater than 30
[2020-02-05] MEDS ORDERED: LIDOCAINE 1% INJ 10MG/ML (20 ML MDV) SQ ONE (09:28)
[2020-02-05] MEDS ORDERED: LACTATED RINGERS 1,000 ML IV ONE (09:28)
[2020-02-05] MEDS ORDERED: ROCURONIUM BROMIDE 10 MG/ML 5 ML VIAL IV ONE (09:29)
[2020-02-05] MEDS ORDERED: fentaNYL (PF) 50 MCG/ML 2 ML AMP ONE (09:29)
--- NOTE | 2020-02-05 10:14 | P.OP ---
Date of Procedure: 02/05/20 Preoperative Diagnosis: Respiratory failure Protein calorie malnutrition Postoperative Diagnosis: Respiratory failure Protein calorie malnutrition Procedure(s) Performed: Tracheostomy tube Tube Anesthesia: LUCINA Surgeon: Nishant Monsivais Estimated Blood Loss (ml): 5 Pathology: none sent Condition: stable Disposition: PACU Description of Procedure: The patient's placed on the operative table in the supine position. He received IV and general anesthesia. His neck was prepped and draped usual fashion. Standard tracheostomy incision was made approximately 2 cm above the sternal notch. Using cautery the subcu tissues and platysma was divided. The strap muscles were divided midline. The thyroid was divided in the midline using left cautery. The trachea was exposed by using the retractors. This point the introducer was placed in the right mainstem bronchus. Respirations held. The tracheotomy was performed by cutting the tracheal notch cautery H fashion between the second and third tracheal rings. The internal to the brought back under direct vision. A #8 foam cuffed tracheostomy tube was placed into the trachea and the patient states the ventilator and tidal CO2 was confirmed. The patient's belly. Good tidal mobilized. The skin was closed with 3-0 nylon. The tracheostomy tie was applied. Next the endoscope was placed the patient's oropharynx past esophagus stomach. A suitable light reflux was seen yesterday on wall. The skin was anesthetized 1 % local Xylocaine. The skin incision was made at the needles placed and stomach under direct visualization. The needle was snared and then the wire was then placed through the needle and the wire was snared brought the oropharynx. The PEG tube placed overtop the wire brought down into the stomach and secured at 3 cm johana. The one-piece bolster was applied. Patient top she will was sent back to the ICU in stable condition
[2020-02-05] MEDS: ATORVASTATIN 80 MG TAB PO SCH (10:39)
[2020-02-05] MEDS: PANTOPRAZOLE 40 MG/10 ML VIAL IV SCH (10:47)
[2020-02-05] MEDS: NICOTINE 21MG/24HR PATCH TRANSDERM SCH (10:48)
[2020-02-05] MEDS: CHLORHEXIDINE GLUCONATE 15 ML CUP MUCOUS MEM SCH ×2 (10:48→19:30)
[2020-02-05 11:32] LABS: Glucose,Whole Blood 143 mg/dL (75-99)
--- NOTE | 2020-02-05 15:49 | P.PN ---
Progress Note - Text Progress Note Date: 02/05/20 Chief Complaint: Short of breath History of presenting complaint: This is a 75-year-old patient of Dr. Gonzáles. Long-standing smoker. Chronic stable medical conditions include atrial fibrillation, AICD, coronary artery disease with prior bypass, on home oxygen, GERD, COPD. Last ejection fraction is 40-45%. She presents with worsening short of breath for about a week at least. It has been progressively getting worse. Some edema. Weak and tired slight cough is present. Increasing swelling of lower extremity. Orthopnea. No fever no chills. Tired and rundown. Slow with given history. Admitted with acute on chronic CHF exacerbation, COPD exacerbation. Was started on IV Lasix, bronchodilators and IV steroids. Early hours of January 25 patient was becoming more short of breath, could not tolerate BiPAP was intubated and placed in the ICU. Also being treated for pneumonia. Patient extubated on January 28. Patient had remained on IV Lasix drip, IV dobutamine. Was worsening again. And patient was reintubated on January 30. February 04 patient had a PEG tube and a tracheostomy tube placed to Dr. Monsivais. [id number]. FiO2 50 and PEEP of 10. IV drips include propofol. Telemetry shows sinus rhythm. Patient had a PEG tube and a tracheostomy tube placed today. By Dr. Monsivais. Review of systems: Cannot be done, patient intubated Active Medications Albuterol/Ipratropium (Duoneb 0.5 Mg-3 Mg/3 Ml Soln) 3 ml INHALATION RT-QID [facility] Last Admin: 02/05/20 15:29 Dose: 3 ml Documented by: Albuterol/Ipratropium (Duoneb 0.5 Mg-3 Mg/3 Ml Soln) 3 ml INHALATION RT-Q2H PRN PRN Reason: Shortness Of Breath Or Wheezing Last Admin: 02/04/20 02:59 Dose: 3 ml Documented by: Atorvastatin Calcium (Lipitor) 80 mg PO DAILY [facility] Last Admin: 02/05/20 10:39 Dose: Not Given Documented by: Budesonide (Pulmicort) 0.5 mg INHALATION RT-BID [facility] Last Admin: 02/05/20 07:47 Dose: 0.5 mg Documented by: Chlorhexidine Gluconate (Peridex) 15 ml MUCOUS MEM BID [facility] Last Admin: 02/05/20 10:48 Dose: 15 ml Documented by: Hydromorphone HCl (Dilaudid) 1 mg IVP Q4HR PRN PRN Reason: Pain Last Admin: 02/04/20 20:27 Dose: 1 mg Documented by: Propofol 1,000 mg/ IV Solution 100 mls @ 0 mls/hr IV .Q0M [facility]; Protocol Last Admin: 02/05/20 11:06 Dose: 50 mcg/kg/min, 23.76 mls/hr Documented by: Ceftriaxone Sodium 2 gm/ (Sodium Chloride) 50 mls @ 100 mls/hr IVPB Q24HR [facility] Last Admin: 02/05/20 10:48 Dose: 100 mls/hr Documented by: Dextrose/Water (Dextrose 5%-Water Iv Soln) 1,000 mls @ 75 mls/hr IV .[id number] [facility] Last Admin: 02/05/20 09:00 Dose: 75 mls/hr Documented by: Insulin Aspart (Novolog) 0 unit SQ Q6H [facility]; Protocol Last Admin: 02/05/20 12:32 Dose: Not Given Documented by: Lisinopril (Zestril) 2.5 mg PO DAILY [facility] Methylprednisolone Sodium Succinate (Solu-Medrol) 40 mg IV Q8HR [facility] Last Admin: 02/05/20 10:48 Dose: 40 mg Documented by: Miscellaneous Information (Magnesium Per Protocol) 1 each MISCELLANE DAILY PRN; Protocol PRN Reason: Per Protocol Miscellaneous Information (Potassium Per Protocol) 1 each MISCELLANE DAILY PRN; Protocol PRN Reason: Per Protocol Naloxone HCl (Narcan) 0.2 mg IV Q2M PRN PRN Reason: Opioid Reversal Nicotine (Habitrol 21mg/24hr Patch) 1 patch TRANSDERM DAILY [facility] Last Admin: 02/05/20 10:48 Dose: 1 patch Documented by: Pantoprazole Sodium (Protonix) 40 mg IV DAILY [facility] Last Admin: 02/05/20 10:47 Dose: 40 mg Documented by: Physical examination: VITAL SIGNS: 98.3, 60, 29, 163/73, 91% on the ventilator GENERAL: Laying in bed, sedated EYES: Pupils equal. Conjunctiva normal. NECK: JVD unable to assess; masses not palpable. Tracheostomy tube HEART: Heart sounds irregular, edema present. LUNGS: Respiratory rate increased,, diminished breath sounds. ABDOMEN: Soft, nontender, liver spleen not palpable, no masses palpable. PEG tube. PSYCH: Unable to assess, patient sedated MUSCULAR skeletal: Evidence of OA INVESTIGATIONS, reviewed in the clinical context: White count 7.9 hemoglobin 9.9 sodium 149 potassium 4.6 creatinine 1.0 Previous testing White count 13.1 hemoglobin 12.2 platelets 139, potassium 4.9 crit 1.01 Chest x-ray film personally reviewed by me-increasing bilateral infiltrates CRP 60.5 pro calcitonin 0.1 Sputum culture growing Streptococcus pneumoniae, Anna glabrata 2-D co-EF 30-35% Previous testing White count 10.9 hemoglobin 12.4 platelets 165 neutrophils 9.2 lymphocytes 0.7 potassium 4.3 bun 27 creatinine 0.88, proBNP 1530 EKG tracing personally reviewed by me-atrial flutter rate controlled Chest x-ray film personally reviewed by me-pulmonary edema, cardiomegaly, portable film Assessment: -Acute on chronic congestive heart failure exacerbation from systolic dysfunction EF 30-35% % from underlying coronary artery disease, POA- -Bilateral pneumonia, Streptococcus pneumoniae causing sepsis, POA,-not im proving -Coronary artery disease a prior history of bypass -Acute COPD exacerbation and an current smoker, POA, not improving -Chronic nicotine dependence patient cigarette smoker -Persistent atrial fibrillation -Chronic hypoxic and hypercapnic respiratory failure from a lying COPD -Acute hypoxic and hypercapnic respiratory failure from COPD and CHF, pneumonia POA-worsening on extubated January 28. Reintubated on January 30-slow to respond -Acute kidney injury possibly combination of ATN and prerenal-improved -Chronic left-sided pleural effusion since 2016 per pulmonary -COVID-19 PCR not detected -AICD Plan: -ICU.-Currently getting DuoNeb, inhaled Pulmicort, IV ceftriaxone, IV Solu- Medrol, IV propofol. Prognosis guarded.
[2020-02-05 16:38] LABS: LD Isoenzymes 1 17 % (19-38); LD Isoenzymes 2 29 % (30-43); LD Isoenzymes 3 24 % (16-26); LD Isoenzymes 4 17 % (3-12); LD Isoenzymes 5 13 % (3-14); Lactacte Dehydrogenase(LD) ISO 378 U/L (120-250)
[2020-02-05 17:50] LABS: Glucose,Whole Blood 151 mg/dL (75-99)
--- NOTE | 2020-02-05 22:51 | PN ---
PROGRESS NOTE DATE OF SERVICE: 02/05/2020 REASON FOR FOLLOWUP: Pneumonia. INTERVAL HISTORY: The patient is currently afebrile. The patient is status post tracheostomy. The patient is hemodynamically stable, not on any pressor support. FiO2 is currently at 50%. No other changes reported by the nursing staff. PHYSICAL EXAMINATION: Blood pressure 116/68 with a pulse of 60, temperature 98.2. General description is an elderly male lying in bed in no distress. RESPIRATORY SYSTEM: Unlabored breathing. Clear to auscultation anteriorly. HEART: S1, S2. Regular rate and rhythm. ABDOMEN: Soft. No tenderness. LABS: Hemoglobin is 9.9, white count 7.9, BUN of 72, creatinine 1.0. DIAGNOSTIC IMPRESSION AND PLAN: Patient with acute respiratory failure which is multifactorial with a component of pneumonia. Previous culture positive for Strep pneumo. The patient is status post tracheostomy for failure to be weaned off the vent. Continue with Rocephin. Monitor clinical course closely. MMODL / IJN: [id number] /
[2020-02-05 23:57] LABS: Glucose,Whole Blood 139 mg/dL (75-99)
[2020-02-06] MEDS: methylPREDNISolone SOD SUCCI 40 MG/ML 1 ML VIAL IV SCH ×3 (00:03→16:55)
[2020-02-06] MEDS: INSULIN ASPART (NovoLOG) 100 UNIT/ML VIAL SQ SCH ×4 (00:03→18:10)
[2020-02-06] MEDS: PROPOFOL 1,000 MG in EMPTY BAG 1 BAG IV SCH ×4 (02:42→18:06)
[2020-02-06 04:38] LABS: HCT 31.1 % (39.0-53.0); Hypochromasia Slight; MCH 32.6 pg (25.0-35.0); MCHC 32.1 g/dL (31.0-37.0); MCV 101.6 fL (80.0-100.0); Macrocytosis Slight; Mean Platelet Volume 10.8; Platelet Count 154 k/uL (150-450); RBC 3.06 m/uL (4.30-5.90); RDW 14.7 % (11.5-15.5); WBC 10.6 k/uL (3.8-10.6)
[2020-02-06 04:49] LABS: African American GFR (CKD) >90 (>60 ml/min/1.73 sqM); Anion Gap -1 mmol/L; Blood Urea Nitrogen 56 mg/dL (9-20); Calcium 7.6 mg/dL (8.4-10.2); Carbon Dioxide 32 mmol/L (22-30); Chloride 111 mmol/L (98-107); Glucose 141 mg/dL (74-99); Non-African American GFR(CKD) 87 (>60 ml/min/1.73 sqM); Potassium 4.4 mmol/L (3.5-5.1); Sodium 142 mmol/L (137-145)
[2020-02-06 05:31] LABS: Glucose,Whole Blood 143 mg/dL (75-99)
[2020-02-06 05:33] LABS: ABG Base Excess 4.8 mmol/L; ABG HCO3 29 mmol/L (21-25); ABG Oxygen Saturation 74.5 % (94-97); ABG PCO2 44 mmHg (35-45); ABG PH 7.43 (7.35-7.45); ABG TCO2 30 mmol/L (19-24); Allen Test Performed? Yes
[2020-02-06 05:34] LABS: ABG PO2 43 mmHg (83-108)
[2020-02-06] MEDS: BUDESONIDE 0.5 MG/2 ML NEBU INHALATION SCH ×2 (07:31→19:44)
[2020-02-06] MEDS: IPRATROPIUM-ALBUTEROL 3 ML NEB INHALATION SCH ×4 (07:31→19:44)
--- NOTE | 2020-02-06 08:02 | XR ---
EXAMINATION TYPE: XR chest 1V portable DATE OF EXAM: 02/06/2020 COMPARISON: 02/05/2020 HISTORY: Tube placement FINDINGS: There are bilateral pleural effusions with cardiomegaly and bibasilar infiltrate. There is a diffuse interstitial pattern. Cardiac device and postsurgical changes noted. ET and NG tube have been remove d and there is a tracheostomy tube with the tip overlying the mid level of the trachea. Biapical pleu ral thickening far greater on the left is stable likely representing extension of sizable pleural eff usion. IMPRESSION: 1. Tracheostomy tube placement appears in good position. 2. Diffuse pleural-parenchymal changes correlate for ARDS versus pulmonary edema. Underlying pneumoni a not excluded.
[2020-02-06 08:16] LABS: ABG Base Excess 4.4 mmol/L; ABG HCO3 29 mmol/L (21-25); ABG Oxygen Saturation 85.4 % (94-97); ABG PCO2 43 mmHg (35-45); ABG PH 7.44 (7.35-7.45); ABG TCO2 30 mmol/L (19-24)
[2020-02-06 08:23] LABS: ABG PO2 54 mmHg (83-108); Allen Test Performed? no
--- NOTE | 2020-02-06 08:24 | P.PN ---
Subjective Progress Note Date: 02/06/20 Principal diagnosis: severe CAD/severe cardiomyopathy This is a 75-year-old gentleman with a past medical history significant for coronary artery disease and status post coronary artery bypass grafting, severe cardiomyopathy and status post AICD, long-standing persistent atrial fibrillation on oral anticoagulation, as well as severe chronic obstructive pulmonary disease on home oxygen, was admitted to the hospital with acute hypoxic respiratory failure secondary to COPD exacerbation was a component of congestive heart failure exacerbation. the patient was seen today, February 052019. He underwent a PEG and trach tube yesterday. Hemodynamically he is stable. The creatinine is within normal limits. Sodium has improved. Yesterday I started the patient on small dose of lisinopril. We will consider restart him back on the rest of cardiomyopathy medications in the next 24-48 hours. On examination he is quite erythematous with lower extremities edema and a chest x-ray showed also finding consistent with heart failure. I will suggest to start the patient on diuretics. Objective - Vital Signs Vital signs: Vital Signs Temp 98.5 F 02/06/20 04:00 Pulse 60 02/06/20 07:53 Resp 28 H 02/06/20 07:00 BP 121/71 02/06/20 04:00 Pulse Ox 91 L 02/05/20 12:00 Intake & Output 02/05/20 02/06/20 02/06/20 18:59 06:59 18:59 Intake Total 3759.603 0317.248 78 Output Total 478 790 60 Balance 1187.792 339.248 18 Weight 83.5 kg Intake: IV 1466 936 78 0.9 Normal Saline @ 10mL/ 30 hr as KVO 0.9 Normal Saline @ 3mL/ 36 36 3 hr from Pressure Bag Dextrose 5% in Water 1, 750 900 75 000 ml @ 75 mls/hr IV . [id number] [facility] Rx#:[id number] cefTRIAXone 2 gm In 50 Sodium Chloride 0.9% 50 ml @ 100 mls/hr IVPB Q24HR [facility] Rx#:[id number] Intake, IV Titration 199.792 193.248 Amount Propofol 1,000 mg In 199.792 193.248 Empty Bag 1 bag @ Titrate IV .Q0M [facility] Rx#: [id number] Output: Urine 475 790 60 Estimated Blood Loss 3 Other: Voiding Method Indwelling Catheter Indwelling Catheter ABP, PAP, CO, CI - Last Documented Arterial Blood Pressure 153/60 - Constitutional General appearance: Present: morbidly obese, no acute distress - Respiratory Respiratory: bilateral: rales - Cardiovascular Heart sounds: normal: S1, S2 - Labs CBC & Chem 7: 02/06/20 04:27 02/06/20 04:27 Labs: Abnormal Lab Results - Last 24 Hours (Table) 01/31/20 02/05/20 02/05/20 Range/Units 05:05 11:30 17:49 RBC (4.30-5.90) m/uL Hgb (13.0-17.5) gm/dL Hct (39.0-53.0) % MCV (80.0-100.0) fL ABG pO2 (83-108) mmHg ABG HCO3 (21-25) mmol/L ABG Total CO2 (19-24) mmol/L ABG O2 Saturation (94-97) % Chloride (98-107) mmol/L Carbon Dioxide (22-30) mmol/L BUN (9-20) mg/dL Glucose (74-99) mg/dL POC Glucose (mg/dL) 143 H 151 H (75-99) mg/dL Calcium (8.4-10.2) mg/dL LD Isoenzymes 378 H (120-250) U/L LD 1 17 L (19-38) % LD 2 29 L (30-43) % LD 4 17 H (3-12) % 02/05/20 02/06/20 02/06/20 Range/Units 23:56 04:27 04:27 RBC 3.06 L (4.30-5.90) m/uL Hgb 10.0 L (13.0-17.5) gm/dL Hct 31.1 L (39.0-53.0) % MCV 101.6 H (80.0-100.0) fL ABG pO2 (83-108) mmHg ABG HCO3 (21-25) mmol/L ABG Total CO2 (19-24) mmol/L ABG O2 Saturation (94-97) % Chloride 111 H (98-107) mmol/L Carbon Dioxide 32 H (22-30) mmol/L BUN 56 H (9-20) mg/dL Glucose 141 H (74-99) mg/dL POC Glucose (mg/dL) 139 H (75-99) mg/dL Calcium 7.6 L (8.4-10.2) mg/dL LD Isoenzymes (120-250) U/L LD 1 (19-38) % LD 2 (30-43) % LD 4 (3-12) % 02/06/20 02/06/20 Range/Units 05:27 05:29 RBC (4.30-5.90) m/uL Hgb (13.0-17.5) gm/dL Hct (39.0-53.0) % MCV (80.0-100.0) fL ABG pO2 43 L* (83-108) mmHg ABG HCO3 29 H (21-25) mmol/L ABG Total CO2 30 H (19-24) mmol/L ABG O2 Saturation 74.5 L (94-97) % Chloride (98-107) mmol/L Carbon Dioxide (22-30) mmol/L BUN (9-20) mg/dL Glucose (74-99) mg/dL POC Glucose (mg/dL) 143 H (75-99) mg/dL Calcium (8.4-10.2) mg/dL LD Isoenzymes (120-250) U/L LD 1 (19-38) % LD 2 (30-43) % LD 4 (3-12) % Assessment and Plan Assessment: assessment #1 acute hypoxic respiratory failure #2 severe chronic obstructive pulmonary disease #3 severe cardiomyopathy #4 severe coronary artery disease #5 long-standing persistent atrial fibrillation #6 is audible comorbid conditions Plan #1 continue the current medical regimen #2 suggest start the patient on diuretics #3 continue monitor the kidney function and electrolytes #4 restart the patient back on oral anticoagulation #5 follow-up with the patient
[2020-02-06] MEDS: DEXTROSE 5% IN WATER 1,000 ML IV SCH (09:15)
[2020-02-06] MEDS: CHLORHEXIDINE GLUCONATE 15 ML CUP MUCOUS MEM SCH ×2 (09:15→21:18)
[2020-02-06] MEDS: NICOTINE 21MG/24HR PATCH TRANSDERM SCH (09:16)
[2020-02-06] MEDS: FUROSEMIDE 10 MG/ML 2 ML VIAL IV SCH ×2 (09:16→21:18)
[2020-02-06] MEDS: PANTOPRAZOLE 40 MG/10 ML VIAL IV SCH (09:16)
--- NOTE | 2020-02-06 09:23 | P.PN ---
Subjective Progress Note Date: 02/06/20 Principal diagnosis: acute on chronic hypoxemic, hypercapnic respiratory failure, multifactorial related to acute systolic congestive heart failure, acute exacerbation of COPD and streptococcal pneumonia on 02/05/2020 patient seen in follow-up in intensive care unit, he remains intubated, sedated on mechanical ventilator, current vent settings are assist- control mode of ventilation with a rate of 28, tidal volume was 400, FiO2 is 55% and PEEP of 10, this morning blood gases showed pO2 of 110, pCO2 41, and pH of 7.45. We'll decreased the FiO2 down to 50%. IV drips include 0.9 normal saline at a rate of 20, and didn't improve and is at 50 mics per kilo per minute, tube feedings currently on hold for schedule tracheostomy and PEG tube placement. today's chest x-ray has been reviewed still showing mild diffuse airspace opacity throughout, and moderate-sized left pleural effusion and extensivive consolidation of left mid and lower lung. This morning's lab work has been reviewed showing normal white count, hemoglobin is 9.9, serum sodium is 149, potassium is 4.6, chloride is 116, CO2 is 32, BUN 72 and creatinine is 1.0. antibiotics in the form of Rocephin for streptococcal pneumonia. Breathing treatments were added. patient has been afebrile. No other acute events overnight. Hemodynamically stable, patient has a permanent pacemaker in place and he is atrially paced at a rate of 60 BPM. On 02/06/2020 patient seen in follow-up in the intensive care unit, today is postop day 1, status post tracheostomy and PEG tube insertion. Patient remains sedated, on mechanical ventilator, current vent settings are assist-control mode with a rate of 28, tidal and 400, FiO2 of 60% and PEEP of 10, despite blood gases were reviewed showing pO2 43, pCO2 44, pH of 7.43, and this was done on FiO2 of 50%, FiO2 has since been increased to 60% and repeat ABG is pending. Today's chest x-ray has been reviewed showing diffuse pleural parenchymal changes, correlating for ARDS versus pulmonary edema. IV Lasix has been added at 20 mg twice daily, IV fluids include D5 W at a rate of 75, Diprivan at 50 mics per kilo per minute, no other infusions. 2 feedings are currently on hold for PEG tube insertion, anticipate reinitiation of tube feedings later on today at the 24-hour johana post PEG tube insertion. Today's labs have been reviewed showing 1 vessel, 10.6, hemoglobin of 10.0, platelet count is 154, sodium is 142, potassium is 4.4, chloride is 111, CO2 32, BUN is 56, creatinine 0.84. Repeat ABG was obtained showing slight improvement and pO2 of 254 since the increase in FiO2 up to 60%, pCO2 is 43, and pH is normal at 7.44. We will increase the PEEP up to 12. Patient remains on Rocephin for Streptococcus pneumonia, he has been afebrile, prior to Rocephin patient received 10 days of Zosyn. he remains on breathing treatments and IV steroids. Hemodynamically patient is stable, he is in sinus mechanism with a rate of 60 BPM. Objective - Vital Signs Vital signs: Vital Signs Temp 98.1 F 02/06/20 08:00 Pulse 60 02/06/20 09:00 Resp 31 H 02/06/20 09:00 BP 146/83 02/06/20 09:00 Pulse Ox 92 L 02/06/20 09:00 Intake & Output 02/05/20 02/06/20 02/06/20 18:59 06:59 18:59 Intake Total 0882.241 7740.248 156 Output Total 478 790 110 Balance 1187.792 339.248 46 Weight 83.5 kg Intake: IV 1466 936 156 0.9 Normal Saline @ 10mL/ 30 hr as KVO 0.9 Normal Saline @ 3mL/ 36 36 6 hr from Pressure Bag Dextrose 5% in Water 1, 750 900 150 000 ml @ 75 mls/hr IV . [id number] [facility] Rx#:[id number] cefTRIAXone 2 gm In 50 Sodium Chloride 0.9% 50 ml @ 100 mls/hr IVPB Q24HR [facility] Rx#:[id number] Intake, IV Titration 199.792 193.248 Amount Propofol 1,000 mg In 199.792 193.248 Empty Bag 1 bag @ Titrate IV .Q0M [facility] Rx#: [id number] Output: Urine 475 790 110 Estimated Blood Loss 3 Other: Voiding Method Indwelling Catheter Indwelling Catheter ABP, PAP, CO, CI - Last Documented Arterial Blood Pressure 158/62 - Exam GENERAL EXAM: intubated, sedated, 75-year-old white male comfortable in no apparent distress. HEAD: Normocephalic/atraumatic. EYES: Normal reaction of pupils, equal size. Conjunctiva pink, sclera white. NOSE: Clear with pink turbinates. THROAT: No erythema or exudates. NECK: No masses, no JVD, no thyroid enlargement, no adenopathy. Midline tracheostomy in place, #8 foam cuff trach CHEST: No chest wall deformity. Symmetrical expansion. LUNGS: Equal air entry with no crackles, wheeze, rhonchi or dullness. CVS: Regular rate and rhythm, normal S1 and S2, no gallops, no murmurs, no rubs ABDOMEN: Soft, nontender. No hepatosplenomegaly, normal bowel sounds, no guarding or rigidity. PEG tube is in place, taped to the abdomen, surg dressing in place EXTREMITIES: No clubbing, no edema, no cyanosis, 2+ pulses and upper and lower extremities. MUSCULOSKELETAL: Muscle strength and tone normal. SPINE: No scoliosis or deformity SKIN: No rashes CENTRAL NERVOUS SYSTEM: Trached to the vent sedated. No focal deficits, tone is normal in all 4 extremities. - Labs CBC & Chem 7: 02/06/20 04:27 02/06/20 04:27 Labs: Abnormal Lab Results - Last 24 Hours (Table) 01/31/20 02/05/20 02/05/20 Range/Units 05:05 11:30 17:49 RBC (4.30-5.90) m/uL Hgb (13.0-17.5) gm/dL Hct (39.0-53.0) % MCV (80.0-100.0) fL ABG pO2 (83-108) mmHg ABG HCO3 (21-25) mmol/L ABG Total CO2 (19-24) mmol/L ABG O2 Saturation (94-97) % Chloride (98-107) mmol/L Carbon Dioxide (22-30) mmol/L BUN (9-20) mg/dL Glucose (74-99) mg/dL POC Glucose (mg/dL) 143 H 151 H (75-99) mg/dL Calcium (8.4-10.2) mg/dL LD Isoenzymes 378 H (120-250) U/L LD 1 17 L (19-38) % LD 2 29 L (30-43) % LD 4 17 H (3-12) % 02/05/20 02/06/20 02/06/20 Range/Units 23:56 04:27 04:27 RBC 3.06 L (4.30-5.90) m/uL Hgb 10.0 L (13.0-17.5) gm/dL Hct 31.1 L (39.0-53.0) % MCV 101.6 H (80.0-100.0) fL ABG pO2 (83-108) mmHg ABG HCO3 (21-25) mmol/L ABG Total CO2 (19-24) mmol/L ABG O2 Saturation (94-97) % Chloride 111 H (98-107) mmol/L Carbon Dioxide 32 H (22-30) mmol/L BUN 56 H (9-20) mg/dL Glucose 141 H (74-99) mg/dL POC Glucose (mg/dL) 139 H (75-99) mg/dL Calcium 7.6 L (8.4-10.2) mg/dL LD Isoenzymes (120-250) U/L LD 1 (19-38) % LD 2 (30-43) % LD 4 (3-12) % 02/06/20 02/06/20 02/06/20 Range/Units 05:27 05:29 08:11 RBC (4.30-5.90) m/uL Hgb (13.0-17.5) gm/dL Hct (39.0-53.0) % MCV (80.0-100.0) fL ABG pO2 43 L* 54 L* (83-108) mmHg ABG HCO3 29 H 29 H (21-25) mmol/L ABG Total CO2 30 H 30 H (19-24) mmol/L ABG O2 Saturation 74.5 L 85.4 L (94-97) % Chloride (98-107) mmol/L Carbon Dioxide (22-30) mmol/L BUN (9-20) mg/dL Glucose (74-99) mg/dL POC Glucose (mg/dL) 143 H (75-99) mg/dL Calcium (8.4-10.2) mg/dL LD Isoenzymes (120-250) U/L LD 1 (19-38) % LD 2 (30-43) % LD 4 (3-12) % Assessment and Plan Plan: assessment: #1. Acute on chronic hypoxemic, and hypercapnic respiratory failure, multifactorial, in part related to underlying exacerbation of acute systolic congestive heart failure, acute exacerbation of COPD, and streptococcal pneumonia, and a component of ARDS is not excluded #2. Failure to wean from mechanical ventilation, and patient is status post tracheostomy and PEG tube insertion on 01/28/2020 #3. History of coronary artery disease with previous bypass grafting #4. History of cardiomyopathy with LV dysfunction and AICD placement #5. history of systolic congestive heart failure #6. Suspected cardiorenal syndrome #7. Chronic atrial fibrillation, patient is on Eliquis for anticoagulation, which is currently on hold for tracheostomy and PEG tube insertion #8. Tobacco dependence syndrome #9. Chronic left-sided pleural effusion present since 2016 #10. Covid 19 testing was negative #11. Hypernatremia, related to free water deficit, improved #12. Hyperchloremia, related to 0.9 normal saline infusion and free water deficit, improved with 5% dextrose infusion and free water flushes Plan: Today's chest x-ray shows diffuse pleural parenchymal changes with possibility of pulmonary edema versus ARDS. We'll give the patient IV Lasix at 20 mg twice daily. Patient has been afebrile, he has received 10 days of IV Zosyn, and the last couple days he received Rocephin, we will discontinue IV antibiotics, hemodynamically he has remained stable. We'll continue with breathing treatments and IV steroids. Hypernatremia improved, tube feedings remain on hold, anticipate restarting of the tube feedings this afternoon when cleared by surgery, in the meantime will continue with 5% dextrose infusion at a rate of 75 ML per hour. Blood gases have been reviewed, we will increase the PEEP up to 13, and FiO2 to 60% to maintain O2 saturations at 92% or better. Repeat chest x-ray in the morning, labs to follow up. We'll send procalcitonin level I performed a history & physical examination of the patient and discussed their management with my nurse practitioner, Mechelle White. I reviewed the nurse practitioner's note and agree with the documented findings and plan of care. Lung sounds are positive for diminished breath sounds. The findings and the impression was discussed with the patient. I attest to the documentation by the nurse practitioner. Time with Patient: Greater than 30
--- NOTE | 2020-02-06 11:21 | P.PN ---
Subjective Patient is seen in follow for acute kidney injury. Renal function continues to improve. Urine output about 50-100 mL an hour. Patient's ejection fraction of 30-35%. Status post trach and PEG on a February 04. Sodium level better. Vital signs are stable. General: The patient appeared well nourished and normally developed. HEENT: Head exam is unremarkable. Neck is without jugular venous distension. LUNGS: Breath sounds decreased. HEART: Rate and Rhythm are regular. ABDOMEN: Nontender, nondistended. EXTREMITITES: No edema. Objective - Vital Signs Vital signs: Vital Signs Temp 98.1 F 02/06/20 08:00 Pulse 60 02/06/20 10:00 Resp 35 H 02/06/20 10:00 BP 146/83 02/06/20 10:00 Pulse Ox 99 02/06/20 10:00 Intake & Output 02/05/20 02/06/20 02/06/20 18:59 06:59 18:59 Intake Total 6069.981 6339.248 312 Output Total 478 790 460 Balance 1187.792 339.248 -148 Weight 83.5 kg 83.5 kg Intake: IV 1466 936 312 0.9 Normal Saline @ 10mL/ 30 hr as KVO 0.9 Normal Saline @ 3mL/ 36 36 12 hr from Pressure Bag Dextrose 5% in Water 1, 750 900 300 000 ml @ 75 mls/hr IV . [id number] [facility] Rx#:[id number] cefTRIAXone 2 gm In 50 Sodium Chloride 0.9% 50 ml @ 100 mls/hr IVPB Q24HR [facility] Rx#:[id number] Intake, IV Titration 199.792 193.248 Amount Propofol 1,000 mg In 199.792 193.248 Empty Bag 1 bag @ Titrate IV .Q0M [facility] Rx#: [id number] Output: Urine 475 790 460 Estimated Blood Loss 3 Other: Voiding Method Indwelling Catheter Indwelling Catheter Indwelling Catheter ABP, PAP, CO, CI - Last Documented Arterial Blood Pressure 132/59 - Labs CBC & Chem 7: 02/06/20 04:27 02/06/20 04:27 Labs: Abnormal Lab Results - Last 24 Hours (Table) 01/31/20 02/05/20 02/05/20 Range/Units 05:05 11:30 17:49 RBC (4.30-5.90) m/uL Hgb (13.0-17.5) gm/dL Hct (39.0-53.0) % MCV (80.0-100.0) fL ABG pO2 (83-108) mmHg ABG HCO3 (21-25) mmol/L ABG Total CO2 (19-24) mmol/L ABG O2 Saturation (94-97) % Chloride (98-107) mmol/L Carbon Dioxide (22-30) mmol/L BUN (9-20) mg/dL Glucose (74-99) mg/dL POC Glucose (mg/dL) 143 H 151 H (75-99) mg/dL Calcium (8.4-10.2) mg/dL LD Isoenzymes 378 H (120-250) U/L LD 1 17 L (19-38) % LD 2 29 L (30-43) % LD 4 17 H (3-12) % 02/05/20 02/06/20 02/06/20 Range/Units 23:56 04:27 04:27 RBC 3.06 L (4.30-5.90) m/uL Hgb 10.0 L (13.0-17.5) gm/dL Hct 31.1 L (39.0-53.0) % MCV 101.6 H (80.0-100.0) fL ABG pO2 (83-108) mmHg ABG HCO3 (21-25) mmol/L ABG Total CO2 (19-24) mmol/L ABG O2 Saturation (94-97) % Chloride 111 H (98-107) mmol/L Carbon Dioxide 32 H (22-30) mmol/L BUN 56 H (9-20) mg/dL Glucose 141 H (74-99) mg/dL POC Glucose (mg/dL) 139 H (75-99) mg/dL Calcium 7.6 L (8.4-10.2) mg/dL LD Isoenzymes (120-250) U/L LD 1 (19-38) % LD 2 (30-43) % LD 4 (3-12) % 02/06/20 02/06/20 02/06/20 Range/Units 05:27 05:29 08:11 RBC (4.30-5.90) m/uL Hgb (13.0-17.5) gm/dL Hct (39.0-53.0) % MCV (80.0-100.0) fL ABG pO2 43 L* 54 L* (83-108) mmHg ABG HCO3 29 H 29 H (21-25) mmol/L ABG Total CO2 30 H 30 H (19-24) mmol/L ABG O2 Saturation 74.5 L 85.4 L (94-97) % Chloride (98-107) mmol/L Carbon Dioxide (22-30) mmol/L BUN (9-20) mg/dL Glucose (74-99) mg/dL POC Glucose (mg/dL) 143 H (75-99) mg/dL Calcium (8.4-10.2) mg/dL LD Isoenzymes (120-250) U/L LD 1 (19-38) % LD 2 (30-43) % LD 4 (3-12) % Assessment and Plan Plan: Assessment: 1. Acute kidney injury secondary to ATN secondary to hypotension and cardio renal syndrome. Creatinine peaked at 2.7 this admission and is 0.84 today. No hydronephrosis noted on kidney ultrasound. 2. Acute on chronic systolic CHF with ejection fraction of 30-35%. Status post dobutamine. 3. Acute hypercapnic and hypoxic respiratory failure. Status post tracheostomy and PEG tube placement on January 27. 4. Hypotension status post Levophed. 5. Streptococcal pneumonia maintained on antibiotics. Coronavirus PCR negative. 6. COPD exacerbation maintained on IV steroids. 7. Hypokalemia from poor intake. Status post replacement. Magnesium normal. Better. 8. Hypernatremia secondary to lack of oral water intake. Improved. 9. Volume overload. Plan: Started on Lasix 20 mg IV twice daily this morning. Maintain D5W at 75 mL an hour. Repeat sodium level this evening. Avoid nephrotoxins. Continue to monitor renal function and urine output.
[2020-02-06 11:44] LABS: Glucose,Whole Blood 134 mg/dL (75-99)
[2020-02-06] MEDS: LISINOPRIL 2.5 MG TAB PO SCH (12:40)
[2020-02-06] MEDS: APIXABAN 2.5 MG TABLET PO SCH ×3 (12:40→21:18)
[2020-02-06] MEDS: ATORVASTATIN 80 MG TAB PO SCH (12:40)
[2020-02-06] MEDS ORDERED: LIDOCAINE 1% INJ 10MG/ML (20 ML MDV) SQ ONE (13:36)
--- NOTE | 2020-02-06 13:46 | P.PN ---
Subjective Progress Note Date: 02/06/20 CHIEF COMPLAINT: Trach and PEG HISTORY OF PRESENT ILLNESS: 75-year-old male who is status post trach and peg tube insertion with Dr. Monsivais. Postop day #1. Patient examined at the bedside with Dr. Monsivais. Patient ventilating well without issues. Vital signs stable. PHYSICAL EXAM: VITAL SIGNS: Reviewed. GENERAL: Well-developed in no acute distress. HEENT: Trach noted. No sclera icterus. Extraocular movements grossly intact. Moist buccal mucosa. Head is atraumatic, normocephalic. ABDOMEN: Soft. Nondistended. Nontender. PEG tube intact. NEUROLOGIC: Sedated on mechanical ventilation ASSESSMENT: 1. Acute hypoxic respiratory failure requiring mechanical ventilation PLAN: -May resume Eliquis -Begin tube feedings this afternoon -Ventilator management per Dr. Colin Nurse practitioner note has been reviewed by physician. Signing provider agrees with the documented findings, assessment, and plan of care. Objective - Vital Signs Vital signs: Vital Signs Temp 98.1 F 02/06/20 08:00 Pulse 60 02/06/20 11:44 Resp 28 H 02/06/20 11:00 BP 123/78 02/06/20 11:00 Pulse Ox 97 02/06/20 11:00 Intake & Output 02/05/20 02/06/20 02/06/20 18:59 06:59 18:59 Intake Total 7837.723 0292.248 390 Output Total 478 790 710 Balance 1187.792 339.248 -320 Weight 83.5 kg 83.5 kg Intake: IV 1466 936 390 0.9 Normal Saline @ 10mL/ 30 hr as KVO 0.9 Normal Saline @ 3mL/ 36 36 15 hr from Pressure Bag Dextrose 5% in Water 1, 750 900 375 000 ml @ 75 mls/hr IV . [id number] [facility] Rx#:[id number] cefTRIAXone 2 gm In 50 Sodium Chloride 0.9% 50 ml @ 100 mls/hr IVPB Q24HR [facility] Rx#:[id number] Intake, IV Titration 199.792 193.248 Amount Propofol 1,000 mg In 199.792 193.248 Empty Bag 1 bag @ Titrate IV .Q0M [facility] Rx#: [id number] Output: Urine 475 790 710 Estimated Blood Loss 3 Other: Voiding Method Indwelling Catheter Indwelling Catheter Indwelling Catheter ABP, PAP, CO, CI - Last Documented Arterial Blood Pressure 132/59 - Labs CBC & Chem 7: 02/06/20 04:27 02/06/20 04:27 Labs: Abnormal Lab Results - Last 24 Hours (Table) 01/31/20 02/05/20 02/05/20 Range/Units 05:05 17:49 23:56 RBC (4.30-5.90) m/uL Hgb (13.0-17.5) gm/dL Hct (39.0-53.0) % MCV (80.0-100.0) fL ABG pO2 (83-108) mmHg ABG HCO3 (21-25) mmol/L ABG Total CO2 (19-24) mmol/L ABG O2 Saturation (94-97) % Chloride (98-107) mmol/L Carbon Dioxide (22-30) mmol/L BUN (9-20) mg/dL Glucose (74-99) mg/dL POC Glucose (mg/dL) 151 H 139 H (75-99) mg/dL Calcium (8.4-10.2) mg/dL LD Isoenzymes 378 H (120-250) U/L LD 1 17 L (19-38) % LD 2 29 L (30-43) % LD 4 17 H (3-12) % 02/06/20 02/06/20 02/06/20 Range/Units 04:27 04:27 05:27 RBC 3.06 L (4.30-5.90) m/uL Hgb 10.0 L (13.0-17.5) gm/dL Hct 31.1 L (39.0-53.0) % MCV 101.6 H (80.0-100.0) fL ABG pO2 43 L* (83-108) mmHg ABG HCO3 29 H (21-25) mmol/L ABG Total CO2 30 H (19-24) mmol/L ABG O2 Saturation 74.5 L (94-97) % Chloride 111 H (98-107) mmol/L Carbon Dioxide 32 H (22-30) mmol/L BUN 56 H (9-20) mg/dL Glucose 141 H (74-99) mg/dL POC Glucose (mg/dL) (75-99) mg/dL Calcium 7.6 L (8.4-10.2) mg/dL LD Isoenzymes (120-250) U/L LD 1 (19-38) % LD 2 (30-43) % LD 4 (3-12) % 02/06/20 02/06/20 02/06/20 Range/Units : 08:11 11:42 RBC (4.30-5.90) m/uL Hgb (13.0-17.5) gm/dL Hct (39.0-53.0) % MCV (80.0-100.0) fL ABG pO2 54 L* (83-108) mmHg ABG HCO3 29 H (21-25) mmol/L ABG Total CO2 30 H (19-24) mmol/L ABG O2 Saturation 85.4 L (94-97) % Chloride (98-107) mmol/L Carbon Dioxide (22-30) mmol/L BUN (9-20) mg/dL Glucose (74-99) mg/dL POC Glucose (mg/dL) 143 H 134 H (75-99) mg/dL Calcium (8.4-10.2) mg/dL LD Isoenzymes (120-250) U/L LD 1 (19-38) % LD 2 (30-43) % LD 4 (3-12) %
--- NOTE | 2020-02-06 14:07 | XR ---
EXAMINATION TYPE: XR chest 1V portable DATE OF EXAM: 02/06/2020 COMPARISON: 02/06/2020 HISTORY: PICC line placement TECHNIQUE: Single frontal view of the chest is obtained. FINDINGS: Coarsened interstitium and multifocal areas of consolidation and pleural effusion are seen . Cardiac device and tracheostomy tube noted. Postsurgical changes seen. Right-sided PICC line seen w ith the tip overlying the SVC. No pneumothorax. Apical pleural thickening on the left likely related to pleural fluid. IMPRESSION: 1. PICC line appears in good position. 2. Stable diffuse pleural-parenchymal changes correlate for ARDS versus pulmonary edema or diffuse pn eumonia.
--- NOTE | 2020-02-06 14:36 | IR ---
EXAMINATION TYPE: IR cvc insert >=5 years DATE OF EXAM: 02/06/2020 COMPARISON: NONE HISTORY: Needs long-term intravenous access for total parenteral nutrition FINDINGS: Maximal barrier technique was utilized. Hand hygiene obtained with soap and water. The ski n overlying the right basilic vein was localized with ultrasound and noted to be compressible and pat ent by ultrasound. An ultrasound image was obtained and submitted on patient's chart. Sterile techni que utilized with the ultrasound machine. The skin overlying was prepped and draped and Lidocaine use d for local anesthesia. A skin dominic was made with a scalpel. Access was gained to the vein under di rect ultrasound guidance with a 21-gauge needle and a 0.018 inch wire was advanced. Access site was dilated with a peel-away sheath and the catheter tailored to length. Catheter advanced centrally and a post procedure chest x-ray verified placement with the tip near the cavoatrial junction level. Ca theter was fixed to the skin with suture and a sterile dressing placed. Hemostasis achieved and the catheter was aspirated and flushed with sterile saline. The patient remained in stable condition. IMPRESSION: STATUS POST ULTRASOUND GUIDED PICC LINE PLACEMENT, READY FOR USE. THIS PROCEDURE WAS PER FORMED BY THE UNDERSIGNED.
--- NOTE | 2020-02-06 14:40 | PN ---
PROGRESS NOTE DATE OF SERVICE: 02/06/2020. REASON FOR FOLLOWUP: Pneumonia. INTERVAL HISTORY: The patient is currently afebrile. The patient is hemodynamically stable. FiO2 is currently 60%. no diarrhea has been reported. PHYSICAL EXAMINATION: Blood pressure 146/93 with a pulse of 63, temperature 98.1, he is 92% on 50% FiO2. General description is an elderly male, lying in bed in no distress. RESPIRATORY SYSTEM: Unlabored breathing, clear to auscultation anteriorly. HEART: S1, S2. Regular rate and rhythm. ABDOMEN: Soft, no tenderness. LABS: Hemoglobin is 10.3, white count of 10.6, BUN of 26, creatinine 0.84. DIAGNOSTIC IMPRESSION AND PLAN: Patient acute respiratory failure which is multifactorial. Did have a component of pneumonia. Previous culture positive for strep pneumo. Patient is covered on Rocephin 2 g daily to continue and monitor clinical course closely. Continue supportive care. MMODL / IJN: [id number] /
[2020-02-06 17:42] LABS: Glucose,Whole Blood 143 mg/dL (75-99)
--- NOTE | 2020-02-06 21:46 | P.PN ---
Progress Note - Text Progress Note Date: 02/06/20 Chief Complaint: Short of breath History of presenting complaint: This is a 75-year-old patient of Dr. Gonzáles. Long-standing smoker. Chronic stable medical conditions include atrial fibrillation, AICD, coronary artery disease with prior bypass, on home oxygen, GERD, COPD. Last ejection fraction is 40-45%. She presents with worsening short of breath for about a week at least. It has been progressively getting worse. Some edema. Weak and tired slight cough is present. Increasing swelling of lower extremity. Orthopnea. No fever no chills. Tired and rundown. Slow with given history. Admitted with acute on chronic CHF exacerbation, COPD exacerbation. Was started on IV Lasix, bronchodilators and IV steroids. Early hours of January 25 patient was becoming more short of breath, could not tolerate BiPAP was intubated and placed in the ICU. Also being treated for pneumonia. Patient extubated on January 28. Patient had remained on IV Lasix drip, IV dobutamine. Was worsening again. And patient was reintubated on January 30. February 04 patient had a PEG tube and a tracheostomy tube placed to Dr. Monsivais. Tkare-[id number]-nooxtcptf. FiO2 of 60 and PEEP of 13. Remains on a propofol drip. Sedated. Review of systems: Cannot be done, patient intubated Active Medications Albuterol/Ipratropium (Duoneb 0.5 Mg-3 Mg/3 Ml Soln) 3 ml INHALATION RT-QID [facility] Last Admin: 02/06/20 19:44 Dose: 3 ml Documented by: Albuterol/Ipratropium (Duoneb 0.5 Mg-3 Mg/3 Ml Soln) 3 ml INHALATION RT-Q2H PRN PRN Reason: Shortness Of Breath Or Wheezing Last Admin: 02/04/20 02:59 Dose: 3 ml Documented by: Apixaban (Eliquis) 2.5 mg PO BID [facility] Last Admin: 02/06/20 21:18 Dose: 2.5 mg Documented by: Atorvastatin Calcium (Lipitor) 80 mg PO DAILY [facility] Last Admin: 02/06/20 12:40 Dose: 80 mg Documented by: Budesonide (Pulmicort) 0.5 mg INHALATION RT-BID [facility] Last Admin: 02/06/20 19:44 Dose: 0.5 mg Documented by: Chlorhexidine Gluconate (Peridex) 15 ml MUCOUS MEM BID [facility] Last Admin: 02/06/20 21:18 Dose: 15 ml Documented by: Furosemide (Lasix) 20 mg IV Q12HR [facility] Last Admin: 02/06/20 21:18 Dose: 20 mg Documented by: Hydromorphone HCl (Dilaudid) 1 mg IVP Q4HR PRN PRN Reason: Pain Last Admin: 02/04/20 20:27 Dose: 1 mg Documented by: Propofol 1,000 mg/ IV Solution 100 mls @ 0 mls/hr IV .Q0M [facility]; Protocol Last Admin: 02/06/20 18:06 Dose: 50 mcg/kg/min, 23.76 mls/hr Documented by: Dextrose/Water (Dextrose 5%-Water Iv Soln) 1,000 mls @ 75 mls/hr IV .[id number] [facility] Last Admin: 02/06/20 09:15 Dose: 75 mls/hr Documented by: Insulin Aspart (Novolog) 0 unit SQ Q6H [facility]; Protocol Last Admin: 02/06/20 18:10 Dose: 1 unit Documented by: Lisinopril (Zestril) 2.5 mg PO DAILY [facility] Last Admin: 02/06/20 12:40 Dose: 2.5 mg Documented by: Methylprednisolone Sodium Succinate (Solu-Medrol) 40 mg IV Q8HR [facility] Last Admin: 02/06/20 16:55 Dose: 40 mg Documented by: Miscellaneous Information (Magnesium Per Protocol) 1 each MISCELLANE DAILY PRN; Protocol PRN Reason: Per Protocol Miscellaneous Information (Potassium Per Protocol) 1 each MISCELLANE DAILY PRN; Protocol PRN Reason: Per Protocol Naloxone HCl (Narcan) 0.2 mg IV Q2M PRN PRN Reason: Opioid Reversal Nicotine (Habitrol 21mg/24hr Patch) 1 patch TRANSDERM DAILY [facility] Last Admin: 02/06/20 09:16 Dose: 1 patch Documented by: Pantoprazole Sodium (Protonix) 40 mg IV DAILY [facility] Last Admin: 02/06/20 09:16 Dose: 40 mg Documented by: Sodium Chloride (Saline Flush) 10 ml IV Q4HR PRN PRN Reason: PICC Line Sodium Chloride (Saline Flush) 10 ml IV WEEKLY [facility] Sodium Chloride (Saline Flush) 20 ml IV Q4HR PRN PRN Reason: PICC Line Physical examination: VITAL SIGNS: 98.2, 60, 28, 120/59, 99% on the ventilator GENERAL: Laying in bed, sedated EYES: Pupils equal. Conjunctiva normal. NECK: JVD unable to assess; masses not palpable. Tracheostomy tube HEART: Heart sounds irregular, edema present. LUNGS: Respiratory rate increased,, diminished breath sounds. ABDOMEN: Soft, nontender, liver spleen not palpable, no masses palpable. PEG tube. PSYCH: Unable to assess, patient sedated MUSCULAR skeletal: Evidence of OA INVESTIGATIONS, reviewed in the clinical context: White count 10.6 hemoglobin 10 potassium 4.4 creatinine 0.84 Previous testing White count 13.1 hemoglobin 12.2 platelets 139, potassium 4.9 crit 1.01 Chest x-ray film personally reviewed by me-increasing bilateral infiltrates CRP 60.5 pro calcitonin 0.1 Sputum culture growing Streptococcus pneumoniae, Anna glabrata 2-D co-EF 30-35% Previous testing White count 10.9 hemoglobin 12.4 platelets 165 neutrophils 9.2 lymphocytes 0.7 potassium 4.3 bun 27 creatinine 0.88, proBNP 1530 EKG tracing personally reviewed by me-atrial flutter rate controlled Chest x-ray film personally reviewed by me-pulmonary edema, cardiomegaly, portable film Assessment: -Acute on chronic congestive heart failure exacerbation from systolic dysfunction EF 30-35% % from underlying coronary artery disease, POA- -Bilateral pneumonia, Streptococcus pneumoniae causing sepsis, POA,-not improving -Coronary artery disease a prior history of bypass -Acute COPD exacerbation and an current smoker, POA, not improving -Chronic nicotine dependence patient cigarette smoker -Persistent atrial fibrillation -Chronic hypoxic and hypercapnic respiratory failure from a lying COPD -Acute hypoxic and hypercapnic respiratory failure from COPD and CHF, pneumonia POA-worsening on extubated January 28. Reintubated on January 30-slow to respond -Acute kidney injury possibly combination of ATN and prerenal-improved -Chronic left-sided pleural effusion since 2016 per pulmonary -COVID-19 PCR not detected -AICD Plan: -ICU.-On IV propofol. Intubated. On IV Solu-Medrol, IV Lasix 20 mg every 12. Prognosis guarded. On IV ceftriaxone.
--- NOTE | 2020-02-06 21:57 | PCN ---
PROCEDURE NOTE RIGHT RADIAL ARTERIAL LINE PLACEMENT: PREOPERATIVE DIAGNOSIS: Acute hypoxic respiratory failure. POSTOPERATIVE DIAGNOSIS: Acute hypoxic respiratory failure. A time-out was completed verifying correct patient, procedure, site, positioning, and implant(s) or special equipment if applicable. Gianni's test was performed to ensure adequate perfusion. The patient's right wrist was prepped and draped in sterile fashion. 1% Lidocaine was used to anesthetize the area. An 18G Arrow arterial line was introduced into the radial artery. The catheter was threaded over the guide wire and the needle was removed with appropriate pulsatile blood return. Blood loss was minimal. The catheter was then sutured in place to the skin and a sterile dressing applied. Perfusion to the extremity distal to the point of catheter insertion was checked and found to be adequate. The patient tolerated the procedure well and there were no immediate complications. The line was flushed. Good waveform was noted. Sterile dressing was applied by the nursing staff. Sutured in place. MMODL / IJN: [id number] /
[2020-02-07 00:09] LABS: Glucose,Whole Blood 145 mg/dL (75-99)
[2020-02-07] MEDS: INSULIN ASPART (NovoLOG) 100 UNIT/ML VIAL SQ SCH ×5 (00:18→23:24)
[2020-02-07] MEDS: methylPREDNISolone SOD SUCCI 40 MG/ML 1 ML VIAL IV SCH ×4 (00:19→23:19)
[2020-02-07] MEDS: DEXTROSE 5% IN WATER 1,000 ML IV SCH (00:20)
[2020-02-07] MEDS: PROPOFOL 1,000 MG in EMPTY BAG 1 BAG IV SCH ×6 (00:24→22:56)
[2020-02-07 04:22] LABS: HCT 28.5 % (39.0-53.0); HGB 9.7 gm/dL (13.0-17.5); MCH 34.3 pg (25.0-35.0); MCHC 33.9 g/dL (31.0-37.0); Macrocytosis Slight; Platelet Count 152 k/uL (150-450); RBC 2.82 m/uL (4.30-5.90); RDW 14.7 % (11.5-15.5); WBC 11.6 k/uL (3.8-10.6)
[2020-02-07 04:46] LABS: African American GFR (CKD) >90 (>60 ml/min/1.73 sqM); Anion Gap 2 mmol/L; Blood Urea Nitrogen 50 mg/dL (9-20); Calcium 7.3 mg/dL (8.4-10.2); Carbon Dioxide 30 mmol/L (22-30); Chloride 105 mmol/L (98-107); Glucose 156 mg/dL (74-99); Non-African American GFR(CKD) 86 (>60 ml/min/1.73 sqM); Potassium 4.2 mmol/L (3.5-5.1); Sodium 137 mmol/L (137-145)
[2020-02-07 05:17] LABS: ABG Base Excess 4.5 mmol/L; ABG HCO3 28 mmol/L (21-25); ABG Oxygen Saturation 97.5 % (94-97); ABG PCO2 39 mmHg (35-45); ABG PH 7.47 (7.35-7.45); ABG PO2 108 mmHg (83-108); ABG TCO2 29 mmol/L (19-24); Allen Test Performed? Yes
[2020-02-07 05:49] LABS: Glucose,Whole Blood 151 mg/dL (75-99)
--- NOTE | 2020-02-07 06:51 | XR ---
EXAMINATION TYPE: XR chest 1V portable DATE OF EXAM: 02/07/2020 CLINICAL HISTORY: Difficulty breathing progress study. TECHNIQUE: Single AP portable upright view of the chest is obtained. COMPARISON: Chest x-ray from one day earlier and older studies FINDINGS: Stable right-sided PICC line and tracheostomy tube. Persistent cardiomegaly with multilead pacemaker/AICD. Overlying sternal wires and mediastinal clips. Persistent small to moderate size lef t pleural fluid collection extending to lung apex. Associated left mid to basilar opacities. Backgrou nd Chronic parenchymal change. Right lung is clear. IMPRESSION: Overall stable findings, chronic parenchymal changes and cardiomegaly with small to mod erate-size left-sided pleural fluid collection and associated left mid to basilar acute infiltrate an d/or atelectasis are all redemonstrated.
--- NOTE | 2020-02-07 07:02 | P.PN ---
Subjective Progress Note Date: 02/07/20 Principal diagnosis: severe CAD/severe cardiomyopathy This is a 75-year-old gentleman with a past medical history significant for coronary artery disease and status post coronary artery bypass grafting, severe cardiomyopathy and status post AICD, long-standing persistent atrial fibrillation on oral anticoagulation, as well as severe chronic obstructive pulmonary disease on home oxygen, was admitted to the hospital with acute hypoxic respiratory failure secondary to COPD exacerbation was a component of congestive heart failure exacerbation. The patient was seen today, February [id number]. He remains hemodynamically stable. He remains in sinus rhythm. I did restart the oral anticoagulation yesterday. He is on lisinopril. He is not on beta javy at this point but the pressure is marginal and I would wait on that at this point. I am going to restart the patient back on Aldactone for the cardiomyopathy. We will restart the beta javy once a pressure improved. The chest x-ray was reviewed and showed left pleural effusion. Objective - Vital Signs Vital signs: Vital Signs Temp 97.1 F L 02/07/20 04:00 Pulse 60 02/07/20 06:00 Resp 28 H 02/07/20 06:00 BP 117/72 02/07/20 06:00 Pulse Ox 96 02/07/20 06:00 Intake & Output 02/06/20 02/07/20 02/07/20 18:59 06:59 18:59 Intake Total 1930.016 4157.848 Output Total 1330 1105 Balance 63.416 633.848 Weight 83.5 kg 84.1 kg Intake: IV 936 1014 0.9 Normal Saline @ 3mL/ 36 39 hr from Pressure Bag Dextrose 5% in Water 1, 900 975 000 ml @ 75 mls/hr IV . [id number] [facility] Rx#:[id number] Intake, IV Titration 197.416 234.848 Amount Propofol 1,000 mg In 197.416 234.848 Empty Bag 1 bag @ Titrate IV .Q0M [facility] Rx#: [id number] Tube Feeding 60 230 Other 200 260 Output: Urine 1330 1105 Other: Voiding Method Indwelling Catheter Indwelling Catheter ABP, PAP, CO, CI - Last Documented Arterial Blood Pressure 126/62 - Constitutional General appearance: Present: no acute distress - Respiratory Respiratory: bilateral: diminished - Cardiovascular Rhythm: regular Heart sounds: normal: S1, S2 - Labs CBC & Chem 7: 02/07/20 04:10 02/07/20 04:10 Labs: Abnormal Lab Results - Last 24 Hours (Table) 02/06/20 02/06/20 02/06/20 Range/Units 08:11 11:42 17:41 WBC (3.8-10.6) k/uL RBC (4.30-5.90) m/uL Hgb (13.0-17.5) gm/dL Hct (39.0-53.0) % MCV (80.0-100.0) fL ABG pH (7.35-7.45) ABG pO2 54 L* (83-108) mmHg ABG HCO3 29 H (21-25) mmol/L ABG Total CO2 30 H (19-24) mmol/L ABG O2 Saturation 85.4 L (94-97) % BUN (9-20) mg/dL Glucose (74-99) mg/dL POC Glucose (mg/dL) 134 H 143 H (75-99) mg/dL Calcium (8.4-10.2) mg/dL 02/07/20 02/07/20 02/07/20 Range/Units 00:08 04:10 04:10 WBC 11.6 H (3.8-10.6) k/uL RBC 2.82 L (4.30-5.90) m/uL Hgb 9.7 L (13.0-17.5) gm/dL Hct 28.5 L (39.0-53.0) % MCV 101.0 H (80.0-100.0) fL ABG pH (7.35-7.45) ABG pO2 (83-108) mmHg ABG HCO3 (21-25) mmol/L ABG Total CO2 (19-24) mmol/L ABG O2 Saturation (94-97) % BUN 50 H (9-20) mg/dL Glucose 156 H (74-99) mg/dL POC Glucose (mg/dL) 145 H (75-99) mg/dL Calcium 7.3 L (8.4-10.2) mg/dL 02/07/20 02/07/20 Range/Units 05:15 05:47 WBC (3.8-10.6) k/uL RBC (4.30-5.90) m/uL Hgb (13.0-17.5) gm/dL Hct (39.0-53.0) % MCV (80.0-100.0) fL ABG pH 7.47 H (7.35-7.45) ABG pO2 (83-108) mmHg ABG HCO3 28 H (21-25) mmol/L ABG Total CO2 29 H (19-24) mmol/L ABG O2 Saturation 97.5 H (94-97) % BUN (9-20) mg/dL Glucose (74-99) mg/dL POC Glucose (mg/dL) 151 H (75-99) mg/dL Calcium (8.4-10.2) mg/dL Microbiology - Last 24 Hours (Table) 02/06/20 14:00 Catheter Tip Culture - Preliminary Catheter Tip Assessment and Plan Assessment: assessment #1 acute hypoxic respiratory failure #2 severe chronic obstructive pulmonary disease #3 severe cardiomyopathy #4 severe coronary artery disease #5 long-standing persistent atrial fibrillation #6 is audible comorbid conditions Plan #1 continue the current medical regimen #2 continue oral anticoagulation #3 restart the patient on Aldactone #4 restart beta javy once the pressure is improved #5 follow-up with the patient
[2020-02-07] MEDS: IPRATROPIUM-ALBUTEROL 3 ML NEB INHALATION SCH ×4 (07:20→19:39)
[2020-02-07] MEDS: BUDESONIDE 0.5 MG/2 ML NEBU INHALATION SCH ×2 (07:20→19:39)
[2020-02-07] MEDS: PANTOPRAZOLE 40 MG/10 ML VIAL IV SCH (09:49)
[2020-02-07] MEDS: CHLORHEXIDINE GLUCONATE 15 ML CUP MUCOUS MEM SCH ×2 (09:49→20:33)
[2020-02-07] MEDS: LISINOPRIL 2.5 MG TAB PO SCH (09:50)
[2020-02-07] MEDS: SPIRONOLACTONE 25 MG TAB PO SCH (09:50)
[2020-02-07] MEDS: NICOTINE 21MG/24HR PATCH TRANSDERM SCH (09:50)
[2020-02-07] MEDS: ATORVASTATIN 80 MG TAB PO SCH (09:50)
[2020-02-07] MEDS: FUROSEMIDE 10 MG/ML 2 ML VIAL IV SCH ×2 (09:50→20:33)
[2020-02-07] MEDS: APIXABAN 2.5 MG TABLET PO SCH ×2 (09:50→20:45)
[2020-02-07] MEDS: LACTATED RINGERS 1,000 ML IV SCH ×2 (10:03→20:34)
--- NOTE | 2020-02-07 10:24 | P.PN ---
Subjective Progress Note Date: 02/07/20 Principal diagnosis: Respiratory failure Patient stable on the ventilator. Also asked 91%. White blood cell count 11.6. Tolerating tube feeds at 35 mL per hour. Objective - Vital Signs Vital signs: Vital Signs Temp 97.1 F L 02/07/20 04:00 Pulse 60 02/07/20 07:45 Resp 28 H 02/07/20 07:00 BP 117/72 02/07/20 06:00 Pulse Ox 94 L 02/07/20 07:00 Intake & Output 02/06/20 02/07/20 02/07/20 18:59 06:59 18:59 Intake Total 7456.983 7916.848 Output Total 1330 1105 Balance 63.416 633.848 Weight 83.5 kg 84.1 kg Intake: IV 936 1014 0.9 Normal Saline @ 3mL/ 36 39 hr from Pressure Bag Dextrose 5% in Water 1, 900 975 000 ml @ 75 mls/hr IV . [id number] [facility] Rx#:[id number] Intake, IV Titration 197.416 234.848 Amount Propofol 1,000 mg In 197.416 234.848 Empty Bag 1 bag @ Titrate IV .Q0M [facility] Rx#: [id number] Tube Feeding 60 230 Other 200 260 Output: Urine 1330 1105 Other: Voiding Method Indwelling Catheter Indwelling Catheter ABP, PAP, CO, CI - Last Documented Arterial Blood Pressure 126/61 - Exam Trach site clean without evidence of bleeding or infection Abdomen: Soft, nontender, nondistended, PEG tube intact - Labs CBC & Chem 7: 02/07/20 04:10 02/07/20 04:10 Labs: Abnormal Lab Results - Last 24 Hours (Table) 02/06/20 02/06/20 02/07/20 Range/Units 11:42 17:41 00:08 WBC (3.8-10.6) k/uL RBC (4.30-5.90) m/uL Hgb (13.0-17.5) gm/dL Hct (39.0-53.0) % MCV (80.0-100.0) fL ABG pH (7.35-7.45) ABG HCO3 (21-25) mmol/L ABG Total CO2 (19-24) mmol/L ABG O2 Saturation (94-97) % BUN (9-20) mg/dL Glucose (74-99) mg/dL POC Glucose (mg/dL) 134 H 143 H 145 H (75-99) mg/dL Calcium (8.4-10.2) mg/dL Magnesium (1.6-2.3) mg/dL 02/07/20 02/07/20 02/07/20 Range/Units 04:10 04:10 04:10 WBC 11.6 H (3.8-10.6) k/uL RBC 2.82 L (4.30-5.90) m/uL Hgb 9.7 L (13.0-17.5) gm/dL Hct 28.5 L (39.0-53.0) % MCV 101.0 H (80.0-100.0) fL ABG pH (7.35-7.45) ABG HCO3 (21-25) mmol/L ABG Total CO2 (19-24) mmol/L ABG O2 Saturation (94-97) % BUN 50 H (9-20) mg/dL Glucose 156 H (74-99) mg/dL POC Glucose (mg/dL) (75-99) mg/dL Calcium 7.3 L (8.4-10.2) mg/dL Magnesium 2.9 H (1.6-2.3) mg/dL 02/07/20 02/07/20 Range/Units 05:15 05:47 WBC (3.8-10.6) k/uL RBC (4.30-5.90) m/uL Hgb (13.0-17.5) gm/dL Hct (39.0-53.0) % MCV (80.0-100.0) fL ABG pH 7.47 H (7.35-7.45) ABG HCO3 28 H (21-25) mmol/L ABG Total CO2 29 H (19-24) mmol/L ABG O2 Saturation 97.5 H (94-97) % BUN (9-20) mg/dL Glucose (74-99) mg/dL POC Glucose (mg/dL) 151 H (75-99) mg/dL Calcium (8.4-10.2) mg/dL Magnesium (1.6-2.3) mg/dL Microbiology - Last 24 Hours (Table) 02/06/20 14:00 Catheter Tip Culture - Preliminary Catheter Tip Assessment and Plan (1) Hypoxia Narrative/Plan: Patient doing well with tracheostomy and PEG tube. Continue tube feeds at goal. Dr. Monsivais will resume following this patient on Sunday. Call with issues. Current Visit: Yes Status: Acute Code(s): R09.02 - HYPOXEMIA SNOMED Code(s): 891691397
[2020-02-07 11:49] LABS: Glucose,Whole Blood 111 mg/dL (75-99)
--- NOTE | 2020-02-07 12:37 | PN ---
PROGRESS NOTE Patient is seen for followup for acute kidney injury and hypernatremia. His sodium has improved, currently down to 137. Serum creatinine has improved with creatinine down to 0.86. The patient remains on the vent. FiO2 is at 50%. On examination, blood pressure was 125/60, heart rate 60 per minute. He is afebrile. Sedation has been turned off. Examination of the heart S1, S2. Examination of the lungs, bilateral breath sounds are heard. Abdomen is soft, nontender. Examination of lower extremities shows edema 1+ bilaterally. LABS: Show sodium 137, potassium 4.2, chloride 105, BUN 50, serum creatinine 0.86, hemoglobin 9.7 g/dL. ASSESSMENT: 1. Acute kidney injury, acute tubular necrosis, currently improved. 2. Hypernatremia, now improved with serum sodium down to 137, currently off the D5W maintained on free water down the feeding tube, which we will continue. 3. Mild volume overload. The patient did receive Lasix. I will continue with the current dose for now. He is maintained at 20 mg q.12 hours. 4. Cardiomyopathy, ejection fraction 30-35%, status post dobutamine. 5. Hypotension, currently resolved. 6. Streptococcal pneumonia, maintained on antibiotics. 7. Chronic obstructive pulmonary disease exacerbation, currently on IV steroids. PLAN: Continue with current dose of Lasix. Agree with discontinuation of D5W. Repeat labs in a.m. MMODL / IJN: [id number] /
--- NOTE | 2020-02-07 14:13 | P.PN ---
Subjective Progress Note Date: 02/07/20 Principal diagnosis: Acute on chronic hypoxemic, hypercapnic respiratory failure, multifactorial related to acute systolic congestive heart failure, acute exacerbation of COPD and streptococcal pneumonia The patient is seen today 02/07/2020 in follow-up in the intensive care unit. He remains intubated on mechanical ventilator. Assist control at a rate of 20, tidal volume 400, FiO2 50% and a PEEP of 13. Morning blood gases reveal a P O2 of 108, pCO2 of 39, pH 7.47. He is continued on propofol at 40 mcg/kg/m. D5W it 125 ML's per hour vital HPI 30 ML's per hour with a goal of 35. Chest x-ray shows overall stable findings, chronic parenchymal changes and cardiomegaly with small to moderate left-sided pleural effusion with atelectasis/infiltrate. Sputum was positive for Streptococcus pneumoniae. White count 11.6. Hemoglobin 9.7. Sodium 137. Potassium 4.2. Creatinine 0.86. He remains on bronchodilators, IV diuretics, IV Solu-Medrol. He remains afebrile. He modynamically stable. Objective - Vital Signs Vital signs: Vital Signs Temp 97.8 F 02/07/20 12:00 Pulse 65 02/07/20 13:00 Resp 32 H 02/07/20 13:00 BP 136/72 02/07/20 12:00 Pulse Ox 91 L 02/07/20 13:00 Intake & Output 02/06/20 02/07/20 02/07/20 18:59 06:59 18:59 Intake Total 1350.156 8009.848 1117.510 Output Total 1330 1105 725 Balance 63.416 633.848 392.510 Weight 83.5 kg 84.1 kg Intake: IV 936 1014 525 0.9 Normal Saline @ 3mL/ 36 39 hr from Pressure Bag Dextrose 5% in Water 1, 900 975 75 000 ml @ 75 mls/hr IV . [id number] [facility] Rx#:[id number] Lactated Ringers 1,000 ml 450 @ 75 mls/hr IV .[id number] [facility] Rx#:[id number] Intake, IV Titration 197.416 234.848 92.510 Amount Propofol 1,000 mg In 197.416 234.848 92.510 Empty Bag 1 bag @ Titrate IV .Q0M [facility] Rx#: [id number] Oral 75 Tube Feeding 60 230 225 Other 200 260 200 Output: Urine 1330 1105 725 Other: Voiding Method Indwelling Catheter Indwelling Catheter Indwelling Catheter ABP, PAP, CO, CI - Last Documented Arterial Blood Pressure 145/68 - Exam GENERAL EXAM: On mechanical ventilator, sedated, 75-year-old male patient in no apparent distress. HEAD: Normocephalic/atraumatic. EYES: Normal reaction of pupils, equal size. Conjunctiva pink, sclera white. NOSE: Clear with pink turbinates. THROAT: No erythema or exudates. NECK: No masses, no JVD, no thyroid enlargement, no adenopathy. Midline tracheostomy in place, #8 foam cuff trach CHEST: No chest wall deformity. Symmetrical expansion. LUNGS: Equal air entry with basilar crackles left greater than right CVS: Regular rate and rhythm, normal S1 and S2, no gallops, no murmurs, no rubs ABDOMEN: Soft, nontender. No hepatosplenomegaly, normal bowel sounds, no guarding or rigidity. PEG tube is in place, taped to the abdomen, surg dressing in place EXTREMITIES: No clubbing, no edema, no cyanosis, 2+ pulses and upper and lower extremities. MUSCULOSKELETAL: Muscle strength and tone normal. SPINE: No scoliosis or deformity SKIN: No rashes CENTRAL NERVOUS SYSTEM: Trached to the vent, sedated. No focal deficits, tone is normal in all 4 extremities. - Labs CBC & Chem 7: 02/07/20 04:10 02/07/20 04:10 Labs: Abnormal Lab Results - Last 24 Hours (Table) 02/06/20 02/07/20 02/07/20 Range/Units 17:41 00:08 04:10 WBC 11.6 H (3.8-10.6) k/uL RBC 2.82 L (4.30-5.90) m/uL Hgb 9.7 L (13.0-17.5) gm/dL Hct 28.5 L (39.0-53.0) % MCV 101.0 H (80.0-100.0) fL ABG pH (7.35-7.45) ABG HCO3 (21-25) mmol/L ABG Total CO2 (19-24) mmol/L ABG O2 Saturation (94-97) % BUN (9-20) mg/dL Glucose (74-99) mg/dL POC Glucose (mg/dL) 143 H 145 H (75-99) mg/dL Calcium (8.4-10.2) mg/dL Magnesium (1.6-2.3) mg/dL 02/07/20 02/07/20 02/07/20 Range/Units 04:10 04:10 05:15 WBC (3.8-10.6) k/uL RBC (4.30-5.90) m/uL Hgb (13.0-17.5) gm/dL Hct (39.0-53.0) % MCV (80.0-100.0) fL ABG pH 7.47 H (7.35-7.45) ABG HCO3 28 H (21-25) mmol/L ABG Total CO2 29 H (19-24) mmol/L ABG O2 Saturation 97.5 H (94-97) % BUN 50 H (9-20) mg/dL Glucose 156 H (74-99) mg/dL POC Glucose (mg/dL) (75-99) mg/dL Calcium 7.3 L (8.4-10.2) mg/dL Magnesium 2.9 H (1.6-2.3) mg/dL 02/07/20 02/07/20 Range/Units 05:47 11:47 WBC (3.8-10.6) k/uL RBC (4.30-5.90) m/uL Hgb (13.0-17.5) gm/dL Hct (39.0-53.0) % MCV (80.0-100.0) fL ABG pH (7.35-7.45) ABG HCO3 (21-25) mmol/L ABG Total CO2 (19-24) mmol/L ABG O2 Saturation (94-97) % BUN (9-20) mg/dL Glucose (74-99) mg/dL POC Glucose (mg/dL) 151 H 111 H (75-99) mg/dL Calcium (8.4-10.2) mg/dL Magnesium (1.6-2.3) mg/dL Microbiology - Last 24 Hours (Table) 02/06/20 14:00 Catheter Tip Culture - Preliminary Catheter Tip Assessment and Plan Assessment: #1. Acute on chronic hypoxemic, and hypercapnic respiratory failure, multifactorial, in part related to underlying exacerbation of acute systolic congestive heart failure, acute exacerbation of COPD, and streptococcal pneumonia, and a component of ARDS is not excluded #2. Failure to wean from mechanical ventilation, and patient is status post tracheostomy and PEG tube insertion on 01/28/2020 #3. History of coronary artery disease with previous bypass grafting #4. History of cardiomyopathy with LV dysfunction and AICD placement #5. history of systolic congestive heart failure #6. Suspected cardiorenal syndrome #7. Chronic atrial fibrillation, patient is on Eliquis for anticoagulation, which is currently on hold for tracheostomy and PEG tube insertion #8. Tobacco dependence syndrome #9. Chronic left-sided pleural effusion present since 2016 #10. Covid 19 testing was negative #11. Hypernatremia, related to free water deficit, improved #12. Hyperchloremia, related to 0.9 normal saline infusion and free water deficit, improved with 5% dextrose infusion and free water flushes, changed to lactated Ringer's at 75 ML's per hour Plan: The patient was seen and evaluated by Dr. Colin Chest x-ray, ABGs and labs reviewed We did decrease the PEEP to 10 Give a daily interruption of sedation to assess neurologic status Change IV solution to lactated Ringer's at 75 ML's in our Repeat chest x-ray in a.m. Critical care time 36 minutes I, the cosigning physician, performed a history & physical examination of the patient. Lungs sounds with basilar crackles left greater than right. Maintaining good O2 saturations in the 90s on 50% FiO2 on the mechanical ventilator. I discussed the assessment and plan of care with my nurse practitioner, Rossi Arenas. I attest to the above note as dictated by her.
[2020-02-07 17:42] LABS: Glucose,Whole Blood 132 mg/dL (75-99)
--- NOTE | 2020-02-07 18:31 | PN ---
PROGRESS NOTE DATE OF SERVICE: 02/07/2020 REASON FOR FOLLOWUP: Pneumonia. INTERVAL HISTORY: The patient is currently afebrile. The patient is hemodynamically stable. The patient is intubated on the vent. FiO2 is currently 50%. No significant purulent secretion in the ET or diarrhea has been reported. PHYSICAL EXAMINATION: Blood pressure 116/55, pulse of 81, temperature 98.3. He is 94% on 50% FiO2. General description is an elderly male lying in bed in no distress. Respiratory system: Unlabored breathing, clear to auscultation anteriorly. Heart S1, S2. Regular rate and rhythm. Abdomen soft, no tenderness. LABS: Hemoglobin 11.6, BUN of 50, creatinine 0.86. DIAGNOSTIC IMPRESSION AND PLAN: Patient with acute respiratory failure, vent dependent, which is likely multifactorial in this patient. Initial sputum with strep pneumo. Repeat is is Anna glabrata. Patient antibiotics completed. Rocephin was discontinued by Pulmonary yesterday. The patient will be monitored closely off antibiotic therapy and continue supportive care. MMODL / IJN: [id number] /
--- NOTE | 2020-02-07 22:06 | P.PN ---
Progress Note - Text Progress Note Date: 02/07/20 Chief Complaint: Short of breath History of presenting complaint: This is a 75-year-old patient of Dr. Gonzáles. Long-standing smoker. Chronic stable medical conditions include atrial fibrillation, AICD, coronary artery disease with prior bypass, on home oxygen, GERD, COPD. Last ejection fraction is 40-45%. She presents with worsening short of breath for about a week at least. It has been progressively getting worse. Some edema. Weak and tired slight cough is present. Increasing swelling of lower extremity. Orthopnea. No fever no chills. Tired and rundown. Slow with given history. Admitted with acute on chronic CHF exacerbation, COPD exacerbation. Was started on IV Lasix, bronchodilators and IV steroids. Early hours of January 25 patient was becoming more short of breath, could not tolerate BiPAP was intubated and placed in the ICU. Also being treated for pneumonia. Patient extubated on January 28. Patient had remained on IV Lasix drip, IV dobutamine. Was worsening again. And patient was reintubated on January 30. February 04 patient had a PEG tube and a tracheostomy tube placed to Dr. Monsivais. Antibiotics discontinued. Dr. Colin on February 05.. Behro-UQO-qldftuvne. FiO2 50 and PEEP of 10. Drips include IV propofol. Patient was given a sedation holiday but didn't do well. 2 feeding is at goal at 35 mL an hour as of today. Patient has a sacral decubitus ulcer stage II. Review of systems: Cannot be done, patient intubated Active Medications Albuterol/Ipratropium (Duoneb 0.5 Mg-3 Mg/3 Ml Soln) 3 ml INHALATION RT-QID [facility] Last Admin: 02/07/20 19:39 Dose: 3 ml Documented by: Albuterol/Ipratropium (Duoneb 0.5 Mg-3 Mg/3 Ml Soln) 3 ml INHALATION RT-Q2H PRN PRN Reason: Shortness Of Breath Or Wheezing Last Admin: 02/04/20 02:59 Dose: 3 ml Documented by: Apixaban (Eliquis) 2.5 mg PO BID [facility] Last Admin: 02/07/20 20:45 Dose: 2.5 mg Documented by: Atorvastatin Calcium (Lipitor) 80 mg PO DAILY [facility] Last Admin: 02/07/20 09:50 Dose: 80 mg Documented by: Budesonide (Pulmicort) 0.5 mg INHALATION RT-BID [facility] Last Admin: 02/07/20 19:39 Dose: 0.5 mg Documented by: Chlorhexidine Gluconate (Peridex) 15 ml MUCOUS MEM BID [facility] Last Admin: 02/07/20 20:33 Dose: 15 ml Documented by: Furosemide (Lasix) 20 mg IV Q12HR [facility] Last Admin: 02/07/20 20:33 Dose: 20 mg Documented by: Hydromorphone HCl (Dilaudid) 1 mg IVP Q4HR PRN PRN Reason: Pain Last Admin: 02/04/20 20:27 Dose: 1 mg Documented by: Propofol 1,000 mg/ IV Solution 100 mls @ 0 mls/hr IV .Q0M [facility]; Protocol Last Admin: 02/07/20 18:00 Dose: 40 mcg/kg/min, 20.184 mls/hr Documented by: Lactated Ringer's (Lactated Ringers) 1,000 mls @ 75 mls/hr IV .[id number] [facility] Last Admin: 02/07/20 20:34 Dose: 75 mls/hr Documented by: Insulin Aspart (Novolog) 0 unit SQ Q6H [facility]; Protocol Last Admin: 02/07/20 17:56 Dose: 1 unit Documented by: Lisinopril (Zestril) 2.5 mg PO DAILY [facility] Last Admin: 02/07/20 09:50 Dose: 2.5 mg Documented by: Methylprednisolone Sodium Succinate (Solu-Medrol) 40 mg IV Q8HR [facility] Last Admin: 02/07/20 15:25 Dose: 40 mg Documented by: Miscellaneous Information (Magnesium Per Protocol) 1 each MISCELLANE DAILY PRN; Protocol PRN Reason: Per Protocol Miscellaneous Information (Potassium Per Protocol) 1 each MISCELLANE DAILY PRN; Protocol PRN Reason: Per Protocol Naloxone HCl (Narcan) 0.2 mg IV Q2M PRN PRN Reason: Opioid Reversal Nicotine (Habitrol 21mg/24hr Patch) 1 patch TRANSDERM DAILY [facility] Last Admin: 02/07/20 09:50 Dose: 1 patch Documented by: Pantoprazole Sodium (Protonix) 40 mg IV DAILY [facility] Last Admin: 02/07/20 09:49 Dose: 40 mg Documented by: Sodium Chloride (Saline Flush) 10 ml IV Q4HR PRN PRN Reason: PICC Line Sodium Chloride (Saline Flush) 10 ml IV WEEKLY [facility] Sodium Chloride (Saline Flush) 20 ml IV Q4HR PRN PRN Reason: PICC Line Spironolactone (Aldactone) 25 mg PO DAILY [facility] Last Admin: 02/07/20 09:50 Dose: 25 mg Documented by: Physical examination: VITAL SIGNS: 97.8, 59, 30, 136/72, 37% on the ventilator GENERAL: Laying in bed, sedated EYES: Pupils equal. Conjunctiva normal. NECK: JVD unable to assess; masses not palpable. Tracheostomy tube HEART: Heart sounds irregular, edema present. LUNGS: Respiratory rate increased,, diminished breath sounds. ABDOMEN: Soft, nontender, liver spleen not palpable, no masses palpable. PEG tube. PSYCH: Unable to assess, patient sedated MUSCULAR skeletal: Evidence of OA INVESTIGATIONS, reviewed in the clinical context: White count 11.6 hemoglobin 9.7 potassium 4.2 creatinine 0.86 Accu-Cheks noted Previous testing White count 13.1 hemoglobin 12.2 platelets 139, potassium 4.9 crit 1.01 Chest x-ray film personally reviewed by me-increasing bilateral infiltrates CRP 60.5 pro calcitonin 0.1 Sputum culture growing Streptococcus pneumoniae, Anna glabrata 2-D co-EF 30-35% Previous testing White count 10.9 hemoglobin 12.4 platelets 165 neutrophils 9.2 lymphocytes 0.7 potassium 4.3 bun 27 creatinine 0.88, proBNP 1530 EKG tracing personally reviewed by me-atrial flutter rate controlled Chest x-ray film personally reviewed by me-pulmonary edema, cardiomegaly, portable film Assessment: -Acute on chronic congestive heart failure exacerbation from systolic dysfunction EF 30-35% % from underlying coronary artery disease, POA-on IV Lasix -Bilateral pneumonia, Streptococcus pneumoniae causing sepsis, POA,-antibiotic completed -Coronary artery disease a prior history of bypass -Acute COPD exacerbation and an current smoker, POA, not improving -Chronic nicotine dependence patient cigarette smoker -Persistent atrial fibrillation -Chronic hypoxic and hypercapnic respiratory failure from a lying COPD -Acute hypoxic and hypercapnic respiratory failure from COPD and CHF, pneumonia POA-worsening on extubated January 28. Reintubated on January 30-slow to respond -Acute kidney injury possibly combination of ATN and prerenal-improved -Chronic left-sided pleural effusion since 2016 per pulmonary -COVID-19 PCR not detected -AICD Plan: -ICU.-On IV propofol. Intubated. On IV Solu-Medrol, IV Lasix 20 mg every 12. Ceftriaxone discontinued yesterday per Dr. Mckeon. Prognosis guarded.
[2020-02-07 23:22] LABS: Glucose,Whole Blood 137 mg/dL (75-99)
[2020-02-07] MEDS: HYDROmorphone 1 MG/ML 1 ML SYRINGE IVP PRN (23:25)
[2020-02-08] MEDS: PROPOFOL 1,000 MG in EMPTY BAG 1 BAG IV SCH ×4 (03:46→23:05)
[2020-02-08 05:17] LABS: Glucose,Whole Blood 161 mg/dL (75-99)
[2020-02-08] MEDS: INSULIN ASPART (NovoLOG) 100 UNIT/ML VIAL SQ SCH ×4 (05:25→23:11)
[2020-02-08] MEDS: HYDROmorphone 1 MG/ML 1 ML SYRINGE IVP PRN (05:28)
[2020-02-08 05:39] LABS: HCT 29.9 % (39.0-53.0); HGB 9.5 gm/dL (13.0-17.5); MCH 31.6 pg (25.0-35.0); MCHC 31.6 g/dL (31.0-37.0); Macrocytosis Slight; Platelet Count 154 k/uL (150-450); RBC 2.99 m/uL (4.30-5.90); RDW 14.4 % (11.5-15.5)
[2020-02-08 05:42] LABS: ABG Base Excess 3.9 mmol/L; ABG HCO3 28 mmol/L (21-25); ABG Oxygen Saturation 87.7 % (94-97); ABG PCO2 43 mmHg (35-45); ABG PH 7.43 (7.35-7.45); ABG PO2 60 mmHg (83-108); ABG TCO2 30 mmol/L (19-24); Allen Test Performed? Yes
[2020-02-08 05:49] LABS: African American GFR (CKD) >90 (>60 ml/min/1.73 sqM); Anion Gap 2 mmol/L; Blood Urea Nitrogen 60 mg/dL (9-20); Calcium 7.2 mg/dL (8.4-10.2); Carbon Dioxide 30 mmol/L (22-30); Chloride 103 mmol/L (98-107); Glucose 153 mg/dL (74-99); Non-African American GFR(CKD) 80 (>60 ml/min/1.73 sqM); Potassium 4.5 mmol/L (3.5-5.1); Sodium 135 mmol/L (137-145)
--- NOTE | 2020-02-08 06:55 | P.PN ---
Subjective Progress Note Date: 02/08/20 Principal diagnosis: severe CAD/severe cardiomyopathy This is a 75-year-old gentleman with a past medical history significant for coronary artery disease and status post coronary artery bypass grafting, severe cardiomyopathy and status post AICD, long-standing persistent atrial fibrillation on oral anticoagulation, as well as severe chronic obstructive pulmonary disease on home oxygen, was admitted to the hospital with acute hypoxic respiratory failure secondary to COPD exacerbation was a component of congestive heart failure exacerbation. The patient was seen today, February [id number]. He remains hemodynamically stable. The pressure has been on the low side though. The chest x-ray continues to show findings consistent with heart failure and currently he is on Lasix IV. He is on oral anticoagulation. Regarding the cardiomyopathy medications, he is on lisinopril and yesterday I restart the patient back on Aldactone. I would hold any beta javy at this point in view of the margin a low blood pressure and also below heart rate already where his heart rate is in the 60s. The chest x- ray was reviewed. Objective - Vital Signs Vital signs: Vital Signs Temp 98.5 F 02/08/20 00:00 Pulse 60 02/08/20 06:00 Resp 29 H 02/08/20 06:00 BP 101/59 02/08/20 05:00 Pulse Ox 92 L 02/08/20 06:00 Intake & Output 02/07/20 02/07/20 02/08/20 06:59 18:59 06:59 Intake Total 2547.409 8285.732 1540.130 Output Total 1105 1000 960 Balance 633.848 636.732 580.130 Weight 84.1 kg 85.1 kg Intake: IV 1014 825 933 0.9 Normal Saline @ 3mL/ 39 33 hr from Pressure Bag Dextrose 5% in Water 1, 975 75 000 ml @ 75 mls/hr IV . [id number] [facility] Rx#:[id number] Lactated Ringers 1,000 ml 750 900 @ 75 mls/hr IV .[id number] [facility] Rx#:[id number] Intake, IV Titration 234.848 171.732 197.130 Amount Propofol 1,000 mg In 234.848 171.732 197.130 Empty Bag 1 bag @ Titrate IV .Q0M [facility] Rx#: [id number] Oral 75 Tube Feeding 230 365 210 Other 260 200 200 Output: Urine 1105 1000 960 Other: Voiding Method Indwelling Catheter Indwelling Catheter Indwelling Catheter ABP, PAP, CO, CI - Last Documented Arterial Blood Pressure 102/62 - Constitutional General appearance: Present: no acute distress - Respiratory Respiratory: bilateral: CTA - Cardiovascular Rhythm: regular Heart sounds: normal: S1, S2 - Labs CBC & Chem 7: 02/08/20 05:10 02/08/20 05:10 Labs: Abnormal Lab Results - Last 24 Hours (Table) 02/07/20 02/07/20 02/07/20 Range/Units 04:10 11:47 17:40 WBC (3.8-10.6) k/uL RBC (4.30-5.90) m/uL Hgb (13.0-17.5) gm/dL Hct (39.0-53.0) % ABG pO2 (83-108) mmHg ABG HCO3 (21-25) mmol/L ABG Total CO2 (19-24) mmol/L ABG O2 Saturation (94-97) % Sodium (137-145) mmol/L BUN (9-20) mg/dL Glucose (74-99) mg/dL POC Glucose (mg/dL) 111 H 132 H (75-99) mg/dL Calcium (8.4-10.2) mg/dL Magnesium 2.9 H (1.6-2.3) mg/dL 02/07/20 02/08/20 02/08/20 Range/Units 23:21 05:10 05:10 WBC 11.0 H (3.8-10.6) k/uL RBC 2.99 L (4.30-5.90) m/uL Hgb 9.5 L (13.0-17.5) gm/dL Hct 29.9 L (39.0-53.0) % ABG pO2 (83-108) mmHg ABG HCO3 (21-25) mmol/L ABG Total CO2 (19-24) mmol/L ABG O2 Saturation (94-97) % Sodium 135 L (137-145) mmol/L BUN 60 H (9-20) mg/dL Glucose 153 H (74-99) mg/dL POC Glucose (mg/dL) 137 H (75-99) mg/dL Calcium 7.2 L (8.4-10.2) mg/dL Magnesium (1.6-2.3) mg/dL 02/08/20 02/08/20 Range/Units 05:15 05:40 WBC (3.8-10.6) k/uL RBC (4.30-5.90) m/uL Hgb (13.0-17.5) gm/dL Hct (39.0-53.0) % ABG pO2 60 L (83-108) mmHg ABG HCO3 28 H (21-25) mmol/L ABG Total CO2 30 H (19-24) mmol/L ABG O2 Saturation 87.7 L (94-97) % Sodium (137-145) mmol/L BUN (9-20) mg/dL Glucose (74-99) mg/dL POC Glucose (mg/dL) 161 H (75-99) mg/dL Calcium (8.4-10.2) mg/dL Magnesium (1.6-2.3) mg/dL Microbiology - Last 24 Hours (Table) 02/06/20 14:00 Catheter Tip Culture - Preliminary Catheter Tip Assessment and Plan Assessment: assessment #1 acute hypoxic respiratory failure #2 severe chronic obstructive pulmonary disease #3 severe cardiomyopathy #4 severe coronary artery disease #5 long-standing persistent atrial fibrillation #6 is audible comorbid conditions Plan #1 continue the current medical regimen #2 continue oral anticoagulation #3 continue lisinopril and Aldactone #4 continue IV Lasix #5 follow-up with the patient
--- NOTE | 2020-02-08 07:24 | XR ---
EXAMINATION TYPE: XR chest 1V portable DATE OF EXAM: 02/08/2020 COMPARISON: 02/07/2020 HISTORY: ARDS. Difficulty breathing. TECHNIQUE: Single frontal view of the chest is obtained. FINDINGS: Left perihilar and retrocardiac consolidations are stable however there is worsening in ae ration of the right midlung and right lung base. Diffuse reticular interstitial opacities throughout both lungs are seen. Left pleural effusion is noted to extend to the left lung apex and may be locula esteban. Midline tracheostomy is seen with post CABG change of the chest, similar enlarged cardiomediasti nal silhouette, and dual-lead left-sided cardiac device. IMPRESSION: Worsening multifocal opacities that may represent ARDS as stated clinically, o multifoca l pneumonia or fluid overload.
[2020-02-08] MEDS: BUDESONIDE 0.5 MG/2 ML NEBU INHALATION SCH ×2 (07:57→19:43)
[2020-02-08] MEDS: IPRATROPIUM-ALBUTEROL 3 ML NEB INHALATION SCH ×5 (07:57→23:20)
[2020-02-08] MEDS: LISINOPRIL 2.5 MG TAB PO SCH (08:49)
[2020-02-08] MEDS: APIXABAN 2.5 MG TABLET PO SCH ×2 (08:49→21:02)
[2020-02-08] MEDS: SPIRONOLACTONE 25 MG TAB PO SCH (08:49)
[2020-02-08] MEDS: CHLORHEXIDINE GLUCONATE 15 ML CUP MUCOUS MEM SCH ×2 (08:50→21:02)
[2020-02-08] MEDS: FUROSEMIDE 10 MG/ML 2 ML VIAL IV SCH ×2 (08:50→21:02)
[2020-02-08] MEDS: PANTOPRAZOLE 40 MG/10 ML VIAL IV SCH (08:50)
[2020-02-08] MEDS: ATORVASTATIN 80 MG TAB PO SCH (08:50)
[2020-02-08] MEDS: NICOTINE 21MG/24HR PATCH TRANSDERM SCH (08:50)
[2020-02-08] MEDS: methylPREDNISolone SOD SUCCI 40 MG/ML 1 ML VIAL IV SCH ×3 (08:50→23:10)
[2020-02-08] MEDS ORDERED: FUROSEMIDE 10 MG/ML 4 ML VIAL IV STA (09:59)
[2020-02-08] MEDS: LACTATED RINGERS 1,000 ML IV SCH (10:19)
[2020-02-08 11:44] LABS: Glucose,Whole Blood 128 mg/dL (75-99)
--- NOTE | 2020-02-08 12:48 | P.PN ---
Subjective Progress Note Date: 02/08/20 Principal diagnosis: Acute on chronic hypoxemic, hypercapnic respiratory failure, multifactorial related to acute systolic congestive heart failure, acute exacerbation of COPD and streptococcal pneumonia The patient is seen today 02/07/2020 in follow-up in the intensive care unit. He remains intubated on mechanical ventilator. Assist control at a rate of 20, tidal volume 400, FiO2 50% and a PEEP of 13. Morning blood gases reveal a P O2 of 108, pCO2 of 39, pH 7.47. He is continued on propofol at 40 mcg/kg/m. D5W it 125 ML's per hour vital HPI 30 ML's per hour with a goal of 35. Chest x-ray shows overall stable findings, chronic parenchymal changes and cardiomegaly with small to moderate left-sided pleural effusion with atelectasis/infiltrate. Sputum was positive for Streptococcus pneumoniae. White count 11.6. Hemoglobin 9.7. Sodium 137. Potassium 4.2. Creatinine 0.86. He remains on bronchodilators, IV diuretics, IV Solu-Medrol. He remains afebrile. He modynamically stable. The patient is seen today 02/08/2020 in follow-up in the intensive care unit. He remains intubated on mechanical ventilator. Current settings are assist control at a rate of 20, tidal volume 400, FiO2 50% and a PEEP of 10. Morning blood gases reveal a P O2 of 60, pCO2 43 and a pH of 7.42. Chest x-ray reveals worsening multifocal opacities representing most likely ARDS, multifocal pneumonia, fluid volume overload. He remains sedated on propofol 50 mcg/kg/m. Lactated Ringer's at 75 ML's per hour. Currently receiving vital HPI at 35 with a goal of 35. He remains in a positive balance. Weight up 1 kg. Sputum culture was positive for Anna glabrata and previously with Streptococcus pneumoniae. Catheter tip reveals no growth. The cultures had revealed no grow th. White count 11.0. Hemoglobin 9.5. Platelet count 154,000. Sodium 135. Potassium 4.5. Creatinine 0.95. Glucose 153. He remains on bronchodilators, IV Solu-Medrol, IV diuretics, anticoagulated with Eliquis. Objective - Vital Signs Vital signs: Vital Signs Temp 98.1 F 02/08/20 12:00 Pulse 67 02/08/20 12:00 Resp 23 02/08/20 12:00 BP 155/83 02/08/20 12:00 Pulse Ox 94 L 02/08/20 12:00 Intake & Output 02/07/20 02/08/20 02/08/20 18:59 06:59 18:59 Intake Total 8919.265 9522.568 681.562 Output Total 1000 960 605 Balance 636.732 591.568 76.562 Weight 85.1 kg Intake: IV 825 933 343 0.9 Normal Saline @ 3mL/ 33 3 hr from Pressure Bag Dextrose 5% in Water 1, 75 000 ml @ 75 mls/hr IV . [id number] [facility] Rx#:[id number] Lactated Ringers 1,000 ml 750 900 340 @ 20 mls/hr IV .Q24H [facility] Rx#:[id number] Intake, IV Titration 171.732 208.568 88.562 Amount Propofol 1,000 mg In 171.732 208.568 88.562 Empty Bag 1 bag @ Titrate IV .Q0M [facility] Rx#: [id number] Oral 75 35 Tube Feeding 365 210 175 Other 200 200 40 Output: Urine 1000 960 605 Other: Voiding Method Indwelling Catheter Indwelling Catheter Indwelling Catheter ABP, PAP, CO, CI - Last Documented Arterial Blood Pressure 155/71 - Exam GENERAL EXAM: On mechanical ventilator, sedated, 75-year-old male patient in no apparent distress. HEAD: Normocephalic/atraumatic. EYES: Normal reaction of pupils, equal size. Conjunctiva pink, sclera white. NOSE: Clear with pink turbinates. THROAT: No erythema or exudates. NECK: No masses, no JVD, no thyroid enlargement, no adenopathy. Midline trache ostomy in place, #8 foam cuff trach CHEST: No chest wall deformity. Symmetrical expansion. LUNGS: Equal air entry with basilar crackles left greater than right CVS: Regular rate and rhythm, normal S1 and S2, no gallops, no murmurs, no rubs ABDOMEN: Soft, nontender. No hepatosplenomegaly, normal bowel sounds, no guarding or rigidity. PEG tube is in place, taped to the abdomen, surg dressing in place EXTREMITIES: No clubbing, no edema, no cyanosis, 2+ pulses and upper and lower extremities. MUSCULOSKELETAL: Muscle strength and tone normal. SPINE: No scoliosis or deformity SKIN: No rashes CENTRAL NERVOUS SYSTEM: Trached to the vent, sedated. No focal deficits, tone is normal in all 4 extremities. - Labs CBC & Chem 7: 02/08/20 05:10 02/08/20 05:10 Labs: Abnormal Lab Results - Last 24 Hours (Table) 02/07/20 02/07/20 02/08/20 Range/Units 17:40 23:21 05:10 WBC 11.0 H (3.8-10.6) k/uL RBC 2.99 L (4.30-5.90) m/uL Hgb 9.5 L (13.0-17.5) gm/dL Hct 29.9 L (39.0-53.0) % ABG pO2 (83-108) mmHg ABG HCO3 (21-25) mmol/L ABG Total CO2 (19-24) mmol/L ABG O2 Saturation (94-97) % Sodium (137-145) mmol/L BUN (9-20) mg/dL Glucose (74-99) mg/dL POC Glucose (mg/dL) 132 H 137 H (75-99) mg/dL Calcium (8.4-10.2) mg/dL 02/08/20 02/08/20 02/08/20 Range/Units 05:10 05:15 05:40 WBC (3.8-10.6) k/uL RBC (4.30-5.90) m/uL Hgb (13.0-17.5) gm/dL Hct (39.0-53.0) % ABG pO2 60 L (83-108) mmHg ABG HCO3 28 H (21-25) mmol/L ABG Total CO2 30 H (19-24) mmol/L ABG O2 Saturation 87.7 L (94-97) % Sodium 135 L (137-145) mmol/L BUN 60 H (9-20) mg/dL Glucose 153 H (74-99) mg/dL POC Glucose (mg/dL) 161 H (75-99) mg/dL Calcium 7.2 L (8.4-10.2) mg/dL 02/08/20 Range/Units 11:40 WBC (3.8-10.6) k/uL RBC (4.30-5.90) m/uL Hgb (13.0-17.5) gm/dL Hct (39.0-53.0) % ABG pO2 (83-108) mmHg ABG HCO3 (21-25) mmol/L ABG Total CO2 (19-24) mmol/L ABG O2 Saturation (94-97) % Sodium (137-145) mmol/L BUN (9-20) mg/dL Glucose (74-99) mg/dL POC Glucose (mg/dL) 128 H (75-99) mg/dL Calcium (8.4-10.2) mg/dL Microbiology - Last 24 Hours (Table) 02/06/20 14:00 Catheter Tip Culture - Final Catheter Tip Assessment and Plan Assessment: #1. Acute on chronic hypoxemic, and hypercapnic respiratory failure, multifactorial, in part related to underlying exacerbation of acute systolic congestive heart failure, acute exacerbation of COPD, and streptococcal pneumonia, and a component of ARDS is not excluded #2. Failure to wean from mechanical ventilation, and patient is status post tracheostomy and PEG tube insertion on 01/28/2020 #3. History of coronary artery disease with previous bypass grafting #4. History of cardiomyopathy with LV dysfunction and AICD placement #5. history of systolic congestive heart failure #6. Suspected cardiorenal syndrome #7. Chronic atrial fibrillation, patient is on Eliquis for anticoagulation, which is currently on hold for tracheostomy and PEG tube insertion #8. Tobacco dependence syndrome #9. Chronic left-sided pleural effusion present since 2016 #10. Covid 19 testing was negative #11. Hypernatremia, related to free water deficit, improved #12. Hyperchloremia, related to 0.9 normal saline infusion and free water deficit, improved with 5% dextrose infusion and free water flushes, changed to lactated Ringer's at 75 ML's per hour Plan: The patient was seen and evaluated by Dr. Colin Chest x-ray, ABGs and labs reviewed Additional Lasix 40 mg IVP 1 Continue daily interruption of sedation to assess neurologic status Continue on lactated Ringer's at 75 ML's in our Overall prognosis guarded. Difficult to wean. We will continue to follow and make further recommendations based on his clinical status.. Critical care time 35 minutes I, the cosigning physician, performed a history & physical examination of the patient. Lungs sounds with basilar crackles left greater than right. Maintaining good O2 saturations in the 90s on 50% FiO2 on the mechanical ventilator. I discussed the assessment and plan of care with my nurse practitioner, Rossi Arenas. I attest to the above note as dictated by her. Time with Patient: Greater than 30
[2020-02-08] MEDS: MAGNESIUM HYDROXIDE 2,400 MG/10 ML CUP PO SCH (14:22)
--- NOTE | 2020-02-08 15:23 | PN ---
PROGRESS NOTE The patient is seen for followup for hypernatremia and acute kidney injury. Renal function has significantly improved, creatinine staying at 0.8-0.9 mg/dL. Serum sodium has decreased. Currently it is actually on the lower side. The patient is maintained on free water flushes 200 q.6 hours and he was also on D5W which was discontinued yesterday. PHYSICAL EXAMINATION: Today, patient remains on the vent. He is on CPAP trials. His mentation is following commands. Blood pressure was 155/83, heart rate 67 per minute, he is afebrile. Examination of the heart S1, S2. Examination of the lungs, bilateral breath sounds are heard. Abdomen is soft, distended. Exam of lower extremities shows edema 2+ bilaterally. LAB: Show sodium 135, potassium 4.5, chloride 103, BUN 60, creatinine 0.95, calcium 7.2, hemoglobin 9.5. ASSESSMENT: 1. Acute kidney injury, acute tubular necrosis, currently resolved. 2. Hypernatremia, improved. Serum sodium is actually on the lower side. The patient is off D5W. I will hold the free water flushes today and decrease to 100 q8 hours to start in a.m. 3. Streptococcus pneumoniae pneumonia maintained on antibiotics. 4. Metabolic alkalosis, now resolved. 5. Cardiomyopathy, ejection fraction 30 -35%, status post dobutamine. 6. Chronic obstructive pulmonary disease exacerbation. PLAN: Hold free water flushes for today and resume at 100 q.8 hours starting tomorrow. Discontinue IV fluids as patient has evidence of volume overload. MMODL / IJN: [id number] /
[2020-02-08 18:20] LABS: Glucose,Whole Blood 134 mg/dL (75-99)
--- NOTE | 2020-02-08 19:52 | P.PN ---
Progress Note - Text Progress Note Date: 02/08/20 Chief Complaint: Short of breath History of presenting complaint: This is a 75-year-old patient of Dr. Gonzáles. Long-standing smoker. Chronic stable medical conditions include atrial fibrillation, AICD, coronary artery disease with prior bypass, on home oxygen, GERD, COPD. Last ejection fraction is 40-45%. She presents with worsening short of breath for about a week at least. It has been progressively getting worse. Some edema. Weak and tired slight cough is present. Increasing swelling of lower extremity. Orthopnea. No fever no chills. Tired and rundown. Slow with given history. Admitted with acute on chronic CHF exacerbation, COPD exacerbation. Was started on IV Lasix, bronchodilators and IV steroids. Early hours of January 25 patient was becoming more short of breath, could not tolerate BiPAP was intubated and placed in the ICU. Also being treated for pneumonia. Patient extubated on January 28. Patient had remained on IV Lasix drip, IV dobutamine. Was worsening again. And patient was reintubated on January 30. February 04 patient had a PEG tube and a tracheostomy tube placed to Dr. Monsivais. Antibiotics discontinued. Dr. Colin on February 05.. [id number]. FiO2 50 and PEEP of 10. On IV propofol. 2 feeding at 35 mL an hour. Did a sedation holiday did fairly well. Followed commands.. Review of systems: Cannot be done, patient intubated Active Medications Albuterol/Ipratropium (Duoneb 0.5 Mg-3 Mg/3 Ml Soln) 3 ml INHALATION RT-Q2H PRN PRN Reason: Shortness Of Breath Or Wheezing Last Admin: 02/04/20 02:59 Dose: 3 ml Documented by: Albuterol/Ipratropium (Duoneb 0.5 Mg-3 Mg/3 Ml Soln) 3 ml INHALATION RT-Q4H [facility] Last Admin: 02/08/20 19:43 Dose: 3 ml Documented by: Apixaban (Eliquis) 2.5 mg PO BID [facility] Last Admin: 02/08/20 08:49 Dose: 2.5 mg Documented by: Atorvastatin Calcium (Lipitor) 80 mg PO DAILY [facility] Last Admin: 02/08/20 08:50 Dose: 80 mg Documented by: Budesonide (Pulmicort) 0.5 mg INHALATION RT-BID [facility] Last Admin: 02/08/20 19:43 Dose: 0.5 mg Documented by: Chlorhexidine Gluconate (Peridex) 15 ml MUCOUS MEM BID [facility] Last Admin: 02/08/20 08:50 Dose: 15 ml Documented by: Furosemide (Lasix) 20 mg IV Q12HR [facility] Last Admin: 02/08/20 08:50 Dose: 20 mg Documented by: Hydromorphone HCl (Dilaudid) 1 mg IVP Q4HR PRN PRN Reason: Pain Last Admin: 02/08/20 05:28 Dose: 1 mg Documented by: Propofol 1,000 mg/ IV Solution 100 mls @ 0 mls/hr IV .Q0M [facility]; Protocol Last Admin: 02/08/20 18:09 Dose: 50 mcg/kg/min, 25.53 mls/hr Documented by: Lactated Ringer's (Lactated Ringers) 1,000 mls @ 20 mls/hr IV .Q24H [facility] Last Admin: 02/08/20 10:19 Dose: 75 mls/hr Documented by: Insulin Aspart (Novolog) 0 unit SQ Q6H [facility]; Protocol Last Admin: 02/08/20 18:27 Dose: 1 unit Documented by: Lisinopril (Zestril) 2.5 mg PO DAILY [facility] Last Admin: 02/08/20 08:49 Dose: 2.5 mg Documented by: Magnesium Hydroxide (Milk Of Magnesia) 2,400 mg PO DAILY [facility] Last Admin: 02/08/20 14:22 Dose: 2,400 mg Documented by: Methylprednisolone Sodium Succinate (Solu-Medrol) 40 mg IV Q8HR [facility] Last Admin: 02/08/20 16:47 Dose: 40 mg Documented by: Miscellaneous Information (Magnesium Per Protocol) 1 each MISCELLANE DAILY PRN; Protocol PRN Reason: Per Protocol Miscellaneous Information (Potassium Per Protocol) 1 each MISCELLANE DAILY PRN; Protocol PRN Reason: Per Protocol Naloxone HCl (Narcan) 0.2 mg IV Q2M PRN PRN Reason: Opioid Reversal Nicotine (Habitrol 21mg/24hr Patch) 1 patch TRANSDERM DAILY [facility] Last Admin: 02/08/20 08:50 Dose: 1 patch Documented by: Pantoprazole Sodium (Protonix) 40 mg IV DAILY [facility] Last Admin: 02/08/20 08:50 Dose: 40 mg Documented by: Sodium Chloride (Saline Flush) 10 ml IV Q4HR PRN PRN Reason: PICC Line Sodium Chloride (Saline Flush) 10 ml IV WEEKLY [facility] Sodium Chloride (Saline Flush) 20 ml IV Q4HR PRN PRN Reason: PICC Line Spironolactone (Aldactone) 25 mg PO DAILY [facility] Last Admin: 02/08/20 08:49 Dose: 25 mg Documented by: Physical examination: VITAL SIGNS: 98.1, 67, 23, 155/71, 94% on the ventilator GENERAL: Laying in bed, sedated EYES: Pupils equal. Conjunctiva normal. NECK: JVD unable to assess; masses not palpable. Tracheostomy tube HEART: Heart sounds irregular, edema present. LUNGS: Respiratory rate increased,, diminished breath sounds. ABDOMEN: Soft, nontender, liver spleen not palpable, no masses palpable. PEG tube. PSYCH: Unable to assess, patient sedated MUSCULAR skeletal: Evidence of OA INVESTIGATIONS, reviewed in the clinical context: White count 11 hemoglobin 9.5 pressure 4.5 creatinine 0.95 Accu-Cheks noted Previous testing White count 13.1 hemoglobin 12.2 platelets 139, potassium 4.9 crit 1.01 Chest x-ray film personally reviewed by me-increasing bilateral infiltrates CRP 60.5 pro calcitonin 0.1 Sputum culture growing Streptococcus pneumoniae, Anna glabrata 2-D co-EF 30-35% Previous testing White count 10.9 hemoglobin 12.4 platelets 165 neutrophils 9.2 lymphocytes 0.7 potassium 4.3 bun 27 creatinine 0.88, proBNP 1530 EKG tracing personally reviewed by me-atrial flutter rate controlled Chest x-ray film personally reviewed by me-pulmonary edema, cardiomegaly, portable film Assessment: -Acute on chronic congestive heart failure exacerbation from systolic dysfunction EF 30-35% % from underlying coronary artery disease, POA-on IV Lasix -Bilateral pneumonia, Streptococcus pneumoniae causing sepsis, POA,-antibiotic completed -Coronary artery disease a prior history of bypass -Acute COPD exacerbation and an current smoker, POA, not improving -Chronic nicotine dependence patient cigarette smoker -Persistent atrial fibrillation -Chronic hypoxic and hypercapnic respiratory failure from a lying COPD -Acute hypoxic and hypercapnic respiratory failure from COPD and CHF, pneumonia POA-worsening on extubated January 28. Reintubated on January 30-slow to respond -Acute kidney injury possibly combination of ATN and prerenal-improved -Chronic left-sided pleural effusion since 2016 per pulmonary -COVID-19 PCR not detected -AICD Plan: -ICU.-On IV propofol. Intubated. On IV Solu-Medrol, IV Lasix 20 mg every 12. Did tolerate sedation holiday today.
[2020-02-08 23:10] LABS: Glucose,Whole Blood 138 mg/dL (75-99)
[2020-02-09] MEDS: HYDROmorphone 1 MG/ML 1 ML SYRINGE IVP PRN ×4 (00:15→22:39)
[2020-02-09] MEDS: LACTATED RINGERS 1,000 ML IV SCH (00:16)
--- NOTE | 2020-02-09 01:01 | PN ---
PROGRESS NOTE DATE OF SERVICE: 02/08/2020 REASON FOR FOLLOWUP: Pneumonia. INTERVAL HISTORY: The patient is currently afebrile. The patient is hemodynamically stable. FiO2 is currently stable. The patient remains to be sedated and intubated on the vent. Tolerating his tube feeds. No diarrhea has been reported by nursing staff. PHYSICAL EXAMINATION: Blood pressure 146/66, pulse of 69, temperature is 97.5. He is 97% on 50% FiO2. General description is an elderly male lying in bed in no distress. RESPIRATORY SYSTEM: Unlabored breathing, decreased breath sounds at the bases. No wheeze. HEART: S1, S2. Regular rate and rhythm. ABDOMEN: Soft, no tenderness. LABS: Hemoglobin 9.5, white count 11,000. BUN of 60, creatinine 0.95. Sputum is Anna glabrata. DIAGNOSTIC IMPRESSION AND PLAN: 1. Patient with Streptococcus pneumoniae that has been adequately treated. The patient completed antibiotic therapy. 2. Patient with Anna glabrata in the sputum, more likely colonization and will monitor clinical course closely. MMODL / IJN: [id number] /
[2020-02-09] MEDS: IPRATROPIUM-ALBUTEROL 3 ML NEB INHALATION SCH ×6 (02:47→23:02)
[2020-02-09 04:35] LABS: ABG Base Excess 7.1 mmol/L; ABG HCO3 30 mmol/L (21-25); ABG Oxygen Saturation 97.7 % (94-97); ABG PCO2 39 mmHg (35-45); ABG PO2 107 mmHg (83-108); ABG TCO2 32 mmol/L (19-24)
[2020-02-09 04:37] LABS: Allen Test Performed? no
[2020-02-09] MEDS: PROPOFOL 1,000 MG in EMPTY BAG 1 BAG IV SCH ×2 (04:44→09:19)
[2020-02-09 05:13] LABS: Glucose,Whole Blood 154 mg/dL (75-99)
[2020-02-09 05:21] LABS: HCT 28.5 % (39.0-53.0); HGB 9.5 gm/dL (13.0-17.5); MCH 33.2 pg (25.0-35.0); MCHC 33.4 g/dL (31.0-37.0); MCV 99.4 fL (80.0-100.0); Mean Platelet Volume 10.5; Platelet Count 153 k/uL (150-450); RBC 2.87 m/uL (4.30-5.90); RDW 14.5 % (11.5-15.5); WBC 10.3 k/uL (3.8-10.6)
[2020-02-09 05:57] LABS: Calcium 7.2 mg/dL (8.4-10.2); Potassium 4.8 mmol/L (3.5-5.1)
--- NOTE | 2020-02-09 07:17 | P.PN ---
Subjective Progress Note Date: 02/09/20 Principal diagnosis: severe CAD/severe cardiomyopathy This is a 75-year-old gentleman with a past medical history significant for coronary artery disease and status post coronary artery bypass grafting, severe cardiomyopathy and status post AICD, long-standing persistent atrial fibrillation on oral anticoagulation, as well as severe chronic obstructive pulmonary disease on home oxygen, was admitted to the hospital with acute hypoxic respiratory failure secondary to COPD exacerbation was a component of congestive heart failure exacerbation. The patient was seen today, 02/09/2020. Hemodynamically he continues to be stable. When he was seen this morning the rhythm was paced rhythm. I did review the chest x-ray which revealed almost complete opacification of the left lung. Also he gained about 10 kg since he was admitted to the hospital. Currently he is on Lasix IV at 20 mg twice a day which I am going to increase to 40 mg IV twice a day. His GFR is above 60. He is on Aldactone which we will continue. Objective - Vital Signs Vital signs: Vital Signs Temp 98.3 F 02/09/20 04:00 Pulse 59 L 02/09/20 06:00 Resp 33 H 02/09/20 06:00 BP 115/67 02/08/20 16:00 Pulse Ox 97 02/09/20 06:00 Intake & Output 02/08/20 02/09/20 02/09/20 18:59 06:59 18:59 Intake Total 1141.562 875 Output Total 1170 720 Balance -28.438 155 Weight 82 kg Intake: IV 463 250 0.9 Normal Saline @ 3mL/ 3 30 hr from Pressure Bag Lactated Ringers 1,000 ml 460 220 @ 20 mls/hr IV .Q24H [facility] Rx#:[id number] Intake, IV Titration 188.562 200 Amount Propofol 1,000 mg In 188.562 200 Empty Bag 1 bag @ Titrate IV .Q0M [facility] Rx#: [id number] Oral 45 Tube Feeding 385 350 Other 60 75 Output: Urine 1170 720 Other: Voiding Method Indwelling Catheter Indwelling Catheter ABP, PAP, CO, CI - Last Documented Arterial Blood Pressure 134/64 - Constitutional General appearance: Present: no acute distress - Respiratory Respiratory: bilateral: diminished - Cardiovascular Rhythm: regular Heart sounds: normal: S1, S2 - Labs CBC & Chem 7: 02/09/20 05:05 02/09/20 05:05 Labs: Abnormal Lab Results - Last 24 Hours (Table) 02/08/20 02/08/20 02/08/20 Range/Units 11:40 18:19 23:09 RBC (4.30-5.90) m/uL Hgb (13.0-17.5) gm/dL Hct (39.0-53.0) % ABG pH (7.35-7.45) ABG HCO3 (21-25) mmol/L ABG Total CO2 (19-24) mmol/L ABG O2 Saturation (94-97) % Sodium (137-145) mmol/L Carbon Dioxide (22-30) mmol/L BUN (9-20) mg/dL Glucose (74-99) mg/dL POC Glucose (mg/dL) 128 H 134 H 138 H (75-99) mg/dL Calcium (8.4-10.2) mg/dL 02/09/20 02/09/20 02/09/20 Range/Units 04:29 05:05 05:05 RBC 2.87 L (4.30-5.90) m/uL Hgb 9.5 L (13.0-17.5) gm/dL Hct 28.5 L (39.0-53.0) % ABG pH 7.50 H (7.35-7.45) ABG HCO3 30 H (21-25) mmol/L ABG Total CO2 32 H (19-24) mmol/L ABG O2 Saturation 97.7 H (94-97) % Sodium 133 L (137-145) mmol/L Carbon Dioxide 31 H (22-30) mmol/L BUN 76 H (9-20) mg/dL Glucose 145 H (74-99) mg/dL POC Glucose (mg/dL) (75-99) mg/dL Calcium 7.2 L (8.4-10.2) mg/dL 02/09/20 Range/Units 05:12 RBC (4.30-5.90) m/uL Hgb (13.0-17.5) gm/dL Hct (39.0-53.0) % ABG pH (7.35-7.45) ABG HCO3 (21-25) mmol/L ABG Total CO2 (19-24) mmol/L ABG O2 Saturation (94-97) % Sodium (137-145) mmol/L Carbon Dioxide (22-30) mmol/L BUN (9-20) mg/dL Glucose (74-99) mg/dL POC Glucose (mg/dL) 154 H (75-99) mg/dL Calcium (8.4-10.2) mg/dL Microbiology - Last 24 Hours (Table) 02/06/20 14:00 Catheter Tip Culture - Final Catheter Tip Assessment and Plan Assessment: assessment #1 acute hypoxic respiratory failure #2 severe chronic obstructive pulmonary disease #3 severe cardiomyopathy #4 severe coronary artery disease #5 long-standing persistent atrial fibrillation #6 is audible comorbid conditions Plan #1 continue the current medical regimen #2 continue oral anticoagulation #3 continue lisinopril and Aldactone #4 increase the dose of Lasix #5 follow-up with the patient
[2020-02-09] MEDS: BUDESONIDE 0.5 MG/2 ML NEBU INHALATION SCH ×2 (07:26→18:58)
--- NOTE | 2020-02-09 07:56 | XR ---
EXAMINATION TYPE: XR chest 1V portable DATE OF EXAM: 02/09/2020 CLINICAL HISTORY: Difficulty breathing and ARDS progress study. TECHNIQUE: Single AP portable semiupright view of the chest is obtained. COMPARISON: Chest x-ray from one day earlier and older studies. CT chest February 01, 2020. FINDINGS: Stable right-sided PICC line and tracheostomy tube. Persistent cardiomegaly with multilead pacemaker/AICD. Overlying sternal wires and mediastinal clips redemonstrated. Persistent small to mo derate size left pleural fluid collection extending to lung apex. Associated left mid to basilar opac ities. Background Chronic parenchymal change and diffuse right lung opacities. No significant interval change. IMPRESSION: Overall stable findings, chronic parenchymal change and cardiomegaly with persistent sm all to moderate left pleural fluid collection along with diffuse bilateral lung edema and/or infiltra te with more focal mid to basilar left lung atelectasis and/or consolidation are all redemonstrated.
[2020-02-09] MEDS: FUROSEMIDE 100 MG in SODIUM CHLORIDE 0.9% 90 ML IV SCH ×3 (08:25→22:44)
[2020-02-09 08:33] LABS: Glucose,Whole Blood 129 mg/dL (75-99)
[2020-02-09] MEDS: INSULIN ASPART (NovoLOG) 100 UNIT/ML VIAL SQ SCH ×3 (08:39→18:45)
[2020-02-09] MEDS: CHLORHEXIDINE GLUCONATE 15 ML CUP MUCOUS MEM SCH ×2 (08:47→22:39)
[2020-02-09] MEDS: APIXABAN 2.5 MG TABLET PO SCH ×2 (08:47→22:39)
[2020-02-09] MEDS: SPIRONOLACTONE 25 MG TAB PO SCH (08:47)
[2020-02-09] MEDS: ATORVASTATIN 80 MG TAB PO SCH (08:48)
[2020-02-09] MEDS: NICOTINE 21MG/24HR PATCH TRANSDERM SCH (08:49)
[2020-02-09] MEDS: methylPREDNISolone SOD SUCCI 40 MG/ML 1 ML VIAL IV SCH ×2 (08:49→19:49)
[2020-02-09] MEDS: MAGNESIUM HYDROXIDE 2,400 MG/10 ML CUP PO SCH (08:49)
[2020-02-09] MEDS: PANTOPRAZOLE 40 MG/10 ML VIAL IV SCH (08:49)
[2020-02-09] MEDS ORDERED: FUROSEMIDE 10 MG/ML 4 ML VIAL IV SCH (09:00)
--- NOTE | 2020-02-09 12:05 | P.PN ---
Subjective Progress Note Date: 02/09/20 75-year-old male patient known history of CHF with LV dysfunction and the patient has a mass in place in addition to coronary artery disease and previous bypass surgery, COPD, chronic atrial fibrillation who came into the hospital because of worsening shortness of breath. The patient was having increased swelling lower extremities, profound weakness and feeling tired. The patient was in acute hypoxic respiratory failure. The patient was intubated and placed on mechanical ventilator. The patient was treated for CHF and pneumonia. During the course of treatment, the patient failed to wean off the mechanical ventilator and ultimately the patient required tracheostomy tube insertion in addition to a PEG tube insertion for respiratory support that was quite prolonged. The covid 19 analysis was negative. The patient is being seen today in follow-up. She remains on a mechanical ventilator on assist control mode at the rate of 20 with a tidal volume 400 and FiO2 of 50% with a PEEP of 10. Chest x-ray is still showing diffuse bilateral pulmonary infiltrates and the patient remains sedated with propofol running at 50 g per KG per minute. During the course of her treatment in the intensive care unit, the patient is sputum analysis was done on 01/26/2020 that was positive for pneumococcus and otherwise the rest of the cultures were negative. His echocardiogram from 01/26/2020 revealed impaired LV function with an ejection fraction of 30-35% and the rest of the cardiac structures were essentially within normal limits. The patient remains on Lasix 20 mg IV push every 12 hours. The patient is also on Aldactone 25 mg by mouth daily. The patient is on long-term medical evaluation with Eliquis 2.5 mg by mouth twice a day. He is on lactated Ringer which is currently running at 20 mL an hour. Despite diuresis, the neck fluid balance has been positive or the past several days and the patient's weight has been gradually going up from a baseline of 70 kg at time of admission up to 85 kg for now. He is receiving enteral feeding for nutritional support. Repeat chest x- ray from today shows that the patient's overall findings are essentially stable. There is persistent small to moderate-sized left-sided pleural effusion and addition to diffuse bilateral interstitial edema/infiltration. The patient's blood gases today shows a component of respiratory alkalosis with a pH of 7.5 with a pCO2 of 39 and pO2 of 107. This was on FiO2 of 50%. The patient has a peak pressure of 34. Static pressure of 32 on the mechanical ventilator. I dropped a respiratory rate down to 20. He is sedated with propofol which is currently running at 50 g per KG per minute. He is on a combination of Lasix and Aldactone. He is on vital high protein at the rate of 35 mL an hour. Objective - Vital Signs Vital signs: Vital Signs Temp 98.5 F 02/09/20 08:00 Pulse 60 02/09/20 11:05 Resp 20 02/09/20 11:00 BP 100/67 02/09/20 11:00 Pulse Ox 98 02/09/20 11:00 Intake & Output 02/08/20 02/09/20 02/09/20 18:59 06:59 18:59 Intake Total 1141.562 875 505.000 Output Total 1170 720 345 Balance -28.438 155 160.000 Weight 82 kg 82 kg Intake: IV 463 250 115 0.9 Normal Saline @ 3mL/ 3 30 15 hr from Pressure Bag Lactated Ringers 1,000 ml 460 220 100 @ 20 mls/hr IV .Q24H [facility] Rx#:[id number] Intake, IV Titration 188.562 200 100.000 Amount Propofol 1,000 mg In 188.562 200 100.000 Empty Bag 1 bag @ Titrate IV .Q0M [facility] Rx#: [id number] Oral 45 Tube Feeding 385 350 210 Other 60 75 80 Output: Urine 1170 720 345 Other: Voiding Method Indwelling Catheter Indwelling Catheter Indwelling Catheter ABP, PAP, CO, CI - Last Documented Arterial Blood Pressure 109/53 - Exam GENERAL EXAM: On mechanical ventilator, sedated, 75-year-old male patient in no apparent distress. The patient is sedated on a mechanical ventilator currently on propofol HEAD: Normocephalic/atraumatic. EYES: Normal reaction of pupils, equal size. Conjunctiva pink, sclera white. NOSE: Clear with pink turbinates. THROAT: No erythema or exudates. NECK: No masses, no JVD, no thyroid enlargement, no adenopathy. Midline tracheostomy in place, #8 foam cuff trach CHEST: No chest wall deformity. Symmetrical expansion. LUNGS: Equal air entry with basilar crackles left greater than right CVS: Regular rate and rhythm, normal S1 and S2, no gallops, no murmurs, no rubs ABDOMEN: Soft, nontender. No hepatosplenomegaly, normal bowel sounds, no guarding or rigidity. PEG tube is in place, taped to the abdomen, surg dressing in place EXTREMITIES: No clubbing, no edema, no cyanosis, 2+ pulses and upper and lower extremities. MUSCULOSKELETAL: Muscle strength and tone normal. SPINE: No scoliosis or deformity SKIN: No rashes CENTRAL NERVOUS SYSTEM: Trached to the vent, sedated. No focal deficits, tone is normal in all 4 extremities. - Labs CBC & Chem 7: 02/09/20 05:05 02/09/20 05:05 Labs: Abnormal Lab Results - Last 24 Hours (Table) 02/08/20 02/08/20 02/09/20 Range/Units 18:19 23:09 04:29 RBC (4.30-5.90) m/uL Hgb (13.0-17.5) gm/dL Hct (39.0-53.0) % ABG pH 7.50 H (7.35-7.45) ABG HCO3 30 H (21-25) mmol/L ABG Total CO2 32 H (19-24) mmol/L ABG O2 Saturation 97.7 H (94-97) % Sodium (137-145) mmol/L Carbon Dioxide (22-30) mmol/L BUN (9-20) mg/dL Glucose (74-99) mg/dL POC Glucose (mg/dL) 134 H 138 H (75-99) mg/dL Calcium (8.4-10.2) mg/dL 02/09/20 02/09/20 02/09/20 Range/Units 05:05 05:05 05:12 RBC 2.87 L (4.30-5.90) m/uL Hgb 9.5 L (13.0-17.5) gm/dL Hct 28.5 L (39.0-53.0) % ABG pH (7.35-7.45) ABG HCO3 (21-25) mmol/L ABG Total CO2 (19-24) mmol/L ABG O2 Saturation (94-97) % Sodium 133 L (137-145) mmol/L Carbon Dioxide 31 H (22-30) mmol/L BUN 76 H (9-20) mg/dL Glucose 145 H (74-99) mg/dL POC Glucose (mg/dL) 154 H (75-99) mg/dL Calcium 7.2 L (8.4-10.2) mg/dL 02/09/20 Range/Units 08:31 RBC (4.30-5.90) m/uL Hgb (13.0-17.5) gm/dL Hct (39.0-53.0) % ABG pH (7.35-7.45) ABG HCO3 (21-25) mmol/L ABG Total CO2 (19-24) mmol/L ABG O2 Saturation (94-97) % Sodium (137-145) mmol/L Carbon Dioxide (22-30) mmol/L BUN (9-20) mg/dL Glucose (74-99) mg/dL POC Glucose (mg/dL) 129 H (75-99) mg/dL Calcium (8.4-10.2) mg/dL Microbiology - Last 24 Hours (Table) 02/06/20 14:00 Catheter Tip Culture - Final Catheter Tip Assessment and Plan Plan: #1. Acute on chronic hypoxemic, and hypercapnic respiratory failure, multifactorial, in part related to underlying exacerbation of acute systolic congestive heart failure, acute exacerbation of COPD, and streptococcal pneumonia, and a component of ARDS is not excluded. On today's evaluation, I feel that the patient is and fluid overload. He has gained at least 9 kg since his admission. In addition he has these edema in the upper and lower extremities bilaterally. His pneumococcal pneumonia has been treated. He is afebrile. He is hemodynamically stable. He has been having diffuse but the pulmonary infiltrates in addition to left-sided pleural effusion. I think he would deserve more aggressive diuresis. His blood gases from today shows a component of metabolic alkalosis with a pH of 7.5. #2. Failure to wean from mechanical ventilation, and patient is status post tracheostomy and PEG tube insertion on 01/28/2020 #3. coronary artery disease with previous bypass grafting #4. History of cardiomyopathy with LV dysfunction and AICD placement, repeat echocardiogram showed an ejection fraction of 30-35% #5. history of systolic congestive heart failure #6. acute kidney injury secondary to cardiorenal syndrome, recovered and the patient's creatinine is normalized #7. Chronic atrial fibrillation, patient is on Eliquis for anticoagulation, which is currently on hold for tracheostomy and PEG tube insertion, rate controlled #8. Tobacco dependence syndrome #9. Chronic left-sided pleural effusion present since 2016 #10. Covid 19 testing was negative #11. Hypernatremia, related to free water deficit, improved, sodium level is normalized Plan Start the patient on Lasix drip at 5 mg an hour Continue Aldactone Monitor urine output Dropped a respiratory rate down to 20 Drop the flow down to 60 Keep the FiO2 at 50% Check a pro-calcitonin level Proceed with a noncontrast CAT scan of the chest We'll continue to follow. I doubt pneumonia. I doubt ARDS. The presentation is most likely consistent with CHF. We'll review the CAT scan will make further recommendations. Critically care evaluation that was on a more than 30 minutes. Time with Patient: Greater than 30
[2020-02-09] MEDS: LISINOPRIL 2.5 MG TAB PO SCH (12:22)
[2020-02-09 12:37] LABS: Glucose,Whole Blood 122 mg/dL (75-99)
--- NOTE | 2020-02-09 13:24 | P.PN ---
Subjective Progress Note Date: 02/09/20 CHIEF COMPLAINT: Trach and PEG HISTORY OF PRESENT ILLNESS: 75-year-old male who is status post trach and peg tube insertion with Dr. Monsivais. Postop day #1. Patient examined at the bedside with Dr. Monsivais. Patient ventilating well without issues. Vital signs stable. PHYSICAL EXAM: VITAL SIGNS: Reviewed. GENERAL: Well-developed in no acute distress. HEENT: Trach noted. No sclera icterus. Extraocular movements grossly intact. Moist buccal mucosa. Head is atraumatic, normocephalic. ABDOMEN: Soft. Nondistended. Nontender. PEG tube intact. NEUROLOGIC: Sedated on mechanical ventilation ASSESSMENT: 1. Acute hypoxic respiratory failure requiring mechanical ventilation PLAN: -Continue tube feedings as tolerated -Ventilator management per pulmonary Nurse practitioner note has been reviewed by physician. Signing provider agrees with the documented findings, assessment, and plan of care. Objective - Vital Signs Vital signs: Vital Signs Temp 98.5 F 02/09/20 08:00 Pulse 64 02/09/20 10:00 Resp 20 02/09/20 10:00 BP 100/67 02/09/20 10:00 Pulse Ox 100 02/09/20 10:00 Intake & Output 02/08/20 02/09/20 02/09/20 18:59 06:59 18:59 Intake Total 1141.562 875 447.000 Output Total 1170 720 270 Balance -28.438 155 177.000 Weight 82 kg Intake: IV 463 250 92 0.9 Normal Saline @ 3mL/ 3 30 12 hr from Pressure Bag Lactated Ringers 1,000 ml 460 220 80 @ 20 mls/hr IV .Q24H [facility] Rx#:[id number] Intake, IV Titration 188.562 200 100.000 Amount Propofol 1,000 mg In 188.562 200 100.000 Empty Bag 1 bag @ Titrate IV .Q0M [facility] Rx#: [id number] Oral 45 Tube Feeding 385 350 175 Other 60 75 80 Output: Urine 1170 720 270 Other: Voiding Method Indwelling Catheter Indwelling Catheter ABP, PAP, CO, CI - Last Documented Arterial Blood Pressure 122/59 - Labs CBC & Chem 7: 02/09/20 05:05 02/09/20 05:05 Labs: Abnormal Lab Results - Last 24 Hours (Table) 05/02/08/20 02/08/20 Range/Units 11:40 18:19 23:09 RBC (4.30-5.90) m/uL Hgb (13.0-17.5) gm/dL Hct (39.0-53.0) % ABG pH (7.35-7.45) ABG HCO3 (21-25) mmol/L ABG Total CO2 (19-24) mmol/L ABG O2 Saturation (94-97) % Sodium (137-145) mmol/L Carbon Dioxide (22-30) mmol/L BUN (9-20) mg/dL Glucose (74-99) mg/dL POC Glucose (mg/dL) 128 H 134 H 138 H (75-99) mg/dL Calcium (8.4-10.2) mg/dL 02/09/20 02/09/20 02/09/20 Range/Units 04:29 05:05 05:05 RBC 2.87 L (4.30-5.90) m/uL Hgb 9.5 L (13.0-17.5) gm/dL Hct 28.5 L (39.0-53.0) % ABG pH 7.50 H (7.35-7.45) ABG HCO3 30 H (21-25) mmol/L ABG Total CO2 32 H (19-24) mmol/L ABG O2 Saturation 97.7 H (94-97) % Sodium 133 L (137-145) mmol/L Carbon Dioxide 31 H (22-30) mmol/L BUN 76 H (9-20) mg/dL Glucose 145 H (74-99) mg/dL POC Glucose (mg/dL) (75-99) mg/dL Calcium 7.2 L (8.4-10.2) mg/dL 02/09/20 02/09/20 Range/Units 05:12 08:31 RBC (4.30-5.90) m/uL Hgb (13.0-17.5) gm/dL Hct (39.0-53.0) % ABG pH (7.35-7.45) ABG HCO3 (21-25) mmol/L ABG Total CO2 (19-24) mmol/L ABG O2 Saturation (94-97) % Sodium (137-145) mmol/L Carbon Dioxide (22-30) mmol/L BUN (9-20) mg/dL Glucose (74-99) mg/dL POC Glucose (mg/dL) 154 H 129 H (75-99) mg/dL Calcium (8.4-10.2) mg/dL Microbiology - Last 24 Hours (Table) 02/06/20 14:00 Catheter Tip Culture - Final Catheter Tip
--- NOTE | 2020-02-09 13:37 | CT ---
EXAMINATION TYPE: CT chest wo con DATE OF EXAM: 02/09/2020 COMPARISON: Prior chest CT June 03, [address] June 08, 2016. Same day chest x-ray a nd older x-rays. HISTORY: Diffuse pulmonary infiltrates CT DLP: 379.7 mGycm. Automated Exposure Control for Dose Reduction was Utilized. TECHNIQUE: CT scan of the thorax is performed without IV contrast. FINDINGS: LUNGS: Persistent small to moderate-sized thin-walled left pleural fluid collection not significantly changed in size or appearance from recent CT. There is adjacent left midlung compressive atelectasis extending towards the hilum. Background mild to moderate emphysematous change of the left upper lung is present. There is chronic left-sided volume loss. Small right pleural effusion is slightly larger versus most recent CT. Background mild/moderate emphy sematous change somewhat obscured by diffuse right lung groundglass and interstitial opacities with s ome small areas of focal consolidation posteriorly in right and longer identified. Diffuse involvemen t throughout the right lung again seen. MEDIASTINUM: Tracheostomy tube redemonstrated. Right-sided PICC line terminates in SVC. Post-CABG carlie nges with mediastinal clips and sternal wires is redemonstrated. Stable cardiomegaly. No new suspicio us thoracic or mediastinal adenopathy. OTHER: Significant bilateral gynecomastia redemonstrated. Interval removal of nasogastric tube with n ew PEG tube in the gastric antrum. IMPRESSION: Background cardiomegaly and mild to moderate emphysematous change with small to moderate- sized thin-walled nondependent left pleural fluid collection all redemonstrated. Small right pleural effusion slightly larger from most recent CT. Diffuse right lung alveolar and interstitial edema and/ or infiltrates remain present without significant change from most recent CT.
--- NOTE | 2020-02-09 15:40 | PN ---
PROGRESS NOTE Patient is seen for followup for acute kidney injury and hypernatremia. His sodium has improved; in fact, it is now on the lower side. Free water was decreased yesterday and held for one day. Serum sodium today is even lower than yesterday. Otherwise, patient remains on the vent. He is comfortable. He is maintained on sedation. PHYSICAL EXAMINATION: On examination today, blood pressure was 100/67, heart rate 58 per minute. He is afebrile. EXAMINATION OF THE HEART: S1 and S2. EXAMINATION OF LUNGS: Bilateral breath sounds are heard. ABDOMEN: Soft, non-tender. Examination of lower extremities edema 1+ bilaterally. PATIENT SERVICE REP exam cannot be performed. LABS: Labs show sodium 133, potassium 4.8, chloride 101. CO2 is 31, BUN 76, creatinine 1.06. ASSESSMENT: 1. Acute kidney injury, acute tubular necrosis, currently resolved. 2. Hypernatremia, improved; serum sodium now on the lower side. I will hold water flushes completely for now. 3. Acute hypoxic respiratory failure. 4. Volume overload, status post Lasix. 5. Status post trach and PEG. 6. Cardiomyopathy, ejection fraction 30% to 35%, status post dobutamine. 7. Chronic atrial fibrillation, maintained on anticoagulation. PLAN: Agree with diuresis. Patient is volume-overloaded. Continue off of IV fluids. Discontinue free water down the feeding tube. Repeat labs in a.m. MMODL / IJN: [id number] /
[2020-02-09 18:26] LABS: Glucose,Whole Blood 162 mg/dL (75-99)
--- NOTE | 2020-02-09 18:46 | P.PN ---
Progress Note - Text Progress Note Date: 02/09/20 Chief Complaint: Short of breath History of presenting complaint: This is a 75-year-old patient of Dr. Gonzáles. Long-standing smoker. Chronic stable medical conditions include atrial fibrillation, AICD, coronary artery disease with prior bypass, on home oxygen, GERD, COPD. Last ejection fraction is 40-45%. She presents with worsening short of breath for about a week at least. It has been progressively getting worse. Some edema. Weak and tired slight cough is present. Increasing swelling of lower extremity. Orthopnea. No fever no chills. Tired and rundown. Slow with given history. Admitted with acute on chronic CHF exacerbation, COPD exacerbation. Was started on IV Lasix, bronchodilators and IV steroids. Early hours of January 25 patient was becoming more short of breath, could not tolerate BiPAP was intubated and placed in the ICU. Also being treated for pneumonia. Patient extubated on January 28. Patient had remained on IV Lasix drip, IV dobutamine. Was worsening again. And patient was reintubated on January 30. February 04 patient had a PEG tube and a tracheostomy tube placed to Dr. Monsivais. Antibiotics discontinued. Dr. Colin on February 05.. Gomaj-DRN-[id number]. FiO2 50 and PEEP of 10. On IV propofol. 2 feeding at 35 mL an hour. Seen by Dr. Richardson earlier today. [place] patient is in fluid overload. Started on a Lasix drip 5 mg an hour. Review of systems: Cannot be done, patient intubated Active Medications Albuterol/Ipratropium (Duoneb 0.5 Mg-3 Mg/3 Ml Soln) 3 ml INHALATION RT-Q2H PRN PRN Reason: Shortness Of Breath Or Wheezing Last Admin: 02/04/20 02:59 Dose: 3 ml Documented by: Albuterol/Ipratropium (Duoneb 0.5 Mg-3 Mg/3 Ml Soln) 3 ml INHALATION RT-Q4H [facility] Last Admin: 02/09/20 15:27 Dose: 3 ml Documented by: Apixaban (Eliquis) 2.5 mg PO BID [facility] Last Admin: 02/09/20 08:47 Dose: 2.5 mg Documented by: Atorvastatin Calcium (Lipitor) 80 mg PO DAILY [facility] Last Admin: 02/09/20 08:48 Dose: 80 mg Documented by: Budesonide (Pulmicort) 0.5 mg INHALATION RT-BID [facility] Last Admin: 02/09/20 07:26 Dose: 0.5 mg Documented by: Chlorhexidine Gluconate (Peridex) 15 ml MUCOUS MEM BID [facility] Last Admin: 02/09/20 08:47 Dose: 15 ml Documented by: Hydromorphone HCl (Dilaudid) 1 mg IVP Q4HR PRN PRN Reason: Pain Last Admin: 02/09/20 12:23 Dose: 1 mg Documented by: Propofol 1,000 mg/ IV Solution 100 mls @ 0 mls/hr IV .Q0M [facility]; Protocol Last Admin: 02/09/20 09:19 Dose: 40 mcg/kg/min, 19.68 mls/hr Documented by: Lactated Ringer's (Lactated Ringers) 1,000 mls @ 20 mls/hr IV .Q24H [facility] Last Admin: 02/09/20 00:16 Dose: 20 mls/hr Documented by: Furosemide 100 mg/ Sodium (Chloride) 100 mls @ 10 mls/hr IV .Q10H [facility] Last Admin: 02/09/20 15:55 Dose: 10 mg/hr, 10 mls/hr Documented by: Insulin Aspart (Novolog) 0 unit SQ Q6H [facility]; Protocol Last Admin: 02/09/20 14:42 Dose: Not Given Documented by: Lisinopril (Zestril) 2.5 mg PO DAILY [facility] Last Admin: 02/09/20 12:22 Dose: 2.5 mg Documented by: Magnesium Hydroxide (Milk Of Magnesia) 2,400 mg PO DAILY [facility] Last Admin: 02/09/20 08:49 Dose: 2,400 mg Documented by: Methylprednisolone Sodium Succinate (Solu-Medrol) 40 mg IV Q8HR [facility] Last Admin: 02/09/20 08:49 Dose: 40 mg Documented by: Miscellaneous Information (Magnesium Per Protocol) 1 each MISCELLANE DAILY PRN; Protocol PRN Reason: Per Protocol Miscellaneous Information (Potassium Per Protocol) 1 each MISCELLANE DAILY PRN; Protocol PRN Reason: Per Protocol Naloxone HCl (Narcan) 0.2 mg IV Q2M PRN PRN Reason: Opioid Reversal Nicotine (Habitrol 21mg/24hr Patch) 1 patch TRANSDERM DAILY [facility] Last Admin: 02/09/20 08:49 Dose: 1 patch Documented by: Pantoprazole Sodium (Protonix) 40 mg IV DAILY [facility] Last Admin: 02/09/20 08:49 Dose: 40 mg Documented by: Sodium Chloride (Saline Flush) 10 ml IV Q4HR PRN PRN Reason: PICC Line Sodium Chloride (Saline Flush) 10 ml IV WEEKLY [facility] Sodium Chloride (Saline Flush) 20 ml IV Q4HR PRN PRN Reason: PICC Line Spironolactone (Aldactone) 25 mg PO DAILY [facility] Last Admin: 02/09/20 08:47 Dose: 25 mg Documented by: Physical examination: VITAL SIGNS: 97.6, 60, 13, 100/67, 94% on the ventilator GENERAL: Laying in bed, sedated EYES: Pupils equal. Conjunctiva normal. NECK: JVD unable to assess; masses not palpable. Tracheostomy tube HEART: Heart sounds irregular, edema present. LUNGS: Respiratory rate increased,, diminished breath sounds. ABDOMEN: Soft, nontender, liver spleen not palpable, no masses palpable. PEG tube. PSYCH: Unable to assess, patient sedated MUSCULAR skeletal: Evidence of OA INVESTIGATIONS, reviewed in the clinical context: White count 10.3 hemoglobin 9.5 pH of 7.5 potassium 4.8 creatinine 1.06 pro calcitonin 0.14 Computed tomography scan of the chest-February 08-possible pulmonary edema with cardiomegaly Accu-Cheks noted Previous testing White count 13.1 hemoglobin 12.2 platelets 139, potassium 4.9 crit 1.01 Chest x-ray film personally reviewed by me-increasing bilateral infiltrates CRP 60.5 pro calcitonin 0.1 Sputum culture growing Streptococcus pneumoniae, Anna glabrata 2-D co-EF 30-35% Previous testing White count 10.9 hemoglobin 12.4 platelets 165 neutrophils 9.2 lymphocytes 0.7 potassium 4.3 bun 27 creatinine 0.88, proBNP 1530 EKG tracing personally reviewed by me-atrial flutter rate controlled Chest x-ray film personally reviewed by me-pulmonary edema, cardiomegaly, portable film Assessment: -Acute on chronic congestive heart failure exacerbation from systolic dysfunction EF 30-35% % from underlying coronary artery disease, she started on IV Lasix drip at 5 mg an hour. -Bilateral pneumonia, Streptococcus pneumoniae causing sepsis, POA,-antibiotic completed -Coronary artery disease a prior history of bypass -Acute COPD exacerbation and an current smoker, POA, not improving -Chronic nicotine dependence patient cigarette smoker -Persistent atrial fibrillation -Chronic hypoxic and hypercapnic respiratory failure from a lying COPD -Acute hypoxic and hypercapnic respiratory failure from COPD and CHF, pneumonia POA-worsening on extubated January 28. Reintubated on January 30-slow to respond -Acute kidney injury possibly combination of ATN and prerenal-improved -Chronic left-sided pleural effusion since 2015 per pulmonary -COVID-19 PCR not detected -AICD Plan: -ICU.-On IV propofol. Intubated. On IV Solu-Medrol, patient went back on Lasix drip at 5 mg an hour. I's and O's to be closely followed. Prognosis guarded.
--- NOTE | 2020-02-09 22:24 | PN ---
PROGRESS NOTE DATE OF SERVICE: 02/09/2020 REASON FOR FOLLOWUP: 1. Pneumonia. 2. Leukocytosis. INTERVAL HISTORY: The patient is currently afebrile. The patient remains intubated on the vent. FiO2 is currently stable. Not on any pressor support. No significant purulent secretion through the ET or any diarrhea has been reported. PHYSICAL EXAMINATION: Blood pressure is 116/67, pulse of 64, temperature of 98. He is 97% on 50% FiO2. General description is an elderly male intubated on the vent. RESPIRATORY SYSTEM: Unlabored breathing. Clear to auscultation anteriorly. HEART: S1, S2. Regular rate and rhythm. ABDOMEN: Soft. No tenderness. LABS: Hemoglobin 9.5, white count of 10.3 with a BUN of 76, creatinine 1.06. DIAGNOSTIC IMPRESSION AND PLAN: 1. Patient with acute respiratory failure which is multifactorial in this patient with a component of pneumonia that has been adequately treated. Patient is currently off antibiotic therapy. 2. Leukocytosis, resolved. Will monitor the patient closely off antibiotic therapy. 3. Patient with a CT showing loculated fluid; to be monitored closely. MMODL / IJN: [id number] /
[2020-02-09 23:36] LABS: Glucose,Whole Blood 118 mg/dL (75-99)
[2020-02-10] MEDS: INSULIN ASPART (NovoLOG) 100 UNIT/ML VIAL SQ SCH ×4 (00:22→18:28)
[2020-02-10] MEDS: PROPOFOL 1,000 MG in EMPTY BAG 1 BAG IV SCH ×5 (00:24→20:54)
[2020-02-10] MEDS: methylPREDNISolone SOD SUCCI 40 MG/ML 1 ML VIAL IV SCH ×3 (00:25→15:08)
[2020-02-10] MEDS: IPRATROPIUM-ALBUTEROL 3 ML NEB INHALATION SCH ×6 (02:47→23:26)
[2020-02-10] MEDS: HYDROmorphone 1 MG/ML 1 ML SYRINGE IVP PRN ×2 (03:49→22:13)
[2020-02-10] MEDS: LACTATED RINGERS 1,000 ML IV SCH (03:52)
[2020-02-10 04:04] LABS: ABG HCO3 31 mmol/L (21-25); ABG Oxygen Saturation 94.6 % (94-97); ABG PCO2 51 mmHg (35-45); ABG PH 7.39 (7.35-7.45); ABG PO2 86 mmHg (83-108); ABG TCO2 33 mmol/L (19-24)
[2020-02-10 04:32] LABS: Allen Test Performed? no
[2020-02-10 04:48] LABS: HCT 28.7 % (39.0-53.0); HGB 9.6 gm/dL (13.0-17.5); MCHC 33.6 g/dL (31.0-37.0); MCV 101.2 fL (80.0-100.0); Macrocytosis Slight; Mean Platelet Volume 10.6; Platelet Count 136 k/uL (150-450); RBC 2.83 m/uL (4.30-5.90); RDW 14.5 % (11.5-15.5)
[2020-02-10 05:17] LABS: Calcium 7.2 mg/dL (8.4-10.2)
[2020-02-10 05:45] LABS: Glucose,Whole Blood 138 mg/dL (75-99)
[2020-02-10] MEDS: BUDESONIDE 0.5 MG/2 ML NEBU INHALATION SCH ×2 (07:19→19:40)
--- NOTE | 2020-02-10 07:29 | P.PN ---
Subjective Progress Note Date: 02/10/20 Principal diagnosis: severe CAD/severe cardiomyopathy This is a 75-year-old gentleman with a past medical history significant for coronary artery disease and status post coronary artery bypass grafting, severe cardiomyopathy and status post AICD, long-standing persistent atrial fibrillation on oral anticoagulation, as well as severe chronic obstructive pulmonary disease on home oxygen, was admitted to the hospital with acute hypoxic respiratory failure secondary to COPD exacerbation was a component of congestive heart failure exacerbation. The patient was seen today, 02/10/2020. He was systolic yesterday on Lasix drip. The creatinine is slightly elevated. Hemodynamically he continues to be stable. I would hold on starting back the beta javy at this point because of marginal blood pressure as well as the controlled heart rate without any beta javy. We will continue monitor the kidney function and electrolytes and continue following up with the patient. Restart the beta javy once the pressure is a slightly higher Objective - Vital Signs Vital signs: Vital Signs Temp 98.1 F 02/10/20 04:00 Pulse 60 02/10/20 07:22 Resp 20 02/10/20 07:00 BP 110/63 02/10/20 07:00 Pulse Ox 96 02/10/20 07:00 Intake & Output 02/09/20 02/10/20 02/10/20 18:59 06:59 18:59 Intake Total 1086.000 723.711 58 Output Total 1073 1165 125 Balance 13.000 -441.289 -67 Weight 82 kg 82.3 kg Intake: IV 276 286 23 0.9 Normal Saline @ 3mL/ 36 36 3 hr from Pressure Bag Lactated Ringers 1,000 ml 240 250 20 @ 20 mls/hr IV .Q24H [facility] Rx#:[id number] Intake, IV Titration 275.000 157.711 Amount Furosemide 100 mg In 75 68.167 Sodium Chloride 0.9% 90 ml @ 10 MG/HR 10 mls/hr IV .Q10H [facility] Rx#: [id number] Propofol 1,000 mg In 200.000 89.544 Empty Bag 1 bag @ Titrate IV .Q0M [facility] Rx#: [id number] Tube Feeding 455 280 35 Other 80 Output: Urine 1073 1165 125 Other: Voiding Method Indwelling Catheter Indwelling Catheter # Emeses 0 0 ABP, PAP, CO, CI - Last Documented Arterial Blood Pressure 106/52 - Constitutional General appearance: Present: no acute distress - Respiratory Respiratory: bilateral: diminished - Cardiovascular Rhythm: regular Heart sounds: normal: S1, S2 - Labs CBC & Chem 7: 02/10/20 04:40 02/10/20 04:40 Labs: Abnormal Lab Results - Last 24 Hours (Table) 02/06/20 02/09/20 02/09/20 Range/Units 15:15 05:05 08:31 WBC (3.8-10.6) k/uL RBC (4.30-5.90) m/uL Hgb (13.0-17.5) gm/dL Hct (39.0-53.0) % MCV (80.0-100.0) fL Plt Count (150-450) k/uL ABG pCO2 (35-45) mmHg ABG HCO3 (21-25) mmol/L ABG Total CO2 (19-24) mmol/L Sodium (137-145) mmol/L Carbon Dioxide (22-30) mmol/L BUN (9-20) mg/dL Creatinine (0.66-1.25) mg/dL Glucose (74-99) mg/dL POC Glucose (mg/dL) 129 H (75-99) mg/dL Calcium (8.4-10.2) mg/dL Procalcitonin 0.15 H 0.14 H (0.02-0.09) ng/mL 02/09/20 02/09/20 02/09/20 Range/Units 11:57 18:25 23:35 WBC (3.8-10.6) k/uL RBC (4.30-5.90) m/uL Hgb (13.0-17.5) gm/dL Hct (39.0-53.0) % MCV (80.0-100.0) fL Plt Count (150-450) k/uL ABG pCO2 (35-45) mmHg ABG HCO3 (21-25) mmol/L ABG Total CO2 (19-24) mmol/L Sodium (137-145) mmol/L Carbon Dioxide (22-30) mmol/L BUN (9-20) mg/dL Creatinine (0.66-1.25) mg/dL Glucose (74-99) mg/dL POC Glucose (mg/dL) 122 H 162 H 118 H (75-99) mg/dL Calcium (8.4-10.2) mg/dL Procalcitonin (0.02-0.09) ng/mL 02/10/20 02/10/20 02/10/20 Range/Units 04:02 04:40 04:40 WBC 16.0 H (3.8-10.6) k/uL RBC 2.83 L (4.30-5.90) m/uL Hgb 9.6 L (13.0-17.5) gm/dL Hct 28.7 L (39.0-53.0) % MCV 101.2 H (80.0-100.0) fL Plt Count 136 L (150-450) k/uL ABG pCO2 51 H (35-45) mmHg ABG HCO3 31 H (21-25) mmol/L ABG Total CO2 33 H (19-24) mmol/L Sodium 136 L (137-145) mmol/L Carbon Dioxide 32 H (22-30) mmol/L BUN 95 H (9-20) mg/dL Creatinine 1.43 H (0.66-1.25) mg/dL Glucose 144 H (74-99) mg/dL POC Glucose (mg/dL) (75-99) mg/dL Calcium 7.2 L (8.4-10.2) mg/dL Procalcitonin (0.02-0.09) ng/mL 02/10/20 Range/Units 05:43 WBC (3.8-10.6) k/uL RBC (4.30-5.90) m/uL Hgb (13.0-17.5) gm/dL Hct (39.0-53.0) % MCV (80.0-100.0) fL Plt Count (150-450) k/uL ABG pCO2 (35-45) mmHg ABG HCO3 (21-25) mmol/L ABG Total CO2 (19-24) mmol/L Sodium (137-145) mmol/L Carbon Dioxide (22-30) mmol/L BUN (9-20) mg/dL Creatinine (0.66-1.25) mg/dL Glucose (74-99) mg/dL POC Glucose (mg/dL) 138 H (75-99) mg/dL Calcium (8.4-10.2) mg/dL Procalcitonin (0.02-0.09) ng/mL Assessment and Plan Assessment: assessment #1 acute hypoxic respiratory failure #2 severe chronic obstructive pulmonary disease #3 severe cardiomyopathy #4 severe coronary artery disease #5 long-standing persistent atrial fibrillation #6 is audible comorbid conditions Plan #1 continue the current medical regimen #2 continue oral anticoagulation #3 continue lisinopril and Aldactone #4 continue Lasix drip #5 follow-up with the patient
--- NOTE | 2020-02-10 08:50 | XR ---
EXAMINATION TYPE: XR abdomen 2V DATE OF EXAM: 02/10/2020 COMPARISON: None INDICATION: Abdominal distention TECHNIQUE: Abdomen is examined upright and supine views FINDINGS: There is a normal bowel gas pattern. Air is within the colon. PEG tube appears to be present. Psoas margins are normal. No organomegaly is present. Small to moderate left pleural effusion may be present. There is diffuse increased lung markings to t he right lung. IMPRESSION: 1. Unremarkable Abdomen 2. Infiltrate through the right lung and moderate left pleural effusion.
[2020-02-10] MEDS: PANTOPRAZOLE 40 MG/10 ML VIAL IV SCH (10:05)
[2020-02-10] MEDS: FUROSEMIDE 100 MG in SODIUM CHLORIDE 0.9% 90 ML IV SCH ×2 (10:08→20:19)
[2020-02-10] MEDS: APIXABAN 2.5 MG TABLET PO SCH ×2 (10:09→20:24)
--- NOTE | 2020-02-10 10:10 | XR ---
EXAMINATION TYPE: XR chest 1V portable DATE OF EXAM: 02/10/2020 COMPARISON: 02/09/2020 HISTORY: Line placement. TECHNIQUE: Single frontal view of the chest is obtained. FINDINGS: Cardiomediastinal silhouette is enlarged with post CABG changes and with left-sided cardia c device. Midline tracheostomy is again noted. Right-sided PICC terminates in the superior vena cava/ right atrial junction. Increasing interstitial opacities are seen in the right with persistent retroc ardiac opacity. IMPRESSION: Increasing interstitial densities multifocally on the right, likely interstitial edema w ith persistent retrocardiac opacity that may represent a small pleural effusion with atelectasis and/ or pneumonia.
[2020-02-10] MEDS: NICOTINE 21MG/24HR PATCH TRANSDERM SCH (10:14)
[2020-02-10] MEDS: LACTULOSE 20 GM/30 ML CUP PO SCH ×3 (10:24→20:24)
[2020-02-10] MEDS: LISINOPRIL 2.5 MG TAB PO SCH (10:25)
[2020-02-10] MEDS: BISACODYL 10 MG SUPP RECTAL SCH (10:25)
[2020-02-10] MEDS: MAGNESIUM HYDROXIDE 2,400 MG/10 ML CUP PO SCH (10:25)
[2020-02-10] MEDS: ATORVASTATIN 80 MG TAB PO SCH (10:25)
[2020-02-10] MEDS: SPIRONOLACTONE 25 MG TAB PO SCH (10:25)
[2020-02-10] MEDS: CHLORHEXIDINE GLUCONATE 15 ML CUP MUCOUS MEM SCH ×2 (10:25→20:24)
[2020-02-10 12:02] LABS: Glucose,Whole Blood 95 mg/dL (75-99)
--- NOTE | 2020-02-10 12:15 | P.PN ---
Subjective Progress Note Date: 02/10/20 75-year-old male patient known history of CHF with LV dysfunction and the patient has a mass in place in addition to coronary artery disease and previous bypass surgery, COPD, chronic atrial fibrillation who came into the hospital because of worsening shortness of breath. The patient was having increased swelling lower extremities, profound weakness and feeling tired. The patient was in acute hypoxic respiratory failure. The patient was intubated and placed on mechanical ventilator. The patient was treated for CHF and pneumonia. During the course of treatment, the patient failed to wean off the mechanical ventilator and ultimately the patient required tracheostomy tube insertion in addition to a PEG tube insertion for respiratory support that was quite prolonged. The covid 19 analysis was negative. The patient is being seen today in follow-up. She remains on a mechanical ventilator on assist control mode at the rate of 20 with a tidal volume 400 and FiO2 of 50% with a PEEP of 10. Chest x-ray is still showing diffuse bilateral pulmonary infiltrates and the patient remains sedated with propofol running at 50 g per KG per minute. During the course of her treatment in the intensive care unit, the patient is sputum analysis was done on 01/26/2020 that was positive for pneumococcus and otherwise the rest of the cultures were negative. His echocardiogram from 01/26/2020 revealed impaired LV function with an ejection fraction of 30-35% and the rest of the cardiac structures were essentially within normal limits. The patient remains on Lasix 20 mg IV push every 12 hours. The patient is also on Aldactone 25 mg by mouth daily. The patient is on long-term medical evaluation with Eliquis 2.5 mg by mouth twice a day. He is on lactated Ringer which is currently running at 20 mL an hour. Despite diuresis, the neck fluid balance has been positive or the past several days and the patient's weight has been gradually going up from a baseline of 70 kg at time of admission up to 85 kg for now. He is receiving enteral feeding for nutritional support. Repeat chest x- ray from today shows that the patient's overall findings are essentially stable. There is persistent small to moderate-sized left-sided pleural effusion and addition to diffuse bilateral interstitial edema/infiltration. The patient's blood gases today shows a component of respiratory alkalosis with a pH of 7.5 with a pCO2 of 39 and pO2 of 107. This was on FiO2 of 50%. The patient has a peak pressure of 34. Static pressure of 32 on the mechanical ventilator. I dropped a respiratory rate down to 20. He is sedated with propofol which is currently running at 50 g per KG per minute. He is on a combination of Lasix and Aldactone. He is on vital high protein at the rate of 35 mL an hour. On today's evaluation of 02/10/2020, the patient remains sedated with propofol which was running at 40 g per KG per minute. He was deeply sedated and I asked the propofol to be cut down. He is also on Lasix drip at 10 mg an hour. He remains on a mechanical ventilator. Earlier this morning, he was assist control mode of ventilation at the rate of 20 with a tidal volume of 400 and FiO2 of 50% with a PEEP of 10. The blood gases from today showed a pH of 7.39 with a pCO2 of 51 and pO2 of 86. Chest x-ray findings are unchanged. The patient has become prerenal. However, his producing better urine output. The neck fluid balance is +126 mL over the past 24 hours. He has become prerenal with a creatinine being up to 1.43. White cell count is at 16 with a hemoglobin of 9.6. I also noted some abdominal distention. Flat film of the abdomen was done and was nonspecific. Immediately stop the PEG tube feeding and I'll put the active feeding for suctioning and around 400 mL of nutrition was aspirated from the stomach. The patient has diminished bowel sounds. He has some tympany on examination. No direct tenderness. No rebound tenderness. No guarding. Active site is dry clean and intact. He'll be given bowel rest for the next 24 hours. He will be also given laxatives and we decided to give him Dulcolax 10 mg rectally on a daily basis and addition to lactulose 20 g 3 times a day per PEG. Objective - Vital Signs Vital signs: Vital Signs Temp 98.3 F 02/10/20 08:00 Pulse 68 02/10/20 11:30 Resp 25 H 02/10/20 10:00 BP 110/63 02/10/20 08:00 Pulse Ox 89 L 02/10/20 10:00 Intake & Output 02/09/20 02/10/20 02/10/20 18:59 06:59 18:59 Intake Total 1086.000 723.711 329 Output Total 1073 1165 985 Balance 13.000 -441.289 -656 Weight 82 kg 82.3 kg Intake: IV 276 286 79 0.9 Normal Saline @ 3mL/ 36 36 9 hr from Pressure Bag Furosemide 100 mg In 10 Sodium Chloride 0.9% 90 ml @ 5 MG/HR 5 mls/hr IV .Q20H [facility] Rx#:[id number] Lactated Ringers 1,000 ml 240 250 60 @ 20 mls/hr IV .Q24H [facility] Rx#:[id number] Intake, IV Titration 275.000 157.711 200 Amount Furosemide 100 mg In 75 68.167 100 Sodium Chloride 0.9% 90 ml @ 5 MG/HR 5 mls/hr IV .Q20H [facility] Rx#:[id number] Propofol 1,000 mg In 200.000 89.544 100 Empty Bag 1 bag @ Titrate IV .Q0M [facility] Rx#: [id number] Tube Feeding 455 280 50 Other 80 Output: Gastric Drainage 300 Urine 1073 1165 385 Other 300 Other: Voiding Method Indwelling Catheter Indwelling Catheter Indwelling Catheter # Emeses 0 0 ABP, PAP, CO, CI - Last Documented Arterial Blood Pressure 139/63 - Exam GENERAL EXAM: On mechanical ventilator, sedated, 75-year-old male patient in no apparent distress. The patient is sedated on a mechanical ventilator currently on propofol HEAD: Normocephalic/atraumatic. EYES: Normal reaction of pupils, equal size. Conjunctiva pink, sclera white. NOSE: Clear with pink turbinates. THROAT: No erythema or exudates. NECK: No masses, no JVD, no thyroid enlargement, no adenopathy. Midline tracheostomy in place, #8 foam cuff trach CHEST: No chest wall deformity. Symmetrical expansion. LUNGS: Equal air entry with basilar crackles left greater than right CVS: Regular rate and rhythm, normal S1 and S2, no gallops, no murmurs, no rubs ABDOMEN: Soft, nontender. No hepatosplenomegaly, normal bowel sounds, no guarding or rigidity. PEG tube is in place, taped to the abdomen, surg dressing in place abdomen is slightly distended on today's evaluation. The patient has positive tympany. The PEG tube site is dry clean and intact. Enteral feeding was stopped and the patient was placed 2 cm and suctioning., EXTREMITIES: No clubbing, no edema, no cyanosis, 2+ pulses and upper and lower extremities. MUSCULOSKELETAL: Muscle strength and tone normal. SPINE: No scoliosis or deformity SKIN: No rashes CENTRAL NERVOUS SYSTEM: Trached to the vent, sedated. No focal deficits, tone is normal in all 4 extremities. - Labs CBC & Chem 7: 02/10/20 04:40 02/10/20 04:40 Labs: Abnormal Lab Results - Last 24 Hours (Table) 02/06/20 02/09/20 02/09/20 Range/Units 15:15 05:05 11:57 WBC (3.8-10.6) k/uL RBC (4.30-5.90) m/uL Hgb (13.0-17.5) gm/dL Hct (39.0-53.0) % MCV (80.0-100.0) fL Plt Count (150-450) k/uL ABG pCO2 (35-45) mmHg ABG HCO3 (21-25) mmol/L ABG Total CO2 (19-24) mmol/L Sodium (137-145) mmol/L Carbon Dioxide (22-30) mmol/L BUN (9-20) mg/dL Creatinine (0.66-1.25) mg/dL Glucose (74-99) mg/dL POC Glucose (mg/dL) 122 H (75-99) mg/dL Calcium (8.4-10.2) mg/dL Procalcitonin 0.15 H 0.14 H (0.02-0.09) ng/mL 02/09/20 02/09/20 02/10/20 Range/Units 18:25 23:35 04:02 WBC (3.8-10.6) k/uL RBC (4.30-5.90) m/uL Hgb (13.0-17.5) gm/dL Hct (39.0-53.0) % MCV (80.0-100.0) fL Plt Count (150-450) k/uL ABG pCO2 51 H (35-45) mmHg ABG HCO3 31 H (21-25) mmol/L ABG Total CO2 33 H (19-24) mmol/L Sodium (137-145) mmol/L Carbon Dioxide (22-30) mmol/L BUN (9-20) mg/dL Creatinine (0.66-1.25) mg/dL Glucose (74-99) mg/dL POC Glucose (mg/dL) 162 H 118 H (75-99) mg/dL Calcium (8.4-10.2) mg/dL Procalcitonin (0.02-0.09) ng/mL 02/10/20 02/10/20 02/10/20 Range/Units 04:40 04:40 05:43 WBC 16.0 H (3.8-10.6) k/uL RBC 2.83 L (4.30-5.90) m/uL Hgb 9.6 L (13.0-17.5) gm/dL Hct 28.7 L (39.0-53.0) % MCV 101.2 H (80.0-100.0) fL Plt Count 136 L (150-450) k/uL ABG pCO2 (35-45) mmHg ABG HCO3 (21-25) mmol/L ABG Total CO2 (19-24) mmol/L Sodium 136 L (137-145) mmol/L Carbon Dioxide 32 H (22-30) mmol/L BUN 95 H (9-20) mg/dL Creatinine 1.43 H (0.66-1.25) mg/dL Glucose 144 H (74-99) mg/dL POC Glucose (mg/dL) 138 H (75-99) mg/dL Calcium 7.2 L (8.4-10.2) mg/dL Procalcitonin (0.02-0.09) ng/mL Assessment and Plan Plan: #1. Acute on chronic hypoxemic, and hypercapnic respiratory failure, multifactorial, in part related to underlying exacerbation of acute systolic congestive heart failure, acute exacerbation of COPD, and streptococcal pneumonia, and a component of ARDS is not excluded. On today's evaluation, I feel that the patient is and fluid overload. He has gained at least 9 kg since his admission. In addition he has these edema in the upper and lower extremities bilaterally. Based on all this, a repeat pro-calcitonin was done and the level came back negative, low at 0.14. A computed tomography scan of the chest was done that showed a moderate-sized left-sided pleural effusion, small sized right-sided pleural effusion, diffuse breath and pulmonary infiltrates indicating either interstitial edema versus ARDS. A superimposed pneumonia Doppler this point in time. The patient is currently on Lasix which is running at 10 mg an hour and he has been able to achieve equal fluid balance and we are hoping a negative fluid balance over the next 24 hours. He has become slightly prerenal. #2. Failure to wean from mechanical ventilation, and patient is status post tracheostomy and PEG tube insertion on 01/28/2020 #3. coronary artery disease with previous bypass grafting #4. History of cardiomyopathy with LV dysfunction and AICD placement, repeat echocardiogram showed an ejection fraction of 30-35% #5. history of systolic congestive heart failure #6. acute kidney injury secondary to cardiorenal syndrome, and the patient's creatinine was up to 1.43 with a mean of 95 on today's evaluation, this is likely secondary to diuresis and cardiorenal factors. #7. Chronic atrial fibrillation, patient is on Eliquis for anticoagulation, which is currently on hold for tracheostomy and PEG tube insertion, rate controlled #8. Tobacco dependence syndrome #9. Chronic left-sided pleural effusion moderate-sized based on the most recent CAT scan. #10. Covid 19 testing was negative #11. Hypernatremia, related to free water deficit, improved, sodium level is normalized Plan We'll proceed with thoracentesis of the left lung Continue Lasix drip and cut the dose down to 5 mg an hour as the patient is producing approximately 75 mL an hour Continue vent support and try to drop the FiO2 down to 40% and PEEP of 8 if the patient is able to tolerate. Reduce the level of sedation by cutting down the propofol dose Hold enteral feeding for nutritional support. Rest of the abdomen was done. Abdomen is slightly distended. It's nonspecific gas pattern on the x-ray of the abdomen. I'm going to recommend giving the patient 24-hour of bowel rest and The patient is going to receive a combination of Dulcolax and lactulose. Continue the rest of the supportive care We'll continue to follow make further recommendations based on his progress. This evaluation was done and more than 30 minutes. This is a critically care evaluation. The time needed was excluding the time needed to do the procedures. Time with Patient: Greater than 30
[2020-02-10 12:17] LABS: Glucose,Whole Blood 95 mg/dL (75-99)
--- NOTE | 2020-02-10 12:56 | PCN ---
PROCEDURE NOTE Indication Pleural effusion. A time-out was completed verifying correct patient, procedure, site, positioning , and implant (s) or special equipment if applicable. Ultrasound guidance was not used and appropriate fluid pocket was identified and marked. Patient was positioned, prepped and draped in usual sterile fashion. Lidocaine was used to anesthetize the area. A Thoracentesis catheter was introduced into the pleural space and fluid was removed. Blood loss was none. A chest x-ray was ordered to evaluate for pneumothorax. Total Fluid Removed: 300 mL Color of Fluid: Dark, turbid, yellowish. Fluid was sent for appropriate laboratory tests. Patient tolerated the procedure well and there were no complications. This was done without ultrasound markings. The site is on the left. Total amount of fluid removed was 300 mL of dark turbid, yellowish pleural effusion. No bedside complications. No pneumothorax and the pleural fluid was sent for analysis. MMODL / IJN: [id number] /
--- NOTE | 2020-02-10 13:56 | PN ---
PROGRESS NOTE Patient is seen for followup for acute kidney injury and hypernatremia. Serum sodium had been low and therefore free water flushes down the feeding tube have been on hold. Patient has also been volume overloaded and was started on Lasix drip yesterday. His creatinine had come down to about 0.9-1.0 mg/dL. Today it is up at 1.43. A 24 hour Is and Os shows negative balance of about 428 mL. The patient remains sedated. Urine output at 75-100 mL an hour. PHYSICAL EXAMINATION: On examination, blood pressure was 125/56, heart rate of 71 per minute, patient is afebrile. Examination of the heart S1, S2. Examination of the lungs, bilateral breath sounds are heard. Abdomen is soft. Examination of lower extremities shows edema 2 to 3+ bilaterally. CON[facility] PICKER exam cannot be performed. LABS: Show hemoglobin 10.6, sodium 136, potassium 5.0 CO2 is 32, BUN 95, creatinine 1.43. ASSESSMENT: 1. Acute kidney injury ATN, improved with creatinine down to 1.0, today the creatinine is up to 1.4, most likely associated with recent diuresis; however, patient remains significantly volume overloaded. We can continue with the Lasix drip for now. No nephrotoxic agents on board. 2. Hypernatremia, resolved with sodium, currently on the lower side, off of free water down the feeding tube. 3. Hypoxic respiratory failure, currently maintained on the vent. 4. Volume overload, being diuresed although 24 hour balance is not significantly negative yet. 5. Status post trach and PEG. 6. Cardiomyopathy, ejection fraction 30%-35%, status post dobutamine on initial admission. 7. Chronic atrial fibrillation maintained on anticoagulation. PLAN: Continue with the Lasix drip. If renal function worsens and patient does not diurese well, we may need to reconsider dobutamine. Continue to hold off on free water flushes for now. MMODL / IJN: [id number] /
[2020-02-10 15:27] LABS: Appearance,BF Bloody; Color,BF Red; Mononuclear WBC,Body Fluid 5 %; Nucleated Cells, Body Fluid 18000 /uL; Polynuclear WBC,Body Fluid 95 %; RBC, Body Fluid 62500 /uL
[2020-02-10 17:40] LABS: Glucose,Whole Blood 103 mg/dL (75-99)
[2020-02-10] MEDS ORDERED: NOREPINEPHRIN 4 MG-0.9% NS PMX 4 MG/250 ML ML IV ONE (22:30)
--- NOTE | 2020-02-10 22:35 | P.PN ---
Progress Note - Text Progress Note Date: 02/10/20 Chief Complaint: Short of breath History of presenting complaint: This is a 75-year-old patient of Dr. Gonzáles. Long-standing smoker. Chronic stable medical conditions include atrial fibrillation, AICD, coronary artery disease with prior bypass, on home oxygen, GERD, COPD. Last ejection fraction is 40-45%. She presents with worsening short of breath for about a week at least. It has been progressively getting worse. Some edema. Weak and tired slight cough is present. Increasing swelling of lower extremity. Orthopnea. No fever no chills. Tired and rundown. Slow with given history. Admitted with acute on chronic CHF exacerbation, COPD exacerbation. Was started on IV Lasix, bronchodilators and IV steroids. Early hours of January 25 patient was becoming more short of breath, could not tolerate BiPAP was intubated and placed in the ICU. Also being treated for pneumonia. Patient extubated on January 28. Patient had remained on IV Lasix drip, IV dobutamine. Was worsening again. And patient was reintubated on January 30. February 04 patient had a PEG tube and a tracheostomy tube placed to Dr. Monsivais. Antibiotics discontinued. Dr. Colin on February 05.. [id number]. FiO2 60% and PEEP of 10. Lasix drip 5 mg an hour. Also propofol drip. Telemetry shows sinus rhythm. 2 feeding has been held. Given lactulose and Dulcolax suppository for bowel movement. Also had left-sided thoracentesis of 300 mL of blood stained fluid and Dr. Richardson. That did not help too much in the respiratory status. Review of systems: Cannot be done, patient intubated Active Medications Albuterol/Ipratropium (Duoneb 0.5 Mg-3 Mg/3 Ml Soln) 3 ml INHALATION RT-Q2H PRN PRN Reason: Shortness Of Breath Or Wheezing Last Admin: 02/04/20 02:59 Dose: 3 ml Documented by: Albuterol/Ipratropium (Duoneb 0.5 Mg-3 Mg/3 Ml Soln) 3 ml INHALATION RT-Q4H [facility] Last Admin: 02/10/20 19:40 Dose: 3 ml Documented by: Apixaban (Eliquis) 2.5 mg PO BID [facility] Last Admin: 02/10/20 20:24 Dose: 2.5 mg Documented by: Atorvastatin Calcium (Lipitor) 80 mg PO DAILY [facility] Last Admin: 02/10/20 10:25 Dose: 80 mg Documented by: Bisacodyl (Dulcolax) 10 mg RECTAL DAILY [facility] Last Admin: 02/10/20 10:25 Dose: 10 mg Documented by: Budesonide (Pulmicort) 0.5 mg INHALATION RT-BID [facility] Last Admin: 02/10/20 19:40 Dose: 0.5 mg Documented by: Chlorhexidine Gluconate (Peridex) 15 ml MUCOUS MEM BID [facility] Last Admin: 02/10/20 20:24 Dose: 15 ml Documented by: Hydromorphone HCl (Dilaudid) 1 mg IVP Q4HR PRN PRN Reason: Pain Last Admin: 02/10/20 22:13 Dose: 1 mg Documented by: Propofol 1,000 mg/ IV Solution 100 mls @ 0 mls/hr IV .Q0M [facility]; Protocol Last Admin: 02/10/20 20:54 Dose: 40 mcg/kg/min, 19.752 mls/hr Documented by: Lactated Ringer's (Lactated Ringers) 1,000 mls @ 20 mls/hr IV .Q24H [facility] Last Admin: 02/10/20 03:52 Dose: 20 mls/hr Documented by: Furosemide 100 mg/ Sodium (Chloride) 100 mls @ 5 mls/hr IV .Q20H [facility] Last Admin: 02/10/20 20:19 Dose: 5 mg/hr, 5 mls/hr Documented by: Insulin Aspart (Novolog) 0 unit SQ Q6H [facility]; Protocol Last Admin: 02/10/20 18:28 Dose: Not Given Documented by: Lactulose (Cephulac) 20 gm PO TID [facility] Last Admin: 02/10/20 20:24 Dose: 20 gm Documented by: Lisinopril (Zestril) 2.5 mg PO DAILY [facility] Last Admin: 02/10/20 10:25 Dose: 2.5 mg Documented by: Magnesium Hydroxide (Milk Of Magnesia) 2,400 mg PO DAILY [facility] Last Admin: 02/10/20 10:25 Dose: Not Given Documented by: Methylprednisolone Sodium Succinate (Solu-Medrol) 40 mg IV Q8HR [facility] Last Admin: 02/10/20 15:08 Dose: 40 mg Documented by: Miscellaneous Information (Magnesium Per Protocol) 1 each MISCELLANE DAILY PRN; Protocol PRN Reason: Per Protocol Miscellaneous Information (Potassium Per Protocol) 1 each MISCELLANE DAILY PRN; Protocol PRN Reason: Per Protocol Naloxone HCl (Narcan) 0.2 mg IV Q2M PRN PRN Reason: Opioid Reversal Nicotine (Habitrol 21mg/24hr Patch) 1 patch TRANSDERM DAILY [facility] Last Admin: 02/10/20 10:14 Dose: 1 patch Documented by: Pantoprazole Sodium (Protonix) 40 mg IV DAILY [facility] Last Admin: 02/10/20 10:05 Dose: 40 mg Documented by: Sodium Chloride (Saline Flush) 10 ml IV Q4HR PRN PRN Reason: PICC Line Sodium Chloride (Saline Flush) 10 ml IV WEEKLY [facility] Sodium Chloride (Saline Flush) 20 ml IV Q4HR PRN PRN Reason: PICC Line Spironolactone (Aldactone) 25 mg PO DAILY [facility] Last Admin: 02/10/20 10:25 Dose: 25 mg Documented by: Physical examination: VITAL SIGNS: 98.9, 70, 28, 119/57, 98% on the ventilator GENERAL: Laying in bed, sedated EYES: Pupils equal. Conjunctiva normal. NECK: JVD unable to assess; masses not palpable. Tracheostomy tube HEART: Heart sounds irregular, edema present. LUNGS: Respiratory rate increased,, diminished breath sounds. ABDOMEN: Soft, nontender, liver spleen not palpable, no masses palpable. PEG tube. PSYCH: Unable to assess, patient sedated MUSCULAR skeletal: Evidence of OA INVESTIGATIONS, reviewed in the clinical context: White count 16 hemoglobin 9.6 potassium 5 bun 95 creatinine 1.43 Previous testing White count 13.1 hemoglobin 12.2 platelets 139, potassium 4.9 crit 1.01 Chest x-ray film personally reviewed by me-increasing bilateral infiltrates CRP 60.5 pro calcitonin 0.1 Sputum culture growing Streptococcus pneumoniae, Anna glabrata 2-D co-EF 30-35% Previous testing White count 10.9 hemoglobin 12.4 platelets 165 neutrophils 9.2 lymphocytes 0.7 potassium 4.3 bun 27 creatinine 0.88, proBNP 1530 EKG tracing personally reviewed by me-atrial flutter rate controlled Chest x-ray film personally reviewed by me-pulmonary edema, cardiomegaly, portable film Computed tomography scan of the chest-February 08-possible pulmonary edema with cardiomegaly Assessment: -Acute on chronic congestive heart failure exacerbation from systolic dysfunction EF 30-35% % from underlying coronary artery disease, she started on IV Lasix drip at 5 mg an hour. -Bilateral pneumonia, Streptococcus pneumoniae causing sepsis, POA,-antibiotic completed -Coronary artery disease a prior history of bypass -Acute COPD exacerbation and an current smoker, POA, not improving -Chronic nicotine dependence patient cigarette smoker -Persistent atrial fibrillation -Chronic hypoxic and hypercapnic respiratory failure from a lying COPD -Acute hypoxic and hypercapnic respiratory failure from COPD and CHF, pneumonia POA-worsening on extubated January 28. Reintubated on January 30-slow to respond -Acute kidney injury possibly combination of ATN and prerenal-improved. Worsening with IV Lasix. Drip. -Chronic left-sided pleural effusion since 2015 per pulmonary -COVID-19 PCR not detected -AICD -Left-sided thoracentesis done with 300 mL of fluid removed. Plan: -ICU.-On IV propofol. Intubated. On IV Solu-Medrol,, on Lasix drip at 5 mg an hour. Left-sided thoracentesis done today. Patient received laxative and suppository. Prognosis remains guarded. Follow lites closely.
[2020-02-10] MEDS ORDERED: NOREPINEPHRINE 4 MG in SODIUM CHLORIDE 0.9% 250 ML IV SCH (23:00)
[2020-02-10] MEDS: NOREPINEPHRINE 32 MG in SODIUM CHLORIDE 0.9% 218 ML IV SCH (23:34)
[2020-02-10 23:55] LABS: Glucose,Whole Blood 134 mg/dL (75-99)
[2020-02-11] MEDS: methylPREDNISolone SOD SUCCI 40 MG/ML 1 ML VIAL IV SCH ×3 (00:01→15:55)
[2020-02-11] MEDS: INSULIN ASPART (NovoLOG) 100 UNIT/ML VIAL SQ SCH ×4 (00:01→18:00)
[2020-02-11 02:07] LABS: Total Protein, Body Fluid 3920 mg/dL
[2020-02-11] MEDS: PROPOFOL 1,000 MG in EMPTY BAG 1 BAG IV SCH ×4 (02:25→20:16)
[2020-02-11 02:50] LABS: Glucose, BF Source Pleural Fluid; Glucose, Body Fluid 60 mg/dL; LDH, Body Fluid Source Pleural Fluid
[2020-02-11] MEDS: LACTATED RINGERS 1,000 ML IV SCH (03:25)
[2020-02-11] MEDS: IPRATROPIUM-ALBUTEROL 3 ML NEB INHALATION SCH ×6 (03:33→22:58)
[2020-02-11 04:52] LABS: HCT 29.8 % (39.0-53.0); HGB 9.8 gm/dL (13.0-17.5); MCH 33.6 pg (25.0-35.0); MCHC 32.9 g/dL (31.0-37.0); MCV 102.1 fL (80.0-100.0); Macrocytosis Slight; Mean Platelet Volume 10.9; Platelet Count 120 k/uL (150-450); RBC 2.92 m/uL (4.30-5.90); RDW 14.6 % (11.5-15.5); WBC 26.1 k/uL (3.8-10.6)
[2020-02-11 05:10] LABS: ABG Base Excess 5.2 mmol/L; ABG HCO3 29 mmol/L (21-25); ABG Oxygen Saturation 97.4 % (94-97); ABG PCO2 43 mmHg (35-45); ABG PH 7.44 (7.35-7.45); ABG PO2 112 mmHg (83-108); ABG TCO2 31 mmol/L (19-24); Allen Test Performed? Yes
[2020-02-11 05:16] LABS: Band Neutrophils % 4 %; Neutrophils % (M) 96 %; Nucleated Red Blood Cells 0 /100 WBC (0-0); Total Cells Counted 100
[2020-02-11 05:30] LABS: Calcium 7.3 mg/dL (8.4-10.2); Magnesium 3.1 mg/dL (1.6-2.3); Potassium 5.3 mmol/L (3.5-5.1)
[2020-02-11 06:07] LABS: Glucose,Whole Blood 127 mg/dL (75-99)
[2020-02-11] MEDS: BUDESONIDE 0.5 MG/2 ML NEBU INHALATION SCH ×2 (07:16→19:05)
--- NOTE | 2020-02-11 07:16 | P.PN ---
Subjective Progress Note Date: 02/10/20 CHIEF COMPLAINT: Trach and PEG HISTORY OF PRESENT ILLNESS: 75-year-old male who is status post trach and peg tube insertion with Dr. Monsivais. Postop day #2. Patient examined at the bedside. Patient with increased abdominal distention today. Tube feedings were s topped per Dr. Richardson. PHYSICAL EXAM: VITAL SIGNS: Reviewed. GENERAL: Well-developed in no acute distress. HEENT: Trach noted. No sclera icterus. Extraocular movements grossly intact. Moist buccal mucosa. Head is atraumatic, normocephalic. ABDOMEN: Soft. Nondistended. Nontender. PEG tube intact. NEUROLOGIC: Sedated on mechanical ventilation ASSESSMENT: 1. Acute hypoxic respiratory failure requiring mechanical ventilation PLAN: -Ventilator management per pulmonary -Tube feedings stopped per Dr. Richardson -Lactulose and dulcolax started per pulmonary Nurse practitioner note has been reviewed by physician. Signing provider agrees with the documented findings, assessment, and plan of care. Objective - Vital Signs Vital signs: Vital Signs Temp 98 F 02/10/20 12:00 Pulse 71 02/10/20 12:00 Resp 23 02/10/20 12:20 BP 110/63 02/10/20 08:00 Pulse Ox 96 02/10/20 12:20 Intake & Output 02/09/20 02/10/20 02/10/20 18:59 06:59 18:59 Intake Total 1086.000 723.711 513 Output Total 1073 1165 1220 Balance 13.000 -441.289 -707 Weight 82 kg 82.3 kg Intake: IV 276 286 163 0.9 Normal Saline @ 3mL/ 36 36 18 hr from Pressure Bag Furosemide 100 mg In 25 Sodium Chloride 0.9% 90 ml @ 5 MG/HR 5 mls/hr IV .Q20H [facility] Rx#:[id number] Lactated Ringers 1,000 ml 240 250 120 @ 20 mls/hr IV .Q24H [facility] Rx#:[id number] Intake, IV Titration 275.000 157.711 200 Amount Furosemide 100 mg In 75 68.167 100 Sodium Chloride 0.9% 90 ml @ 5 MG/HR 5 mls/hr IV .Q20H [facility] Rx#:[id number] Propofol 1,000 mg In 200.000 89.544 100 Empty Bag 1 bag @ Titrate IV .Q0M [facility] Rx#: [id number] Tube Feeding 455 280 50 Other 80 100 Output: Gastric Drainage 300 Urine 1073 1165 620 Other 300 Other: Voiding Method Indwelling Catheter Indwelling Catheter Indwelling Catheter # Emeses 0 0 0 ABP, PAP, CO, CI - Last Documented Arterial Blood Pressure 125/56 - Labs CBC & Chem 7: 02/11/20 04:30 02/11/20 04:30 Labs: Abnormal Lab Results - Last 24 Hours (Table) 02/06/20 02/09/20 02/09/20 Range/Units 15:15 05:05 18:25 WBC (3.8-10.6) k/uL RBC (4.30-5.90) m/uL Hgb (13.0-17.5) gm/dL Hct (39.0-53.0) % MCV (80.0-100.0) fL Plt Count (150-450) k/uL ABG pCO2 (35-45) mmHg ABG HCO3 (21-25) mmol/L ABG Total CO2 (19-24) mmol/L Sodium (137-145) mmol/L Carbon Dioxide (22-30) mmol/L BUN (9-20) mg/dL Creatinine (0.66-1.25) mg/dL Glucose (74-99) mg/dL POC Glucose (mg/dL) 162 H (75-99) mg/dL Calcium (8.4-10.2) mg/dL Procalcitonin 0.15 H 0.14 H (0.02-0.09) ng/mL 02/09/20 02/10/20 02/10/20 Range/Units 23:35 04:02 04:40 WBC 16.0 H (3.8-10.6) k/uL RBC 2.83 L (4.30-5.90) m/uL Hgb 9.6 L (13.0-17.5) gm/dL Hct 28.7 L (39.0-53.0) % MCV 101.2 H (80.0-100.0) fL Plt Count 136 L (150-450) k/uL ABG pCO2 51 H (35-45) mmHg ABG HCO3 31 H (21-25) mmol/L ABG Total CO2 33 H (19-24) mmol/L Sodium (137-145) mmol/L Carbon Dioxide (22-30) mmol/L BUN (9-20) mg/dL Creatinine (0.66-1.25) mg/dL Glucose (74-99) mg/dL POC Glucose (mg/dL) 118 H (75-99) mg/dL Calcium (8.4-10.2) mg/dL Procalcitonin (0.02-0.09) ng/mL 02/10/20 02/10/20 Range/Units 04:40 05:43 WBC (3.8-10.6) k/uL RBC (4.30-5.90) m/uL Hgb (13.0-17.5) gm/dL Hct (39.0-53.0) % MCV (80.0-100.0) fL Plt Count (150-450) k/uL ABG pCO2 (35-45) mmHg ABG HCO3 (21-25) mmol/L ABG Total CO2 (19-24) mmol/L Sodium 136 L (137-145) mmol/L Carbon Dioxide 32 H (22-30) mmol/L BUN 95 H (9-20) mg/dL Creatinine 1.43 H (0.66-1.25) mg/dL Glucose 144 H (74-99) mg/dL POC Glucose (mg/dL) 138 H (75-99) mg/dL Calcium 7.2 L (8.4-10.2) mg/dL Procalcitonin (0.02-0.09) ng/mL
--- NOTE | 2020-02-11 08:22 | XR ---
EXAMINATION TYPE: XR chest 1V portable DATE OF EXAM: 02/11/2020 Comparison: 02/10/2020 Clinical History: 75-year-old male CHF Findings: Tracheostomy cannula. Left anterior chest wall AICD generator with right atrial and right ventricular leads. Median sternotomy wires are present. Post-CABG clips. Right PICC tip seen to the upper right atrium. Heart mildly enlarged. Continued extensive left mid and lower lung opacity with associated pl eural effusion tracking up to the apex. Airspace opacity has become slightly less confluent on the ri ght. Impression: 1. Persistent pulmonary edema though with slight improvement. 2. Moderate left pleural effusion with adjacent atelectasis and/or consolidation persists.
[2020-02-11] MEDS ORDERED: FUROSEMIDE 10 MG/ML 4 ML VIAL IV SCH (09:00)
[2020-02-11] MEDS: DOBUTamine DRIP 500 MG in DEXTROSE/WATER 1 250ML.BAG IV SCH (09:24)
[2020-02-11] MEDS: ATORVASTATIN 80 MG TAB PO SCH (09:24)
[2020-02-11] MEDS: CHLORHEXIDINE GLUCONATE 15 ML CUP MUCOUS MEM SCH ×2 (09:24→20:27)
[2020-02-11] MEDS: NICOTINE 21MG/24HR PATCH TRANSDERM SCH (09:24)
[2020-02-11] MEDS: SPIRONOLACTONE 25 MG TAB PO SCH (09:26)
[2020-02-11] MEDS: CEFEPIME 2 GM in SODIUM CHLORIDE 0.9% 100 ML IVPB SCH ×2 (09:26→20:26)
[2020-02-11] MEDS: APIXABAN 2.5 MG TABLET PO SCH ×2 (09:27→20:27)
[2020-02-11] MEDS: PANTOPRAZOLE 40 MG/10 ML VIAL IV SCH (09:28)
--- NOTE | 2020-02-11 09:52 | P.PN ---
Subjective Progress Note Date: 02/11/20 Principal diagnosis: severe CAD/severe cardiomyopathy This is a 75-year-old gentleman with a past medical history significant for coronary artery disease and status post coronary artery bypass grafting, severe cardiomyopathy and status post AICD, long-standing persistent atrial fibrillation on oral anticoagulation, as well as severe chronic obstructive pulmonary disease on home oxygen, was admitted to the hospital with acute hypoxic respiratory failure secondary to COPD exacerbation was a component of congestive heart failure exacerbation. The patient was seen today, February 102019. His pressure dropped during the night and he was restarted on norepinephrine and subsequently the norepinephrine was weaned out. Yesterday the patient underwent left pleurocentesis. Currently the patient is hemodynamically stable. Unfortunately the kidney function gets worse with elevated creatinine as well as elevated potassium. Having said that I'm going to DC the lisinopril as well as DC the Aldactone. Otherwise the patient continues to be in normal sinus mechanism. Beside that he seems to be hypervolemic. Yesterday he was on Lasix drip. I'm going to start the patient o n lisinopril at 40 mg IV twice a day unless nephrology is not okay with that. Objective - Vital Signs Vital signs: Vital Signs Temp 98.2 F 02/11/20 08:00 Pulse 74 02/11/20 08:00 Resp 24 02/11/20 08:00 BP 154/80 02/11/20 08:00 Pulse Ox 97 02/11/20 08:00 Intake & Output 02/10/20 02/11/20 02/11/20 18:59 06:59 18:59 Intake Total 731.622 712.108 23 Output Total 1650 705 100 Balance -918.378 7.108 -77 Weight 83.5 kg Intake: IV 303 311 23 0.9 Normal Saline @ 3mL/ 33 36 3 hr from Pressure Bag Furosemide 100 mg In 50 15 Sodium Chloride 0.9% 90 ml @ 5 MG/HR 5 mls/hr IV .Q20H [facility] Rx#:[id number] Lactated Ringers 1,000 ml 220 260 20 @ 20 mls/hr IV .Q24H [facility] Rx#:[id number] Intake, IV Titration 278.622 401.108 Amount Furosemide 100 mg In 100 115.25 Sodium Chloride 0.9% 90 ml @ 5 MG/HR 5 mls/hr IV .Q20H [facility] Rx#:[id number] Norepinephrine 32 mg In 24.874 Sodium Chloride 0.9% 218 ml @ 0.05 MCG/KG/MIN 1. 929 mls/hr IV .Q24H [facility] Rx#:[id number] Propofol 1,000 mg In 178.622 260.984 Empty Bag 1 bag @ Titrate IV .Q0M [facility] Rx#: [id number] Tube Feeding 50 0 Other 100 Output: Gastric Drainage 300 Urine 1050 705 100 Other 300 Other: Voiding Method Indwelling Catheter Indwelling Catheter # Bowel Movements 1 # Emeses 0 0 ABP, PAP, CO, CI - Last Documented Arterial Blood Pressure 116/53 - Constitutional General appearance: Present: no acute distress - Respiratory Respiratory: bilateral: diminished - Cardiovascular Rhythm: regular Heart sounds: normal: S1, S2 - Labs CBC & Chem 7: 02/11/20 04:30 02/11/20 04:30 Labs: Abnormal Lab Results - Last 24 Hours (Table) 02/10/20 02/10/20 02/11/20 Range/Units 17:39 23:54 04:30 WBC 26.1 H (3.8-10.6) k/uL RBC 2.92 L (4.30-5.90) m/uL Hgb 9.8 L (13.0-17.5) gm/dL Hct 29.8 L (39.0-53.0) % MCV 102.1 H (80.0-100.0) fL Plt Count 120 L (150-450) k/uL Neutrophils # (Manual) 26.10 H (1.3-7.7) k/uL ABG pO2 (83-108) mmHg ABG HCO3 (21-25) mmol/L ABG Total CO2 (19-24) mmol/L ABG O2 Saturation (94-97) % Potassium (3.5-5.1) mmol/L BUN (9-20) mg/dL Creatinine (0.66-1.25) mg/dL Glucose (74-99) mg/dL POC Glucose (mg/dL) 103 H 134 H (75-99) mg/dL Calcium (8.4-10.2) mg/dL Magnesium (1.6-2.3) mg/dL 02/11/20 02/11/20 02/11/20 Range/Units 04:30 05:07 06:06 WBC (3.8-10.6) k/uL RBC (4.30-5.90) m/uL Hgb (13.0-17.5) gm/dL Hct (39.0-53.0) % MCV (80.0-100.0) fL Plt Count (150-450) k/uL Neutrophils # (Manual) (1.3-7.7) k/uL ABG pO2 112 H (83-108) mmHg ABG HCO3 29 H (21-25) mmol/L ABG Total CO2 31 H (19-24) mmol/L ABG O2 Saturation 97.4 H (94-97) % Potassium 5.3 H (3.5-5.1) mmol/L BUN 107 H* (9-20) mg/dL Creatinine 2.21 H (0.66-1.25) mg/dL Glucose 123 H (74-99) mg/dL POC Glucose (mg/dL) 127 H (75-99) mg/dL Calcium 7.3 L (8.4-10.2) mg/dL Magnesium 3.1 H (1.6-2.3) mg/dL Microbiology - Last 24 Hours (Table) 02/10/20 09:48 Gram Stain - Preliminary Pleural Fluid Body Fluid Culture - Preliminary 02/10/20 09:48 Acid Fast Bacilli Smear - Final Pleural Fluid Acid Fast Bacilli Culture - Preliminary 02/10/20 09:48 Anaerobic Culture - Preliminary Pleural Fluid 02/10/20 09:48 Fungal Culture - Preliminary Pleural Fluid Assessment and Plan Assessment: assessment #1 acute hypoxic respiratory failure #2 severe chronic obstructive pulmonary disease #3 severe cardiomyopathy #4 severe coronary artery disease #5 long-standing persistent atrial fibrillation #6 acute on chronic renal failure Plan DC lisinopril and DC Aldactone Continue monitor the blood pressure Nephrology on the case Follow-up with the patient
--- NOTE | 2020-02-11 11:13 | P.PN ---
Subjective Progress Note Date: 02/11/20 75-year-old male patient known history of CHF with LV dysfunction and the patient has a mass in place in addition to coronary artery disease and previous bypass surgery, COPD, chronic atrial fibrillation who came into the hospital because of worsening shortness of breath. The patient was having increased swelling lower extremities, profound weakness and feeling tired. The patient was in acute hypoxic respiratory failure. The patient was intubated and placed on mechanical ventilator. The patient was treated for CHF and pneumonia. During the course of treatment, the patient failed to wean off the mechanical ventilator and ultimately the patient required tracheostomy tube insertion in addition to a PEG tube insertion for respiratory support that was quite prolonged. The covid 19 analysis was negative. The patient is being seen today in follow-up. She remains on a mechanical ventilator on assist control mode at the rate of 20 with a tidal volume 400 and FiO2 of 50% with a PEEP of 10. Chest x-ray is still showing diffuse bilateral pulmonary infiltrates and the patient remains sedated with propofol running at 50 g per KG per minute. During the course of her treatment in the intensive care unit, the patient is sputum analysis was done on 01/26/2020 that was positive for pneumococcus and otherwise the rest of the cultures were negative. His echocardiogram from 01/26/2020 revealed impaired LV function with an ejection fraction of 30-35% and the rest of the cardiac structures were essentially within normal limits. The patient remains on Lasix 20 mg IV push every 12 hours. The patient is also on Aldactone 25 mg by mouth daily. The patient is on long-term medical evaluation with Eliquis 2.5 mg by mouth twice a day. He is on lactated Ringer which is currently running at 20 mL an hour. Despite diuresis, the neck fluid balance has been positive or the past several days and the patient's weight has been gradually going up from a baseline of 70 kg at time of admission up to 85 kg for now. He is receiving enteral feeding for nutritional support. Repeat chest x- ray from today shows that the patient's overall findings are essentially stable. There is persistent small to moderate-sized left-sided pleural effusion and addition to diffuse bilateral interstitial edema/infiltration. The patient's blood gases today shows a component of respiratory alkalosis with a pH of 7.5 with a pCO2 of 39 and pO2 of 107. This was on FiO2 of 50%. The patient has a peak pressure of 34. Static pressure of 32 on the mechanical ventilator. I dropped a respiratory rate down to 20. He is sedated with propofol which is currently running at 50 g per KG per minute. He is on a combination of Lasix and Aldactone. He is on vital high protein at the rate of 35 mL an hour. On today's evaluation of 02/10/2020, the patient remains sedated with propofol which was running at 40 g per KG per minute. He was deeply sedated and I asked the propofol to be cut down. He is also on Lasix drip at 10 mg an hour. He remains on a mechanical ventilator. Earlier this morning, he was assist control mode of ventilation at the rate of 20 with a tidal volume of 400 and FiO2 of 50% with a PEEP of 10. The blood gases from today showed a pH of 7.39 with a pCO2 of 51 and pO2 of 86. Chest x-ray findings are unchanged. The patient has become prerenal. However, his producing better urine output. The neck fluid balance is +126 mL over the past 24 hours. He has become prerenal with a creatinine being up to 1.43. White cell count is at 16 with a hemoglobin of 9.6. I also noted some abdominal distention. Flat film of the abdomen was done and was nonspecific. Immediately stop the PEG tube feeding and I'll put the active feeding for suctioning and around 400 mL of nutrition was aspirated from the stomach. The patient has diminished bowel sounds. He has some tympany on examination. No direct tenderness. No rebound tenderness. No guarding. Active site is dry clean and intact. He'll be given bowel rest for the next 24 hours. He will be also given laxatives and we decided to give him Dulcolax 10 mg rectally on a daily basis and addition to lactulose 20 g 3 times a day per PEG. The patient On today's evaluation of 02/11/2020, the patient is being seen in intensive care unit for a follow-up. The patient remains on a mechanical ventilator. The patient remains sedated with propofol at the rate of 40 mcg/kg per minute. He remains an assist-control mode of ventilation. He is on a rate of 20 with a tidal volume 400 and FiO2 of 60% with a PEEP of 10. Blood gas showed a pH of 7.44 with a pCO2 of 43 and pO2 of 112. The patient was on Lasix drip which was weaned down to 5 mg an hour and ultimately it was discontinued yesterday evening as the patient developed some hypotension. This was a brief hypotension in the Lasix that was discontinued and the patient was given norepinephrine infusion and ultimately this was weaned off. Currently is on no pressors. He is in a negative fluid balance. Nevertheless, his blood work, the patient has developed some prerenal azotemia, likely secondary to prerenal factors. Creatinine is up to 2 and the BUN is on the rise. The net fluid balance over the past 24 hours has been -428 mL. As mentioned earlier, the patient's abdomen was distended. The tube feeds were discontinued. Ferritin of the abdomen was done that was nonspecific. He was given laxative and he did have a bowel movement and on today's evaluation abdomen is much less distended. The patient also had a noted to have increased respiratory secretions. I performed a bedside bronchoscopy on him knowing that his white cell count was also on the rise. His pro-calcitonin was negative. There was copious amount of purulent respiratory secretions and the rest or secretions were suctioned out and the bronchioloalveolar lavage of the right upper lobe anterior segment was done and the patient was started again IV antibiotics covering with IV cefepime. The concern for pneumonia was there based on the bronchoscopic findings and based on the elevation in the white cell count. Neurologically, the patient is still sedated. I was told that he would wake up easily when he was given a sedation holidays. Objective - Vital Signs Vital signs: Vital Signs Temp 98.2 F 02/11/20 08:00 Pulse 86 02/11/20 10:00 Resp 31 H 02/11/20 10:00 BP 115/67 02/11/20 10:00 Pulse Ox 89 L 02/11/20 10:00 Intake & Output 02/10/20 02/11/20 02/11/20 18:59 06:59 18:59 Intake Total 731.622 712.108 169 Output Total 1650 705 275 Balance -918.378 7.108 -106 Weight 83.5 kg Intake: IV 303 311 69 0.9 Normal Saline @ 3mL/ 33 36 9 hr from Pressure Bag Furosemide 100 mg In 50 15 Sodium Chloride 0.9% 90 ml @ 5 MG/HR 5 mls/hr IV .Q20H [facility] Rx#:[id number] Lactated Ringers 1,000 ml 220 260 60 @ 20 mls/hr IV .Q24H [facility] Rx#:[id number] Intake, IV Titration 278.622 401.108 100 Amount Furosemide 100 mg In 100 115.25 Sodium Chloride 0.9% 90 ml @ 5 MG/HR 5 mls/hr IV .Q20H [facility] Rx#:[id number] Norepinephrine 32 mg In 24.874 Sodium Chloride 0.9% 218 ml @ 0.05 MCG/KG/MIN 1. 929 mls/hr IV .Q24H [facility] Rx#:[id number] Piperacillin-Tazobactam 3 100 .375 gm In Sodium Chloride 0.9% 100 ml @ 25 mls/hr IVPB Q8HR [facility] Rx# :[id number] Propofol 1,000 mg In 178.622 260.984 Empty Bag 1 bag @ Titrate IV .Q0M [facility] Rx#: [id number] Tube Feeding 50 0 Other 100 Output: Gastric Drainage 300 Urine 1050 705 275 Other 300 Other: Voiding Method Indwelling Catheter Indwelling Catheter # Bowel Movements 1 # Emeses 0 0 ABP, PAP, CO, CI - Last Documented Arterial Blood Pressure 142/67 - Exam GENERAL EXAM: On mechanical ventilator, sedated, 75-year-old male patient in no apparent distress. The patient is sedated on a mechanical ventilator currently on propofol HEAD: Normocephalic/atraumatic. EYES: Normal reaction of pupils, equal size. Conjunctiva pink, sclera white. NOSE: Clear with pink turbinates. THROAT: No erythema or exudates. NECK: No masses, no JVD, no thyroid enlargement, no adenopathy. Midline tracheostomy in place, #8 foam cuff trach CHEST: No chest wall deformity. Symmetrical expansion. LUNGS: Equal air entry with basilar crackles left greater than right CVS: Regular rate and rhythm, normal S1 and S2, no gallops, no murmurs, no rubs ABDOMEN: Soft, nontender. The PEG tube site is dry clean and intact and the patient's abdomen is less distended. Bowel sounds are hypoactive at the present. The patient did have also bowel movement activity., EXTREMITIES: No clubbing, no edema, no cyanosis, 2+ pulses and upper and lower extremities. MUSCULOSKELETAL: Muscle strength and tone normal. SPINE: No scoliosis or deformity SKIN: No rashes CENTRAL NERVOUS SYSTEM: Trached to the vent, sedated. No focal deficits, tone is normal in all 4 extremities. - Labs CBC & Chem 7: 02/11/20 04:30 02/11/20 04:30 Labs: Abnormal Lab Results - Last 24 Hours (Table) 02/10/20 02/10/20 02/11/20 Range/Units 17:39 23:54 04:30 WBC 26.1 H (3.8-10.6) k/uL RBC 2.92 L (4.30-5.90) m/uL Hgb 9.8 L (13.0-17.5) gm/dL Hct 29.8 L (39.0-53.0) % MCV 102.1 H (80.0-100.0) fL Plt Count 120 L (150-450) k/uL Neutrophils # (Manual) 26.10 H (1.3-7.7) k/uL ABG pO2 (83-108) mmHg ABG HCO3 (21-25) mmol/L ABG Total CO2 (19-24) mmol/L ABG O2 Saturation (94-97) % Potassium (3.5-5.1) mmol/L BUN (9-20) mg/dL Creatinine (0.66-1.25) mg/dL Glucose (74-99) mg/dL POC Glucose (mg/dL) 103 H 134 H (75-99) mg/dL Calcium (8.4-10.2) mg/dL Magnesium (1.6-2.3) mg/dL 02/11/20 02/11/20 02/11/20 Range/Units 04:30 05:07 06:06 WBC (3.8-10.6) k/uL RBC (4.30-5.90) m/uL Hgb (13.0-17.5) gm/dL Hct (39.0-53.0) % MCV (80.0-100.0) fL Plt Count (150-450) k/uL Neutrophils # (Manual) (1.3-7.7) k/uL ABG pO2 112 H (83-108) mmHg ABG HCO3 29 H (21-25) mmol/L ABG Total CO2 31 H (19-24) mmol/L ABG O2 Saturation 97.4 H (94-97) % Potassium 5.3 H (3.5-5.1) mmol/L BUN 107 H* (9-20) mg/dL Creatinine 2.21 H (0.66-1.25) mg/dL Glucose 123 H (74-99) mg/dL POC Glucose (mg/dL) 127 H (75-99) mg/dL Calcium 7.3 L (8.4-10.2) mg/dL Magnesium 3.1 H (1.6-2.3) mg/dL Microbiology - Last 24 Hours (Table) 02/10/20 09:48 Gram Stain - Preliminary Pleural Fluid Body Fluid Culture - Preliminary 02/10/20 09:48 Acid Fast Bacilli Smear - Final Pleural Fluid Acid Fast Bacilli Culture - Preliminary 02/10/20 09:48 Anaerobic Culture - Preliminary Pleural Fluid 02/10/20 09:48 Fungal Culture - Preliminary Pleural Fluid Assessment and Plan Plan: #1. Acute on chronic hypoxemic, and hypercapnic respiratory failure, multifactorial, in part related to underlying exacerbation of acute systolic congestive heart failure, acute exacerbation of COPD, and streptococcal pneumonia, and a component of ARDS is not excluded. Note that the patient was treated for pneumonia and this was a streptococcal pneumonia. However based on the increase in the white cell count and increase in the rest or secretions, performed a bronchoscopy today on him and I noted excess amount of respiratory secretions and purulent material scattered throughout the airways more so on the right. Seborrheic airway suctioning was done. Rhonchi alveolar lavage was done. The patient was started on IV cefepime. Meanwhile, the patient is still being diuresed. Lasix is going to be restarted a dose of 40 mg every 12 hours. Lasix drip has been discontinued. Discussed the case with cardiology and nephrology. We are going to attempt augmenting his cardiac output with dobutamine 2.5 g per KG per minute. If all these measures fail and the patient continues to have cardiorenal syndrome, we're going to proceed with dialysis with ultrafiltration. He remains on a mechanical ventilator. There is some improvement in his oxygenation, however he remains on a PEEP of 10 with an FiO2 of 60%. #2. Failure to wean from mechanical ventilation, and patient is status post tracheostomy and PEG tube insertion on 01/28/2020 #3. coronary artery disease with previous bypass grafting #4. History of cardiomyopathy with LV dysfunction and AICD placement, repeat echocardiogram showed an ejection fraction of 30-35% #5. history of systolic congestive heart failure #6. acute kidney injury secondary to cardiorenal syndrome, creatinine is on the rise on today's evaluation #7. Chronic atrial fibrillation, patient is on Eliquis for anticoagulation, which is currently on hold for tracheostomy and PEG tube insertion, rate c ontrolled #8. Tobacco dependence syndrome #9. Chronic left-sided pleural effusion moderate-sized based on the most recent CAT scan. #10. Covid 19 testing was negative #11. Hypernatremia, related to free water deficit, improved, sodium level is normalized Plan Continue vent support Thoracentesis was done yesterday and a left-sided pleural effusion was an exudate The patient had a bronchoscopy today and the bronchioloalveolar lavage of the right upper lobe was done. Cultures are still pending Start IV cefepime Monitor renal function Started patient on dobutamine 2.5 g per KG per minute Start the patient on IV Lasix again 40 mg every 12 hours Monitor urine output Nephrology is involved and the patient will likely need dialysis with ultrafiltration if he does not respond to the above measures Restart tube feeds at a rate of 10 mL's an hour Lower the sedation scale and level by lowering the the propofol dose Condition is critical and this ventilation was done and more than 30 minutes. Prognosis poor baseline above-mentioned comorbidities. Time with Patient: Greater than 30
--- NOTE | 2020-02-11 11:16 | P.PCN ---
Date of Procedure: 02/11/20 Preoperative Diagnosis: Bilateral pneumonia/pulmonary infiltrates/ARDS Postoperative Diagnosis: Same Procedure(s) Performed: Bronchoscopy flexible along with the performance of a bronchioloalveolar lavage of the right upper lobe Anesthesia: local Surgeon: Marc Richardson Estimated Blood Loss (ml): 0 Pathology: other Condition: critical Disposition: ICU Operative Findings: This is a flexible bronchoscopy that was done in the intensive care unit. The portable disposable bronchoscope was used to complete this procedure. The patient was already sedated with propofol and the patient was mechanically ventilated via tracheostomy tube. An adapter was attached to the tracheostomy tube and following that the flexible bronchoscope was introduced into the lower trachea. The tip of the tube was seen around 2 cm above the slick. There was copious amount of purulent respiratory secretions and a distal trachea and bilateral mainstem bronchi more so on the right. Therapeutic it was suctioning was done. The airway was inspected. The visualized airways into the right upper lobe bronchus, right middle lobe bronchus, bronchus intermedius, right lower lobe bronchus and also the left upper lobe bronchus and the left lower lobe bronchus along with the radius segments and subsegments. All of these airways were patent. Therapy give her suctioning was done. The bronchoscope was then moved to the right upper lobe and the bronchioloalveolar lavage of the anterior segment was done with a total of 40 mL was infused and 10 mL of purulent saline was aspirated. No bedside complications. No hypotension. No hypoxemia. The procedure was terminated and the bronchoscope was removed. Samples were sent for microbial analysis.
[2020-02-11] MEDS: MAGNESIUM HYDROXIDE 2,400 MG/10 ML CUP PO SCH (11:17)
--- NOTE | 2020-02-11 11:22 | PN ---
PROGRESS NOTE Patient is seen for followup for acute kidney injury and hypernatremia. Patient's renal function had improved initially after admission with creatinine going down to 0.8 mg/dL on 02/05/2013. Following that, patient developed worsening edema and volume overload and was started on Lasix drip following which his serum creatinine jumped up significantly to 1.4 yesterday and today it is at 2.21. Patient did not diurese much on Lasix drip and that was discontinued last night. He does have an ejection fraction of about 30%-35% and has responded well to dobutamine on initial admission. Plan is to start dobutamine again. Continue with IV push Lasix and if the patient does not diurese well over the next day or so, he will need to be dialyzed. PHYSICAL EXAMINATION: Blood pressure this morning 115/67, heart rate 75 per minute, he is afebrile. Examination of the heart S1, S2. Examination of the lungs, bilateral breath sounds are heard. Abdomen is soft, distended. Examination of the lower extremities, 2+ edema bilaterally. [employer] [facility] exam cannot be performed. LABS: Show sodium 137, potassium 5.3, chloride 101, CO2 is 29, BUN 107, serum creatinine 2.2, magnesium 3.1. ASSESSMENT: 1. Acute kidney injury, mostly cardiorenal. Add dobutamine to help diurese patient. If the patient does not diurese and renal function continues to worsen, he will need to be dialyzed. 2. Severe volume overload with congestive heart failure acute on top of chronic mainly systolic, started on dobutamine drip, status post Lasix drip yesterday. Patient did not tolerate, continue with IV push Lasix. If the urine output picks up, we can resume the Lasix drip along with the dobutamine. 3. Mild hyperkalemia associated with worsening renal failure. Expect improvement with improved diuresis. 4. Ventilator-dependent respiratory failure for hypoxic respiratory failure. A chest x-ray continues to show bilateral infiltrates suggestive of volume overload. 5. Cardiomyopathy, ejection fraction of 30%-35%. 6. Streptococcus pneumonia and sepsis maintained on antibiotics, currently improved. PLAN: Add dobutamine. Continue with Lasix IV push for now and if patient does not diurese enough and his renal function worsens, we will consider renal replacement therapy. If his urine output picks up and blood pressure remains stable, I will increase the Lasix. RHONDA / IJN: [id number] /
[2020-02-11 11:28] VITALS: BMI 29.7
[2020-02-11 12:42] LABS: Glucose,Whole Blood 90 mg/dL (75-99)
--- NOTE | 2020-02-11 14:40 | P.PN ---
Subjective Progress Note Date: 02/11/20 CHIEF COMPLAINT: Trach and PEG HISTORY OF PRESENT ILLNESS: 75-year-old male who is status post trach and peg tube insertion with Dr. Monsivais. Patient examined at the bedside. Tube feedings were stopped yesterday due to abdominal distention. Patient has since had a bowel movement with improved abdominal distention. PHYSICAL EXAM: VITAL SIGNS: Reviewed. GENERAL: Well-developed in no acute distress. HEENT: Trach noted. No sclera icterus. Extraocular movements grossly intact. Moist buccal mucosa. Head is atraumatic, normocephalic. ABDOMEN: Soft. Nondistended. Nontender. PEG tube intact. NEUROLOGIC: Sedated on mechanical ventilation ASSESSMENT: 1. Acute hypoxic respiratory failure requiring mechanical ventilation PLAN: -Ventilator management per pulmonary -Resume tube feedings Nurse practitioner note has been reviewed by physician. Signing provider agrees with the documented findings, assessment, and plan of care. Objective - Vital Signs Vital signs: Vital Signs Temp 98.2 F 02/11/20 08:00 Pulse 92 02/11/20 11:13 Resp 31 H 02/11/20 10:00 BP 115/67 02/11/20 10:00 Pulse Ox 89 L 02/11/20 10:00 Intake & Output 02/10/20 02/11/20 02/11/20 18:59 06:59 18:59 Intake Total 731.622 712.108 269 Output Total 1650 705 275 Balance -918.378 7.108 -6 Weight 83.5 kg 83.5 kg Intake: IV 303 311 69 0.9 Normal Saline @ 3mL/ 33 36 9 hr from Pressure Bag Furosemide 100 mg In 50 15 Sodium Chloride 0.9% 90 ml @ 5 MG/HR 5 mls/hr IV .Q20H [facility] Rx#:[id number] Lactated Ringers 1,000 ml 220 260 60 @ 20 mls/hr IV .Q24H [facility] Rx#:[id number] Intake, IV Titration 278.622 401.108 200 Amount Furosemide 100 mg In 100 115.25 Sodium Chloride 0.9% 90 ml @ 5 MG/HR 5 mls/hr IV .Q20H [facility] Rx#:[id number] Norepinephrine 32 mg In 24.874 Sodium Chloride 0.9% 218 ml @ 0.05 MCG/KG/MIN 1. 929 mls/hr IV .Q24H [facility] Rx#:[id number] Piperacillin-Tazobactam 3 100 .375 gm In Sodium Chloride 0.9% 100 ml @ 25 mls/hr IVPB Q8HR [facility] Rx# :[id number] Propofol 1,000 mg In 178.622 260.984 100 Empty Bag 1 bag @ Titrate IV .Q0M [facility] Rx#: [id number] Tube Feeding 50 0 Other 100 Output: Gastric Drainage 300 Urine 1050 705 275 Other 300 Other: Voiding Method Indwelling Catheter Indwelling Catheter # Bowel Movements 1 # Emeses 0 0 ABP, PAP, CO, CI - Last Documented Arterial Blood Pressure 142/67 - Labs CBC & Chem 7: 02/11/20 04:30 02/11/20 04:30 Labs: Abnormal Lab Results - Last 24 Hours (Table) 02/10/20 02/10/20 02/11/20 Range/Units 17:39 23:54 04:30 WBC 26.1 H (3.8-10.6) k/uL RBC 2.92 L (4.30-5.90) m/uL Hgb 9.8 L (13.0-17.5) gm/dL Hct 29.8 L (39.0-53.0) % MCV 102.1 H (80.0-100.0) fL Plt Count 120 L (150-450) k/uL Neutrophils # (Manual) 26.10 H (1.3-7.7) k/uL ABG pO2 (83-108) mmHg ABG HCO3 (21-25) mmol/L ABG Total CO2 (19-24) mmol/L ABG O2 Saturation (94-97) % Potassium (3.5-5.1) mmol/L BUN (9-20) mg/dL Creatinine (0.66-1.25) mg/dL Glucose (74-99) mg/dL POC Glucose (mg/dL) 103 H 134 H (75-99) mg/dL Calcium (8.4-10.2) mg/dL Magnesium (1.6-2.3) mg/dL 02/11/20 02/11/20 02/11/20 Range/Units 04:30 05:07 06:06 WBC (3.8-10.6) k/uL RBC (4.30-5.90) m/uL Hgb (13.0-17.5) gm/dL Hct (39.0-53.0) % MCV (80.0-100.0) fL Plt Count (150-450) k/uL Neutrophils # (Manual) (1.3-7.7) k/uL ABG pO2 112 H (83-108) mmHg ABG HCO3 29 H (21-25) mmol/L ABG Total CO2 31 H (19-24) mmol/L ABG O2 Saturation 97.4 H (94-97) % Potassium 5.3 H (3.5-5.1) mmol/L BUN 107 H* (9-20) mg/dL Creatinine 2.21 H (0.66-1.25) mg/dL Glucose 123 H (74-99) mg/dL POC Glucose (mg/dL) 127 H (75-99) mg/dL Calcium 7.3 L (8.4-10.2) mg/dL Magnesium 3.1 H (1.6-2.3) mg/dL Microbiology - Last 24 Hours (Table) 02/10/20 09:48 Gram Stain - Preliminary Pleural Fluid Body Fluid Culture - Preliminary 02/10/20 09:48 Acid Fast Bacilli Smear - Final Pleural Fluid Acid Fast Bacilli Culture - Preliminary 02/10/20 09:48 Anaerobic Culture - Preliminary Pleural Fluid 02/10/20 09:48 Fungal Culture - Preliminary Pleural Fluid
--- NOTE | 2020-02-11 15:54 | P.PN ---
Progress Note - Text Progress Note Date: 02/11/20 Chief Complaint: Short of breath History of presenting complaint: This is a 75-year-old patient of Dr. Gonzáles. Long-standing smoker. Chronic stable medical conditions include atrial fibrillation, AICD, coronary artery disease with prior bypass, on home oxygen, GERD, COPD. Last ejection fraction is 40-45%. She presents with worsening short of breath for about a week at least. It has been progressively getting worse. Some edema. Weak and tired slight cough is present. Increasing swelling of lower extremity. Orthopnea. No fever no chills. Tired and rundown. Slow with given history. Admitted with acute on chronic CHF exacerbation, COPD exacerbation. Was started on IV Lasix, bronchodilators and IV steroids. Early hours of January 25 patient was becoming more short of breath, could not tolerate BiPAP was intubated and placed in the ICU. Also being treated for pneumonia. Patient extubated on January 28. Patient had remained on IV Lasix drip, IV dobutamine. Was worsening again. And patient was reintubated on January 30. February 04 patient had a PEG tube and a tracheostomy tube placed to Dr. Monsivais. Antibiotics discontinued. Dr. Colin on February 05.. [id number]. Remains on the ventilator. FiO2 60% and PEEP of 10. Earlier today underwent bronchoscopy with lavage a lot of purulent secretions was obtained. 2 feeding was scaled back. Per cardiology STEPHANIE inhibitor and Aldactone was discontinued. Patient remains on propofol. Review of systems: Cannot be done, patient intubated Active Medications Albuterol/Ipratropium (Duoneb 0.5 Mg-3 Mg/3 Ml Soln) 3 ml INHALATION RT-Q2H PRN PRN Reason: Shortness Of Breath Or Wheezing Last Admin: 02/04/20 02:59 Dose: 3 ml Documented by: Albuterol/Ipratropium (Duoneb 0.5 Mg-3 Mg/3 Ml Soln) 3 ml INHALATION RT-Q4H [facility] Last Admin: 02/11/20 15:09 Dose: 3 ml Documented by: Apixaban (Eliquis) 2.5 mg PO BID [facility] Last Admin: 02/11/20 09:27 Dose: 2.5 mg Documented by: Atorvastatin Calcium (Lipitor) 80 mg PO DAILY [facility] Last Admin: 02/11/20 09:24 Dose: 80 mg Documented by: Bisacodyl (Dulcolax) 10 mg RECTAL DAILY [facility] Last Admin: 02/10/20 10:25 Dose: 10 mg Documented by: Budesonide (Pulmicort) 0.5 mg INHALATION RT-BID [facility] Last Admin: 02/11/20 07:16 Dose: 0.5 mg Documented by: Chlorhexidine Gluconate (Peridex) 15 ml MUCOUS MEM BID [facility] Last Admin: 02/11/20 09:24 Dose: 15 ml Documented by: Furosemide (Lasix) 40 mg IV Q12HR [facility] Last Admin: 02/11/20 11:12 Dose: 40 mg Documented by: Hydromorphone HCl (Dilaudid) 1 mg IVP Q4HR PRN PRN Reason: Pain Last Admin: 02/10/20 22:13 Dose: 1 mg Documented by: Propofol 1,000 mg/ IV Solution 100 mls @ 0 mls/hr IV .Q0M [facility]; Protocol Last Admin: 02/11/20 11:15 Dose: 45 mcg/kg/min, 22.545 mls/hr Documented by: Lactated Ringer's (Lactated Ringers) 1,000 mls @ 20 mls/hr IV .Q24H [facility] Last Admin: 02/11/20 03:25 Dose: 20 mls/hr Documented by: Norepinephrine Bitartrate 32 (mg/ Sodium Chloride) 250 mls @ 1.929 mls/hr IV .Q24H [facility]; Protocol Last Titration: 02/11/20 06:11 Dose: 0 mcg/kg/min, 0 mls/hr Documented by: Cefepime HCl 2 gm/ Sodium (Chloride) 100 mls @ 200 mls/hr IVPB Q12HR [facility] Last Admin: 02/11/20 09:26 Dose: 200 mls/hr Documented by: Dobutamine HCl/Dextrose 500 mg (/ IV Solution) 250 mls @ 6.263 mls/hr IV .Q24H [facility] Last Infusion: 02/11/20 12:55 Dose: 2.5 mcg/kg/min, 6.263 mls/hr Documented by: Insulin Aspart (Novolog) 0 unit SQ Q6H [facility]; Protocol Last Admin: 02/11/20 13:04 Dose: Not Given Documented by: Lactulose (Cephulac) 20 gm PO TID [facility] Last Admin: 02/10/20 20:24 Dose: 20 gm Documented by: Magnesium Hydroxide (Milk Of Magnesia) 2,400 mg PO DAILY [facility] Last Admin: 02/11/20 11:17 Dose: Not Given Documented by: Methylprednisolone Sodium Succinate (Solu-Medrol) 40 mg IV Q8HR [facility] Last Admin: 02/11/20 08:31 Dose: 40 mg Documented by: Miscellaneous Information (Magnesium Per Protocol) 1 each MISCELLANE DAILY PRN; Protocol PRN Reason: Per Protocol Miscellaneous Information (Potassium Per Protocol) 1 each MISCELLANE DAILY PRN; Protocol PRN Reason: Per Protocol Naloxone HCl (Narcan) 0.2 mg IV Q2M PRN PRN Reason: Opioid Reversal Nicotine (Habitrol 21mg/24hr Patch) 1 patch TRANSDERM DAILY [facility] Last Admin: 02/11/20 09:24 Dose: 1 patch Documented by: Pantoprazole Sodium (Protonix) 40 mg IV DAILY [facility] Last Admin: 02/11/20 09:28 Dose: 40 mg Documented by: Sodium Chloride (Saline Flush) 10 ml IV Q4HR PRN PRN Reason: PICC Line Sodium Chloride (Saline Flush) 10 ml IV WEEKLY [facility] Sodium Chloride (Saline Flush) 20 ml IV Q4HR PRN PRN Reason: PICC Line Physical examination: VITAL SIGNS: 98.4, 93, 27, 137/61, 93% on the ventilator GENERAL: Laying in bed, sedated EYES: Pupils equal. Conjunctiva normal. NECK: JVD unable to assess; masses not palpable. Tracheostomy tube HEART: Heart sounds irregular, edema present. LUNGS: Respiratory rate increased,, diminished breath sounds. ABDOMEN: Soft, nontender, liver spleen not palpable, no masses palpable. PEG tube. PSYCH: Unable to assess, patient sedated MUSCULAR skeletal: Evidence of OA INVESTIGATIONS, reviewed in the clinical context: White count 26.1 hemoglobin 9.8 platelets 120 potassium 5.3 bun 107 creatinine 2.21 Previous testing White count 13.1 hemoglobin 12.2 platelets 139, potassium 4.9 crit 1.01 Chest x-ray film personally reviewed by me-increasing bilateral infiltrates CRP 60.5 pro calcitonin 0.1 Sputum culture growing Streptococcus pneumoniae, Anna glabrata 2-D co-EF 30-35% Previous testing White count 10.9 hemoglobin 12.4 platelets 165 neutrophils 9.2 lymphocytes 0.7 potassium 4.3 bun 27 creatinine 0.88, proBNP 1530 EKG tracing personally reviewed by me-atrial flutter rate controlled Chest x-ray film personally reviewed by me-pulmonary edema, cardiomegaly, portable film Computed tomography scan of the chest-February 08-possible pulmonary edema with cardiomegaly Assessment: -Acute on chronic congestive heart failure exacerbation from systolic dysfunction EF 30-35% % from underlying coronary artery disease, she started on IV Lasix drip at 5 mg an hour.-Not diuresing much. Dobutamine being started today. -Bilateral pneumonia, Streptococcus pneumoniae causing sepsis, POA,-antibiotic completed -Bronchoscopy with therapeutic level watch: February 10 -Coronary artery disease a prior history of bypass -Acute COPD exacerbation and an current smoker, POA, not improving -Chronic nicotine dependence patient cigarette smoker -Persistent atrial fibrillation -Chronic hypoxic and hypercapnic respiratory failure from a lying COPD -Acute hypoxic and hypercapnic respiratory failure from COPD and CHF, pneumonia POA-worsening on extubated January 28. Reintubated on January 30-slow to respond -Acute kidney injury possibly combination of ATN and prerenal-improved. Continues to worsen. -Chronic left-sided pleural effusion since 2016 per pulmonary -COVID-19 PCR not detected -AICD -Left-sided thoracentesis done with 300 mL of fluid removed. Plan: -ICU.-On IV propofol. Intubated. On IV Solu-Medrol,, status post therapeutic program goal and followed lavage today. Aldactone it isn't a diabetic disc acute. Dobutamine being started by nephrology. Prognosis is guarded.
[2020-02-11] MEDS: BISACODYL 10 MG SUPP RECTAL SCH ×2 (16:11→16:34)
[2020-02-11] MEDS: LACTULOSE 20 GM/30 ML CUP PO SCH ×2 (16:11→16:16)
[2020-02-11] MEDS ORDERED: LACTULOSE 20 GM/30 ML CUP PO PRN (16:26)
[2020-02-11 18:02] LABS: Glucose,Whole Blood 69 mg/dL (75-99)
[2020-02-11] MEDS ORDERED: DEXTROSE 50% SYRINGE 50 ML IVP STA (18:06)
[2020-02-11 18:34] LABS: Hepatitis B Surface AB- Quant 3.5 mIU/mL; Hepatitis B Surface Antibody Non-Reactive (Non-Reactive); Hepatitis B Surface Antigen Non-Reactive (Non-Reactive)
[2020-02-11 18:56] LABS: Glucose,Whole Blood 100 mg/dL (75-99)
[2020-02-11] MEDS: FUROSEMIDE 10 MG/ML 10 ML VIAL IV SCH (20:27)
[2020-02-11 23:25] LABS: Glucose,Whole Blood 156 mg/dL (75-99)
[2020-02-12] MEDS: INSULIN ASPART (NovoLOG) 100 UNIT/ML VIAL SQ SCH ×4 (00:04→20:15)
[2020-02-12] MEDS: methylPREDNISolone SOD SUCCI 40 MG/ML 1 ML VIAL IV SCH ×3 (00:04→16:42)
[2020-02-12] MEDS: PROPOFOL 1,000 MG in EMPTY BAG 1 BAG IV SCH ×5 (01:15→20:40)
[2020-02-12] MEDS: LACTATED RINGERS 1,000 ML IV SCH ×5 (01:16→23:00)
[2020-02-12] MEDS: NOREPINEPHRINE 32 MG in SODIUM CHLORIDE 0.9% 218 ML IV SCH ×2 (02:22→22:17)
[2020-02-12] MEDS: IPRATROPIUM-ALBUTEROL 3 ML NEB INHALATION SCH ×6 (02:52→22:25)
[2020-02-12] MEDS: FUROSEMIDE 10 MG/ML 10 ML VIAL IV SCH ×3 (02:55→20:41)
[2020-02-12 03:18] LABS: ABG Base Excess 1.7 mmol/L; ABG HCO3 26 mmol/L (21-25); ABG PCO2 42 mmHg (35-45); ABG PH 7.41 (7.35-7.45); ABG TCO2 28 mmol/L (19-24); Allen Test Performed? Yes
[2020-02-12 03:24] LABS: Prothrombin Time 10.6 sec (9.0-12.0)
--- NOTE | 2020-02-12 03:44 | XR ---
EXAMINATION TYPE: XR chest 1V portable DATE OF EXAM: 02/12/2020 COMPARISON: 02/11/2020 HISTORY: Short of breath TECHNIQUE: FINDINGS: There is bilateral patchy pulmonary edema. There is tracheostomy tube. There is left axilla ry pacemaker noted. There are chest leads. There is blunting left costophrenic angle. IMPRESSION: Patchy pulmonary edema with left pleural effusion appears slightly worse than exam yester day and consistent with worsening RDS.
[2020-02-12] MEDS ORDERED: CISATRACURIUM 200 MG in SODIUM CHLORIDE 0.9% 180 ML IV SCH (04:00)
[2020-02-12 05:24] LABS: ABG Base Excess 0.8 mmol/L; ABG HCO3 26 mmol/L (21-25); ABG Oxygen Saturation 93.1 % (94-97); ABG PCO2 47 mmHg (35-45); ABG PH 7.36 (7.35-7.45); ABG PO2 79 mmHg (83-108); ABG TCO2 28 mmol/L (19-24); Allen Test Performed? Yes
[2020-02-12] MEDS: ARTIFICIAL TEARS-HYPROMELLOSE DROPS 15 ML BTL BOTH EYES SCH ×5 (06:16→20:42)
[2020-02-12 06:45] LABS: Glucose,Whole Blood 138 mg/dL (75-99)
[2020-02-12] MEDS: BUDESONIDE 0.5 MG/2 ML NEBU INHALATION SCH ×2 (07:13→19:18)
[2020-02-12 07:50] LABS: HCT 27.1 % (39.0-53.0); HGB 9.1 gm/dL (13.0-17.5); Hypochromasia Slight; MCH 33.8 pg (25.0-35.0); MCHC 33.4 g/dL (31.0-37.0); MCV 101.2 fL (80.0-100.0); Macrocytosis Slight; Mean Platelet Volume 11.9; Platelet Count 101 k/uL (150-450); RBC 2.68 m/uL (4.30-5.90); RDW 14.9 % (11.5-15.5); WBC 18.9 k/uL (3.8-10.6)
[2020-02-12 08:00] LABS: Albumin 2.2 g/dL (3.5-5.0); Calcium 6.6 mg/dL (8.4-10.2); Total Bilirubin 1.4 mg/dL (0.2-1.3); Total Protein 5.3 g/dL (6.3-8.2)
--- NOTE | 2020-02-12 09:04 | P.PN ---
Subjective Progress Note Date: 02/12/20 Principal diagnosis: severe CAD/severe cardiomyopathy This is a 75-year-old gentleman with a past medical history significant for coronary artery disease and status post coronary artery bypass grafting, severe cardiomyopathy and status post AICD, long-standing persistent atrial fibrillation on oral anticoagulation, as well as severe chronic obstructive pulmonary disease on home oxygen, was admitted to the hospital with acute hypoxic respiratory failure secondary to COPD exacerbation was a component of congestive heart failure exacerbation. The patient was seen today, February [id number]. Overall he is not doing well. He continues to be volume overloaded. The chest x-ray looks worse. Renal function is worse. He is not making any urine. Potassium is elevated. Yesterday I did stop the lisinopril as well as Aldactone. Nephrology is on the case and the dose of Lasix was increased to 40 mg IV 3 times a day. He is possibly going to have dialysis later on today. Beside that his pressure has been low on currently he is on norepinephrine. Objective - Vital Signs Vital signs: Vital Signs Temp 98.0 F 02/12/20 08:00 Pulse 79 02/12/20 08:00 Resp 20 02/12/20 08:00 BP 99/60 02/12/20 08:00 Pulse Ox 96 02/12/20 08:00 Intake & Output 02/11/20 02/12/20 02/12/20 18:59 06:59 18:59 Intake Total 616.021 658.073 69.961 Output Total 735 50 6 Balance -118.979 608.073 63.961 Weight 83.5 kg 84.7 kg Intake: IV 276 276 46 0.9 Normal Saline @ 3mL/ 36 36 6 hr from Pressure Bag Lactated Ringers 1,000 ml 240 240 40 @ 20 mls/hr IV .Q24H [facility] Rx#:[id number] Intake, IV Titration 310.021 252.073 3.961 Amount Cisatracurium 200 mg In 5.762 Sodium Chloride 0.9% 180 ml @ 1 MCG/KG/MIN 5.01 mls/hr IV .Q24H [facility] Rx#: [id number] DOBUTamine DRIP 500 mg In 10.021 Dextrose/Water 1 250ml. bag @ 2.5 MCG/KG/MIN 6. 263 mls/hr IV .Q24H [facility] Rx#:[id number] Norepinephrine 32 mg In 50.921 3.961 Sodium Chloride 0.9% 218 ml @ 0.05 MCG/KG/MIN 1. 929 mls/hr IV .Q24H [facility] Rx#:[id number] Piperacillin-Tazobactam 3 100 .375 gm In Sodium Chloride 0.9% 100 ml @ 25 mls/hr IVPB Q8HR [facility] Rx# :[id number] Propofol 1,000 mg In 200.000 195.390 Empty Bag 1 bag @ Titrate IV .Q0M [facility] Rx#: [id number] Oral 10 Tube Feeding 30 120 20 Output: Urine 735 50 6 Other: Voiding Method Indwelling Catheter Indwelling Catheter # Voids 1 ABP, PAP, CO, CI - Last Documented Arterial Blood Pressure 91/44 - Constitutional General appearance: Present: no acute distress - Respiratory Respiratory: bilateral: wheezing - Cardiovascular Rhythm: regular - Labs CBC & Chem 7: 02/12/20 03:04 02/12/20 03:04 Labs: Abnormal Lab Results - Last 24 Hours (Table) 02/11/20 02/11/20 02/11/20 Range/Units 18:00 18:55 23:23 WBC (3.8-10.6) k/uL RBC (4.30-5.90) m/uL Hgb (13.0-17.5) gm/dL Hct (39.0-53.0) % MCV (80.0-100.0) fL Plt Count (150-450) k/uL ABG pCO2 (35-45) mmHg ABG pO2 (83-108) mmHg ABG HCO3 (21-25) mmol/L ABG Total CO2 (19-24) mmol/L ABG O2 Saturation (94-97) % Sodium (137-145) mmol/L Potassium (3.5-5.1) mmol/L BUN (9-20) mg/dL Creatinine (0.66-1.25) mg/dL Glucose (74-99) mg/dL POC Glucose (mg/dL) 69 L 100 H 156 H (75-99) mg/dL Calcium (8.4-10.2) mg/dL Total Bilirubin (0.2-1.3) mg/dL AST (17-59) U/L ALT (4-49) U/L Total Protein (6.3-8.2) g/dL Albumin (3.5-5.0) g/dL 02/12/20 02/12/20 02/12/20 Range/Units 03:04 03:04 03:13 WBC 18.9 H (3.8-10.6) k/uL RBC 2.68 L (4.30-5.90) m/uL Hgb 9.1 L (13.0-17.5) gm/dL Hct 27.1 L (39.0-53.0) % MCV 101.2 H (80.0-100.0) fL Plt Count 101 L (150-450) k/uL ABG pCO2 (35-45) mmHg ABG pO2 55 L* (83-108) mmHg ABG HCO3 26 H (21-25) mmol/L ABG Total CO2 28 H (19-24) mmol/L ABG O2 Saturation 84.0 L (94-97) % Sodium 135 L (137-145) mmol/L Potassium 6.0 H (3.5-5.1) mmol/L BUN 120 H* (9-20) mg/dL Creatinine 2.88 H (0.66-1.25) mg/dL Glucose 133 H (74-99) mg/dL POC Glucose (mg/dL) (75-99) mg/dL Calcium 6.6 L (8.4-10.2) mg/dL Total Bilirubin 1.4 H (0.2-1.3) mg/dL AST 387 H (17-59) U/L ALT 67 H (4-49) U/L Total Protein 5.3 L (6.3-8.2) g/dL Albumin 2.2 L (3.5-5.0) g/dL 02/12/20 02/12/20 Range/Units 05:20 06:44 WBC (3.8-10.6) k/uL RBC (4.30-5.90) m/uL Hgb (13.0-17.5) gm/dL Hct (39.0-53.0) % MCV (80.0-100.0) fL Plt Count (150-450) k/uL ABG pCO2 47 H (35-45) mmHg ABG pO2 79 L (83-108) mmHg ABG HCO3 26 H (21-25) mmol/L ABG Total CO2 28 H (19-24) mmol/L ABG O2 Saturation 93.1 L (94-97) % Sodium (137-145) mmol/L Potassium (3.5-5.1) mmol/L BUN (9-20) mg/dL Creatinine (0.66-1.25) mg/dL Glucose (74-99) mg/dL POC Glucose (mg/dL) 138 H (75-99) mg/dL Calcium (8.4-10.2) mg/dL Total Bilirubin (0.2-1.3) mg/dL AST (17-59) U/L ALT (4-49) U/L Total Protein (6.3-8.2) g/dL Albumin (3.5-5.0) g/dL Microbiology - Last 24 Hours (Table) 02/11/20 09:54 Acid Fast Bacilli Smear - Final Bronchoalviolar Lavage - Right Acid Fast Bacilli Culture - Preliminary 02/11/20 09:54 Gram Stain - Preliminary Bronchoalviolar Lavage - Right Bronchial Washings Culture - Preliminary 02/11/20 09:54 Fungal Culture - Preliminary Bronchoalviolar Lavage - Right 02/10/20 09:48 Gram Stain - Preliminary Pleural Fluid Body Fluid Culture - Preliminary Assessment and Plan Assessment: assessment #1 acute hypoxic respiratory failure #2 severe chronic obstructive pulmonary disease #3 severe cardiomyopathy #4 severe coronary artery disease #5 long-standing persistent atrial fibrillation #6 acute on chronic renal failure Plan The patient is possibly going to have dialysis The dose of Lasix was increased to 40 mg IV 3 times a day by nephrology Continue monitor the kidney function and electrolytes Follow-up with the patient
[2020-02-12] MEDS: BISACODYL 10 MG SUPP RECTAL SCH (09:09)
[2020-02-12] MEDS: CHLORHEXIDINE GLUCONATE 15 ML CUP MUCOUS MEM SCH ×2 (09:12→20:42)
[2020-02-12] MEDS: ATORVASTATIN 80 MG TAB PO SCH (09:12)
[2020-02-12] MEDS: PANTOPRAZOLE 40 MG/10 ML VIAL IV SCH (09:14)
[2020-02-12] MEDS: NICOTINE 21MG/24HR PATCH TRANSDERM SCH (09:14)
[2020-02-12] MEDS: MAGNESIUM HYDROXIDE 2,400 MG/10 ML CUP PO SCH (09:14)
[2020-02-12 09:26] LABS: Band Neutrophils % 5 %; Lymphocytes # (M) 0.19 k/uL (1.0-4.8); Metamyelocytes # (M) 0.19 k/uL (0); Metamyelocytes % 1 %; Monocytes # (M) 0.19 k/uL (0-1.0); Neutrophils % (M) 94 %; Nucleated Red Blood Cells 0 /100 WBC (0-0); Total Cells Counted 200
[2020-02-12 09:28] LABS: Toxic Vacuolation Present
[2020-02-12] MEDS ORDERED: DEXTROSE 50% SYRINGE 50 ML IVP STA ×3 (09:30→22:06)
[2020-02-12] MEDS ORDERED: INSULIN REGULAR 100 UNIT/ML VIAL IV ONE ×3 (09:30→22:06)
[2020-02-12] MEDS: CEFEPIME 2 GM in SODIUM CHLORIDE 0.9% 100 ML IVPB SCH (09:48)
[2020-02-12] MEDS: DOBUTamine DRIP 500 MG in DEXTROSE/WATER 1 250ML.BAG IV SCH (09:48)
--- NOTE | 2020-02-12 10:48 | P.PN ---
Subjective Progress Note Date: 02/12/20 75-year-old male patient known history of CHF with LV dysfunction and the patient has a mass in place in addition to coronary artery disease and previous bypass surgery, COPD, chronic atrial fibrillation who came into the hospital because of worsening shortness of breath. The patient was having increased swelling lower extremities, profound weakness and feeling tired. The patient was in acute hypoxic respiratory failure. The patient was intubated and placed on mechanical ventilator. The patient was treated for CHF and pneumonia. During the course of treatment, the patient failed to wean off the mechanical ventilator and ultimately the patient required tracheostomy tube insertion in addition to a PEG tube insertion for respiratory support that was quite prolonged. The covid 19 analysis was negative. The patient is being seen today in follow-up. She remains on a mechanical ventilator on assist control mode at the rate of 20 with a tidal volume 400 and FiO2 of 50% with a PEEP of 10. Chest x-ray is still showing diffuse bilateral pulmonary infiltrates and the patient remains sedated with propofol running at 50 g per KG per minute. During the course of her treatment in the intensive care unit, the patient is sputum analysis was done on 01/26/2020 that was positive for pneumococcus and otherwise the rest of the cultures were negative. His echocardiogram from 01/26/2020 revealed impaired LV function with an ejection fraction of 30-35% and the rest of the cardiac structures were essentially within normal limits. The patient remains on Lasix 20 mg IV push every 12 hours. The patient is also on Aldactone 25 mg by mouth daily. The patient is on long-term medical evaluation with Eliquis 2.5 mg by mouth twice a day. He is on lactated Ringer which is currently running at 20 mL an hour. Despite diuresis, the neck fluid balance has been positive or the past several days and the patient's weight has been gradually going up from a baseline of 70 kg at time of admission up to 85 kg for now. He is receiving enteral feeding for nutritional support. Repeat chest x- ray from today shows that the patient's overall findings are essentially stable. There is persistent small to moderate-sized left-sided pleural effusion and addition to diffuse bilateral interstitial edema/infiltration. The patient's blood gases today shows a component of respiratory alkalosis with a pH of 7.5 with a pCO2 of 39 and pO2 of 107. This was on FiO2 of 50%. The patient has a peak pressure of 34. Static pressure of 32 on the mechanical ventilator. I dropped a respiratory rate down to 20. He is sedated with propofol which is currently running at 50 g per KG per minute. He is on a combination of Lasix and Aldactone. He is on vital high protein at the rate of 35 mL an hour. On today's evaluation of 02/10/2020, the patient remains sedated with propofol which was running at 40 g per KG per minute. He was deeply sedated and I asked the propofol to be cut down. He is also on Lasix drip at 10 mg an hour. He remains on a mechanical ventilator. Earlier this morning, he was assist control mode of ventilation at the rate of 20 with a tidal volume of 400 and FiO2 of 50% with a PEEP of 10. The blood gases from today showed a pH of 7.39 with a pCO2 of 51 and pO2 of 86. Chest x-ray findings are unchanged. The patient has become prerenal. However, his producing better urine output. The neck fluid balance is +126 mL over the past 24 hours. He has become prerenal with a creatinine being up to 1.43. White cell count is at 16 with a hemoglobin of 9.6. I also noted some abdominal distention. Flat film of the abdomen was done and was nonspecific. Immediately stop the PEG tube feeding and I'll put the active feeding for suctioning and around 400 mL of nutrition was aspirated from the stomach. The patient has diminished bowel sounds. He has some tympany on examination. No direct tenderness. No rebound tenderness. No guarding. Active site is dry clean and intact. He'll be given bowel rest for the next 24 hours. He will be also given laxatives and we decided to give him Dulcolax 10 mg rectally on a daily basis and addition to lactulose 20 g 3 times a day per PEG. The patient On today's evaluation of 02/11/2020, the patient is being seen in intensive care unit for a follow-up. The patient remains on a mechanical ventilator. The patient remains sedated with propofol at the rate of 40 mcg/kg per minute. He remains an assist-control mode of ventilation. He is on a rate of 20 with a tidal volume 400 and FiO2 of 60% with a PEEP of 10. Blood gas showed a pH of 7.44 with a pCO2 of 43 and pO2 of 112. The patient was on Lasix drip which was weaned down to 5 mg an hour and ultimately it was discontinued yesterday evening as the patient developed some hypotension. This was a brief hypotension in the Lasix that was discontinued and the patient was given norepinephrine infusion and ultimately this was weaned off. Currently is on no pressors. He is in a negative fluid balance. Nevertheless, his blood work, the patient has developed some prerenal azotemia, likely secondary to prerenal factors. Creatinine is up to 2 and the BUN is on the rise. The net fluid balance over the past 24 hours has been -428 mL. As mentioned earlier, the patient's abdomen was distended. The tube feeds were discontinued. Ferritin of the abdomen was done that was nonspecific. He was given laxative and he did have a bowel movement and on today's evaluation abdomen is much less distended. The patient also had a noted to have increased respiratory secretions. I performed a bedside bronchoscopy on him knowing that his white cell count was also on the rise. His pro-calcitonin was negative. There was copious amount of purulent respiratory secretions and the rest or secretions were suctioned out and the bronchioloalveolar lavage of the right upper lobe anterior segment was done and the patient was started again IV antibiotics covering with IV cefepime. The concern for pneumonia was there based on the bronchoscopic findings and based on the elevation in the white cell count. Neurologically, the patient is still sedated. I was told that he would wake up easily when he was given a sedation holidays. On 02/12/2020, I'm seeing the patient for a follow-up. He is doing poorly. Overnight, he became asynchronous with a mechanical ventilator. He was sedated with propofol at 40 g. He was also started on the backside 1 g per KG per mi nute. He is on levo fed which is running at 0.15 g per KG pigmented which is in the order of 12 g per minute. A is not producing any urine output and his urine output dropped significantly since last night. He remains on a mechanical ventilator. He is an assist-control mode rate of 20 with a tidal volume of 400 and FiO2 was brought up to 80% with a PEEP of 12. The pH is 7.36 with a pCO2 of 47 and pO2 of 79. He would have a dialysis catheter inserted and he was started on dialysis today. He is still on Lasix 60 mg IV push every 8 hours. He was started on dobutamine yesterday and the patient became quite hypotensive while on the treatment and hemodynamically unstable and this was discontinued. Since then, the patient has been placed on norepinephrine infusion. The patient otherwise is deeply sedated and calm and comfortable. He is currently sedated and paralyzed. His chest x-ray showing bilateral pulmonary infiltrates worse on the right with extensive consolidation. The bronchoscopy and lavage was done yesterday and the patient was started on IV cefepime. Meanwhile, the cultures are all negative for now. He remains on IV Solu-Medrol. He did have some abdominal distention. Nevertheless was given laxative and he is producing stool and the patient was restarted back on enteral feeding at 10 mL an hour without any significant residual. No significant abdominal distention. Objective - Vital Signs Vital signs: Vital Signs Temp 98.0 F 02/12/20 09:00 Pulse 80 02/12/20 09:00 Resp 20 02/12/20 09:00 BP 99/60 02/12/20 08:00 Pulse Ox 96 02/12/20 09:00 Intake & Output 02/11/20 02/12/20 02/12/20 18:59 06:59 18:59 Intake Total 616.021 658.073 69.961 Output Total 735 50 6 Balance -118.979 608.073 63.961 Weight 83.5 kg 84.7 kg Intake: IV 276 276 46 0.9 Normal Saline @ 3mL/ 36 36 6 hr from Pressure Bag Lactated Ringers 1,000 ml 240 240 40 @ 20 mls/hr IV .Q24H [facility] Rx#:[id number] Intake, IV Titration 310.021 252.073 3.961 Amount Cisatracurium 200 mg In 5.762 Sodium Chloride 0.9% 180 ml @ 1 MCG/KG/MIN 5.01 mls/hr IV .Q24H [facility] Rx#: [id number] DOBUTamine DRIP 500 mg In 10.021 Dextrose/Water 1 250ml. bag @ 2.5 MCG/KG/MIN 6. 263 mls/hr IV .Q24H [facility] Rx#:[id number] Norepinephrine 32 mg In 50.921 3.961 Sodium Chloride 0.9% 218 ml @ 0.05 MCG/KG/MIN 1. 929 mls/hr IV .Q24H [facility] Rx#:[id number] Piperacillin-Tazobactam 3 100 .375 gm In Sodium Chloride 0.9% 100 ml @ 25 mls/hr IVPB Q8HR [facility] Rx# :[id number] Propofol 1,000 mg In 200.000 195.390 Empty Bag 1 bag @ Titrate IV .Q0M [facility] Rx#: [id number] Oral 10 Tube Feeding 30 120 20 Output: Urine 735 50 6 Other: Voiding Method Indwelling Catheter Indwelling Catheter # Voids 1 ABP, PAP, CO, CI - Last Documented Arterial Blood Pressure 109/51 - Exam GENERAL EXAM: On mechanical ventilator, sedated, 75-year-old male patient in no apparent distress. The patient is sedated on a mechanical ventilator currently on propofol. The patient is also paralyzed and the patient was started on Nimbex drip for dialysis and synchrony with the mechanical ventilator. HEAD: Normocephalic/atraumatic. EYES: Normal reaction of pupils, equal size. Conjunctiva pink, sclera white. NOSE: Clear with pink turbinates. THROAT: No erythema or exudates. NECK: No masses, no JVD, no thyroid enlargement, no adenopathy. Midline tracheostomy in place, #8 foam cuff trach CHEST: No chest wall deformity. Symmetrical expansion. LUNGS: Equal air entry with basilar crackles left greater than right CVS: Regular rate and rhythm, normal S1 and S2, no gallops, no murmurs, no rubs ABDOMEN: Soft, nontender. The PEG tube site is dry clean and intact and the patient's abdomen is less distended. Bowel sounds are hypoactive at the present. The patient did have also bowel movement activity., EXTREMITIES: No clubbing, no edema, no cyanosis, 2+ pulses and upper and lower extremities. MUSCULOSKELETAL: Muscle strength and tone normal. SPINE: No scoliosis or deformity SKIN: No rashes CENTRAL NERVOUS SYSTEM: Trached to the vent, sedated. No focal deficits, tone is normal in all 4 extremities. The patient currently is sedated and paralyzed. - Labs CBC & Chem 7: 02/12/20 03:04 02/12/20 03:04 Labs: Abnormal Lab Results - Last 24 Hours (Table) 02/11/20 02/11/20 02/11/20 Range/Units 18:00 18:55 23:23 WBC (3.8-10.6) k/uL RBC (4.30-5.90) m/uL Hgb (13.0-17.5) gm/dL Hct (39.0-53.0) % MCV (80.0-100.0) fL Plt Count (150-450) k/uL Neutrophils # (Manual) (1.3-7.7) k/uL Lymphocytes # (Manual) (1.0-4.8) k/uL Metamyelocytes # (Man) (0) k/uL ABG pCO2 (35-45) mmHg ABG pO2 (83-108) mmHg ABG HCO3 (21-25) mmol/L ABG Total CO2 (19-24) mmol/L ABG O2 Saturation (94-97) % Sodium (137-145) mmol/L Potassium (3.5-5.1) mmol/L BUN (9-20) mg/dL Creatinine (0.66-1.25) mg/dL Glucose (74-99) mg/dL POC Glucose (mg/dL) 69 L 100 H 156 H (75-99) mg/dL Calcium (8.4-10.2) mg/dL Total Bilirubin (0.2-1.3) mg/dL AST (17-59) U/L ALT (4-49) U/L Total Protein (6.3-8.2) g/dL Albumin (3.5-5.0) g/dL 02/12/20 02/12/20 02/12/20 Range/Units 03:04 03:04 03:13 WBC 18.9 H (3.8-10.6) k/uL RBC 2.68 L (4.30-5.90) m/uL Hgb 9.1 L (13.0-17.5) gm/dL Hct 27.1 L (39.0-53.0) % MCV 101.2 H (80.0-100.0) fL Plt Count 101 L (150-450) k/uL Neutrophils # (Manual) 18.70 H (1.3-7.7) k/uL Lymphocytes # (Manual) 0.19 L (1.0-4.8) k/uL Metamyelocytes # (Man) 0.19 H (0) k/uL ABG pCO2 (35-45) mmHg ABG pO2 55 L* (83-108) mmHg ABG HCO3 26 H (21-25) mmol/L ABG Total CO2 28 H (19-24) mmol/L ABG O2 Saturation 84.0 L (94-97) % Sodium 135 L (137-145) mmol/L Potassium 6.0 H (3.5-5.1) mmol/L BUN 120 H* (9-20) mg/dL Creatinine 2.88 H (0.66-1.25) mg/dL Glucose 133 H (74-99) mg/dL POC Glucose (mg/dL) (75-99) mg/dL Calcium 6.6 L (8.4-10.2) mg/dL Total Bilirubin 1.4 H (0.2-1.3) mg/dL AST 387 H (17-59) U/L ALT 67 H (4-49) U/L Total Protein 5.3 L (6.3-8.2) g/dL Albumin 2.2 L (3.5-5.0) g/dL 02/12/20 02/12/20 Range/Units 05:20 06:44 WBC (3.8-10.6) k/uL RBC (4.30-5.90) m/uL Hgb (13.0-17.5) gm/dL Hct (39.0-53.0) % MCV (80.0-100.0) fL Plt Count (150-450) k/uL Neutrophils # (Manual) (1.3-7.7) k/uL Lymphocytes # (Manual) (1.0-4.8) k/uL Metamyelocytes # (Man) (0) k/uL ABG pCO2 47 H (35-45) mmHg ABG pO2 79 L (83-108) mmHg ABG HCO3 26 H (21-25) mmol/L ABG Total CO2 28 H (19-24) mmol/L ABG O2 Saturation 93.1 L (94-97) % Sodium (137-145) mmol/L Potassium (3.5-5.1) mmol/L BUN (9-20) mg/dL Creatinine (0.66-1.25) mg/dL Glucose (74-99) mg/dL POC Glucose (mg/dL) 138 H (75-99) mg/dL Calcium (8.4-10.2) mg/dL Total Bilirubin (0.2-1.3) mg/dL AST (17-59) U/L ALT (4-49) U/L Total Protein (6.3-8.2) g/dL Albumin (3.5-5.0) g/dL Microbiology - Last 24 Hours (Table) 02/11/20 09:54 Acid Fast Bacilli Smear - Final Bronchoalviolar Lavage - Right Acid Fast Bacilli Culture - Preliminary 02/11/20 09:54 Gram Stain - Preliminary Bronchoalviolar Lavage - Right Bronchial Washings Culture - Preliminary 02/11/20 09:54 Fungal Culture - Preliminary Bronchoalviolar Lavage - Right 02/10/20 09:48 Gram Stain - Preliminary Pleural Fluid Body Fluid Culture - Preliminary Assessment and Plan Plan: #1. Acute on chronic hypoxemic, and hypercapnic respiratory failure, multifactorial, in part related to underlying exacerbation of acute systolic congestive heart failure, acute exacerbation of COPD, and streptococcal pneumonia, and a component of ARDS is not excluded. Note that the patient was treated for pneumonia and this was a streptococcal pneumonia. However based on the increase in the white cell count and increase in the rest or secretions, performed a bronchoscopy today on him and I noted excess amount of respiratory secretions and purulent material scattered throughout the airways more so on the right. The patient continues to have diffuse bilateral pulmonary infiltrates right more than left. Thoracentesis of the left lung was done and the fluid was exudate. Bronchoscopy was done and purulent respiratory secretions were suctioned out and the culture is still pending and the patient is currently on IV cefepime. The patient is on IV steroids. The patient is on sedation and paralysis for synchrony with the mechanical ventilator. He is currently on a PEEP of 12 with an FiO2 of 80%. Hemodialysis to follow as the patient is not producing any urine output. #2. Failure to wean from mechanical ventilation, and patient is status post tracheostomy and PEG tube insertion on 01/28/2020 #3. coronary artery disease with previous bypass grafting #4. History of cardiomyopathy with LV dysfunction and AICD placement, repeat echocardiogram showed an ejection fraction of 30-35% #5. history of systolic congestive heart failure #6. acute kidney injury secondary to cardiorenal syndrome, and the patient does not have any significant urine output over the past 6 hours. We are going to proceed with hemodialysis. He does have signs of fluid overload. The creatini ne is up to 2.8 and the patient's potassium level is up to 6. #7. Chronic atrial fibrillation, patient is on Eliquis for anticoagulation, which is currently on hold for tracheostomy and PEG tube insertion, rate controlled #8. Tobacco dependence syndrome #9. Chronic left-sided pleural effusion moderate-sized based on the most recent CAT scan. #10. Covid 19 testing was negative #11. Acute hyperkalemia with a potassium level of 6.0, awaiting hemodialysis. #12 leukocytosis Plan Continue vent support, keep the PEEP at 12 an FiO2 of 80% and keep the patient sedated and paralyzed. Chest x-ray still showing dense bilateral pulmonary infiltrates right more than left. Thoracentesis was done yesterday and a left-sided pleural effusion was an exudate The patient had a bronchoscopy today and the bronchioloalveolar lavage of the right upper lobe was done. Cultures are still pending , and the patient is still on cefepime Monitor renal function, creatinine and potassium are on the rise and the patient is not producing any urine output. We'll proceed with hemodialysis. Continue norepinephrine drip for blood pressure control at a rate of 0.15 mg per KG per minute. Continue IV Lasix as the patient is not producing any urine output tube feeds at a rate of 10 mL's an hour Condition is critical and this ventilation was done and more than 30 minutes. Prognosis poor baseline above-mentioned comorbidities. Time with Patient: Greater than 30
[2020-02-12] MEDS ORDERED: HEPARIN SODIUM 1,000 UN/ML (10ML VL) ONE (11:40)
[2020-02-12] MEDS ORDERED: LIDOCAINE 1% INJ 10MG/ML (20 ML MDV) ONE (11:40)
[2020-02-12 11:53] LABS: Glucose,Whole Blood 138 mg/dL (75-99)
--- NOTE | 2020-02-12 12:09 | P.PN ---
Subjective Progress Note Date: 02/12/20 CHIEF COMPLAINT: Trach and PEG HISTORY OF PRESENT ILLNESS: 75-year-old male who is status post trach and peg tube insertion with Dr. Monsivais. Patient examined at the bedside. Tube feedings infusing at 10cc/hr. Patient have a BM overnight. PHYSICAL EXAM: VITAL SIGNS: Reviewed. GENERAL: Well-developed in no acute distress. HEENT: Trach noted. No sclera icterus. Extraocular movements grossly intact. Moist buccal mucosa. Head is atraumatic, normocephalic. ABDOMEN: Soft. Nondistended. Nontender. PEG tube intact. NEUROLOGIC: Sedated on mechanical ventilation ASSESSMENT: 1. Acute hypoxic respiratory failure requiring mechanical ventilation PLAN: -Ventilator management per pulmonary -Advance tube feedings as tolerated Nurse practitioner note has been reviewed by physician. Signing provider agrees with the documented findings, assessment, and plan of care. Objective - Vital Signs Vital signs: Vital Signs Temp 98.0 F 02/12/20 09:00 Pulse 80 02/12/20 11:09 Resp 20 02/12/20 11:00 BP 99/60 02/12/20 08:00 Pulse Ox 96 02/12/20 11:00 Intake & Output 02/11/20 02/12/20 02/12/20 18:59 06:59 18:59 Intake Total 616.021 658.073 327.578 Output Total 735 50 6 Balance -118.979 608.073 321.578 Weight 83.5 kg 84.7 kg Intake: IV 276 276 115 0.9 Normal Saline @ 3mL/ 36 36 15 hr from Pressure Bag Lactated Ringers 1,000 ml 240 240 100 @ 20 mls/hr IV .Q24H [facility] Rx#:[id number] Intake, IV Titration 310.021 252.073 162.578 Amount Cisatracurium 200 mg In 5.762 58.617 Sodium Chloride 0.9% 180 ml @ 1 MCG/KG/MIN 5.01 mls/hr IV .Q24H [facility] Rx#: [id number] DOBUTamine DRIP 500 mg In 10.021 Dextrose/Water 1 250ml. bag @ 2.5 MCG/KG/MIN 6. 263 mls/hr IV .Q24H [facility] Rx#:[id number] Norepinephrine 32 mg In 50.921 3.961 Sodium Chloride 0.9% 218 ml @ 0.05 MCG/KG/MIN 1. 929 mls/hr IV .Q24H [facility] Rx#:[id number] Piperacillin-Tazobactam 3 100 .375 gm In Sodium Chloride 0.9% 100 ml @ 25 mls/hr IVPB Q8HR [facility] Rx# :[id number] Propofol 1,000 mg In 200.000 195.390 100 Empty Bag 1 bag @ Titrate IV .Q0M [facility] Rx#: [id number] Oral 10 Tube Feeding 30 120 50 Output: Urine 735 50 6 Other: Voiding Method Indwelling Catheter Indwelling Catheter # Voids 1 ABP, PAP, CO, CI - Last Documented Arterial Blood Pressure 99/45 - Labs CBC & Chem 7: 02/12/20 03:04 02/12/20 03:04 Labs: Abnormal Lab Results - Last 24 Hours (Table) 02/11/20 02/11/20 02/11/20 Range/Units 18:00 18:55 23:23 WBC (3.8-10.6) k/uL RBC (4.30-5.90) m/uL Hgb (13.0-17.5) gm/dL Hct (39.0-53.0) % MCV (80.0-100.0) fL Plt Count (150-450) k/uL Neutrophils # (Manual) (1.3-7.7) k/uL Lymphocytes # (Manual) (1.0-4.8) k/uL Metamyelocytes # (Man) (0) k/uL ABG pCO2 (35-45) mmHg ABG pO2 (83-108) mmHg ABG HCO3 (21-25) mmol/L ABG Total CO2 (19-24) mmol/L ABG O2 Saturation (94-97) % Sodium (137-145) mmol/L Potassium (3.5-5.1) mmol/L BUN (9-20) mg/dL Creatinine (0.66-1.25) mg/dL Glucose (74-99) mg/dL POC Glucose (mg/dL) 69 L 100 H 156 H (75-99) mg/dL Calcium (8.4-10.2) mg/dL Total Bilirubin (0.2-1.3) mg/dL AST (17-59) U/L ALT (4-49) U/L Total Protein (6.3-8.2) g/dL Albumin (3.5-5.0) g/dL 02/12/20 02/12/20 02/12/20 Range/Units 03:04 03:04 03:13 WBC 18.9 H (3.8-10.6) k/uL RBC 2.68 L (4.30-5.90) m/uL Hgb 9.1 L (13.0-17.5) gm/dL Hct 27.1 L (39.0-53.0) % MCV 101.2 H (80.0-100.0) fL Plt Count 101 L (150-450) k/uL Neutrophils # (Manual) 18.70 H (1.3-7.7) k/uL Lymphocytes # (Manual) 0.19 L (1.0-4.8) k/uL Metamyelocytes # (Man) 0.19 H (0) k/uL ABG pCO2 (35-45) mmHg ABG pO2 55 L* (83-108) mmHg ABG HCO3 26 H (21-25) mmol/L ABG Total CO2 28 H (19-24) mmol/L ABG O2 Saturation 84.0 L (94-97) % Sodium 135 L (137-145) mmol/L Potassium 6.0 H (3.5-5.1) mmol/L BUN 120 H* (9-20) mg/dL Creatinine 2.88 H (0.66-1.25) mg/dL Glucose 133 H (74-99) mg/dL POC Glucose (mg/dL) (75-99) mg/dL Calcium 6.6 L (8.4-10.2) mg/dL Total Bilirubin 1.4 H (0.2-1.3) mg/dL AST 387 H (17-59) U/L ALT 67 H (4-49) U/L Total Protein 5.3 L (6.3-8.2) g/dL Albumin 2.2 L (3.5-5.0) g/dL 02/12/20 02/12/20 02/12/20 Range/Units 05:20 06:44 11:52 WBC (3.8-10.6) k/uL RBC (4.30-5.90) m/uL Hgb (13.0-17.5) gm/dL Hct (39.0-53.0) % MCV (80.0-100.0) fL Plt Count (150-450) k/uL Neutrophils # (Manual) (1.3-7.7) k/uL Lymphocytes # (Manual) (1.0-4.8) k/uL Metamyelocytes # (Man) (0) k/uL ABG pCO2 47 H (35-45) mmHg ABG pO2 79 L (83-108) mmHg ABG HCO3 26 H (21-25) mmol/L ABG Total CO2 28 H (19-24) mmol/L ABG O2 Saturation 93.1 L (94-97) % Sodium (137-145) mmol/L Potassium (3.5-5.1) mmol/L BUN (9-20) mg/dL Creatinine (0.66-1.25) mg/dL Glucose (74-99) mg/dL POC Glucose (mg/dL) 138 H 138 H (75-99) mg/dL Calcium (8.4-10.2) mg/dL Total Bilirubin (0.2-1.3) mg/dL AST (17-59) U/L ALT (4-49) U/L Total Protein (6.3-8.2) g/dL Albumin (3.5-5.0) g/dL Microbiology - Last 24 Hours (Table) 02/11/20 09:54 Acid Fast Bacilli Smear - Final Bronchoalviolar Lavage - Right Acid Fast Bacilli Culture - Preliminary 02/11/20 09:54 Gram Stain - Preliminary Bronchoalviolar Lavage - Right Bronchial Washings Culture - Preliminary 02/11/20 09:54 Fungal Culture - Preliminary Bronchoalviolar Lavage - Right 02/10/20 09:48 Gram Stain - Preliminary Pleural Fluid Body Fluid Culture - Preliminary
[2020-02-12] MEDS ORDERED: HEPARIN SODIUM,PORCINE 5,000 UNIT/ML 1 ML VIAL ONE (14:00)
[2020-02-12] MEDS ORDERED: DEXTROSE 5% IN WATER 100 ML with AMIODARONE 150 MG IV ONE (15:15)
--- NOTE | 2020-02-12 15:16 | PN ---
PROGRESS NOTE Patient is seen for followup for acute kidney injury. His renal function has deteriorated over the last couple of days. Patient was started on dobutamine to help diurese the patient because of severe fluid overload; however, he did not tolerate the dobutamine and blood pressure had dropped and patient was started on pressors. He continues to have very poor urine output and his serum creatinine has increased to 2.8 today with BUN of 120 and potassium was 6. There are plans to proceed with dialysis particularly given the severe volume overload and requirement of high amounts of oxygen for oxygenation. PHYSICAL EXAMINATION: On examination today, blood pressure was 109/51, heart rate 80 per minute, patient is afebrile. He is maintained in about 14 mcg of Levophed. He is sedated, he is started on Nimbex. No significant urine output. Heart sounds are heard. Breath sounds are heard bilaterally. Abdomen is soft, distended. Examination of the lower extremities shows edema, 3+ bilaterally, upper and lower extremities. PARTY COORDINATOR exam cannot be performed. LABS: Show sodium of 135, potassium 6.0, chloride 100, CO2 is 27, BUN 120, creatinine 2.8, hemoglobin 9.1, white cell count 18.9. ASSESSMENT: 1. Acute kidney injury, ATN and cardiorenal currently oliguric. Will start renal replacement therapy to help with volume overload. Patient did not respond to dobutamine which was tried yesterday. 2. Severe volume overload. Expect improvement with dialysis if patient is able to tolerate. 3. Acute hypoxic respiratory failure secondary to congestive heart failure and pneumonia. 4. Failure to wean from mechanical ventilation, status post trach and PEG. 5. Cardiomyopathy, ejection fraction 30% to 35%. 6. Hyperkalemia associated with acute kidney injury. 7. Staphylococcus pneumonia, sepsis and pneumonia maintained on antibiotics. PLAN: Proceed with hemodialysis today. We will dialyze the patient again tomorrow. Continue pressors as needed. Overall prognosis is guarded. MMODL / IJN: [id number] /
[2020-02-12] MEDS ORDERED: AMIODARONE 360 MG in DEXTROSE 5% IN WATER 200 ML IV ONE ×2 (15:30)
--- NOTE | 2020-02-12 15:52 | CONS ---
CONSULTATION This patient is a 75-year-old gentleman who has been admitted to the intensive care unit post tracheostomy. The patient has been intubated. I was consulted for placement of a dialysis catheter. The patient came with history of acute COPD, persistent atrial fibrillation, on Eliquis, respiratory failure. On examination, the patient was seen in his room. Patient has a tracheostomy. Chest has crackles bilaterally. Abdomen is soft. Femorals are 1+. IMPRESSION: 1. Acute on chronic renal failure. 2. Coronary artery disease. 3. Atrial fibrillation. PLAN: Placement of dialysis catheter. MMODL / IJN: [id number] /
--- NOTE | 2020-02-12 16:04 | OP ---
OPERATIVE REPORT PREOPERATIVE DIAGNOSIS: Acute on chronic renal failure. PROCEDURE PERFORMED: Ultrasound-guided dialysis catheter placement via right femoral approach. PROCEDURE DESCRIPTION: The patient was seen in the intensive care unit. The right groin was prepped and draped in the usual sterile manner. Lidocaine 1% was infiltrated. Ultrasound-guided micropuncture was introduced into the right common femoral vein. Micropuncture guidewire was passed and 4-Slovenian dilator advanced on top of the guidewire. Then we passed a regular guidewire without any resistance. After that, we advanced the dilator and we placed a dialysis catheter. Good flow was noted. Flushed with heparin saline and Hep-locked, secured with 3-0 nylon. Patient tolerated the procedure well. MMODL / IJN: [id number] /
[2020-02-12 17:43] LABS: ABG Base Excess -1.8 mmol/L; ABG HCO3 26 mmol/L (21-25); ABG Oxygen Saturation 86.4 % (94-97); ABG PCO2 63 mmHg (35-45); ABG PH 7.22 (7.35-7.45); ABG PO2 67 mmHg (83-108); ABG TCO2 28 mmol/L (19-24)
[2020-02-12 17:46] LABS: Allen Test Performed? no
[2020-02-12 18:00] LABS: Glucose,Whole Blood 144 mg/dL (75-99)
--- NOTE | 2020-02-12 19:48 | P.PN ---
Progress Note - Text Progress Note Date: 02/12/20 Chief Complaint: Short of breath History of presenting complaint: This is a 75-year-old patient of Dr. Gonzáles. Long-standing smoker. Chronic stable medical conditions include atrial fibrillation, AICD, coronary artery disease with prior bypass, on home oxygen, GERD, COPD. Last ejection fraction is 40-45%. She presents with worsening short of breath for about a week at least. It has been progressively getting worse. Some edema. Weak and tired slight cough is present. Increasing swelling of lower extremity. Orthopnea. No fever no chills. Tired and rundown. Slow with given history. Admitted with acute on chronic CHF exacerbation, COPD exacerbation. Was started on IV Lasix, bronchodilators and IV steroids. Early hours of January 25 patient was becoming more short of breath, could not tolerate BiPAP was intubated and placed in the ICU. Also being treated for pneumonia. Patient extubated on January 28. Patient had remained on IV Lasix drip, IV dobutamine. Was worsening again. And patient was reintubated on January 30. February 04 patient had a PEG tube and a tracheostomy tube placed to Dr. Monsivais. Antibiotics discontinued. Dr. Colin on February 05.. [id number]. Patient today had a dialysis catheter placed per Dr. Mike Nelson. FiO2 of 80% and a PEEP of Dr. Riddle ventilator. Sedated. Does include Nimbex, levo fed and propofol. Patient did not respond to dobutamine yesterday. Patient to be hemodialyzed today. Review of systems: Cannot be done, patient intubated Active Medications Albuterol/Ipratropium (Duoneb 0.5 Mg-3 Mg/3 Ml Soln) 3 ml INHALATION RT-Q2H PRN PRN Reason: Shortness Of Breath Or Wheezing Last Admin: 02/04/20 02:59 Dose: 3 ml Documented by: Albuterol/Ipratropium (Duoneb 0.5 Mg-3 Mg/3 Ml Soln) 3 ml INHALATION RT-Q4H [facility] Last Admin: 02/12/20 19:17 Dose: 3 ml Documented by: Artificial Tears (Artificial Tear Drops) 2 drops BOTH EYES Q4HR [facility] Last Admin: 02/12/20 16:40 Dose: 2 drops Documented by: Atorvastatin Calcium (Lipitor) 80 mg PO DAILY [facility] Last Admin: 02/12/20 09:12 Dose: 80 mg Documented by: Bisacodyl (Dulcolax) 10 mg RECTAL DAILY [facility] Last Admin: 02/12/20 09:09 Dose: Not Given Documented by: Budesonide (Pulmicort) 0.5 mg INHALATION RT-BID [facility] Last Admin: 02/12/20 19:18 Dose: 0.5 mg Documented by: Chlorhexidine Gluconate (Peridex) 15 ml MUCOUS MEM BID [facility] Last Admin: 02/12/20 09:12 Dose: 15 ml Documented by: Furosemide (Lasix) 60 mg IV Q8H [facility] Last Admin: 02/12/20 13:11 Dose: 60 mg Documented by: Hydromorphone HCl (Dilaudid) 1 mg IVP Q4HR PRN PRN Reason: Pain Last Admin: 02/10/20 22:13 Dose: 1 mg Documented by: Propofol 1,000 mg/ IV Solution 100 mls @ 0 mls/hr IV .Q0M [facility]; Protocol Last Admin: 02/12/20 15:59 Dose: 40 mcg/kg/min, 20.328 mls/hr Documented by: Lactated Ringer's (Lactated Ringers) 1,000 mls @ 20 mls/hr IV .Q24H [facility] Last Admin: 02/12/20 02:20 Dose: 20 mls/hr Documented by: Norepinephrine Bitartrate 32 (mg/ Sodium Chloride) 250 mls @ 1.929 mls/hr IV .Q24H [facility]; Protocol Last Titration: 02/12/20 19:43 Dose: 0.42 mcg/kg/min, 16.203 mls/hr Documented by: Dobutamine HCl/Dextrose 500 mg (/ IV Solution) 250 mls @ 6.263 mls/hr IV .Q24H [facility] Last Admin: 02/12/20 09:48 Dose: Not Given Documented by: Cisatracurium Besylate 200 mg/ (Sodium Chloride) 200 mls @ 5.01 mls/hr IV .Q24H [facility]; Protocol Last Titration: 02/12/20 14:11 Dose: 2 mcg/kg/min, 10.02 mls/hr Documented by: Cefepime HCl 1 gm/ Sodium (Chloride) 50 mls @ 100 mls/hr IVPB DAILY [facility] Amiodarone HCl 360 mg/ (Dextrose/Water) 200 mls @ 33.333 mls/hr IV .Q6H [facility]; Protocol Stop: 02/12/20 21:29 Last Admin: 02/12/20 15:57 Dose: 1 mg/min, 33.333 mls/hr Documented by: Amiodarone HCl 300 mg/ (Dextrose/Water) 250 mls @ 25 mls/hr IV .Q10H [facility]; Protocol Stop: 02/13/20 15:29 Insulin Aspart (Novolog) 0 unit SQ Q6H [facility]; Protocol Last Admin: 02/12/20 13:45 Dose: Not Given Documented by: Lactulose (Cephulac) 20 gm PO TID PRN PRN Reason: Laxative Effect Magnesium Hydroxide (Milk Of Magnesia) 2,400 mg PO DAILY [facility] Last Admin: 02/12/20 09:14 Dose: Not Given Documented by: Methylprednisolone Sodium Succinate (Solu-Medrol) 40 mg IV Q8HR [facility] Last Admin: 02/12/20 16:42 Dose: 40 mg Documented by: Miscellaneous Information (Magnesium Per Protocol) 1 each MISCELLANE DAILY PRN; Protocol PRN Reason: Per Protocol Miscellaneous Information (Potassium Per Protocol) 1 each MISCELLANE DAILY PRN; Protocol PRN Reason: Per Protocol Naloxone HCl (Narcan) 0.2 mg IV Q2M PRN PRN Reason: Opioid Reversal Nicotine (Habitrol 21mg/24hr Patch) 1 patch TRANSDERM DAILY [facility] Last Admin: 02/12/20 09:14 Dose: 1 patch Documented by: Pantoprazole Sodium (Protonix) 40 mg IV DAILY [facility] Last Admin: 02/12/20 09:14 Dose: 40 mg Documented by: Sodium Chloride (Saline Flush) 10 ml IV Q4HR PRN PRN Reason: PICC Line Sodium Chloride (Saline Flush) 10 ml IV WEEKLY [facility] Sodium Chloride (Saline Flush) 20 ml IV Q4HR PRN PRN Reason: PICC Line Physical examination: VITAL SIGNS: 98.1, 117, 20, 117/63, 97% on the ventilator GENERAL: Laying in bed, sedated EYES: Pupils equal. Conjunctiva normal. NECK: JVD unable to assess; masses not palpable. Tracheostomy tube HEART: Heart sounds irregular, edema present. LUNGS: Respiratory rate increased,, diminished breath sounds. ABDOMEN: Soft, nontender, liver spleen not palpable, no masses palpable. PEG tube. PSYCH: Unable to assess, patient sedated MUSCULAR skeletal: Evidence of OA INVESTIGATIONS, reviewed in the clinical context: White count 18.9 hemoglobin 9.1 platelets 101 potassium 6 bun 120 creatinine 2.88 albumin 2.2 Previous testing White count 13.1 hemoglobin 12.2 platelets 139, potassium 4.9 crit 1.01 Chest x-ray film personally reviewed by me-increasing bilateral infiltrates CRP 60.5 pro calcitonin 0.1 Sputum culture growing Streptococcus pneumoniae, Anna glabrata 2-D co-EF 30-35% Previous testing White count 10.9 hemoglobin 12.4 platelets 165 neutrophils 9.2 lymphocytes 0.7 potassium 4.3 bun 27 creatinine 0.88, proBNP 1530 EKG tracing personally reviewed by me-atrial flutter rate controlled Chest x-ray film personally reviewed by me-pulmonary edema, cardiomegaly, portable film Computed tomography scan of the chest-February 08-possible pulmonary edema with cardiomegaly Assessment: -Acute on chronic congestive heart failure exacerbation from systolic dysfunction EF 30-35% % from underlying coronary artery disease, did not respond to Lasix drip and dobutamine drip. -Bilateral pneumonia, Streptococcus pneumoniae causing sepsis, POA,-antibiotic completed -Bronchoscopy with therapeutic lavage-February 10 -Coronary artery disease a prior history of bypass -Acute COPD exacerbation and an current smoker, POA, not improving -Chronic nicotine dependence patient cigarette smoker -Persistent atrial fibrillation -Chronic hypoxic and hypercapnic respiratory failure from a lying COPD -Acute hypoxic and hypercapnic respiratory failure from COPD and CHF, pneumonia POA-worsening on extubated January 28. Reintubated on January 30-slow to respond -Acute kidney injury possibly combination of ATN and prerenal-improved. With further worsening. Hemodialysis catheter placed today on February 11. And first hemodialysis treatment you.. -Chronic left-sided pleural effusion since 2016 per pulmonary -COVID-19 PCR not detected -AICD -Left-sided thoracentesis done with 300 mL of fluid removed. Plan: -ICU.-On IV propofol., Nimbex, Levophed. Requiring higher FiO2. Hemodialysis catheter placed earlier today to be followed by hemodialysis. Antibiotics to continue. Prognosis guarded..
[2020-02-12] MEDS ORDERED: AMIODARONE 300 MG in DEXTROSE 5% IN WATER 250 ML IV SCH ×2 (21:30)
[2020-02-12 21:31] LABS: ABG Base Excess -4.2 mmol/L; ABG HCO3 25 mmol/L (21-25); ABG Oxygen Saturation 80.2 % (94-97); ABG TCO2 27 mmol/L (19-24)
[2020-02-12 21:35] LABS: ABG PH 7.15 (7.35-7.45)
[2020-02-12 21:36] LABS: ABG PCO2 71 mmHg (35-45); ABG PO2 59 mmHg (83-108); Allen Test Performed? NO
[2020-02-12] MEDS ORDERED: SODIUM BICARB 8.4% 50 ML SYR (1 MEQ/ML) IV STA ×2 (21:46→21:50)
[2020-02-12] MEDS ORDERED: SODIUM BICARB 8.4% 50 ML SYR (1 MEQ/ML) ONE (21:53)
[2020-02-12] MEDS ORDERED: CALCIUM GLUCONATE 1 GM in SODIUM CHLORIDE 0.9% 100 ML IVPB ONE (22:06)
[2020-02-12] MEDS ORDERED: DEXTROSE 50% SYRINGE 50 ML IVP ONE (22:08)
[2020-02-12 22:51] VITALS: TEMP 97.6
[2020-02-12] MEDS ORDERED: LACTATED RINGERS 1,000 ML IV SCH (23:15)
[2020-02-12 23:53] LABS: Glucose,Whole Blood 163 mg/dL (75-99)
[2020-02-13] MEDS: INSULIN ASPART (NovoLOG) 100 UNIT/ML VIAL SQ SCH (00:21)
[2020-02-13] MEDS: methylPREDNISolone SOD SUCCI 40 MG/ML 1 ML VIAL IV SCH (00:22)
[2020-02-13] MEDS: ARTIFICIAL TEARS-HYPROMELLOSE DROPS 15 ML BTL BOTH EYES SCH (00:22)
[2020-02-13 01:14] VITALS: BP 69/55
[2020-02-13 02:43] VITALS: PULSE 45; RESP 20
[2020-02-13 06:57] LABS: ABG PO2 55 mmHg (83-108)
[2020-02-13] MEDS ORDERED: CEFEPIME 1 GM in SODIUM CHLORIDE 0.9% 50 ML IVPB SCH (09:00)
--- NOTE | 2020-02-14 21:07 | P.DS ---
Providers Date of admission: 01/25/20 15:41 Expected date of discharge: 02/13/20 (Patient ) Attending physician: Maxim Barton Consults: 01/25/20 15:23 Consult Physician Routine Consulting Provider: Leno Quintanilla Consult Reason/Comments: CHF Do you want consulting provider notified?: Yes 01/26/20 02:46 Consult Physician Routine Consulting Provider: Marc Richardson Consult Reason/Comments: ICU management Do you want consulting provider notified?: Already Contacted 01/28/20 17:24 Consult Physician Routine Consulting Provider: Teresa Nix Consult Reason/Comments: Acute kidney injury Do you want consulting provider notified?: Yes 01/31/20 17:36 Consult Physician Routine Consulting Provider: Christina Lara Consult Reason/Comments: covid-19 Do you want consulting provider notified?: Yes 02/04/20 08:03 Consult Physician Routine Consulting Provider: Nishant Monsivais Consult Reason/Comments: tracheostomy and peg tube insertion Do you want consulting provider notified?: Yes 02/11/20 22:52 Consult Physician Urgent Consulting Provider: Chapin Walker Consult Reason/Comments: Dialysis cath insertion Do you want consulting provider notified?: Already Contacted Primary care physician: [facility] Course: Chief Complaint: Short of breath History of presenting complaint: This is a 75-year-old patient of Dr. Gonzáles. Long-standing smoker. Chronic stable medical conditions include atrial fibrillation, AICD, coronary artery disease with prior bypass, on home oxygen, GERD, COPD. Last ejection fraction is 40-45%. She presents with worsening short of breath for about a week at least. It has been progressively getting worse. Some edema. Weak and tired slight cough is present. Increasing swelling of lower extremity. Orthopnea. No fever no chills. Tired and rundown. Slow with given history. Admitted with acute on chronic CHF exacerbation, COPD exacerbation. Was started on IV Lasix, bronchodilators and IV steroids. Early hours of January 25 patient was becoming more short of breath, could not tolerate BiPAP was intubated and placed in the ICU. Also being treated for pneumonia. Patient extubated on January 28. Patient had remained on IV Lasix drip, IV dobutamine. Was worsening again. And patient was reintubated on January 30. February 04 patient had a PEG tube and a tracheostomy tube placed to Dr. Monsivais. Antibiotics discontinued. Dr. Colin on February 05.. February 11 dialysis catheter was placed. Hemodialyzed. Today-. As of today patient succumbed to his underlying conditions. Consultation: Dr. Nelson-vascular Dr. Quintanilla and partners from cardiology Dr. Richardson and partners from pulmonary and critical care Dr. Nix and partners from nephrology Dr. Lara from ID Dr. Monsivais from general surgery INVESTIGATIONS, reviewed in the clinical context: White count 18.9 hemoglobin 9.1 platelets 101 potassium 6 bun 120 creatinine 2.88 albumin 2.2 Previous testing White count 13.1 hemoglobin 12.2 platelets 139, potassium 4.9 crit 1.01 Chest x-ray film personally reviewed by me-increasing bilateral infiltrates CRP 60.5 pro calcitonin 0.1 Sputum culture growing Streptococcus pneumoniae, Anna glabrata 2-D co-EF 30-35% Previous testing White count 10.9 hemoglobin 12.4 platelets 165 neutrophils 9.2 lymphocytes 0.7 potassium 4.3 bun 27 creatinine 0.88, proBNP 1530 EKG tracing personally reviewed by me-atrial flutter rate controlled Chest x-ray film personally reviewed by me-pulmonary edema, cardiomegaly, portable film Computed tomography scan of the chest-February 08-possible pulmonary edema with cardiomegaly Cause of : Pneumonia Other medical conditions treated: -Acute on chronic congestive heart failure exacerbation from systolic dysfunction EF 30-35% % from underlying coronary artery disease, did not respond to Lasix drip and dobutamine drip. -Bilateral pneumonia, Streptococcus pneumoniae causing sepsis, POA,-antibiotic completed -Bronchoscopy with therapeutic lavage-February 10 -Coronary artery disease a prior history of bypass -Acute COPD exacerbation and an current smoker, POA, not improving -Chronic nicotine dependence patient cigarette smoker -Persistent atrial fibrillation -Chronic hypoxic and hypercapnic respiratory failure from a lying COPD -Acute hypoxic and hypercapnic respiratory failure from COPD and CHF, pneumonia POA-worsening on extubated January 28. Reintubated on January 30-slow to respond -Acute kidney injury possibly combination of ATN and prerenal-improved. With further worsening. Hemodialysis catheter placed today on February 11. And first hemodialysis treatment you.. -Chronic left-sided pleural effusion since 2015 per pulmonary -COVID-19 PCR not detected -AICD -Left-sided thoracentesis done with 300 mL of fluid removed. Plan: Patient Plan - Discharge Summary Discharge Rx Participant: No New Discharge Prescriptions: No Action Omeprazole [PriLOSEC] 20 mg PO DAILY Aspirin 81 mg PO DAILY #1 chewable Furosemide [Lasix] 40 mg PO DAILY Spironolactone [Aldactone] 25 mg PO DAILY #30 tab Carvedilol [Coreg*] 12.5 mg PO BID Amiodarone [Cordarone] 200 mg PO DAILY #90 Atorvastatin [Lipitor] 80 mg PO DAILY Discharge Medication List Omeprazole [PriLOSEC] 20 mg PO DAILY 06/05/16 [History] Aspirin 81 mg PO DAILY #1 chewable 06/09/16 [Rx] Furosemide [Lasix] 40 mg PO DAILY 07/20/16 [History] Spironolactone [Aldactone] 25 mg PO DAILY #30 tab 07/25/16 [Rx] Carvedilol [Coreg*] 12.5 mg PO BID 08/14/16 [History] Amiodarone [Cordarone] 200 mg PO DAILY #90 09/25/16 [Rx] Atorvastatin [Lipitor] 80 mg PO DAILY 01/25/20 [History] Follow up Appointment(s)/Referral(s): None,Stated [REFERRING] - 1-2 days Discharge Disposition: - Preliminary Cause of Preliminary Cause of : Pneumonia
--- NOTE | 2020-02-17 23:07 | CDI ---
Documentation Clarification Form Date: 02/18/2020 From: Skip Amaya Phone: If you have a question about this query, please contact Norma Basilio Configuration Technician at [phone] between 8am and 5pm. Admit Date: 01/25/2020 Discharge Date: 02/13/2020 Patient Name: Rivera Prater Visit Number: [id number] ATTENTION: The Clinical Documentation Specialists (CDI) and [facility] Coding Staff appreciate your assistance in clarifying documentation. Please respond to the clarification below the line at the bottom and electronically sign. The CDI & [facility] Coding staff will review the response and follow-up if needed. Please note: Queries are made part of the Legal Health Record. If you have any questions, please contact the author of this message via ITS. Dear Maxim Pereyra., CKD is documented in the 02/02 Dr. virginia Nair report as " he is also having chronic kidney disease" History/Risk Factors: CHF, hypertension, ATN Current BUN/CR/GFR GFR rate : 01/24 >90, 02/03 75, 02/11 24, Creatinine 01/25- 0.89H , 01/31 - 2.38H, 02/11 - 2.21H Treatment:Ultrasound-guided dialysis catheter placement via right femoral approach Consults: Dr. Virginia Nari 02/02 PN "presented with increasing shortness of breath with hypoxemia and hypercapnia with a high CO2 and was intubated he is also chronic kidney disease and was initially started on dobutamine" 02/[address] Aaron Samson "Acute on chronic renal failure". 02/[address] Dwight Burr "Acute on chronic renal failure". In order to capture the severity of condition, please clarify the stage of the CKD, if known: CKD Stage 1 (GFR > 90) CKD Stage 2 (GFR 60-89) CKD Stage 3 (GFR 30-59) CKD Stage 4 (GFR 15-29) CKD Stage 5 (GFR <15) ESRD Other, please specify Unable to determine No chronic kidney disease MTDD
--- NOTE | 2020-02-17 23:28 | CDI ---
Documentation Clarification Form Date: 02/18/2020 From: Skip Amaya Phone: If you have a question about this query, please contact Norma Basilio, Cherry Picker Operator at [phone] between 8am and 5pm. Admit Date: 01/25/2020 Discharge Date: 02/13/2020 Patient Name: Rivera Prater Visit Number: [id number] ATTENTION: The Clinical Documentation Specialists (CDI) and [facility] Coding Staff appreciate your assistance in clarifying documentation. Please respond to the clarification below the line at the bottom and electronically sign. The CDI & [facility] Coding staff will review the response and follow-up if needed. Please note: Queries are made part of the Legal Health Record. If you have any questions, please contact the author of this message via ITS. Dear Maxim Pereyra., This patient is admitted with respiratory failure and CHF, Pneumonia History/Risk Factors: Pneumonia, hypertension Clinical Indicators: ABG/CB/18 Lab resultes : pH 7.47 pCO2 63H pHCO3 46H Lactate Pulse Ox:Pulse Ox 95 VITAL SIGNS: 101.1, 61, 28, 110/61, 95% on the ventilator Treatment: Mechanical ventilation, tracheostomy. Medications:IV Steroids, bronchodilators Acute hypoxic and hypercapnic respiratory failure from COPD and CHF, pneumonia POA-worsening on extubated January 28.Reintubated on January 30-slow to respond 02/10 Dr. Debra Tran progress note stated as "Acute on chronic hypoxemic, and hypercapnic respiratory failure, multifactorial, acute exacerbation of COPD, and streptococcal pneumonia, and a component of ARDS is not excluded" In order to accurately reflect the severity of condition, please Clarify the ARDS Presence ? Acute Respiratory Distress Syndrome. YES NO Other, please specify Unable to determine Possible ARDS MTDD
== END 2020-02-13 05:14 | disposition expired | DRG 4 ==
LOC: EC 13:50 → 3SCARD 15:41 → 2SICU 01-26 02:10
PROVIDERS: ADMIT Hospitalist; ATTEND Hospitalist
PROC: 5A1955Z Respiratory Ventilation, Greater than 96 Consecutive Hours (ICD-10-PCS; 2020-01-26)
PROC: 5A09457 Assistance with Respiratory Ventilation, 24-96 Consecutive Hours, Continuous Positive Airway Pressure (ICD-10-PCS; 2020-01-26)
PROC: 0BH17EZ Insertion of Endotracheal Airway into Trachea, Via Natural or Artificial Opening (ICD-10-PCS; 2020-01-26)
PROC: 4A133B1 Monitoring of Arterial Pressure, Peripheral, Percutaneous Approach (ICD-10-PCS; 2020-01-26)
PROC: 4A133J1 Monitoring of Arterial Pulse, Peripheral, Percutaneous Approach (ICD-10-PCS; 2020-01-26)
PROC: 06HM33Z Insertion of Infusion Device into Right Femoral Vein, Percutaneous Approach (ICD-10-PCS; 2020-01-26)
PROC: 0DH63UZ Insertion of Feeding Device into Stomach, Percutaneous Approach (ICD-10-PCS; principal; 2020-02-05 10:00)
PROC: 0B110F4 Bypass Trachea to Cutaneous with Tracheostomy Device, Open Approach (ICD-10-PCS; principal; 2020-02-05 10:00)
PROC: 02HV33Z Insertion of Infusion Device into Superior Vena Cava, Percutaneous Approach (ICD-10-PCS; 2020-02-06)
PROC: 0W9B30Z Drainage of Left Pleural Cavity with Drainage Device, Percutaneous Approach (ICD-10-PCS; 2020-02-10)
PROC: 0B9D8ZX Drainage of Right Middle Lung Lobe, Via Natural or Artificial Opening Endoscopic, Diagnostic (ICD-10-PCS; 2020-02-11)
DX: A40.3 Sepsis due to Streptococcus pneumoniae (principal); U07.1 COVID-19; I50.23 Acute on chronic systolic (congestive) heart failure; J13 Pneumonia due to Streptococcus pneumoniae; J15.6 Pneumonia due to other Gram-negative bacteria; J96.22 Acute and chronic respiratory failure with hypercapnia; J96.21 Acute and chronic respiratory failure with hypoxia; N17.0 Acute kidney failure with tubular necrosis; R65.21 Severe sepsis with septic shock; J80 Acute respiratory distress syndrome; J44.0 Chronic obstructive pulmonary disease with (acute) lower respiratory infection; J44.1 Chronic obstructive pulmonary disease with (acute) exacerbation; J91.8 Pleural effusion in other conditions classified elsewhere; E46 Unspecified protein-calorie malnutrition; I48.19 Other persistent atrial fibrillation; E87.0 Hyperosmolality and hypernatremia; E87.2 Acidosis; J98.11 Atelectasis; E87.4 Mixed disorder of acid-base balance; E87.6 Hypokalemia; E87.5 Hyperkalemia; L89.312 Pressure ulcer of right buttock, stage 2; D69.6 Thrombocytopenia, unspecified; D63.8 Anemia in other chronic diseases classified elsewhere; E78.5 Hyperlipidemia, unspecified; I10 Essential (primary) hypertension; I25.10 Atherosclerotic heart disease of native coronary artery without angina pectoris; F17.210 Nicotine dependence, cigarettes, uncomplicated; K21.9 Gastro-esophageal reflux disease without esophagitis; K59.00 Constipation, unspecified; E87.8 Other disorders of electrolyte and fluid balance, not elsewhere classified; G47.30 Sleep apnea, unspecified; I25.5 Ischemic cardiomyopathy; I25.2 Old myocardial infarction; Z79.01 Long term (current) use of anticoagulants; Z79.82 Long term (current) use of aspirin; Z79.52 Long term (current) use of systemic steroids; Z79.899 Other long term (current) drug therapy; Z95.1 Presence of aortocoronary bypass graft; Z95.5 Presence of coronary angioplasty implant and graft; Z95.810 Presence of automatic (implantable) cardiac defibrillator; Z99.81 Dependence on supplemental oxygen; Z80.0 Family history of malignant neoplasm of digestive organs
CPT/HCPCS: 31624; 36415; 36573; 36600; 43246; 71045; 71250; 74019; 76604; 76770; 80048; 80053; 80202; 81001; 82272; 82550; 82728; 82803; 82805; 82945; 83605; 83615; 83625; 83735; 83880; 84132; 84145; 84157; 84295; 84484; 85025; 85027; 85379; 85384; 85610; 85730; 86140; 86704; 86706; 87040; 87070; 87075; 87077; 87102; 87116; 87186; 87205; 87206; 87252; 87340; 87496; 87498; 87502; 87529; 87634; 87635; 87798; 88108; 88305; 89050; 90935; 93005; 93306; 94002; 94003; 94640; 94660; 94760; 96374; 99285